=== PATIENT | male | born 1935 | race Caucasian/White ===

== ENCOUNTER 2017-09-11 11:40 | Outpatient (CLI) | payer MEDICARE | END 2017-09-11 11:41 | disposition home or self-care (01) | LOC: BICRAD 11:40 | PROVIDERS: ATTEND Internal Medicine Nephrology | DX: M54.5 Low back pain (principal); M47.896 Other spondylosis, lumbar region | CPT/HCPCS: 72100 ==

== ENCOUNTER → 2017-12-06 | Day surgery (SDC) | payer MEDICARE ==
[2017-12-05 15:59] VITALS: BMI 24.5
[2017-12-06 09:13] LABS: #Eosinphils 0.3 thou/uL (0.0-0.7); #Lymphocytes 0.6 thou/uL (1.20-3.40); #Monocytes 0.5 thou/uL (0.11-0.59); #Neutrophils 3.2 thou/uL (1.40-6.50); %Basophils 0.7 % (0.0-1.0); %Eosinophils 5.8 % (0.0-10.0); %Lymphocytes 13.1 % (21.0-51.0); %Monocytes 10.5 % (0.0-10.0); %Neutrophils 69.9 % (42.0-75.0); Hemoglobin 11.2 g/dL (14.0-18.0); Mean Corpuscular Hemoglobin 33.9 pg (27.0-31.0); Mean Corpuscular Volume 99.5 fl (80.0-94.0); Mean Platelet Volume 8.1 fL (7.4-10.4); Platelet Count 127 thou/uL (130-400); RBC Distribution Width 15.9 % (11.5-14.5); Red Blood Cell (RBC) Count 3.32 mill/uL (4.70-6.10); White Blood Cell (WBC) Count 4.6 thou/uL (4.8-10.8)
[2017-12-06 09:22] LABS: INR-International Normal Ratio 1.3; PTT 32.2 SEC (22.9-36.1); Prothrombin Time 16.2 SEC (12.0-14.7)
[2017-12-06 09:33] LABS: Anion Gap 11 mmol/L (10-20); BUN (Urea Nitrogen) 26 mg/dL (8.4-25.7); Calc. Creatinine Clearance 40 mL/min (70-130); Calcium 9.2 mg/dL (7.8-10.44); Carbon Dioxide 28 mmol/L (23-31); Chloride 99 mmol/L (98-107); Estimated GFR-MDRD 35; Glucose 105 mg/dL (83-110); Potassium 4.5 mmol/L (3.5-5.1); Sodium 133 mmol/L (136-145)
== END ==
LOC: CCL 08:30
PROVIDERS: ATTEND Internal Medicine Cardiovascular Disease
DX: I48.4 Atypical atrial flutter (principal); I25.2 Old myocardial infarction; I25.10 Atherosclerotic heart disease of native coronary artery without angina pectoris; Z53.8 Procedure and treatment not carried out for other reasons; Z79.82 Long term (current) use of aspirin; Z79.01 Long term (current) use of anticoagulants; Z79.899 Other long term (current) drug therapy; Z91.018 Allergy to other foods; Z95.1 Presence of aortocoronary bypass graft
CPT/HCPCS: 36415; 80048; 85025; 85610; 85730; 93005; 93010

== ENCOUNTER → 2017-12-25 | Day surgery (SDC) | payer MEDICARE ==
[2017-12-24 18:10] VITALS: BMI 25.0
[~2017-12-25] MED LIST: Lidocaine 1% w/Epinephrine 1:200K 30 ML VIAL ONE
--- NOTE | 2017-12-25 13:26 | OP ---
DATE OF PROCEDURE: 12/25/2017 PROCEDURE: Loop recorder implantation. SURGEON: Dr. Addi Bolton REASON FOR PROCEDURE: Mr. Willis is an 82-year-old man with history of atrial arrhythmias. He h as recently converted to sinus rhythm spontaneously, but was on antiarrhythmic therapy. He is here f or a loop recorder implantation for further arrhythmia monitoring. PROCEDURE: The left precordial area was prepped and anesthetized with subcutaneous lidocaine with Axiata insertion tool kit. A link recorder was inserted in the left 4th intercostal space. The wound was closed with Dermabond. No complications noted. CONCLUSION: Successful loop recorder implantation. PLAN: Continue routine monitoring.
== END ==
LOC: CCL 11:25
PROVIDERS: ATTEND Internal Medicine Cardiovascular Disease
PROC: 0JH632Z Insertion of Monitoring Device into Chest Subcutaneous Tissue and Fascia, Percutaneous Approach (ICD-10-PCS; principal; 2017-12-25)
DX: I48.0 Paroxysmal atrial fibrillation (principal); I25.10 Atherosclerotic heart disease of native coronary artery without angina pectoris; I25.2 Old myocardial infarction; D64.9 Anemia, unspecified; Z91.018 Allergy to other foods; Z79.01 Long term (current) use of anticoagulants; Z79.899 Other long term (current) drug therapy; Z95.1 Presence of aortocoronary bypass graft; Z98.890 Other specified postprocedural states
CPT/HCPCS: 33282; C1764

== ENCOUNTER 2017-12-27 17:21 | Emergency (ER) | payer MEDICARE ==
[2017-12-27 18:29] LABS: #Eosinphils 0.2 thou/uL (0.0-0.7); #Lymphocytes 0.8 thou/uL (1.20-3.40); #Monocytes 0.5 thou/uL (0.11-0.59); #Neutrophils 2.6 thou/uL (1.40-6.50); %Basophils 1.1 % (0.0-1.0); %Eosinophils 4.1 % (0.0-10.0); %Lymphocytes 18.4 % (21.0-51.0); %Monocytes 13.1 % (0.0-10.0); %Neutrophils 63.4 % (42.0-75.0); Hemoglobin 11.3 g/dL (14.0-18.0); Mean Corpuscular HGB CONC 33.5 g/dL (32.0-36.0); Mean Corpuscular Hemoglobin 33.6 pg (27.0-31.0); Mean Platelet Volume 8.8 fL (7.4-10.4); Platelet Count 117 thou/uL (130-400); RBC Distribution Width 15.9 % (11.5-14.5); Red Blood Cell (RBC) Count 3.35 mill/uL (4.70-6.10); White Blood Cell (WBC) Count 4.1 thou/uL (4.8-10.8)
--- NOTE | 2017-12-27 18:36 | RAD ---
CHEST ONE VIEW 12/27/17 HISTORY: Dizziness and weakness times several days. FINDINGS: There is sternotomy wires. Normal cardiac silhouette. Pulmonary vessels are normal. Increased interst itial opacities throughout the lung parenchyma are presumed to be chronic. No consolidation or masses . Old right rib fractures. No pneumothorax. IMPRESSION: Chronic changes. No acute process. POS: [facility]
[2017-12-27 18:55] LABS: ALT (SGPT) 9 U/L (8-55); AST (SGOT) 16 U/L (5-34); Albumin 3.8 g/dL (3.4-4.8); Alkaline Phosphatase 61 U/L (40-150); Anion Gap 12 mmol/L (10-20); BUN (Urea Nitrogen) 28 mg/dL (8.4-25.7); Bilirubin, Total 0.5 mg/dL (0.2-1.2); Calc. Creatinine Clearance 0 mL/min (70-130); Carbon Dioxide 27 mmol/L (23-31); Chloride 102 mmol/L (98-107); Estimated GFR-MDRD 32; Globulin 2.5 g/dL (2.4-3.5); Glucose 105 mg/dL (83-110); Potassium 4.4 mmol/L (3.5-5.1); Protein, Total 6.3 g/dL (5.8-8.1); Sodium 137 mmol/L (136-145)
[2017-12-27 18:57] LABS: CKMB 1.6 ng/mL (0-6.6); Troponin I 0.027 ng/mL (< 0.028)
== END 2017-12-27 20:20 | disposition home or self-care (01) ==
LOC: ERS 17:21
DX: R53.81 Other malaise (principal); I48.91 Unspecified atrial fibrillation; Z87.891 Personal history of nicotine dependence; I25.10 Atherosclerotic heart disease of native coronary artery without angina pectoris
CPT/HCPCS: 36415; 71045; 80053; 82553; 83880; 84484; 85025; 93005

== ENCOUNTER 2018-04-23 23:28 | Observation (INO) | payer MEDICARE ==
[2018-04-24 00:03] LABS: Hemoglobin 10.6 g/dL (14.0-18.0); Mean Corpuscular HGB CONC 35.3 g/dL (32.0-36.0); Mean Corpuscular Hemoglobin 35.5 pg (27.0-31.0); RBC Distribution Width 14.9 % (11.5-14.5); Red Blood Cell (RBC) Count 2.97 mill/uL (4.70-6.10); White Blood Cell (WBC) Count 4.2 thou/uL (4.8-10.8)
[2018-04-24 00:19] LABS: ALT (SGPT) 9 U/L (8-55); AST (SGOT) 14 U/L (5-34); Albumin 3.7 g/dL (3.4-4.8); Alkaline Phosphatase 59 U/L (40-150); Anion Gap 11 mmol/L (10-20); BUN (Urea Nitrogen) 36 mg/dL (8.4-25.7); Bilirubin, Total 0.6 mg/dL (0.2-1.2); CK (CPK) 53 U/L (30-200); Calc. Creatinine Clearance 0 mL/min (70-130); Calcium 8.9 mg/dL (7.8-10.44); Carbon Dioxide 28 mmol/L (23-31); Chloride 99 mmol/L (98-107); Estimated GFR-MDRD 27; Globulin 2.6 g/dL (2.4-3.5); Glucose 98 mg/dL (83-110); Lipase 10 U/L (8-78); Potassium 4.9 mmol/L (3.5-5.1); Protein, Total 6.3 g/dL (5.8-8.1); Sodium 133 mmol/L (136-145)
[2018-04-24 00:23] LABS: CKMB 1.7 ng/mL (0-6.6); Troponin I 0.022 ng/mL (< 0.028)
[2018-04-24 00:37] LABS: #Eosinphils 0.1 thou/uL (0.0-0.7); #Lymphocytes 0.9 thou/uL (1.20-3.40); #Monocytes 0.6 thou/uL (0.11-0.59); #Neutrophils 2.6 thou/uL (1.40-6.50); %Basophils 1.1 % (0.0-1.0); %Eosinophils 3.5 % (0.0-10.0); %Lymphocytes 20.9 % (21.0-51.0); %Monocytes 13.3 % (0.0-10.0); %Neutrophils 61.2 % (42.0-75.0); Mean Platelet Volume 9.2 fL (7.4-10.4); PLT Morphology Comment Appears Decreased; Platelet Count 107 thou/uL (130-400)
[2018-04-24 03:24] VITALS: BMI 25.4
[2018-04-24] MEDS ORDERED: Ondansetron HCl/PF 4 MG/2 ML Vial IVP PRN (03:35)
[2018-04-24] MEDS ORDERED: Ondansetron ODT 4 MG TAB SL PRN (03:35)
[2018-04-24] MEDS ORDERED: Acetaminophen 325 MG TAB PO PRN (03:35)
[2018-04-24 03:40] LABS: Troponin I 0.027 ng/mL (< 0.028)
--- NOTE | 2018-04-24 06:59 | RAD ---
CHEST ONE VIEW: HISTORY: Chest pain. COMPARISON: Chest radiograph from 12/27/2017. FINDINGS: Numerous old right-sided rib fractures. Heart size is enlarged. Mild edema. Mild pulmonary vascula r congestion. Scarring in the lung bases. Multiple midline sternotomy wires. Loop recording device projecting over the left hemithorax. IMPRESSION: 1. Cardiomegaly. 2. Pulmonary arterial hypertension. 3. Mild edema. POS: [facility]
[2018-04-24 08:19] VITALS: BP 141/65; TEMP 98.4
--- NOTE | 2018-04-24 14:10 | SS ---
DATE OF ADMISSION: 04/24/2018 REASON FOR ADMISSION: Chest pain. HISTORY OF PRESENT ILLNESS: The patient gives a history of having 2 sharp episodes of chest pain, wh ich happened yesterday evening. The first one was less than 5 seconds and pricking in nature. The s econd episode, which soon followed after 10 minutes and lasted for less than 30 seconds. There is no radiation of this pain. He called his daughter who in turn called EMS and the patient was brought h ere. The patient has chronic dry cough, but no expectoration. No complaints of fever, palpitations, PND or orthopnea. He normally ambulates by himself. No complaints of shortness of breath. PAST MEDICAL AND SURGICAL HISTORY: History of atrial fibrillation/flutter, history of congestive hea rt failure with diastolic dysfunction, CABG, prior stents, abdominal surgery due to trauma, chronic k idney disease likely stage IV, chronic anemia. CURRENT MEDICATIONS: The patient is on Coreg 6.25 mg p.o. twice daily, losartan 50 mg daily, pantopr azole 40 mg daily, Lasix 40 mg p.o. daily, aspirin 81 mg daily, Ranexa extended release 1000 mg twice daily, atorvastatin 80 mg daily, Xarelto 15 mg daily. ALLERGIES: No known drug allergies. PERSONAL HISTORY: Quit smoking 20 years ago, prior to which he has smoked 1 pack a day for nearly 20 years. Does not abuse alcohol or drugs. FAMILY HISTORY: Both parents had coronary artery disease. Both are . Mother also had blind ness. He does not recall the exact age of his parents when they . REVIEW OF SYSTEMS: The following complete review of systems was negative, unless otherwise mentioned in the HPI or below: Constitutional: Weight loss or gain, ability to conduct usual activities. Sk in: Rash, itching. Eyes: Double vision, pain. ENT/Mouth: Nose bleeding, neck stiffness, pain, te nderness. Cardiovascular: Palpitations, dyspnea on exertion, orthopnea. Respiratory: Shortness of breath, wheezing, cough, hemoptysis, fever or night sweats. Gastrointestinal: Poor appetite, abdom inal pain, heartburn, nausea, vomiting, constipation, or diarrhea. Genitourinary: Urgency, frequenc y, dysuria, nocturia. Musculoskeletal: Pain, swelling. Neurologic/Psychiatric: Anxiety, depressio n. Allergy/Immunologic: Skin rash, bleeding tendency. PHYSICAL EXAMINATION: GENERAL: The patient is an 82-year-old male who is currently not in any acute distress. VITAL SIGNS: Blood pressure 160/78, pulse 60 per minute, respiratory rate 18 per minute, temperature 98.3 degrees Fahrenheit, saturating 100% on room air. NECK: Supple. No elevated JVD. HEENT: Eyes, extraocular muscles intact. Pupils reacting to light. Oral cavity, mucous membranes a re moist. No exudates or congestion. CARDIOVASCULAR: S1, S2 heard. Regular rhythm. RESPIRATORY: Air entry 1+ bilaterally. No rales or rhonchi. ABDOMEN: Soft. Bowel sounds heard. No tenderness, rigidity or guarding. EXTREMITIES: No peripheral edema or calf tenderness. Has ecchymosis on both upper extremities on th e forearm and attributes it to him being on aspirin and Xarelto. VASCULAR: Peripheral pulses are 2+ bilateral. No ischemic ulcerations or gangrene. CENTRAL NERVOUS SYSTEM: No gross focal deficits noted. The patient is alert, awake and oriented wel l. The patient has sensorineural deafness. PSYCHIATRIC: The patient's mood is euthymic. No hallucinations or delusions. LABORATORY DATA: Chest x-ray done shows mild cardiomegaly. White count of 4, H and H 10 and 29, arthur telet count 107,000, MCV is 101 with 61% neutrophils. D-dimer is 0.4, BUN 36, creatinine 2.3, serum bicarbonate 28. Troponin x3 is negative. CK-MB 1.7. BNP is 792, albumin is 3.7. 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 This was compared to prior EKG and has remained unchanged. CLINICAL IMPRESSION AND PLAN: The patient will be shortly discharged home. He has had 2 sharp episo mary grace of chest pain and is currently asymptomatic. His 3 sets of troponin are negative. He has a foll owup appointment with Dr. Rodriguez this Sunday and I have discussed his findings with him. Dr. Rodriguez will see him on Sunday along with scheduled echo that is to be done on Sunday as well. I have given complete updates to the patient's daughter at bedside and she agrees with the current plan. He is am bulating in the hallway with no exertional chest pain or shortness of breath. The patient likely candido l need a lower dose of Cozaar with his chronic kidney disease stage 4. Recently, this was increased from 25 to 50 mg per family. He needs to continue all his other medications as before including Core g, Lasix, aspirin, Ranexa, atorvastatin and Xarelto. Please note, this is a same day admit discharge under observation status.
--- NOTE | 2018-04-27 10:53 | EKG ---
Test Reason : CP Blood Pressure : / mmHG Vent. Rate : 063 BPM Atrial Rate : 063 BPM P-R Int : 188 ms QRS Dur : 186 ms QT Int : 528 ms P-R-T Axes : -03 -69 043 degrees QTc Int : 540 ms Normal sinus rhythm Right bundle branch block Left anterior fascicular block Bifascicular block Minimal voltage criteria for LVH, may be normal variant Abnormal ECG Confirmed by SIMON PATE, JAG ([id number]), business editor RICHARD FERNANDEZ ([id number]) on 04/27/2018 10:53:01 AM Referred By: Confirmed By:JAG MONTES MD
== END 2018-04-24 11:14 | disposition home or self-care (01) ==
LOC: ERS 23:28 → 2SW 04-24 00:30
PROVIDERS: ADMIT Internal Medicine; ATTEND Internal Medicine
DX: R07.9 Chest pain, unspecified (principal); I48.91 Unspecified atrial fibrillation; I48.92 Unspecified atrial flutter; I50.30 Unspecified diastolic (congestive) heart failure; N18.4 Chronic kidney disease, stage 4 (severe); D63.1 Anemia in chronic kidney disease; Z87.891 Personal history of nicotine dependence; Z79.82 Long term (current) use of aspirin; Z79.899 Other long term (current) drug therapy; Z91.018 Allergy to other foods; Z95.1 Presence of aortocoronary bypass graft; Z95.5 Presence of coronary angioplasty implant and graft
CPT/HCPCS: 71045; 80053; 82550; 82553; 83690; 83880; 84484 ×3; 85025; 85379; 93005; 97139; 99285; G0378 ×2; 36415

== ENCOUNTER 2018-07-17 17:29 | Outpatient (CLI) | payer MEDICARE ==
[2018-07-17 18:05] LABS: #Basophils 0.1 thou/uL (0.0-0.2); #Eosinphils 0.1 thou/uL (0.0-0.7); #Lymphocytes 0.9 thou/uL (1.20-3.40); #Monocytes 0.6 thou/uL (0.11-0.59); #Neutrophils 2.7 thou/uL (1.40-6.50); %Basophils 1.4 % (0.0-1.0); %Eosinophils 3.4 % (0.0-10.0); %Monocytes 12.9 % (0.0-10.0); %Neutrophils 62.3 % (42.0-75.0); Hemoglobin 10.5 g/dL (14.0-18.0); Mean Corpuscular Hemoglobin 33.5 pg (27.0-31.0); Mean Platelet Volume 9.8 fL (7.4-10.4); Platelet Count 117 thou/uL (130-400); RBC Distribution Width 15.9 % (11.5-14.5); Red Blood Cell (RBC) Count 3.14 mill/uL (4.70-6.10); White Blood Cell (WBC) Count 4.3 thou/uL (4.8-10.8)
[2018-07-17 18:06] LABS: INR-International Normal Ratio 1.6; PTT 35.1 SEC (22.9-36.1); Prothrombin Time 19.4 SEC (12.0-14.7)
[2018-07-17 18:21] LABS: ALT (SGPT) 9 U/L (8-55); AST (SGOT) 16 U/L (5-34); Albumin 4.1 g/dL (3.4-4.8); Alkaline Phosphatase 61 U/L (40-150); Anion Gap 10 mmol/L (10-20); BUN (Urea Nitrogen) 26 mg/dL (8.4-25.7); Bilirubin, Total 0.9 mg/dL (0.2-1.2); Calc. Creatinine Clearance 0 mL/min (70-130); Calcium 9.5 mg/dL (7.8-10.44); Carbon Dioxide 28 mmol/L (23-31); Chloride 101 mmol/L (98-107); Estimated GFR-MDRD 33; Globulin 2.6 g/dL (2.4-3.5); Glucose 96 mg/dL (83-110); Potassium 4.5 mmol/L (3.5-5.1); Protein, Total 6.7 g/dL (5.8-8.1); Sodium 134 mmol/L (136-145)
== END 2018-07-17 17:30 | disposition home or self-care (01) ==
LOC: LABBT 17:29
PROVIDERS: ATTEND Internal Medicine Cardiovascular Disease
DX: Z01.812 Encounter for preprocedural laboratory examination (principal); R94.39 Abnormal result of other cardiovascular function study
CPT/HCPCS: 80053; 85025; 85610; 85730

== ENCOUNTER → 2018-07-24 | Day surgery (SDC) | payer MEDICARE ==
[2018-07-17 17:33] VITALS: BMI 25.1
[2018-07-24 08:13] LABS: INR-International Normal Ratio 1.1; PTT 30.6 SEC (22.9-36.1); Prothrombin Time 14.5 SEC (12.0-14.7)
[2018-07-24 08:25] LABS: Anion Gap 12 mmol/L (10-20); BUN (Urea Nitrogen) 32 mg/dL (8.4-25.7); Calc. Creatinine Clearance 33 mL/min (70-130); Calcium 8.9 mg/dL (7.8-10.44); Carbon Dioxide 26 mmol/L (23-31); Chloride 102 mmol/L (98-107); Cholesterol 128 mg/dl (< 200 Desired); Estimated GFR-MDRD 29; Glucose 96 mg/dL (83-110); HDL Cholesterol 43 mg/dL (>60 Neg Risk); LDL Cholesterol, Calculated 69 mg/dL; Potassium 4.2 mmol/L (3.5-5.1); Sodium 136 mmol/L (136-145); Triglycerides 82 mg/dL (Less than 150)
== END ==
LOC: CCL 07:15
PROVIDERS: ATTEND Internal Medicine Cardiovascular Disease
DX: R94.39 Abnormal result of other cardiovascular function study (principal); I25.10 Atherosclerotic heart disease of native coronary artery without angina pectoris; I25.2 Old myocardial infarction; I48.4 Atypical atrial flutter; I10 Essential (primary) hypertension; I49.5 Sick sinus syndrome; Z53.9 Procedure and treatment not carried out, unspecified reason; Z79.01 Long term (current) use of anticoagulants; Z79.82 Long term (current) use of aspirin; Z79.899 Other long term (current) drug therapy; Z91.018 Allergy to other foods; Z95.1 Presence of aortocoronary bypass graft
CPT/HCPCS: 80048; 80061; 85610; 85730

== ENCOUNTER 2018-08-22 16:00 | Observation (INO) | payer MEDICARE ==
[2018-08-29 17:09] VITALS: BMI 24.6
[2018-08-29] MEDS ORDERED: Communication Order-Pharmacy FS SCH (18:15)
[2018-08-29 18:55] LABS: #Eosinphils 0.1 thou/uL (0.0-0.7); #Lymphocytes 0.7 thou/uL (1.20-3.40); #Monocytes 0.5 thou/uL (0.11-0.59); #Neutrophils 3.3 thou/uL (1.40-6.50); %Basophils 0.6 % (0.0-1.0); %Eosinophils 2.8 % (0.0-10.0); %Lymphocytes 14.6 % (21.0-51.0); %Monocytes 11.2 % (0.0-10.0); %Neutrophils 70.8 % (42.0-75.0); Hemoglobin 9.6 g/dL (14.0-18.0); Mean Corpuscular HGB CONC 34.3 g/dL (32.0-36.0); Mean Corpuscular Hemoglobin 33.9 pg (27.0-31.0); Mean Corpuscular Volume 98.8 fL (78.0-98.0); Mean Platelet Volume 10.3 fL (7.4-10.4); Platelet Count 96 thou/uL (130-400); RBC Distribution Width 15.8 % (11.5-14.5); Red Blood Cell (RBC) Count 2.83 mill/uL (4.70-6.10); White Blood Cell (WBC) Count 4.6 thou/uL (4.8-10.8)
[2018-08-29 19:06] LABS: ALT (SGPT) 11 U/L (8-55); AST (SGOT) 17 U/L (5-34); Albumin 3.8 g/dL (3.4-4.8); Alkaline Phosphatase 62 U/L (40-150); Anion Gap 13 mmol/L (10-20); BUN (Urea Nitrogen) 33 mg/dL (8.4-25.7); Bilirubin, Total 0.7 mg/dL (0.2-1.2); Calc. Creatinine Clearance 32 mL/min (70-130); Carbon Dioxide 27 mmol/L (23-31); Chloride 100 mmol/L (98-107); Estimated GFR-MDRD 28; Globulin 2.7 g/dL (2.4-3.5); Glucose 103 mg/dL (83-110); Potassium 4.2 mmol/L (3.5-5.1); Protein, Total 6.5 g/dL (5.8-8.1); Sodium 136 mmol/L (136-145)
--- NOTE | 2018-08-29 19:12 | HP ---
CHIEF COMPLAINT: Cardiomyopathy. HISTORY OF PRESENT ILLNESS: Mr. Willis is a pleasant 82-year-old white gentleman, who comes to the hospital for prehydration for heart catheterization. His creatinine, however, is about 2.2 to 2.4, so we are planning on admitting him overnight for overnight hydration in hopes to reduce the risk of contrast- induced nephropathy. He has known coronary artery disease with bypass in the x4. He recently had a reduction in his LV function and is requiring evaluation for ischemia. He denies any chest pain, tightness, or pressure. He does get short winded with minimal exertion. PAST MEDICAL HISTORY: 1. Coronary artery disease, status post bypass as above. 2. Complete heart block, status post pacemaker placement. 3. Atrial flutter. 4. Hypertension. 5. Peripheral vascular disease. SURGICAL HISTORY: 1. CABG x4 in . 2. Pacemaker placement as above. FAMILY HISTORY: Mother with diabetes, [place], and stroke. Father with an aneurysm in his brain and cardiac disease. Brothers with coronary artery disease. MEDICATIONS: Outpatient medications were reviewed: 1. Carvedilol 12.5 mg b.i.d. 2. Isordil 5 mg b.i.d. 3. Atorvastatin 80 mg at bedtime. 4. Furosemide 40 mg a day. 5. Ranexa 1000 mg b.i.d. 6. Iron supplements. 7. Pantoprazole 40 mg a day. 8. Aspirin 81 mg a day. 9. Vitamin D3. 10. Xarelto 15 mg a day. ALLERGIES: NO KNOWN DRUG ALLERGIES. SOCIAL HISTORY: No alcohol, tobacco, or drugs. REVIEW OF SYSTEMS: A 12-point review of systems was done and was found to be negative other than stated in the history of present illness. PHYSICAL EXAMINATION: VITAL SIGNS: Temperature 97.7, pulse 68, respiratory rate 20, saturating 97% on room air, blood pressure 139/74. GENERAL: Awake, alert, and oriented x3, in no distress. HEENT: Normocephalic, atraumatic. NECK: Supple. LUNGS: Clear. CARDIOVASCULAR: S1, S2. No S3 or S4. No murmurs. ABDOMEN: Soft. Positive bowel sounds. EXTREMITIES: No edema. SKIN: Warm and dry. LABORATORY WORK: Still pending at this time. ASSESSMENT: 1. Dilated cardiomyopathy. 2. Coronary artery disease, status post coronary artery bypass grafting x4 in . 3. Reduced EF at 30% to 35%. 4. Chronic kidney disease stage 4. PLAN: 1. Overnight hydration with plans to do a heart catheterization tomorrow through the right groin approach given his history of bypass surgery. He had his last xarelto on Sunday so he should be good to go tomorrow. 2. Full code. Job ID: [id number] [facility]
[2018-08-29 19:32] LABS: Anisocytosis SLIGHT = 6-15 cells (100X) (0-5/hpf); Elliptocytes SLIGHT = 2-5 cells (100X) (0-1/hpf); MDiff Complete? YES; Ovalocytes SLIGHT = 2-5 cells (100X) (0-1/hpf); PLT Morphology Comment Appears Decreased; Poikilocytosis SLIGHT = 6-15 cells (100X) (0-5/hpf); Polychromasia SLIGHT = 2-3 cells (100X) (0-2/hpf); Schistocytes SLIGHT = 2-5 cells (100X) (0-1/hpf)
[2018-08-29] MEDS ORDERED: Atorvastatin Calcium 40 MG TAB PO SCH (21:00)
[2018-08-29] MEDS: Isosorbide Dinitrate 5 MG TAB PO SCH (21:44)
[2018-08-29] MEDS ORDERED: Sodium Chloride 0.9% 1,000 ML IV SCH (22:00)
[2018-08-29] MEDS ORDERED: Carvedilol 6.25 MG TAB PO SCH (22:00)
[2018-08-30 04:51] LABS: #Eosinphils 0.1 thou/uL (0.0-0.7); #Lymphocytes 0.9 thou/uL (1.20-3.40); #Monocytes 0.5 thou/uL (0.11-0.59); #Neutrophils 2.9 thou/uL (1.40-6.50); %Basophils 0.8 % (0.0-1.0); %Eosinophils 2.8 % (0.0-10.0); %Lymphocytes 19.2 % (21.0-51.0); %Monocytes 11.7 % (0.0-10.0); %Neutrophils 65.5 % (42.0-75.0); Hemoglobin 8.7 g/dL (14.0-18.0); Mean Corpuscular HGB CONC 34.5 g/dL (32.0-36.0); Mean Corpuscular Hemoglobin 34.2 pg (27.0-31.0); Mean Corpuscular Volume 99.2 fL (78.0-98.0); Mean Platelet Volume 10.7 fL (7.4-10.4); Platelet Count 73 thou/uL (130-400); RBC Distribution Width 15.7 % (11.5-14.5); Red Blood Cell (RBC) Count 2.55 mill/uL (4.70-6.10); White Blood Cell (WBC) Count 4.5 thou/uL (4.8-10.8)
[2018-08-30 05:12] LABS: Anion Gap 8 mmol/L (10-20); BUN (Urea Nitrogen) 33 mg/dL (8.4-25.7); Calc. Creatinine Clearance 34 mL/min (70-130); Calcium 8.4 mg/dL (7.8-10.44); Carbon Dioxide 30 mmol/L (23-31); Chloride 100 mmol/L (98-107); Estimated GFR-MDRD 30; Glucose 94 mg/dL (83-110); Sodium 134 mmol/L (136-145)
[2018-08-30] MEDS: Carvedilol 6.25 MG TAB PO SCH ×2 (05:52→17:22)
[2018-08-30] MEDS: Isosorbide Dinitrate 5 MG TAB PO SCH (05:53)
[2018-08-30] MEDS ORDERED: Fentanyl 100 MCG/2 ML VIAL ONE (09:30)
[2018-08-30] MEDS ORDERED: Midazolam HCl 2 mg/2 ml Vial ONE (09:31)
[2018-08-30] MEDS ORDERED: Nitroglycerin 0.4 MG TAB (25 Tab Bottle) SL PRN (10:35)
[2018-08-30] MEDS ORDERED: Acetaminophen/Codeine 30-300mg Tablet PO PRN (10:35)
[2018-08-30] MEDS ORDERED: traMADol HCl 50 MG TAB PO PRN (10:35)
[2018-08-30] MEDS ORDERED: Sodium Chloride 0.9% 200 ML IV SCH (10:45)
[2018-08-30] MEDS ORDERED: Iopamidol 370 76% 100 ML VIAL ONE (12:46)
[2018-08-30 15:32] VITALS: BP 152/73; TEMP 97.4
== END 2018-08-30 17:14 | disposition home or self-care (01) ==
LOC: 2SW 08-29 16:09 → EDSTATUS 08-30 16:00
PROVIDERS: ADMIT Internal Medicine Cardiovascular Disease; ATTEND Internal Medicine Cardiovascular Disease
PROC: 4A023N7 Measurement of Cardiac Sampling and Pressure, Left Heart, Percutaneous Approach (ICD-10-PCS; principal; 2018-08-30)
PROC: B2121ZZ Fluoroscopy of Single Coronary Artery Bypass Graft using Low Osmolar Contrast (ICD-10-PCS; 2018-08-30)
DX: I25.810 Atherosclerosis of coronary artery bypass graft(s) without angina pectoris (principal); I25.82 Chronic total occlusion of coronary artery; I44.2 Atrioventricular block, complete; I42.0 Dilated cardiomyopathy; I73.9 Peripheral vascular disease, unspecified; I48.92 Unspecified atrial flutter; I12.9 Hypertensive chronic kidney disease with stage 1 through stage 4 chronic kidney disease, or unspecified chronic kidney disease; N18.4 Chronic kidney disease, stage 4 (severe); Z95.1 Presence of aortocoronary bypass graft; Z95.0 Presence of cardiac pacemaker; Z91.018 Allergy to other foods; Z79.82 Long term (current) use of aspirin; Z79.01 Long term (current) use of anticoagulants; Z79.899 Other long term (current) drug therapy
CPT/HCPCS: 80048; 80053; 85025 ×2; 93455; 96360; 96361 ×2; C1769; G0378; 36415; 99152; 99153; J1644; J2250; J3010

== ENCOUNTER 2018-09-10 22:59 | Inpatient (IN) | payer MEDICARE ==
[2018-09-10] MEDS ORDERED: Lorazepam 2 MG/ML VIAL ONE ×2 (23:12→23:42)
--- NOTE | 2018-09-10 23:22 | RAD ---
PORTABLE CHEST: 09/10/18 PROVIDED CLINICAL HISTORY: Chest pain. FINDINGS: Comparison 04/23/18. The cardiac silhouette appears enlarged. Median sternotomy changes, atherosclerosis and left subclavi an cardiac pacing device are noted. Leads overlie expected location of RA and RV. Multiple right side d rib fractures are redemonstrated. There is no focal consolidation, pleural fluid or pneumothorax ap parent. IMPRESSION: Cardiomegaly without evidence of acute cardiopulmonary process. POS: [facility]
[2018-09-10 23:23] LABS: INR-International Normal Ratio 3.9; Prothrombin Time 38.4 SEC (12.0-14.7)
[2018-09-10 23:29] LABS: ALT (SGPT) 10 U/L (8-55); AST (SGOT) 18 U/L (5-34); Albumin 3.5 g/dL (3.4-4.8); Alkaline Phosphatase 61 U/L (40-150); Anion Gap 11 mmol/L (10-20); BUN (Urea Nitrogen) 43 mg/dL (8.4-25.7); Bilirubin, Total 0.6 mg/dL (0.2-1.2); Calc. Creatinine Clearance 0 mL/min (70-130); Calcium 8.4 mg/dL (7.8-10.44); Carbon Dioxide 25 mmol/L (23-31); Chloride 99 mmol/L (98-107); Estimated GFR-MDRD 26; Globulin 2.6 g/dL (2.4-3.5); Glucose 118 mg/dL (83-110); Potassium 4.7 mmol/L (3.5-5.1); Protein, Total 6.1 g/dL (5.8-8.1); Sodium 130 mmol/L (136-145)
[2018-09-10] MEDS ORDERED: levETIRAcetam In NaCl (Iso-Os) 1,000 MG in Premix Bag 1 BAG IVPB SCH (23:30)
[2018-09-10 23:33] LABS: #Eosinphils 0.1 thou/uL (0.0-0.7); #Lymphocytes 0.8 thou/uL (1.20-3.40); #Monocytes 0.5 thou/uL (0.11-0.59); #Neutrophils 2.9 thou/uL (1.40-6.50); %Basophils 0.9 % (0.0-1.0); %Eosinophils 3.3 % (0.0-10.0); %Lymphocytes 18.8 % (21.0-51.0); %Monocytes 12.1 % (0.0-10.0); %Neutrophils 64.9 % (42.0-75.0); Anisocytosis SLIGHT = 6-15 cells (100X) (0-5/hpf); CKMB 1.5 ng/mL (0-6.6); Elliptocytes SLIGHT = 2-5 cells (100X) (0-1/hpf); Hemoglobin 8.3 g/dL (14.0-18.0); MDiff Complete? YES; Mean Corpuscular HGB CONC 34.5 g/dL (32.0-36.0); Mean Corpuscular Hemoglobin 34.2 pg (27.0-31.0); Mean Corpuscular Volume 99.1 fL (78.0-98.0); Mean Platelet Volume 10.1 fL (7.4-10.4); Platelet Count 99 thou/uL (130-400); Platelet Morphology Comment Appears Decreased; RBC Distribution Width 16.3 % (11.5-14.5); Red Blood Cell (RBC) Count 2.42 mill/uL (4.70-6.10); Troponin I 0.021 ng/mL (< 0.028); White Blood Cell (WBC) Count 4.4 thou/uL (4.8-10.8)
[2018-09-10 23:58] LABS: Bilirubin Negative (Negative); Blood, Urine Negative (Negative); Clarity CLEAR (Clear); Glucose, Urine (Dipstick) Negative (Negative); Leukocyte Negative (Negative); Nitrite Negative (Negative); Protein, Urine (Dipstick) 30 mg/dL (Neg-Trace); Specific Gravity, Urine 1.012 (1.002-1.036); pH, Urine 5.5 (5.0-9.0)
[2018-09-11 00:01] LABS: Bacteria/HPF None Seen HPF (None Seen); Hyaline Casts/LPF 0-3 HYALINE CAST LPF (0-3 Hyaline); RBC/HPF None Seen HPF (0-3); Squamous Epithelial None Seen HPF (0-3); WBC/HPF None Seen HPF (0-3)
--- NOTE | 2018-09-11 00:05 | CT ---
CT BRAIN 09/10/18 PROVIDED CLINICAL HISTORY: Altered mental status. FINDINGS: No comparisons. The ventricular system is prominent on the basis of central atrophy. There is no evidence for intracr anial hemorrhage or mass effect. Chronic microvascular white matter ischemic changes are seen. The ex tracranial soft tissues and osseous structures demonstrate an unremarkable CT appearance. IMPRESSION: No evidence for intracranial hemorrhage or mass effect. POS: [facility]
[2018-09-11 00:44] LABS: Acetaminophen Less than 6.0 mcg/mL (10.0-30.0); Alcohol Less than 10 mg/dL (Less than 10); Salicylate Less than 8.0 mg/dL (15.0-30.0)
[2018-09-11 00:45] LABS: Amphetamine Not Detected (NotDetected); Barbiturates Screen Not Detected (NotDetected); Benzodiazepine Screen Not Detected (NotDetected); Cocaine Metabolite Screen Not Detected (NotDetected); Medtox Control Line Valid? VALID (VALID); Medtox Reader # READER 4; Methadone Not Detected (NotDetected); Methamphetamine Not Detected (NotDetected); Opiate Screen Not Detected (NotDetected); Oxycodone Screen Not Detected (NotDetected); Phencyclidine (PCP) Not Detected (NotDetected); THC/Cannabinoid Screen Not Detected (NotDetected); Tricyclic Screen Not Detected (NotDetected)
[2018-09-11] MEDS ORDERED: hydrALAZINE 20 MG/ML VIAL SLOW IVP PRN (03:46)
[2018-09-11] MEDS ORDERED: Senokot S 8.6-50 MG TAB PO PRN (03:46)
[2018-09-11] MEDS ORDERED: Bisacodyl 5 MG TAB PO PRN (03:46)
[2018-09-11] MEDS ORDERED: Calcium Carbonate 500 MG ChewTAB PO PRN (03:46)
[2018-09-11] MEDS ORDERED: Zolpidem Tartrate 5 MG TAB PO PRN (03:46)
[2018-09-11] MEDS ORDERED: Acetaminophen 325 MG TAB PO PRN (03:46)
[2018-09-11] MEDS ORDERED: Guaifenesin DM 100-10/5 ML UDCUP PO PRN (03:46)
[2018-09-11] MEDS ORDERED: Ondansetron ODT 4 MG TAB PO PRN (03:46)
[2018-09-11] MEDS ORDERED: Labetalol HCl 100 MG/20 ML VIAL SLOW IVP PRN (03:46)
[2018-09-11] MEDS ORDERED: Acetaminophen 650 MG Suppository PR PRN (03:46)
[2018-09-11] MEDS ORDERED: Ondansetron PF 4 MG/2 ML Vial IVP PRN (03:46)
[2018-09-11] MEDS ORDERED: Aspirin 81 mg Enteric Coated Tablet PO SCH (04:15)
[2018-09-11] MEDS: Sodium Chloride 0.9% 1,000 ML IV SCH ×2 (04:25→18:22)
[2018-09-11] MEDS ORDERED: Aspirin 300 MG Suppository ONE (05:26)
[2018-09-11] MEDS ORDERED: Lorazepam 2 MG/ML VIAL SLOW IVP PRN (07:42)
--- NOTE | 2018-09-11 08:26 | HP ---
CHIEF COMPLAINT: Seizures and generalized weakness. HISTORY OF PRESENT ILLNESS: This is an 82-year-old white gentleman with past medical history of coronary artery disease, status post bypass; complete heart block, status post pacemaker; atrial flutter; hypertension; peripheral vascular disease, presenting with generalized weakness and shaking. Per the daughter, patient was here in the hospital 2 weeks ago, and the patient was diagnosed with dilated cardiomyopathy. The patient's ejection fraction during that time was found to be reduced at 30% to 35%. The patient was treated during that time, and the patient improved. However, per the daughter the patient has now become very altered, very lethargic. In the past couple of days, she has noted that when the patient is sitting by the dinner table, the patient has this shaking. Prior to this hospital visit that daughter states that the patient called her and stated that he was having bilateral leg weakness and some chest discomfort. On the day of admission, the patient was found very altered, confused, and the patient started shaking and seizing. Daughter states that she was the witness to the patient's seizing. She was very scared because the patient became unresponsive , so she had to call 911, so that the patient can be brought to a hospital for further evaluation and treatment. At this time, the patient is lying in bed. The patient is still confused. REVIEW OF SYSTEMS: Unable to be obtained due to the patient's mental status. PAST MEDICAL HISTORY: Coronary artery disease, status post bypass; complete heart block, status post pacemaker placement; atrial flutter; hypertension; peripheral vascular disease. FAMILY HISTORY: Mother has diabetes, [place], and stroke. Father with aneurysm in his brain and cardiac disease. PAST SURGICAL HISTORY: CABG x4 in . Pacemaker placement. SOCIAL HISTORY: The patient denies illicit drug use. Denies drinking history or smoking. MEDICATIONS: The patient takes carvedilol 12.5 mg b.i.d., isosorbide mononitrate 5 mg b.i.d., atorvastatin 80 mg, furosemide 40 mg, Ranexa 1000 mg, iron supplements, pantoprazole 40 mg, aspirin 81 mg, vitamin D3, Xarelto. ALLERGIES: NO KNOWN DRUG ALLERGIES. PHYSICAL EXAMINATION: GENERAL: The patient is lying in bed on his right side. The patient is confused. Daughter is by the bedside. HEENT: Normocephalic and atraumatic. Pupils are equally round and reactive to light. Extraocular movements are intact. No scleral icterus. No conjunctival pallor. Mucous membranes are dry. NECK: Trachea is midline. Full range of motion. No JVD appreciated. Supple. No tenderness. LUNGS: Clear to auscultation bilaterally. No wheezing, no rales, no rhonchi appreciated. CARDIAC: Positive S1 and S2. Regular rate and rhythm. No murmurs, no gallops that can be appreciated. ABDOMEN: Obese. Abdomen is soft, nontender, and nondistended. Positive bowel sounds in all quadrants. EXTREMITIES: The patient has good pulses at the radial aspect and good pulses at the dorsalis pedis bilaterally. The patient is able to move upper and lower extremities spontaneously, but the patient is not following commands. NEUROLOGIC: Cranial nerves 2 through 12 grossly intact. No neurologic deficits noted. SKIN: Warm, dry, and intact. PSYCHIATRIC: The patient is confused at this time. DIAGNOSTIC DATA: CT of the head showed no evidence for intracranial hemorrhage or mass effect. Chest x-ray showed cardiomegaly without evidence of acute cardiopulmonary process. LABORATORY DATA: WBC is 4.4, hemoglobin is 8.3, hematocrit is 24.0, MCV is 99.1 , platelet is 99. PT is 38.4, INR is 3.9, PTT is 45.0. Sodium is 130, potassium is 4.7, chloride is 99, carbon dioxide of 25, anion gap of 11, BUN is 43, creatinine is 2.41, glucose is 118. Lactic acid is 1.4. Toxicology is negative. ASSESSMENT AND PLAN: This is an 82-year-old male being admitted in the hospital for, 1. Acute encephalopathy, likely due to a postictal state from seizures. At this time, the patient is going to be put on Ativan p.r.n. and we will start Keppra 500 b.i.d. since the patient experienced seizures. We will continue the patient on the current treatment. We will follow up with Neurology regarding any further recommendations. 2. Alteration of awareness, likely due to ongoing decline of mentation. At this point, the patient is seemed to be having some dementia at this time. We will monitor the patient and assess the patient's mental status during the hospital stay. 3. Chronic kidney disease stage IV. At this time, we will consult Nephrology for further treatment. We will follow up with the recommendations. We will follow up on renal function panel. 4. Generalized weakness. We will rule out CVA. At this time, we have ordered MRI of the head. CT of the head has been negative. We will follow up with Neurology regarding further recommendation. We will start the patient on aspirin, atorvastatin. We will follow up on morning labs. We will order PT, OT and Case Management consultations. 5. Dilated cardiomyopathy with ejection fraction at 30%. We will continue the patient on home medications, and we will monitor the patient closely. 6. Coronary artery disease, status post coronary artery bypass graft. At this point, the patient denies any chest pain. We will continue the patient on home medications, and we will monitor the patient closely. 7. Deep vein thrombosis/gastrointestinal prophylaxis has been addressed. Job ID: [id number] [facility]
[2018-09-11] MEDS: Isosorbide Dinitrate 5 MG TAB PO SCH ×2 (09:00→20:52)
[2018-09-11] MEDS ORDERED: Carvedilol 25 MG TAB PO SCH (09:00)
[2018-09-11] MEDS ORDERED: Non-Formulary Item 1 EACH (Ranolazine [Ranexa] 1,000 MG) PO SCH (09:00)
[2018-09-11 10:05] LABS: INR-International Normal Ratio 2.5; Prothrombin Time 27.4 SEC (12.0-14.7)
--- NOTE | 2018-09-11 10:22 | PDOC.PN ---
- Subjective Encounter Start Date: 09/11/18 Encounter Start Time: 10:20 Mr. Willis was seen today in follow-up of possible new onset seizures. His daughter witnessed the event and describes a sudden tonic like state, followed by his hand shaking, and him lossing awareness. Afterwards, he was sleepy, confused and a bit agitated. - Objective Resuscitation Status - Order Detail: 09/11/18 03:46 Resuscitation Status Routine Resuscitation Status: FULL: Full Resuscitation MAR Reviewed: Yes Result Diagrams: 09/10/18 23:06 09/10/18 23:06 Phys Exam - Physical Examination HEENT: PERRLA Respiratory: no wheezing, no rales, no rhonchi, clear to auscultation bilateral Cardiovascular: RRR, no significant murmur, no rub Musculoskeletal: no edema Dx/Plan (1) New onset seizure Code(s): R56.9 - UNSPECIFIED CONVULSIONS Status: Acute (2) Hyponatremia Code(s): E87.1 - HYPO-OSMOLALITY AND HYPONATREMIA Status: Acute (3) Atrial flutter Code(s): I48.92 - UNSPECIFIED ATRIAL FLUTTER Status: Acute (4) Hypertension Code(s): I10 - ESSENTIAL (PRIMARY) HYPERTENSION Status: Acute - Plan * New Onset Seizures- continue Keppra IV. EEG and MRI have been ordered( CT scan if his pacemaker is not compatible) * Atrial Flutter- stable- he is on Xarelto for CVA prevention * HTN- blood pressure is a bit elevated- continue Carvediolol, and PRN Hydralazine and Labetalol * Hyponatremia- will re-check his serum sodium- correct if needed
[2018-09-11 10:59] LABS: Anion Gap 13 mmol/L (10-20); BUN (Urea Nitrogen) 40 mg/dL (8.4-25.7); Calc. Creatinine Clearance 0 mL/min (70-130); Calcium 8.1 mg/dL (7.8-10.44); Carbon Dioxide 22 mmol/L (23-31); Chloride 102 mmol/L (98-107); Estimated GFR-MDRD 28; Glucose 105 mg/dL (83-110); Potassium 4.4 mmol/L (3.5-5.1); Sodium 133 mmol/L (136-145)
[2018-09-11] MEDS ORDERED: Lorazepam 2 MG/ML VIAL ONE (14:52)
--- NOTE | 2018-09-11 15:14 | EEG ---
Referring Physician: Liz GOLDSTEIN EEG # [id number] TEST TYPE: ROUTINE PORTABLE INPATIENT REPORT: AN EEG USING THE INTERNATIONAL TEN-TWENTY SYSTEM OF ELECTRODE PLACEMENT WAS PERFORMED. The waking background activity is a low amplitude 9 hertz Alpha frequency. EMG artifact obscures portions of the record. No sleep was seen. Photic stimulation was unremarkable. No epileptiform features were present. IMPRESSION: THIS IS A NORMAL AWAKE EEG. Merchandise Flow Team Leader: MACI Saw Man: PANFILO.SO CARRASCO
[2018-09-11 17:40] VITALS: BMI 23.8
[2018-09-11] MEDS: Aspirin 81 mg Enteric Coated Tablet PO SCH (18:23)
[2018-09-11] MEDS: Famotidine 20 MG TAB PO SCH (18:50)
[2018-09-11] MEDS: Famotidine/PF 20 mg/2ml Vial SLOW IVP SCH (18:50)
[2018-09-11] MEDS: Carvedilol 25 MG TAB PO SCH (20:55)
[2018-09-11] MEDS: Atorvastatin Calcium 40 MG TAB PO SCH (20:56)
[2018-09-11] MEDS ORDERED: Prevnar 13-Val Conj/PF 0.5 ML SYRINGE IM ONE (21:00)
[2018-09-11] MEDS ORDERED: Rivaroxaban 15 MG TAB PO SCH (21:00)
--- NOTE | 2018-09-11 23:14 | PDOC.EVN ---
Event Note - Event Note Event Note: JEROME Blancas called and stated patient had an episode of gross hematuria, and now oozing slightly. No obvious injury. Will stop Xarelto for now, order serial H&H and informed Dr. Sorensen of event. Agrees with plan.
[2018-09-11 23:16] LABS: Hemoglobin 8.4 g/dL (14.0-18.0)
[2018-09-12] MEDS: Sodium Chloride 0.9% 1,000 ML IV SCH (01:39)
[2018-09-12 05:37] LABS: Hemoglobin 8.2 g/dL (14.0-18.0)
[2018-09-12 05:45] LABS: Prothrombin Time 31.4 SEC (12.0-14.7)
[2018-09-12 05:50] LABS: #Eosinphils 0.1 thou/uL (0.0-0.7); #Lymphocytes 0.7 thou/uL (1.20-3.40); #Monocytes 0.5 thou/uL (0.11-0.59); #Neutrophils 3.1 thou/uL (1.40-6.50); %Basophils 0.8 % (0.0-1.0); %Eosinophils 2.9 % (0.0-10.0); %Lymphocytes 15.9 % (21.0-51.0); %Monocytes 11.7 % (0.0-10.0); %Neutrophils 68.7 % (42.0-75.0); Hemoglobin 8.1 g/dL (14.0-18.0); Mean Corpuscular HGB CONC 33.9 g/dL (32.0-36.0); Mean Platelet Volume 10.6 fL (7.4-10.4); Platelet Count 87 thou/uL (130-400); RBC Distribution Width 16.1 % (11.5-14.5); Red Blood Cell (RBC) Count 2.39 mill/uL (4.70-6.10); White Blood Cell (WBC) Count 4.5 thou/uL (4.8-10.8)
[2018-09-12 06:40] LABS: Anion Gap 11 mmol/L (10-20); BUN (Urea Nitrogen) 37 mg/dL (8.4-25.7); Calc. Creatinine Clearance 33 mL/min (70-130); Calcium 8.5 mg/dL (7.8-10.44); Carbon Dioxide 25 mmol/L (23-31); Cardiac Risk 3.4 (Less than 4.5); Chloride 103 mmol/L (98-107); Cholesterol 113 mg/dl (< 200 Desired); Estimated GFR-MDRD 30; Glucose 106 mg/dL (83-110); HDL Cholesterol 33 mg/dL (>60 Neg Risk); LDL Cholesterol, Calculated 57 mg/dL; Potassium 4.2 mmol/L (3.5-5.1); Sodium 135 mmol/L (136-145); Triglycerides 115 mg/dL (Less than 150)
[2018-09-12] MEDS: Carvedilol 25 MG TAB PO SCH ×2 (11:45→21:08)
[2018-09-12] MEDS: Isosorbide Dinitrate 5 MG TAB PO SCH ×2 (11:46→21:09)
[2018-09-12] MEDS: Famotidine 20 MG TAB PO SCH (11:46)
[2018-09-12] MEDS: Famotidine/PF 20 mg/2ml Vial SLOW IVP SCH (11:47)
[2018-09-12] MEDS: Aspirin 81 mg Enteric Coated Tablet PO SCH (11:47)
--- NOTE | 2018-09-12 13:34 | MRI ---
MRI BRAIN WITHOUT CONTRAST: Technique: Multiplanar, multisequence MRI images were obtained through the brain. Indications: TIA, altered mental status. FINDINGS: Prominent cortical atrophy. Moderate chronic ischemic white matter change. No evidence of restricted diffusion. There is no evidence of acute infarct. No evidence of mass or edema. Intracranial internal carotid arteries, proximal cerebral arteries, and basilar arteries show flow vo ids. IMPRESSION: Moderate cortical atrophy and moderate to severe chronic ischemic white matter change. No evidence of acute infarct. POS: [facility]
--- NOTE | 2018-09-12 14:38 | PDOC.PN ---
- Subjective Encounter Start Date: 09/12/18 Encounter Start Time: 14:36 Subjective: asleep most of the morning.was agitated last night -: daughter at bedside & report memory chnages in last months -: RN reported fall w head hitting the bed.noted blood in diaper/urine - Objective Resuscitation Status - Order Detail: 09/11/18 03:46 Resuscitation Status Routine Resuscitation Status: FULL: Full Resuscitation MAR Reviewed: Yes Vital Signs & Weight: Vital Signs (12 hours) Temp Pulse Pulse Pulse Resp BP BP 09/12/18 12:00 96.6 F L 61 18 09/12/18 09:45 84 145/74 H 09/12/18 09:25 60 84 151/68 H 145/74 H 09/12/18 07:54 98 F 61 28 H 09/12/18 04:00 98.6 F 71 19 BP Pulse Ox 09/12/18 12:00 156/70 H 95 09/12/18 09:45 09/12/18 09:25 09/12/18 07:54 142/67 H 92 L 09/12/18 04:00 145/74 H 95 Weight Admit Weight 186 lb 1.6 oz Weight 186 lb 1.6 oz I&O: 09/11/18 09/12/18 09/13/18 06:59 06:59 06:59 Intake Total 1250 Balance 1250 Result Diagrams: 09/12/18 04:56 09/12/18 04:56 Phys Exam - Physical Examination Constitutional: NAD arousable but falls back asleep(seen prior to fall) HEENT: PERRLA, moist MMs, sclera anicteric, oral pharynx no lesions Neck: no nodes, no JVD, supple, full ROM Respiratory: no wheezing, no rales, no rhonchi, clear to auscultation bilateral Cardiovascular: RRR, no significant murmur Gastrointestinal: soft, non-tender, no distention, positive bowel sounds Musculoskeletal: no edema, pulses present Neurological: non-focal, normal sensation, moves all 4 limbs Psychiatric: normal affect, A&O x 3 Skin: no rash Dx/Plan (1) New onset seizure Code(s): R56.9 - UNSPECIFIED CONVULSIONS Status: Acute Comment: on Keppra. Neuro consulted. EEG negative but symptoms suggestive of TC seizure per daughter (2) Hyponatremia Code(s): E87.1 - HYPO-OSMOLALITY AND HYPONATREMIA Status: Acute (3) CAD (coronary artery disease) Code(s): I25.10 - ATHSCL HEART DISEASE OF [place] CORONARY ARTERY W/O ANG PCTRS Status: Chronic (4) Atrial flutter Code(s): I48.92 - UNSPECIFIED ATRIAL FLUTTER Status: Chronic Comment: On chronic anticoagulation (5) Hypertension Code(s): I10 - ESSENTIAL (PRIMARY) HYPERTENSION Status: Chronic (6) Chronic anemia Code(s): D64.9 - ANEMIA, UNSPECIFIED Status: Chronic (7) CKD (chronic kidney disease) Code(s): N18.9 - CHRONIC KIDNEY DISEASE, UNSPECIFIED Status: Chronic - Plan respiratory therapy, incentive spirometry, out of bed/ambulate, DVT proph w/SCDs MRI negative for Stroke.repeat ECHo same as prior -: Stat head Ct for fall -: cont to hold xarelto untill hematuria clears.family updated.INR high -: [facility] cardiology consult as symptoms may be cardiac given severe CAD -: monito rH/H.stable.requires epogen regularily for chr anemia * .Cr stable. monitor * add low dose melatonin for sun downing.likely undiagnosed dementia * am labs Review of Systems - Review of Systems Other: can not be obtained due to somnolence - Medications/Allergies Allergies/Adverse Reactions: Allergies Allergy/AdvReac Type Severity Reaction Status Date / Time pineapple Allergy throat Verified 09/11/18 18:04 swell Medications: Current Medications Acetaminophen (Tylenol) 650 mg PO Q4H PRN PRN Reason: Headache/Fever/Mild Pain (1-3) Acetaminophen (Tylenol) 650 mg PA Q4H PRN PRN Reason: Headache/Fever/Mild Pain (1-3) Aspirin (Ecotrin) 81 mg PO DAILY [facility] Last Admin: 09/12/18 11:47 Dose: 81 mg Atorvastatin Calcium (Lipitor) 80 mg PO HS [facility] Last Admin: 09/11/18 20:56 Dose: Not Given Bisacodyl (Dulcolax) 10 mg PO DAILYPRN PRN PRN Reason: Constipation Calcium Carbonate (Tums) 1,000 mg PO Q4H PRN PRN Reason: Heartburn or Indigestion Carvedilol (Coreg) 12.5 mg PO BID [facility] Last Admin: 09/12/18 11:45 Dose: 12.5 mg Famotidine (Pepcid) 20 mg SLOW IVP DAILY [facility] Last Admin: 09/12/18 11:47 Dose: Not Given Famotidine (Pepcid) 20 mg PO DAILY [facility] Last Admin: 09/12/18 11:46 Dose: 20 mg Guaifenesin/Dextromethorphan (Robitussin Dm) 15 ml PO Q4H PRN PRN Reason: Cough Hydralazine HCl (Apresoline) 10 mg SLOW IVP Q4H PRN PRN Reason: BP > 220/110 Isosorbide Dinitrate (Isordil) 5 mg PO BID [facility] Last Admin: 09/12/18 11:46 Dose: 5 mg Labetalol HCl (Normodyne) 20 mg SLOW IVP Q1H PRN PRN Reason: BP > 220/110 Lorazepam (Ativan) 2 mg SLOW IVP Q15MIN PRN PRN Reason: Seizures Ondansetron HCl (Zofran Odt) 4 mg PO Q6H PRN PRN Reason: Nausea/Vomiting Ondansetron HCl (Zofran) 4 mg IVP Q6H PRN PRN Reason: Nausea/Vomiting Ranolazine (Ranexa) 1,000 mg PO BID [facility] Last Admin: 09/12/18 11:46 Dose: 1,000 mg Senna/Docusate Sodium (Senokot S) 2 tab PO BID PRN PRN Reason: Constipation Sodium Chloride (Flush - Normal Saline) 10 ml IVF Q12HR PRN PRN Reason: Saline Flush Sodium Chloride (Flush - Normal Saline) 10 ml IVF PRN PRN PRN Reason: Saline Flush Sodium Chloride (Flush - Normal Saline) 10 ml IVF PRN PRN PRN Reason: Saline Flush Zolpidem Tartrate (Ambien) 5 mg PO HSPRN PRN PRN Reason: Insomnia
[2018-09-12] MEDS ORDERED: Melatonin 3 MG TAB PO PRN (14:45)
--- NOTE | 2018-09-12 15:48 | CT ---
HEAD CT NONCONTRAST: 09/12/18 CLINICAL INDICATION: Fall with head injury. FINDINGS: There is moderate chronic ischemic disease, mild global atrophy and compensatory dilatation of ventr icular system. No intracranial hemorrhage or mass effect or midline shift. IMPRESSION: 1. No acute intracranial hemorrhage or mass effect. 2. Moderate chronic ischemic disease. POS: [facility]
--- NOTE | 2018-09-12 19:52 | CON ---
DATE OF CONSULTATION: 09/12/2018 CARDIOLOGY CONSULTATION: REASON FOR CONSULTATION: Seizures, possible cardiac in origin. HISTORY OF PRESENT ILLNESS: Mr. Willis is a very pleasant 82-year-old white gentleman who comes to the hospital for a seizure. He was at home with his daughter. He was sitting down on the bed. He told his daughter that he felt his feet were really weak, and he could not move his legs and then suddenly, he just rolled of his eyes, started having jerky movements, seizure-like activity. She called 911. When they arrived, Mr. Willis was not himself. He was confused, and he was very aggravated at the EMS personnel, and he refused to come in. Eventually, they realize he was a little confused, so they put him in the ambulance where he had about two more seizure events. He was brought in. He had another seizure event in the ER. He was admitted for this. He has had an EEG already. MRI of the brain was first unremarkable except chronic ischemic changes. This morning, he was on the commode, and he lost his balance and fell and hit his head on the floor, so a repeat CT was done, which showed no evidence of any bleeding. Cardiology is being consulted as he has a history of ischemic cardiomyopathy, and EF was reduced at about 30%, and this could be cardiac in origin. He also has a pacemaker in place, secondary to sinus pause that was found on the LINQ device that was implanted secondary to history of syncope. He has had normal pacemaker function throughout all this. PAST MEDICAL HISTORY: 1. Coronary artery disease, status post CABG several years ago. 2. Recent heart catheterization showing multivessel disease, and some of the vein grafts were degenerating. 3. History of ischemic cardiomyopathy, last EF in the office at 30% to 35%, with mild aortic valve regurgitation. 4. Peripheral vascular disease. 5. Tachy-maria l syndrome, status post pacemaker placement. 6. Anemia of chronic disease. 7. Hypertension. 8. Typical atrial flutter, status post ablation. OUTPATIENT MEDICATIONS: Include: 1. Ranexa 1000 mg b.i.d. 2. Xarelto 15 mg a day. 3. Carvedilol 12.5 b.i.d. 4. Isordil 5 mg b.i.d. 5. Atorvastatin 80 mg at bedtime. 6. Lasix 40 mg b.i.d. 7. Iron supplements. 8. Pantoprazole 40 mg at bedtime. 9. Aspirin 81 a day. 10. Vitamin D3. ALLERGIES: NO KNOWN DRUG ALLERGIES. SOCIAL HISTORY: No alcohol, tobacco, or drugs. FAMILY HISTORY: Noncontributory. REVIEW OF SYSTEMS: A 12-point review of systems was done and was all negative unless stated in the History of Present Illness. PHYSICAL EXAMINATION: VITAL SIGNS: Temperature 97.6, pulse 60, respiratory rate 18, sat 94% on room air, and blood pressure 153/79. GENERAL: Awake, alert, and oriented x3. No distress. HEENT: Normocephalic, atraumatic. NECK: Supple. LUNGS: Clear. CARDIOVASCULAR: S1, S2. No S3 or S4. There is a grade 3/6 systolic murmur at the right upper sternal border. There is a second holosystolic murmur at the apex. ABDOMEN: Soft. Positive bowel sounds. EXTREMITIES: No edema. SKIN: Warm and dry. LABORATORY DATA: Laboratory work was reviewed. CBC; white count of 4.5, hemoglobin 8.1, hematocrit 24, and platelet count of 87. Coags; INR is 3.0. Chemistry; creatinine of 2.13, BUN of 37; came in at 2.4. UA was unremarkable. Toxicology was undetectable. Microbiology; blood cultures have been negative. ASSESSMENT: 1. Seizures, new onset. 2. History of ischemic dilated cardiomyopathy. 3. Presence of a pacemaker. 4. Sick sinus syndrome, status post pacemaker. PLAN: 1. Need to rule out cardiac causes of seizures. We will have the pacer interrogated to make sure he did not have any VT that would have made his blood pressure drop and him to develop seizures. 2. Otherwise, we would continue current regimen. 3. We will follow. Job ID: [id number]
[2018-09-12] MEDS: Atorvastatin Calcium 40 MG TAB PO SCH (21:08)
[2018-09-12] MEDS: levETIRAcetam 500 MG TAB PO SCH (21:09)
--- NOTE | 2018-09-13 00:28 | CON ---
DATE OF CONSULTATION: 09/12/2018 NEUROLOGY CONSULTATION CONSULTING PHYSICIAN: Hospitalist Service. IMPRESSION: 1. New onset seizures. 2. Extensive small vessel ischemic disease. 3. Hypertension. 4. Congestive heart failure. PLAN: 1. Keppra 500 mg twice a day. 2. Office followup. HISTORY OF PRESENT ILLNESS: Mr. Willis is an 82-year-old gentleman with a past history of heart disease, hypertension, hyperlipidemia, who had a witnessed generalized tonic-clonic seizure, apparently had repetitive episodes while being in the emergency room as well. He was initially treated with multiple doses of Ativan and subsequently loaded with a gram of Keppra. He has been moved to the Neurology unit and has not had any further seizure activity. He continued to be a bit lethargic. His daughter reports that there is no past history of stroke-like events in the past or seizures. MEDICINES: 1. Coreg. 2. Losartan. 3. Furosemide. 4. Aspirin. 5. Ranexa. 6. Atorvastatin. 7. Xarelto. 8. Pantoprazole. ALLERGIES: NONE REPORTED. SOCIAL HISTORY: No alcohol use reported. He smoked in the distant past. FAMILY HISTORY: Noncontributory. REVIEW OF SYSTEMS: HEENT: No complaint of headache or tongue trauma. NECK: No complaint of neck pain. CHEST: No complaint of chest pain or palpitations. ABDOMEN: No complaint of abdominal discomfort. Positive for episodic nausea and vomiting. EXTREMITIES: No complaints of joint pain. NEUROLOGIC: No complaint of lateralized weakness or numbness. PHYSICAL EXAMINATION: VITAL SIGNS: Blood pressure was 148/84, pulse 77, respirations 19, and saturations were 99%. HEENT: Pupils are equal. Conjunctivae clear. Oropharynx clear. Head showed a laceration to the left forehead. It has been bandaged. NECK: Supple. No lymphadenopathy noted in the extremities. Multiple areas of ecchymosis and some degree of swelling. ABDOMEN: Soft and nontender. NEUROLOGIC: He is a bit lethargic, but could awaken him and he would converse. He was not exactly compliant with questioning. His speech was fluent and clear. His face appeared to be symmetric. All cranial nerves seem to be intact. Motor exam showed equal tone bilaterally with equal movement. Plantar responses were downgoing. No tremor or dysmetria is present. No abnormal movements were seen. Gait was not tested at this time. DIAGNOSTIC DATA: EKG shows a paced rhythm. EEG was unremarkable for any epileptiform activity. Echocardiogram showed an ejection fraction of 30% to 35%. MRI of the brain showed extensive small-vessel ischemic changes. SUMMARY: Josefina is an elderly man who is currently on anticoagulants and aspirin, who is at risk for recurrent seizures. The risk of significant head injury and intracerebral hemorrhage were reasonably high. I would go ahead and continue the [facility], and I would be happy to follow up with him as an outpatient. Job ID: [id number]
[2018-09-13 04:46] LABS: #Eosinphils 0.1 thou/uL (0.0-0.7); #Lymphocytes 0.7 thou/uL (1.20-3.40); #Monocytes 0.5 thou/uL (0.11-0.59); #Neutrophils 3.3 thou/uL (1.40-6.50); %Basophils 0.6 % (0.0-1.0); %Eosinophils 2.6 % (0.0-10.0); %Lymphocytes 15.4 % (21.0-51.0); %Monocytes 10.2 % (0.0-10.0); %Neutrophils 71.2 % (42.0-75.0); Hemoglobin 7.6 g/dL (14.0-18.0); Mean Corpuscular HGB CONC 35.4 g/dL (32.0-36.0); Mean Corpuscular Hemoglobin 35.1 pg (27.0-31.0); Mean Corpuscular Volume 99.2 fL (78.0-98.0); Mean Platelet Volume 10.5 fL (7.4-10.4); Platelet Count 82 thou/uL (130-400); RBC Distribution Width 16.1 % (11.5-14.5); Red Blood Cell (RBC) Count 2.16 mill/uL (4.70-6.10); White Blood Cell (WBC) Count 4.6 thou/uL (4.8-10.8)
[2018-09-13 05:03] LABS: Anion Gap 12 mmol/L (10-20); BUN (Urea Nitrogen) 36 mg/dL (8.4-25.7); Calc. Creatinine Clearance 36 mL/min (70-130); Calcium 8.4 mg/dL (7.8-10.44); Carbon Dioxide 25 mmol/L (23-31); Chloride 105 mmol/L (98-107); Estimated GFR-MDRD 33; Glucose 99 mg/dL (83-110); Potassium 4.2 mmol/L (3.5-5.1); Sodium 138 mmol/L (136-145)
[2018-09-13] MEDS: levETIRAcetam 500 MG TAB PO SCH (09:17)
[2018-09-13] MEDS: Aspirin 81 mg Enteric Coated Tablet PO SCH (09:17)
[2018-09-13] MEDS: Famotidine 20 MG TAB PO SCH (09:18)
[2018-09-13] MEDS: Carvedilol 25 MG TAB PO SCH (09:18)
[2018-09-13] MEDS: Isosorbide Dinitrate 5 MG TAB PO SCH (10:15)
[2018-09-13] MEDS: Famotidine/PF 20 mg/2ml Vial SLOW IVP SCH (10:18)
--- NOTE | 2018-09-13 13:30 | PDOC.PN ---
- Subjective Encounter Start Date: 09/13/18 Encounter Start Time: 13:29 Subjective: much better today according to breonna at bedside -: pt does not remember much but feels well today -: slept better last night.Blood in urine less - Objective Resuscitation Status - Order Detail: 09/11/18 03:46 Resuscitation Status Routine Resuscitation Status: FULL: Full Resuscitation MAR Reviewed: Yes Vital Signs & Weight: Vital Signs (12 hours) Temp Pulse Resp BP Pulse Ox 09/13/18 11:37 97.6 F 60 18 122/62 93 L 09/13/18 11:13 92 L 09/13/18 07:44 98.0 F 68 18 128/69 92 L 09/13/18 04:00 98.8 F 70 20 111/54 L 95 Weight Admit Weight 186 lb 1.6 oz Weight 186 lb 1.6 oz I&O: 09/12/18 09/13/18 09/14/18 06:59 06:59 06:59 Intake Total 1250 360 Output Total 0 Balance 1250 360 Result Diagrams: 09/13/18 04:08 09/13/18 04:08 Additional Labs: Microbiology 09/10/18 23:44 Venous blood - Right Arm Blood Culture - Preliminary Specimen has been received and culture in progress. No Growth to date. 09/10/18 23:44 Venous blood - Right Arm Blood Culture - Preliminary NO GROWTH AT 48 HOURS 09/10/18 23:44 Venous blood - Left Hand Blood Culture - Preliminary Specimen has been received and culture in progress. No Growth to date. 09/10/18 23:44 Venous blood - Left Hand Blood Culture - Preliminary NO GROWTH AT 48 HOURS Laboratory Tests 08/30/18 09/10/18 09/10/18 04:27 23:06 23:06 Hgb 8.3 L Sodium 134 L 130 L Creatinine 2.16 H 2.41 H 09/11/18 09/11/18 09/12/18 09:45 22:57 04:56 Hgb 8.4 L Sodium 133 L 135 L Creatinine 2.28 H 2.13 H 09/12/18 09/12/18 09/13/18 04:56 04:56 04:08 Hgb 8.1 L 8.2 L Sodium Creatinine 1.94 H 09/13/18 04:08 Hgb 7.6 L Sodium Creatinine Phys Exam - Physical Examination Constitutional: NAD forgetful for recent events leading to hospitalization HEENT: PERRLA, moist MMs, sclera anicteric, oral pharynx no lesions Neck: no nodes, no JVD, supple, full ROM Respiratory: no wheezing, no rales, no rhonchi, clear to auscultation bilateral Cardiovascular: RRR, no significant murmur Gastrointestinal: soft, non-tender, no distention, positive bowel sounds Musculoskeletal: no edema, pulses present Neurological: non-focal, normal sensation, moves all 4 limbs Psychiatric: normal affect, A&O x 3 Skin: no rash Dx/Plan (1) New onset seizure Code(s): R56.9 - UNSPECIFIED CONVULSIONS Status: Acute Comment: on Keppra. Neuro consulted. EEG negative but symptoms suggestive of TC seizure per daughter (2) Hyponatremia Code(s): E87.1 - HYPO-OSMOLALITY AND HYPONATREMIA Status: Acute (3) CAD (coronary artery disease) Code(s): I25.10 - ATHSCL HEART DISEASE OF [place] CORONARY ARTERY W/O ANG PCTRS Status: Chronic Comment: OP Cardiology f/u for discussing re-do CABG.On appropriate cardioprudent meds (4) Atrial flutter Code(s): I48.92 - UNSPECIFIED ATRIAL FLUTTER Status: Chronic Comment: On chronic anticoagulation-on hold last two days due to Hematuria (5) Hypertension Code(s): I10 - ESSENTIAL (PRIMARY) HYPERTENSION Status: Chronic (6) Chronic anemia Code(s): D64.9 - ANEMIA, UNSPECIFIED Status: Chronic Comment: at baseline (7) CKD (chronic kidney disease) Code(s): N18.9 - CHRONIC KIDNEY DISEASE, UNSPECIFIED Status: Chronic - Plan plan discussed w/ family, PT/OT, social work assistant, incentive spirometry, out of bed/ambulate, DVT proph w/SCDs OK To Dc home today on Keppra & OP Neuro,Cardio f/u -: PPM interrogation does not show any arrythmias -: Resume xarelto in next 2-3 days if hematuria continues to resolve -: HD stable. Sodium improved. -: HH to be arranged .declined SNIF.Undiagnosed dementia-f/u w neuro/PCP * . Review of Systems - Review of Systems Constitutional: negative: fever, chills, sweats, weakness, malaise, other ENT: negative: Ear Pain, Ear Discharge, Nose Pain, Nose Discharge, Nose Congestion, Mouth Pain, Mouth Swelling, Throat Pain, Throat Swelling, Other Respiratory: negative: Cough, Dry, Shortness of Breath, Hemoptysis, SOB with Excertion, Pleuritic Pain, Sputum, Wheezing Cardiovascular: negative: chest pain, palpitations, orthopnea, paroxysmal nocturnal dyspnea, edema, light headedness, other Gastrointestinal: negative: Nausea, Vomiting, Abdominal Pain, Diarrhea, Constipation, Melena, Hematochezia, Other Genitourinary: negative: Dysuria, Frequency, Incontinence, Hematuria, Retention , Other Musculoskeletal: negative: Neck Pain, Shoulder Pain, Arm Pain, Back Pain, Hand Pain, Leg Pain, Foot Pain, Other Neurological: negative: Weakness, Numbness, Incoordination, Change in Speech, Confusion, Seizures, Other - Medications/Allergies Allergies/Adverse Reactions: Allergies Allergy/AdvReac Type Severity Reaction Status Date / Time pineapple Allergy throat Verified 09/11/18 18:04 swell Medications: Current Medications Acetaminophen (Tylenol) 650 mg PO Q4H PRN PRN Reason: Headache/Fever/Mild Pain (1-3) Acetaminophen (Tylenol) 650 mg [place] Q4H PRN PRN Reason: Headache/Fever/Mild Pain (1-3) Aspirin (Ecotrin) 81 mg PO DAILY [facility] Last Admin: 09/13/18 09:17 Dose: 81 mg Atorvastatin Calcium (Lipitor) 80 mg PO HS [facility] Last Admin: 09/12/18 21:08 Dose: 80 mg Bisacodyl (Dulcolax) 10 mg PO DAILYPRN PRN PRN Reason: Constipation Calcium Carbonate (Tums) 1,000 mg PO Q4H PRN PRN Reason: Heartburn or Indigestion Carvedilol (Coreg) 12.5 mg PO BID [facility] Last Admin: 09/13/18 09:18 Dose: 12.5 mg Famotidine (Pepcid) 20 mg PO DAILY [facility] Last Admin: 09/13/18 09:18 Dose: 20 mg Guaifenesin/Dextromethorphan (Robitussin Dm) 15 ml PO Q4H PRN PRN Reason: Cough Hydralazine HCl (Apresoline) 10 mg SLOW IVP Q4H PRN PRN Reason: BP > 220/110 Isosorbide Dinitrate (Isordil) 5 mg PO BID [facility] Last Admin: 09/13/18 10:15 Dose: 5 mg Labetalol HCl (Normodyne) 20 mg SLOW IVP Q1H PRN PRN Reason: BP > 220/110 Levetiracetam (Keppra) 500 mg PO BID [facility] Last Admin: 09/13/18 09:17 Dose: 500 mg Lorazepam (Ativan) 2 mg SLOW IVP Q15MIN PRN PRN Reason: Seizures Melatonin (Melatonin) 6 mg PO HS PRN PRN Reason: Insomnia Ondansetron HCl (Zofran Odt) 4 mg PO Q6H PRN PRN Reason: Nausea/Vomiting Ondansetron HCl (Zofran) 4 mg IVP Q6H PRN PRN Reason: Nausea/Vomiting Ranolazine (Ranexa) 1,000 mg PO BID [facility] Last Admin: 09/13/18 10:15 Dose: 1,000 mg Senna/Docusate Sodium (Senokot S) 2 tab PO BID PRN PRN Reason: Constipation Sodium Chloride (Flush - Normal Saline) 10 ml IVF Q12HR PRN PRN Reason: Saline Flush Sodium Chloride (Flush - Normal Saline) 10 ml IVF PRN PRN PRN Reason: Saline Flush Sodium Chloride (Flush - Normal Saline) 10 ml IVF PRN PRN PRN Reason: Saline Flush Zolpidem Tartrate (Ambien) 5 mg PO HSPRN PRN PRN Reason: Insomnia
--- NOTE | 2018-09-13 14:55 | PDOC.CTH ---
Cardiology Progress Note - Subjective He is doing much better today. He is back to his normal baseline. - Objective Vital Signs Temp Pulse Resp BP Pulse Ox 09/13/18 11:37 97.6 F 60 18 122/62 93 L 09/13/18 11:13 92 L 09/13/18 08:00 92 L 09/13/18 07:44 98.0 F 68 18 128/69 92 L 09/13/18 04:00 98.8 F 70 20 111/54 L 95 Admit Weight 186 lb 1.6 oz Weight 186 lb 1.6 oz 09/12/18 09/13/18 09/14/18 06:59 06:59 06:59 Intake Total 1250 360 Output Total 0 Balance 1250 360 - Physical Examination General/Neuro: alert & oriented x3, NAD Neck: no JVD present Lungs: CTA, unlabored respirations Heart: RRR Abdomen: NT/ND Extremities: + edema B (Trace) - Telemetry Telemetry Rhythm: NSR - Labs Result Diagrams: 09/13/18 04:08 09/13/18 04:08 Troponin/CKMB CK-MB (CK-2) 1.5 ng/mL (0-6.6) 09/10/18 23:06 Troponin I 0.021 ng/mL (< 0.028) 09/10/18 23:06 - Assessment/Plan 1. Seizure disorder, new onset 2. Ischemic CM EF at 30-35% 3. SSS, s/p PPM placement 4. Paroxysmal afib 5. CAD s/p CABG stable 6. MAAME on CKD. 7. Hematuria PLAN: - No arrhythmias on interrogation of PPM to explain seizure. - No ACS - Will hold xarelto for the next 2 days. Restart on Sunday or when he is 2 days free of hematuria. - Continue current cardiac meds. - May discharge home any time from cardiac perspective.
[2018-09-13 15:32] VITALS: BP 128/62; TEMP 97.9
--- NOTE | 2018-09-14 01:14 | DIS ---
DATE OF ADMISSION: 09/11/2018 DATE OF DISCHARGE: 09/13/2018 PRIMARY CARE PHYSICIAN: Thomas Luong MD CONDITION: At the time of discharge, stable and improved. DISCHARGE DISPOSITION: Home with addition of home health. DISCHARGE DIAGNOSES: 1. New onset of seizure disorder. 2. History of ischemic cardiomyopathy with EF of 30% to 35%. 3. History of sick sinus syndrome, status post pacemaker placement in the past. 4. Paroxysmal atrial fibrillation, on chronic anticoagulation. 5. Coronary artery disease, status post coronary artery bypass graft. 6. Acute on chronic kidney disease. 7. Hematuria. 8. Suspect underlying dementia, which has since been undiagnosed either Alzheimer's versus vascular. IN-HOUSE CONSULTATIONS: 1. Cardiology. 2. Neurology, Dr. Richards. PROCEDURES DONE IN THE HOSPITAL: 1. EEG, which is negative for any epileptiform discharge. 2. Transthoracic echocardiogram, which has unchanged, shows EF of 30% to 35% and [id number] mitral regurgitation, severe tricuspid regurgitation, and elevated right ventricular systolic pressure. 3. MRI of the brain which is negative for any acute cerebrovascular accident. It shows moderate cortical atrophy and [id number] chronic ischemic white matter changes. 4. CT scan of the brain after a fall, which is negative for any hemorrhage. HISTORY OF PRESENTING ILLNESS: Mr. Willis is a very pleasant 82-year-old male with history of coronary artery disease and chronic atrial fibrillation on Eliquis, who was brought in by his daughter for seizure-like activity and after he passed out. He underwent a CT scan in the emergency room which was unremarkable. He was loaded with Ativan and Keppra and was admitted to stroke floor for further evaluation. Please see admission history and physical dictated by Dr. Sorensen for further details. HOSPITAL COURSE: The patient underwent neurology evaluation including consultation with Neurology as well as echo and MRI. He did not have any evidence of stroke. Dr. Richards saw the patient and recommended continuation of Keppra for new onset seizure disorder. The patient eventually regained consciousness from his postictal state and was returned back to his baseline with mentation. His daughter reported that he has started to show signs of dementia in the last year or so. I encouraged her to follow up with Dr. Richards and primary care physician in the outpatient setting. His pacemaker was also interrogated given his history of severe cardiomyopathy. Dr. Rodriguez is his real estate representative and he graciously saw the patient in the hospital. Pacemaker did not show any arrhythmias. Dr. Rodriguez will see them in the outpatient setting for discussion of redo-CABG as previously. The patient did have some hematuria from traumatic Olivo catheterization and his Xarelto was held. He will continue to hold the Xarelto for 2 more days after discharge today and will resume. This has been confirmed with Cardiology. He was seen and examined this morning and is back to baseline. Discharge plan was discussed with his daughter and patient himself. They declined offers for skilled rehab and would rather go home with home health, which was arranged for them. For further details, please see hospitalist progress note from today's date for [id number]-[id number] interaction. TOTAL TIME SPENT: 32 minutes. Job ID: [id number]
--- NOTE | 2018-09-14 22:32 | EKG ---
Test Reason : STEMI Blood Pressure : / mmHG Vent. Rate : 082 BPM Atrial Rate : 087 BPM P-R Int : 000 ms QRS Dur : 166 ms QT Int : 462 ms P-R-T Axes : 000 062 -36 degrees QTc Int : 539 ms Electronic ventricular pacemaker Confirmed by THIAGO MARTINEZ DO ([id number]), visual effects editor RICHARD FERNANDEZ ([id number]) on 09/14/2018 10:31:08 PM Referred By: Confirmed By:THIAGO MARTINEZ DO
--- NOTE | 2018-09-16 12:18 | PQF ---
DATE: 09-16-18 ATTN: DR. JOEY MAX Please exercise your independent, professional judgment in responding to the clarification form. Clinical indicators are provided on the bottom of this form for your review Please check appropriate box(s): [ ] Encephalopathy: Type: [ X] Acute [ ] Subacute [ ] Chronic Etiology: [X ] Metabolic [ ] [ ] in the setting of underlying dementia [ ] Other (please specify) [ ] Transient Alteration of Awareness [ ] Other diagnosis [ ] Unable to determine In addition, please specify: Present on Admission (POA): [X ] Yes [ ] No [ ] Unable to determine For continuity of documentation, please document condition throughout progress notes and discharge summary. Thank You. CLINICAL INDICATORS - SIGNS / SYMPTOMS / LABS ER: HE WAS COMBATIVE AND ARGUMENTATIVE WITH EMS, GETS CONFUSED EASILY H&P: ACUTE ENCEPHALOPATHY RISK FACTORS: D/C SUMMARY NEW ONSET OF SEIZURES DISORDER PN DR. HILARIO 09-12-18: WAS AGITATED LAST NIGHT, HYPONATREMIA TREATMENTS: NEURO CONSULT 09-12-18 ER: IVF (This form is maintained as a part of the permanent medical record) 2014 [employer]. All Rights Reserved [email or web address] Office: [phone] [facility]
== END 2018-09-13 16:58 | disposition home health service (06) | DRG 100 ==
LOC: ERS 22:59 → ERHOLD 09-11 00:51 → 2SE 09-11 16:57
PROVIDERS: ADMIT Internal Medicine; ATTEND Internal Medicine
DX: G40.909 Epilepsy, unspecified, not intractable, without status epilepticus (principal); G93.41 Metabolic encephalopathy; E87.1 Hypo-osmolality and hyponatremia; I48.92 Unspecified atrial flutter; I42.0 Dilated cardiomyopathy; N17.9 Acute kidney failure, unspecified; I25.10 Atherosclerotic heart disease of native coronary artery without angina pectoris; D64.9 Anemia, unspecified; N18.9 Chronic kidney disease, unspecified; I25.5 Ischemic cardiomyopathy; I49.5 Sick sinus syndrome; D63.1 Anemia in chronic kidney disease; Z95.1 Presence of aortocoronary bypass graft; I48.0 Paroxysmal atrial fibrillation; Z95.0 Presence of cardiac pacemaker; R31.0 Gross hematuria
CPT/HCPCS: 36415; 51701; 70450; 70551; 71045; 80048; 80053; 80061; 80306; 80307; 81003; 81015; 82553; 83605; 83735; 84146; 84443; 84484; 85014; 85018; 85025; 85610; 85730; 86850; 86900; 86901; 87040; 90471; 90662; 93005; 93306; 95816; 95819; 96360; 96361; 96365; 96375; 96376; G0008; J1953; J2060

== ENCOUNTER 2018-09-27 10:21 | Day surgery (SDC) | payer MEDICARE ==
[2018-09-27] MEDS ORDERED: diphenhydrAMINE 25 MG CAP PO SCH (14:15)
[2018-09-27] MEDS ORDERED: Acetaminophen 500 MG TAB PO SCH (14:15)
[2018-09-27 21:00] VITALS: BP 137/63; TEMP 98.3
[2018-09-27 21:56] LABS: #Eosinphils 0.1 thou/uL (0.0-0.7); #Monocytes 0.4 thou/uL (0.11-0.59); %Basophils 0.9 % (0.0-1.0); %Eosinophils 2.4 % (0.0-10.0); %Lymphocytes 29.3 % (21.0-51.0); %Monocytes 10.4 % (0.0-10.0); Hemoglobin 8.7 g/dL (14.0-18.0); Mean Corpuscular Hemoglobin 32.8 pg (27.0-31.0); Mean Corpuscular Volume 99.4 fL (78.0-98.0); Mean Platelet Volume 10.2 fL (7.4-10.4); Platelet Count 71 thou/uL (130-400); RBC Distribution Width 19.4 % (11.5-14.5); Red Blood Cell (RBC) Count 2.66 mill/uL (4.70-6.10); White Blood Cell (WBC) Count 3.5 thou/uL (4.8-10.8)
== END 2018-09-27 21:41 | disposition home or self-care (01) ==
LOC: ONC/OP 10:21 → ONC 13:19 → ONC/OP 21:41
PROVIDERS: ATTEND Internal Medicine
PROC: 30233N1 Transfusion of Nonautologous Red Blood Cells into Peripheral Vein, Percutaneous Approach (ICD-10-PCS; principal; 2018-09-27)
DX: D64.9 Anemia, unspecified (principal); D69.6 Thrombocytopenia, unspecified; Z91.018 Allergy to other foods; Z79.01 Long term (current) use of anticoagulants; Z79.82 Long term (current) use of aspirin; Z79.899 Other long term (current) drug therapy
CPT/HCPCS: 36415; 36430; 85025; 86850; 86900; 86901; P9016; Q0163

== ENCOUNTER 2018-11-07 16:31 | Emergency (ER) | payer MEDICARE ==
[2018-11-07 19:36] LABS: #Eosinphils 0.1 thou/uL (0.0-0.7); #Lymphocytes 0.8 thou/uL (1.20-3.40); #Monocytes 0.5 thou/uL (0.11-0.59); #Neutrophils 2.6 thou/uL (1.40-6.50); %Basophils 0.9 % (0.0-1.0); %Eosinophils 3.6 % (0.0-10.0); %Lymphocytes 18.8 % (21.0-51.0); %Neutrophils 63.8 % (42.0-75.0); Hemoglobin 10.9 g/dL (14.0-18.0); Mean Corpuscular HGB CONC 33.3 g/dL (32.0-36.0); Mean Corpuscular Hemoglobin 34.3 pg (27.0-31.0); Mean Platelet Volume 10.9 fL (7.4-10.4); Platelet Count 102 thou/uL (130-400); RBC Distribution Width 17.4 % (11.5-14.5); Red Blood Cell (RBC) Count 3.16 mill/uL (4.70-6.10)
--- NOTE | 2018-11-07 20:09 | CT ---
HEAD CT WITHOUT CONTRAST 11/07/18 HISTORY: Intermittent headache x1 week. Right sided symptoms. COMPARISON: 09/12/18. FINDINGS: No parenchymal hemorrhage. No extra-axial hematoma. No midline shift. Basilar cisterns are patent. Ag e appropriate atrophy. Cortical kendrick-white matter differentiation is preserved. No evidence of hydrocephalus. White matter hypodensities due to chronic small vessel ischemic changes are noted. Calvarium is intact. Adequate aeration of the sinuses and mastoid air cells. IMPRESSION: No acute intracranial process. POS: [facility]
[2018-11-07 21:34] LABS: Bilirubin Negative (Negative); Blood, Urine Negative (Negative); Clarity CLEAR (Clear); Glucose, Urine (Dipstick) Negative (Negative); Leukocyte Trace (Negative); Nitrite Negative (Negative); Protein, Urine (Dipstick) Trace mg/dL (Neg-Trace); Specific Gravity, Urine 1.009 (1.002-1.036)
[2018-11-07 21:37] LABS: Bacteria/HPF 1+ HPF (None Seen); Hyaline Casts/LPF 0-3 HYALINE CAST LPF (0-3 Hyaline); RBC/HPF 0-3 HPF (0-3); Squamous Epithelial 0-3 HPF (0-3); WBC/HPF 0-3 HPF (0-3)
[2018-11-07 21:53] LABS: Chloride 97 mmol/L (98-107); Potassium 4.4 mmol/L (3.5-5.1); Sodium 134 mmol/L (136-145)
[2018-11-07 21:54] LABS: Calcium 9.3 mg/dL (7.8-10.44); Glucose 114 mg/dL (83-110)
[2018-11-07 21:55] LABS: Globulin 2.8 g/dL (2.4-3.5); Protein, Total 6.8 g/dL (5.8-8.1)
[2018-11-07 21:56] LABS: Anion Gap 11 mmol/L (10-20); Bilirubin, Total 0.7 mg/dL (0.2-1.2); Carbon Dioxide 30 mmol/L (23-31)
[2018-11-07 21:57] LABS: Alkaline Phosphatase 69 U/L (40-150)
[2018-11-07 21:58] LABS: Calc. Creatinine Clearance 0 mL/min (70-130); Estimated GFR-MDRD 32
[2018-11-07 21:59] LABS: AST (SGOT) 13 U/L (5-34); BUN (Urea Nitrogen) 28 mg/dL (8.4-25.7)
[2018-11-07 22:00] LABS: ALT (SGPT) 8 U/L (8-55)
--- NOTE | 2018-11-09 21:35 | EKG ---
Test Reason : HEADACHE Blood Pressure : / mmHG Vent. Rate : 060 BPM Atrial Rate : 156 BPM P-R Int : 000 ms QRS Dur : 196 ms QT Int : 530 ms P-R-T Axes : 000 -08 080 degrees QTc Int : 530 ms Sinus tachycardia with complete heart block and Ventricular-paced rhythm Abnormal ECG Confirmed by ROSY MONTELONGO ([id number]), content editor RICHARD FERNANDEZ ([id number]) on 11/09/2018 9:34:43 PM Referred By: JAYDA Confirmed By:ROSY MONTELONGO
== END 2018-11-07 22:15 | disposition home or self-care (01) ==
LOC: ERS 16:31
DX: R51 Headache (principal); I50.9 Heart failure, unspecified; I48.91 Unspecified atrial fibrillation; Z87.891 Personal history of nicotine dependence
CPT/HCPCS: 36415; 70450; 80053; 81003; 81015; 84484; 85025; 93005

== ENCOUNTER 2018-12-11 15:41 | Inpatient (IN) | payer MEDICARE ==
[2018-12-11] MEDS ORDERED: Ondansetron PF 4 MG/2 ML Vial ONE ×2 (16:30→18:28)
--- NOTE | 2018-12-11 16:47 | RAD ---
XR Chest 1 View Portable History: [Epigastric pain. Chest pain.] Comparison: Radiograph April 2018 Findings: Multiple remote right rib fractures. Cardiac device is new and appears be a dual-lead pacer . Scarring both lung bases. Heart size is enlarged. No focal confluent airspace consolidation, pneumothorax, or effusion. Impression: New dual-lead pacer without complication. No acute intrathoracic abnormality.
[2018-12-11 16:55] LABS: #Basophils 0.1 thou/uL (0.0-0.2); #Eosinphils 0.1 thou/uL (0.0-0.7); #Lymphocytes 0.5 thou/uL (1.20-3.40); #Monocytes 0.7 thou/uL (0.11-0.59); #Neutrophils 5.6 thou/uL (1.40-6.50); %Basophils 0.8 % (0.0-1.0); %Eosinophils 1.3 % (0.0-10.0); %Lymphocytes 6.9 % (21.0-51.0); %Monocytes 10.2 % (0.0-10.0); %Neutrophils 80.8 % (42.0-75.0); Hemoglobin 11.5 g/dL (14.0-18.0); Mean Corpuscular HGB CONC 34.3 g/dL (32.0-36.0); Mean Corpuscular Hemoglobin 33.4 pg (27.0-31.0); Mean Corpuscular Volume 97.4 fL (78.0-98.0); Mean Platelet Volume 11.7 fL (7.4-10.4); Platelet Count 91 thou/uL (130-400); RBC Distribution Width 15.9 % (11.5-14.5); Red Blood Cell (RBC) Count 3.45 mill/uL (4.70-6.10); White Blood Cell (WBC) Count 6.9 thou/uL (4.8-10.8)
--- NOTE | 2018-12-11 17:08 | CT ---
CT Abdomen Pelvis WO Con History: [Abdominal pain] Comparison: None. Findings: Heart size is enlarged. Mild scarring lung bases. No pericardial effusion. There is a right subhepatic fluid collection measuring fluid attenuation may be sequelae of a prior h ematoma measuring up to 4.2 cm in transverse dimension. Mild stool burden throughout the colon. The appendix contains an appendicolith at its tip without dil atation of the appendiceal body. There are mildly distended loops of proximal and mid small bowel with low-grade fluid within the smal l bowel mesentery. Transition point appears be in the left upper quadrant of the abdomen axial image 35, coronal image 51 and 50. Ileum appears to be decompressed. Extensive atherosclerotic plaque throughout the aorta. The infrarenal aorta is focally ectatic measur ing up to 3 cm. Moderate distention of the urinary bladder. No free intraperitoneal gas. No hydrouret eronephrosis. No definite nephroureterolithiasis. Calcifications of the kidneys are felt to be due to the calcified arcuate vessels. Impression: 1. Mechanical small bowel obstruction with transition point felt to be within left upper quadrant of the abdomen. There is focal fluid within the mesenteric leaves in the left upper quadrant along with small bowel wall thickening concerning for loss of normal bowel wall integrity and possibly ischemic changes. Surgical consultation is advised. 2. Subcapsular fluid collection of the liver may be sequelae of prior hemorrhage or trauma. This alphonso ures fluid attenuation. Is there is no prior history of trauma, follow-up liver protocol CT or MR may be beneficial if there are multiple healed right-sided rib fractures suggesting prior trauma. 3. Likely old compression deformity of the superior endplate of L1. 4. Multiple old right lumbar spine transverse process fractures.
[2018-12-11 17:12] LABS: ALT (SGPT) 9 U/L (8-55); AST (SGOT) 14 U/L (5-34); Albumin 4.2 g/dL (3.4-4.8); Alkaline Phosphatase 71 U/L (40-150); Anion Gap 14 mmol/L (10-20); BUN (Urea Nitrogen) 31 mg/dL (8.4-25.7); Bilirubin, Total 0.9 mg/dL (0.2-1.2); Calc. Creatinine Clearance 0 mL/min (70-130); Calcium 9.9 mg/dL (7.8-10.44); Carbon Dioxide 28 mmol/L (23-31); Chloride 94 mmol/L (98-107); Estimated GFR-MDRD 34; Globulin 2.9 g/dL (2.4-3.5); Glucose 134 mg/dL (83-110); Lipase 30 U/L (8-78); Potassium 4.1 mmol/L (3.5-5.1); Protein, Total 7.1 g/dL (5.8-8.1); Sodium 132 mmol/L (136-145)
[2018-12-11 17:16] LABS: Iron 106 ug/dL (65-175); Iron Binding Capacity, Total 248 mcg/dL (261-462)
[2018-12-11 17:35] LABS: Bilirubin Negative (Negative); Blood, Urine Negative (Negative); Clarity CLEAR (Clear); Glucose, Urine (Dipstick) 100 mg/dL (Negative); Leukocyte Negative (Negative); Nitrite Negative (Negative); Protein, Urine (Dipstick) 30 mg/dL (Neg-Trace); Specific Gravity, Urine 1.009 (1.002-1.036); Urobilinogen 0.2 mg/dL (0.2-1.0)
[2018-12-11 17:36] LABS: Bacteria/HPF None Seen HPF (None Seen); Hyaline Casts/LPF 0-3 HYALINE CAST LPF (0-3 Hyaline); RBC/HPF 0-3 HPF (0-3); Squamous Epithelial None Seen HPF (0-3); WBC/HPF None Seen HPF (0-3)
[2018-12-11] MEDS ORDERED: Benzocaine 20% Spray 60 ML CAN ONE (19:15)
[2018-12-11] MEDS ORDERED: Lidocaine Viscous Sol 2% 15 ml UD Cup ONE ×3 (19:15→21:10)
--- NOTE | 2018-12-11 20:20 | RAD ---
ABDOMEN ONE VIEW: 12/11/18 HISTORY: NG tube placement. FINDINGS/IMPRESSION: An NG tube is not seen on the exam. There are postop changes in the abdomen. There are degenerative changes in the spine. The bowel gas p attern is unremarkable. POS: [facility]
[2018-12-11] MEDS ORDERED: levETIRAcetam 500 MG/100 ML PREMIX BAG ONE (20:51)
[2018-12-11] MEDS ORDERED: Sodium Chloride 0.9% 100 ML ONE (20:51)
[2018-12-11] MEDS ORDERED: Piperacillin/Tazobactam 4.5 GM VIAL ONE (20:51)
[2018-12-11 21:14] LABS: Lactic Acid 1.1 mmol/L (0.5-2.2)
[2018-12-11] MEDS ORDERED: Ondansetron ODT 4 MG TAB SL PRN (22:53)
[2018-12-11] MEDS ORDERED: Ondansetron PF 4 MG/2 ML Vial IVP PRN (22:53)
[2018-12-11] MEDS ORDERED: Ondansetron ODT 4 MG TAB PO PRN (22:57)
[2018-12-11] MEDS ORDERED: Dextrose 5 % And 0.9 % NaCl 1,000 ML IV SCH (22:57)
[2018-12-11] MEDS ORDERED: Acetaminophen 650 MG Suppository PR PRN (22:57)
[2018-12-11] MEDS ORDERED: Sodium Chloride 0.9% 1,000 ML IV SCH (23:00)
--- NOTE | 2018-12-11 23:26 | HP ---
PRIMARY CARE PROVIDER: Dr. Thomas Luong. CHIEF COMPLAINT: Nausea, vomiting, and abdominal pain. HISTORY OF PRESENT ILLNESS: This is an 83-year-old male, who presents to [facility] Emergency Department complaining of sudden onset of multiple episodes of emesis with nausea and abdominal pain, which began after eating breakfast this morning. The patient states he had just finished breakfast when he suddenly became ill at the breakfast table. The patient had several more bouts of emesis at home, but denied any recent travel history, family members with similar symptoms, fever, chills, or melena. The patient states he has been compliant with his chronic medication regimen and his daughter reports the only new medication is iron replacement supplements. The patient had been doing fairly well over the last 3 weeks according to the daughter, who provides the majority of the history as the patient does exhibit mild dementia. The patient has been receiving home health services including physical therapy and ambulating with a rolling walker. No recent falls per daughter's report and no seizure activity noted. The patient was recently admitted in September 2018 after sustaining a seizure activity at home. The patient was placed on Keppra and has been taking the medication since September 2018. The patient states his last bowel movement was in the pediatric critical care nurse hours of 12/11/2018. The patient denies any difficulty with urination, chest pain, or shortness of breath. In the emergency department, the patient underwent general evaluation including CT imaging of the abdomen and pelvis showing evidence of small bowel obstruction in the left upper quadrant. Attempts were made to place an NG tube in the emergency room, however, these were unsuccessful as the patient was unable to pass the tube successfully. The patient currently denies any specific nausea or recurrent emesis and has been without nausea over the last 4 hours according to the patient. The patient also received IV vancomycin, fentanyl, Keppra, intravenous normal saline, Zosyn, and Zofran. The patient currently states he feels fine. PAST MEDICAL HISTORY: 1. Dilated cardiomyopathy with ejection fraction of 30% to 35%. 2. Sick sinus syndrome status post pacemaker placement. 3. Chronic anticoagulation with Xarelto. 4. Chronic atrial fibrillation with chronic anticoagulation. 5. Chronic kidney disease, stage 4. 6. Coronary artery disease, status post coronary artery bypass grafting. 7. Hypertension. 8. Peripheral vascular disease. 9. Dementia, mild. 10. Chronic anemia with iron deficiency, receiving iron supplementation. 11. Seizure disorder, on current Keppra. PAST SURGICAL HISTORY: 1. Status post coronary artery bypass grafting x4 vessels in . 2. Status post pacemaker placement. CURRENT MEDICATIONS: 1. Enteric-coated aspirin 81 mg p.o. daily. 2. Lipitor 80 mg p.o. at bedtime. 3. Coreg 12.5 mg p.o. b.i.d. 4. Lasix 40 mg p.o. Sunday, Sunday, and Sunday. 5. Isosorbide dinitrate 5 mg p.o. b.i.d. 6. Protonix 40 mg p.o. daily. 7. Ranexa 1000 mg p.o. b.i.d. 8. Xarelto 15 mg p.o. at bedtime. 9. Keppra 500 mg p.o. b.i.d. ALLERGIES: TO [place]. FAMILY HISTORY: Mother with diabetes mellitus, myocardial infarction, and history of CVA. Father with brain aneurysm. SOCIAL HISTORY: The patient resides with his daughter. No current alcohol, tobacco, or illicit drug use. Ambulates with the use of rolling walker. No reported falls. REVIEW OF SYSTEMS: CONSTITUTIONAL: Negative for weight loss or gain, ability to conduct usual activities. SKIN: Negative for rash, itching. EYES: Negative for double vision, pain. ENT/MOUTH: Negative for nose bleeding, neck stiffness, pain, tenderness. CARDIOVASCULAR: Negative for palpitations, dyspnea on exertion, orthopnea. RESPIRATORY: Negative for shortness of breath, wheezing, cough, hemoptysis, fever or night sweats. GASTROINTESTINAL: Negative for poor appetite, abdominal pain, heartburn, nausea, vomiting, constipation, or diarrhea. GENITOURINARY: Negative for urgency, frequency, dysuria, nocturia. MUSCULOSKELETAL: Negative for pain, swelling. NEUROLOGIC/PSYCHIATRIC: Negative for anxiety, depression. ALLERGY/IMMUNOLOGIC: Negative for skin rash, bleeding tendency. Otherwise, negative except as stated per HPI. PHYSICAL EXAMINATION: VITAL SIGNS: On admission. Blood pressure 153/87, pulse 65, respiratory rate is 17, temperature 97.4 degrees Fahrenheit, O2 saturation 94% on room air. GENERAL APPEARANCE: This is an 83-year-old male, alert and oriented x2, pleasant, conversant, in no acute distress. HEENT: Pupils are equal, round, reactive to light and accommodation. Extraocular muscles are intact. No scleral icterus. No conjunctival injection. Nares are patent. OP is clear. Oral mucosa, dry appearing. NECK: Supple. No cervical adenopathy. No thyromegaly. No carotid bruits. No JVD appreciated. Cervical spine with full active and passive range of motion. No meningeal signs noted. CHEST: Lungs are clear to auscultation bilaterally. CARDIOVASCULAR: S1 and S2 with 1/6 to 2/6 systolic ejection murmur at the left upper sternal border. ABDOMEN: Rounded, nontender. Bowel sounds are diminished, but present. No palpable mass. No rebound or guarding appreciated. EXTREMITIES: Warm and dry with fair turgor. No clubbing, cyanosis, or asymmetric edema appreciated. Pulses are palpable distally at the dorsalis pedis, posterior tibial, and popliteal arteries bilaterally. Capillary refill is less than 2 seconds. NEUROLOGIC: Cranial nerves 2 through 12 are grossly intact. Alert and oriented x2 to person and place. PERTINENT LAB AND X-RAY FINDINGS: Sodium 132, potassium 4.1, chloride 94, CO2 of 28, BUN 31, creatinine 1.93, estimated GFR of 34, glucose 134, lactic acid level 0.9, calcium 9.9. Serum iron level 106, TIBC 248, ferritin 286.5. LFTs within normal limits. Troponin I ranged between 0.036 to 0.130. Lipase 30. CBC showed a white blood cell count of 6.9, hemoglobin 11.5, hematocrit 34, MCV 97, platelet count 91, with 81% neutrophils. Urinalysis showed protein and glucose. CT of the abdomen and pelvis dated 12/11/2018 showed mechanical small bowel obstruction with transition point in the left upper quadrant. Subcapsular fluid collection in the liver noted. Old compression fracture deformity at L1. Multiple old right lumbar spine transverse process fractures. Portable chest x-ray dated 12/11/2018, showed multiple right rib fractures. Dual pacer leads noted. No acute cardiopulmonary process noted. Abdominal radiographs dated 12/11/2018, showed unremarkable bowel gas pattern. EKG dated 12/11/2018, by my interpretation showed atrial fibrillation with rates in the 70s. Right bundle-branch block pattern and left anterior fascicular block noted. No acute ST-T wave changes appreciated. ASSESSMENT/PLAN: 1. Small bowel obstruction. Exact etiology unclear. We will continue patient on n.p.o. status. Continue intravenous D5 normal saline at 50 mL/h. Consult general surgery service for evaluation and monitoring. Consider small bowel follow-through. NG tube unsuccessfully placed in the emergency department. We will hold NG tube currently pending return of symptoms including nausea and vomiting. 2. Elevated troponin I. Suspect demand ischemia in the context of known ischemic cardiomyopathy. We will continue to trend troponin I and monitor clinically. Consult cardiology service in the a.m. for any further recommendations. Continue aspirin 81 mg daily in addition to isosorbide dinitrate. Continue Ranexa 1000 mg b.i.d. 3. Nausea and vomiting. Secondary to #1. Improved currently. We will continue Zofran 4 mg IV q.6 hours p.r.n. with additional D5 normal saline at 50 mL/h. N.p.o. except sips of water and medications. 4. Chronic kidney disease, stage 4. Continue IV fluids as outlined previously. Avoid nephrotoxic agents and limit contrast exposure. Repeat creatinine in the a.m. 5. Hyponatremia. Appears chronic after review of electronic medical record. Continue serial monitoring and IV fluids as outlined previously. 6. Chronic normocytic anemia. Stable currently. No current evidence to suggest acute blood loss. Repeat CBC in the a.m. 7. Chronic anticoagulation with Xarelto. Hold Xarelto over the next 24-48 hours. We will continue to monitor condition in #1 and resume when clinically stabilizing. 8. Prophylaxis. SCDs while in bed. Pepcid 20 mg IV q.12 hours. PT evaluation in the a.m. 9. Code status is full. Surrogate medical decision maker is the patient's daughter. Job ID: [id number]
--- NOTE | 2018-12-12 00:01 | PDOC.GSCN ---
Surgery Consult: HPI - Consult details Date: 12/11/18 Time: 23:00 Reason for consult: abdominal pain History of present illness: 12/11/18 23:59 Patient with sudden onset of abdominal pain this morning. This was accompanied by multiple bouts of nonbloody emesis. No fevers or chills. He received nausea medications and antiemetics in the emergency room and states that he is now feeling better. He states he is having a little pain but not as much as before. No previous similar episodes. He does have a history of a laparotomy for trauma many years ago when he was working in the [employer] and a piece of heavy equipment fell on him. He had a normal bowel movement this morning. Unsure when he last passed flatus. He has multiple medical problems and is on Xarelto for atrial fibrillation. In the emergency room, CT showed evidence of small bowel obstruction with transition point in the left upper quadrant and some edema around the obstructed loops of bowel. Surgery Consult: ROS - Review of Systems All systems: 10 systems reviewed and no additional complaints unless stated below. Surgery Consult: PMH Source: patient, family Past Medical History: Patient has a history of cardiomyopathy and coronary artery disease. Ejection fraction is about 30% and he has a recently placed pacemaker for sick sinus syndrome. Mild dementia Past Surgical History: Sternotomy and laparotomy for crush trauma many years ago. He reportedly had a colon injury that was repaired primarily and a crush injury to his liver and multiple broken ribs and vertebrae. He has also undergone coronary artery bypass grafting, stenting, and pacemaker placement - Past Family History Family history: reviewed and not pertinent Surgery Consult: Exam - Vital signs Vital signs: Vital Signs - Most Recent Temp Pulse Resp BP Pulse Ox 98.7 F 67 17 141/75 H 100 12/11/18 23:11 12/11/18 23:11 12/11/18 23:11 12/11/18 23:11 12/11/18 23:11 - Physical Exam General: no distress Eye: normal ocular movement Neck: no lymphadectomy, no masses, no daniel distention, trachea midline Respiratory: clear to auscultation, normal respiratory effort Abdomen: other Hernia: reducible (Patient has mild tenderness to palpation on the left greater than right without rigidity rebound or guarding. Fascial irregularities along the upper midline incision without protruding hernias) Neurologic: other (Heart appearing) Psychiatric: oriented to person, oriented to place Surgery Consult: Meds - Medications Medications: Current Medications Acetaminophen (Tylenol) 650 mg CA Q4H PRN PRN Reason: Fever > 101 Aspirin (Ecotrin) 81 mg PO QAM [facility] Carvedilol (Coreg) 312.5 mg PO BID [facility] Famotidine (Pepcid) 20 mg SLOW IVP 0900 [facility] Hydralazine HCl (Apresoline) 10 mg SLOW IVP Q4H PRN PRN Reason: SBP > 180 and HR < 70 Sodium Chloride (Normal Saline 0.9%) 1,000 mls @ 100 mls/hr IV .Q10H JUNIOR Stop: 12/12/18 08:31 Last Admin: 12/11/18 23:25 Dose: 1,000 mls Dextrose/Sodium Chloride (D5 0.9% Ns) 1,000 mls @ 50 mls/hr IV .Q20H [facility] Isosorbide Dinitrate (Isordil) 5 mg PO BID [facility] Levetiracetam (Keppra) 500 mg PO BID [facility] Ondansetron HCl (Zofran) 4 mg IVP Q6H PRN PRN Reason: Nausea/Vomiting Stop: 12/12/18 08:31 Ondansetron HCl (Zofran Odt) 4 mg SL Q6H PRN PRN Reason: Nausea/Vomiting Stop: 12/12/18 08:31 Ondansetron HCl (Zofran Odt) 4 mg PO Q6H PRN PRN Reason: Nausea/Vomiting Ondansetron HCl (Zofran) 4 mg IVP Q6H PRN PRN Reason: Nausea/Vomiting Ranolazine (Ranexa) 1,000 mg PO BID [facility] Sodium Chloride (Flush - Normal Saline) 10 ml IVF PRN PRN PRN Reason: Saline Flush Stop: 12/12/18 08:31 - Allergies Allergies/Adverse Reactions: Allergies Allergy/AdvReac Type Severity Reaction Status Date / Time pineapple Allergy throat Verified 12/11/18 23:09 swell Surgery Consult: Results - Labs Result Diagrams: 12/11/18 16:38 12/11/18 16:10 Lab results: Laboratory Results WBC 6.9 thou/uL (4.8-10.8) 12/11/18 16:38 RBC 3.45 mill/uL (4.70-6.10) L 12/11/18 16:38 Hgb 11.5 g/dL (14.0-18.0) L 12/11/18 16:38 Hct 33.6 % (42.0-52.0) L 12/11/18 16:38 MCV 97.4 fL (78.0-98.0) 12/11/18 16:38 MCH 33.4 pg (27.0-31.0) H 12/11/18 16:38 MCHC 34.3 g/dL (32.0-36.0) 12/11/18 16:38 RDW 15.9 % (11.5-14.5) H 12/11/18 16:38 Plt Count 91 thou/uL (130-400) L 12/11/18 16:38 MPV 11.7 fL (7.4-10.4) H 12/11/18 16:38 Neutrophils % 80.8 % (42.0-75.0) H 12/11/18 16:38 Lymphocytes % 6.9 % (21.0-51.0) L 12/11/18 16:38 Monocytes % 10.2 % (0.0-10.0) H 12/11/18 16:38 Eosinophils % 1.3 % (0.0-10.0) 12/11/18 16:38 Basophils % 0.8 % (0.0-1.0) 12/11/18 16:38 Neutrophils # 5.6 thou/uL (1.40-6.50) 12/11/18 16:38 Lymphocytes # 0.5 thou/uL (1.20-3.40) L 12/11/18 16:38 Monocytes # 0.7 thou/uL (0.11-0.59) H 12/11/18 16:38 Eosinophils # 0.1 thou/uL (0.0-0.7) 12/11/18 16:38 Basophils # 0.1 thou/uL (0.0-0.2) 12/11/18 16:38 Sodium 132 mmol/L (136-145) L 12/11/18 16:10 Potassium 4.1 mmol/L (3.5-5.1) 12/11/18 16:10 Chloride 94 mmol/L (98-107) L 12/11/18 16:10 Carbon Dioxide 28 mmol/L (23-31) 12/11/18 16:10 Anion Gap 14 mmol/L (10-20) 12/11/18 16:10 BUN 31 mg/dL (8.4-25.7) H 12/11/18 16:10 Creatinine 1.93 mg/dL (0.7-1.3) H 12/11/18 16:10 Estimated GFR (MDRD) 34 12/11/18 16:10 Glucose 134 mg/dL (83-110) H 12/11/18 16:10 Lactic Acid 1.1 mmol/L (0.5-2.2) 12/11/18 20:48 Calcium 9.9 mg/dL (7.8-10.44) 12/11/18 16:10 Iron 106 ug/dL (65-175) 12/11/18 16:10 TIBC 248 mcg/dL (261-462) L 12/11/18 16:10 Ferritin 286.54 ng/mL (22-322) 12/11/18 16:10 Total Bilirubin 0.9 mg/dL (0.2-1.2) 12/11/18 16:10 AST 14 U/L (5-34) 12/11/18 16:10 ALT 9 U/L (8-55) 12/11/18 16:10 Alkaline Phosphatase 71 U/L (40-150) 12/11/18 16:10 CK-MB (CK-2) 2.0 ng/mL (0-6.6) 12/11/18 16:10 Troponin I 0.130 ng/mL (< 0.028) H 12/11/18 20:48 Serum Total Protein 7.1 g/dL (5.8-8.1) 12/11/18 16:10 Albumin 4.2 g/dL (3.4-4.8) 12/11/18 16:10 Globulin 2.9 g/dL (2.4-3.5) 12/11/18 16:10 Albumin/Globulin Ratio 1.4 g/dL (1.2-2.2) 12/11/18 16:10 Lipase 30 U/L (8-78) 12/11/18 16:10 Urine Color YELLOW (Yellow) 12/11/18 17: Urine Clarity CLEAR (Clear) 12/11/18 17: Urine pH 7.0 (5.0-9.0) 12/11/18 17: Ur Specific [place] 1.009 (1.002-1.036) 12/11/18 17:19 Urine Protein 30 mg/dL (Neg-Trace) H 12/11/18 17:19 Urine Glucose (UA) 100 mg/dL (Negative) H 12/11/18 17: Urine Ketones Negative mg/dL (Negative) 12/11/18 17: Urine Blood Negative (Negative) 12/11/18 17: Urine Nitrite Negative (Negative) 12/11/18: Urine Bilirubin Negative (Negative) 12/11/18 17: Urine Urobilinogen 0.2 mg/dL (0.2-1.0) 12/11/18 17:19 Ur Leukocyte Esterase Negative (Negative) 12/11/18 17: Urine RBC 0-3 HPF (0-3) 12/11/18 17: Urine WBC None Seen HPF (0-3) 12/11/18 17:19 Ur Squamous Epith Cells None Seen HPF (0-3) 12/11/18 17: Urine Bacteria None Seen HPF (None Seen) 12/11/18 17: Hyaline Casts 0-3 HYALINE CAST LPF (0-3 Hyaline) 12/11/18 17:19 Surgery Consult: A/P - Plan Plan: Small bowel obstruction likely due to previous adhesions. Patient is high risk for surgery given his elevated troponins known cardiomyopathy and coronary artery disease and overall frailty. He is feeling better since coming to the emergency room and we will give him a trial of conservative management. He does have some fluid and lites the mesentery but is not exhibiting pain or significant tenderness and his lactate was normal. He took his Xarelto last night and we will hold this for now. If his symptoms significantly worsened he may need to go to the operating room tonight, but I do not anticipate that to be the case. If he continues to be stable to-24-48 hours of bowel rest and decompression with NG tube before obtaining a small bowel follow through. The patient has requested his regular cardiopulmonary supervisor, Dr. Tee, and I have spoken with Dr. Tee to let him know the patient is in the hospital.
[2018-12-12 01:21] LABS: Troponin I 0.319 ng/mL (< 0.028)
[2018-12-12 03:42] LABS: Band 6 % (5-11); Lymphocytes 7 % (21-51); MDiff Complete? YES; Mean Corpuscular Volume 97.1 fL (78.0-98.0); Mean Platelet Volume 11.4 fL (7.4-10.4); Monocytes 9 % (0-10); Neutrophil 78 % (42-75); Platelet Count 82 thou/uL (130-400); Platelet Morphology Comment Appears Decreased; RBC Distribution Width 15.8 % (11.5-14.5); Red Blood Cell (RBC) Count 3.23 mill/uL (4.70-6.10); White Blood Cell (WBC) Count 7.5 thou/uL (4.8-10.8)
[2018-12-12 03:50] LABS: Hemoglobin A1c 4.9 % (4.0-6.0)
[2018-12-12 03:52] LABS: ALT (SGPT) 11 U/L (8-55); AST (SGOT) 16 U/L (5-34); Albumin 3.8 g/dL (3.4-4.8); Alkaline Phosphatase 61 U/L (40-150); Anion Gap 14 mmol/L (10-20); BUN (Urea Nitrogen) 29 mg/dL (8.4-25.7); Bilirubin, Total 0.9 mg/dL (0.2-1.2); Calc. Creatinine Clearance 39 mL/min (70-130); Calcium 9.5 mg/dL (7.8-10.44); Carbon Dioxide 26 mmol/L (23-31); Chloride 98 mmol/L (98-107); Estimated GFR-MDRD 38; Globulin 2.6 g/dL (2.4-3.5); Glucose 134 mg/dL (83-110); Potassium 4.1 mmol/L (3.5-5.1); Protein, Total 6.4 g/dL (5.8-8.1); Sodium 134 mmol/L (136-145)
[2018-12-12 04:03] LABS: Troponin I 0.369 ng/mL (< 0.028)
--- NOTE | 2018-12-12 07:25 | RAD ---
FRONTAL VIEW ABDOMEN: Date: 12/12/18 INDICATION: Evaluation of nasogastric tube placement. FINDINGS: There is an enteric catheter which traverses to the lateral aspect of the left upper quadrant, locali zing to expected region of the gastric body. Extrinsic artifacts limit detail. Partially imaged upper abdomen reveals a stable appearing bowel gas pattern comparing to 12/11/18 exam. Interstitial prominence is present at the partially imaged lower thorax. IMPRESSION: Enteric catheter traversing to the lateral aspect of the left upper quadrant. This overlies expected region of the gastric body. POS: GLORY
--- NOTE | 2018-12-12 08:50 | PDOC.PN ---
- Subjective Encounter Start Date: 12/12/18 Encounter Start Time: 08:47 Subjective: cont to have abd discomfort, old blood on NG aspirate - Objective Resuscitation Status - Order Detail: 12/11/18 22:13 Resuscitation Status Routine Resuscitation Status: FULL: Full Resuscitation MAR Reviewed: Yes Vital Signs & Weight: Vital Signs (12 hours) Temp Pulse Resp BP Pulse Ox 12/12/18 08:00 98.2 F 12/12/18 03:55 98.6 F 12/11/18 23:20 100 12/11/18 23:11 98.7 F 67 17 141/75 H 100 Weight Weight 182 lb 12.8 oz Most Recent Monitor Data Heart Rate from ECG 66 NIBP 152/77 NIBP BP-Mean 102 Respiration from ECG 21 SpO2 98 I&O: 12/11/18 12/12/18 12/13/18 06:59 06:59 06:59 Intake Total 500 Output Total 350 Balance 150 Result Diagrams: 12/12/18 02:52 12/12/18 02:52 Phys Exam - Physical Examination Neck: no JVD Respiratory: clear to auscultation bilateral Cardiovascular: no significant murmur, irregular Gastrointestinal: soft generalized tenderness, quiet BS Musculoskeletal: no edema Dx/Plan (1) SBO (small bowel obstruction) Code(s): K56.609 - UNSP INTESTNL OBST, UNSP TO PARTIAL VERSUS COMPLETE OBST Status: Acute (2) Atrial fibrillation Code(s): I48.91 - UNSPECIFIED ATRIAL FIBRILLATION Status: Chronic Qualifiers: Atrial fibrillation type: chronic Qualified Code(s): I48.2 - Chronic atrial fibrillation (3) Anticoagulant long-term use Code(s): Z79.01 - SOFTWARE COMPUTER SPECIALIST (CURRENT) USE OF ANTICOAGULANTS Status: Chronic (4) Seizure disorder Code(s): G40.909 - EPILEPSY, UNSP, NOT INTRACTABLE, WITHOUT STATUS EPILEPTICUS Status: Chronic (5) CAD (coronary artery disease) Code(s): I25.10 - ATHSCL HEART DISEASE OF [place] CORONARY ARTERY W/O ANG PCTRS Status: Chronic Qualifiers: Coronary Disease-Associated Artery/Lesion type: [place] artery [place] vs. transplanted heart: [place] heart Associated angina: without angina Qualified Code(s): I25.10 - Atherosclerotic heart disease of [place] coronary artery without angina pectoris Comment: OP Cardiology f/u for discussing re-do CABG.On appropriate cardioprudent meds (6) Hypertension Code(s): I10 - ESSENTIAL (PRIMARY) HYPERTENSION Status: Chronic Qualifiers: Hypertension type: essential hypertension Qualified Code(s): I10 - Essential (primary) hypertension (7) Cardiomyopathy Code(s): I42.9 - CARDIOMYOPATHY, UNSPECIFIED Status: Acute - Plan NGT to suction, iv fluids -: transition to parenteral anticoagulant -: change keppra to ivpb * .
[2018-12-12] MEDS ORDERED: Carvedilol 25 MG TAB PO SCH (09:00)
[2018-12-12] MEDS ORDERED: levETIRAcetam 500 MG TAB PO SCH (09:00)
[2018-12-12] MEDS: Dextrose 5 %-0.45 % NaCl 1,000 ML IV SCH ×2 (10:20→21:12)
[2018-12-12] MEDS: Aspirin 81 mg Enteric Coated Tablet PO SCH (10:26)
[2018-12-12] MEDS: Famotidine/PF 20 mg/2ml Vial SLOW IVP SCH (10:26)
[2018-12-12] MEDS: Isosorbide Dinitrate 5 MG TAB PO SCH ×2 (10:26→21:11)
[2018-12-12] MEDS: Ondansetron PF 4 MG/2 ML Vial IVP PRN ×2 (11:51→21:53)
[2018-12-12] MEDS: Morphine 2 MG/ML SYRINGE SLOW IVP PRN ×2 (12:14→21:53)
--- NOTE | 2018-12-12 15:52 | PDOC.EVN ---
Event Note - Event Note Event Note: no fresh blood in NGT. discussed with Dr Rodriguez. DVT prophylaxis lovenox. will rpt cbc now
[2018-12-12] MEDS ORDERED: Enoxaparin Sodium 30 MG/0.3 ML SYRINGE SC SCH (16:00)
[2018-12-12 16:41] LABS: #Lymphocytes 0.4 thou/uL (1.20-3.40); #Monocytes 0.8 thou/uL (0.11-0.59); #Neutrophils 6.5 thou/uL (1.40-6.50); %Basophils 0.3 % (0.0-1.0); %Eosinophils 0.1 % (0.0-10.0); %Lymphocytes 5.7 % (21.0-51.0); %Monocytes 9.9 % (0.0-10.0); Hemoglobin 11.6 g/dL (14.0-18.0); Mean Corpuscular HGB CONC 34.1 g/dL (32.0-36.0); Mean Corpuscular Hemoglobin 32.8 pg (27.0-31.0); Mean Corpuscular Volume 96.1 fL (78.0-98.0); Platelet Count 87 thou/uL (130-400); RBC Distribution Width 15.8 % (11.5-14.5); Red Blood Cell (RBC) Count 3.54 mill/uL (4.70-6.10); White Blood Cell (WBC) Count 7.7 thou/uL (4.8-10.8)
--- NOTE | 2018-12-12 16:49 | PDOC.EVN ---
Event Note - Event Note Event Note: Hg stable, cont current plan
--- NOTE | 2018-12-12 17:29 | CON ---
DATE OF CONSULTATION: 12/12/2018 REASON FOR CONSULTATION: Bowel obstruction and elevated troponins. HISTORY OF PRESENT ILLNESS: Mr. Willis is a very pleasant 83-year-old black gentleman, very well known to myself, who comes to the hospital for abdominal pain, nausea, and vomiting. He had a CT of the abdomen and was found to have bowel obstruction, and NG tube was placed for decompression, and Cardiology is being consulted as his troponins are increasing. He denies any chest pain, tightness, or pressure. His biggest complaint is abdominal discomfort. On my evaluation, he just had a dose of morphine, and he is pain free currently. He is putting up this really dark looking fluid from his NG tube. PAST MEDICAL HISTORY: 1. Ischemic cardiomyopathy, EF of 30% to 35%. 2. Sick sinus syndrome, status post pacemaker placement. 3. Chronic anticoagulation with Xarelto, last dose was Sunday evening. 4. Chronic atrial fibrillation. 5. Chronic kidney disease, stage 4. 6. Coronary artery disease, status post bypass grafting with severe diffuse disease. 7. Hypertension. 8. Peripheral vascular disease. 9. Mild dementia. 10. Chronic anemia, iron deficiency. 11. Seizure disorder, recently diagnosed, currently on Keppra. PAST SURGICAL HISTORY: 1. CABG x4 in . 2. Pacemaker placement recently. OUTPATIENT MEDICATIONS: 1. Aspirin 81 a day. 2. Lipitor 80 mg at bedtime. 3. Coreg 12.5 b.i.d. 4. Lasix 40 mg 3 days a week. 5. Isosorbide dinitrate 5 mg p.o. b.i.d. 6. Protonix 40 mg a day. 7. Ranexa 1000 mg b.i.d. 8. Xarelto 15 mg at bedtime. 9. Keppra 500 mg b.i.d. ALLERGIES: P[place]APP[place]. FAMILY HISTORY: Mother with early coronary artery disease. Father with brain aneurysm. SOCIAL HISTORY: No alcohol, tobacco, or drugs. REVIEW OF SYSTEMS: A 12-point review of systems was done and was all negative unless stated in the History of Present Illness. PHYSICAL EXAMINATION: VITAL SIGNS: Temperature 97.6, pulse 79, respiratory rate 18, saturating 100% on room air, and blood pressure 154/71. GENERAL: Awake, alert, and oriented to person, place, difficulty with time in no distress. HEENT: Normocephalic, atraumatic. NECK: Supple. LUNGS: Clear. CARDIOVASCULAR: S1 and S2. Regular rate and rhythm with heart rate in the 60s. ABDOMEN: Has reduced bowel sounds, tender to palpation. No rebound or guarding. EXTREMITIES: 1+ edema. SKIN: Warm and dry. LABORATORY DATA: Laboratory work was reviewed. CBC with a white count of 6.9, hemoglobin of 11.5, hematocrit of 33, and platelet count of 91. Chemistry was reviewed with creatinine is 1.74 with GFR of 38, this is the best I have seen in long time. Troponin went from 0.13 to 0.31 to 0.36. Lactic acid was 1.1, calcium was 9.5. UA was unremarkable. CT of the abdomen and pelvis was reviewed. Chest x-ray was reviewed. ASSESSMENT: 1. Acute bowel obstruction. 2. History of ischemic cardiomyopathy. 3. [id number] elevation myocardial infarction, likely demand ischemia from severe coronary artery disease and current acute illness. 4. Chronic atrial fibrillation. 5. Chronic anticoagulation. PLAN: 1. Definitely, stop full anticoagulation for now until abdominal issue has resolved. We would recommend only doing DVT prophylaxis with Lovenox at 30 or 40 mg subcu daily. 2. He would be at high risk for any surgical interventions, but certainly not prohibitive risk. At this point, if surgery is required, he should be able to proceed and understood risk caveats. 3. Currently, rate controlled. We would keep him on current regimen. Thank you for letting me to participate in the care of your patient. We will follow. Job ID: [id number]
--- NOTE | 2018-12-12 18:07 | CT ---
CT ABDOMEN AND PELVIS WITHOUT CONTRAST: 12/12/18 HISTORY: Bowel obstruction. FINDINGS: There are small bilateral pleural effusions, new on the left and slightly larger on the right since t he previous days exam. A nasogastric tube has been placed in the stomach. There has been interval inc rease in the amount of free fluid in the abdomen and pelvis since the previous day's exam. A hematoc rit level is seen in the pelvic fluid. Evidence of small bowel obstruction is again seen. The remaind er of the exam is otherwise stable. IMPRESSION: Small bowel obstruction with interval increase in free fluid and new hematocrit level in the pelvis s racheal the previous day's exam. D/W Dr Victoria in person at 1850 hrs. POS: [facility]
--- NOTE | 2018-12-12 19:35 | PDOC.GSPN ---
Surgery Progress Note: Subj - Subjective Narrative: Saw pt twice today. States he feels good and pain about the same but family says he has periods where the pain gets worse. No flatus he knows of but no nausea. CT repeated; bowel obstruction unchanged, more fluid in pelvis and small pleural effusions. Abdomen still soft but diffusely TTP, worse on left, no rebound rigidity or guarding. NG output bloody and minimal. Troponins janessa further since last night but no CP/SOB. H/H stable, BUN/Creatinine about the same. Not tachycardic (pt is on B erin however), febrile or acidotic. A/P) Persistent SBO, likely heading toward OR unless improves soon, but not emergent. Have discussed w Dr Damon, who will be assuming care. Family and pt aware. Surgery Progress Note: Obj - Vital signs Vital signs: Vital Signs - Most Recent Temp Pulse Resp BP Pulse Ox 97.6 F 79 18 154/71 H 100 12/12/18 16:00 12/12/18 16:00 12/12/18 16:00 12/12/18 16:00 12/12/18 16:00 Surgery Progress Note: Results - Labs Result Diagrams: 12/12/18 16:26 12/12/18 02:52 Lab results: Laboratory Results - last 24 hr 12/12/18 16:26 WBC 7.7 RBC 3.54 L Hgb 11.6 L Hct 34.0 L MCV 96.1 MCH 32.8 H MCHC 34.1 RDW 15.8 H Plt Count 87 L MPV 11.0 H Neutrophils % 84.0 H Neutrophils % (Manual) Not Reportable Lymphocytes % 5.7 L Monocytes % 9.9 Eosinophils % 0.1 Basophils % 0.3 Neutrophils # 6.5 Lymphocytes # 0.4 L Monocytes # 0.8 H Eosinophils # 0.0 Basophils # 0.0
[2018-12-12] MEDS: Carvedilol 25 MG TAB PO SCH (21:10)
--- NOTE | 2018-12-13 00:31 | CON ---
DATE OF CONSULTATION: 12/12/2018 HISTORY OF PRESENT ILLNESS: Mr. Willis is an 83-year-old male with cardiomyopathy. He is admitted with small-bowel obstruction. He has an NG tube in place at this time. He says his abdomen is feeling better. PAST MEDICAL HISTORY: Remarkable for, 1. Laparotomy in the past after trauma where heavy equipment fell on him. 2. History of atrial fibrillation with anticoagulation for this. 3. History of coronary artery disease and cardiomyopathy. 4. History of pacemaker. 5. History of laparotomy and sternotomy for crush trauma. He apparently had injury to liver, ribs, and vertebral bodies. 6. History of coronary artery bypass grafting. 7. History of pacemaker. 8. History of coronary artery stenting. FAMILY HISTORY: Negative for lung disease in early age. SOCIAL HISTORY: Not obtained. REVIEW OF SYSTEMS: A 10-point review of systems completed, negative. Daughters in the room, answers most of the questions. PHYSICAL EXAMINATION: GENERAL: Mr. Willis is afebrile. VITAL SIGNS: Heart rate 79, respiratory rate 18, oximetry is 100% on room air, blood pressure 154/71. HEENT: Pupils are equal. Sclerae anicteric. He has an NG tube in his right naris with very dark NG aspirate, almost coffee-ground in color. NECK: Supple. LUNGS: Clear. HEART: Regular rhythm, S1 and S2 are normal. ABDOMEN: Soft and nontender. EXTREMITIES: Without clubbing, cyanosis, or edema. LABORATORY DATA: White count 7.7, hemoglobin 11.6, platelets 87. Sodium 134, potassium 4.1, chloride 98, bicarb 26, BUN 29, creatinine 1.7, creatinine was 1.9 yesterday. IMPRESSION: 1. Small-bowel obstruction. 2. Acute on chronic kidney disease. 3. Low-positive troponin, likely stress mediated. 4. Anemia with normal mean corpuscular volume? Anemia of chronic disease. 5. History of cardiomyopathy with coronary artery disease with bypass grafting in the past. Conservative management is the plan for now, hoping to avoid an operation in this man with severe cardiac issues. I will be happy to follow the other physicians caring for him. I answered all the daughters' questions. TIME SPENT: This is a 50-minute consult, with greater than 50% of the time spent on the unit coordinating care. Job ID: [id number] [facility]
[2018-12-13] MEDS ORDERED: Enoxaparin Sodium 30 MG/0.3 ML SYRINGE SC SCH (09:00)
[2018-12-13] MEDS: Aspirin 81 mg Enteric Coated Tablet PO SCH (09:53)
[2018-12-13] MEDS: Isosorbide Dinitrate 5 MG TAB PO SCH (09:54)
[2018-12-13] MEDS: Famotidine/PF 20 mg/2ml Vial SLOW IVP SCH (09:54)
[2018-12-13] MEDS: Carvedilol 25 MG TAB PO SCH (09:54)
[2018-12-13 10:11] LABS: Hemoglobin 10.6 g/dL (14.0-18.0); Mean Corpuscular HGB CONC 34.6 g/dL (32.0-36.0); Mean Corpuscular Hemoglobin 33.3 pg (27.0-31.0); Mean Corpuscular Volume 96.2 fL (78.0-98.0); Mean Platelet Volume 10.9 fL (7.4-10.4); Platelet Count 94 thou/uL (130-400); RBC Distribution Width 15.9 % (11.5-14.5); Red Blood Cell (RBC) Count 3.18 mill/uL (4.70-6.10); White Blood Cell (WBC) Count 9.1 thou/uL (4.8-10.8)
[2018-12-13 10:22] LABS: Anion Gap 12 mmol/L (10-20); BUN (Urea Nitrogen) 24 mg/dL (8.4-25.7); Calc. Creatinine Clearance 47 mL/min (70-130); Calcium 8.9 mg/dL (7.8-10.44); Carbon Dioxide 28 mmol/L (23-31); Chloride 99 mmol/L (98-107); Estimated GFR-MDRD 45; Glucose 128 mg/dL (83-110); Potassium 3.7 mmol/L (3.5-5.1); Sodium 135 mmol/L (136-145)
--- NOTE | 2018-12-13 10:22 | PRG ---
DATE OF SERVICE: 12/13/2018 SUBJECTIVE: Jg Willis scheduled for laparotomy today. OBJECTIVE: VITAL SIGNS: He is afebrile. Heart rate in 80s, blood pressure 143/76, respiratory rate 24, oximetry is 90% to 100% this morning on a cannula. LUNGS: Clear anteriorly. HEART: Regular rhythm. No S3. ABDOMEN: Soft, but diffusely tender, more tender than yesterday in my opinion. LABORATORY DATA: There is no CBC today. There are no electrolytes today. IMPRESSION: ? Peritonitis. CT scan showed an increase in fluid in his abdomen. He is tentatively on the schedule for abdominal surgery today. He will likely benefit from being left intubated after surgery. We will get a CBC and a chem-7 on him before he goes to the OR. Job ID: [id number]
[2018-12-13 10:33] LABS: Band 5 % (5-11); Eosinophils 1 % (0-10); Lymphocytes 7 % (21-51); MDiff Complete? YES; Monocytes 5 % (0-10); Neutrophil 82 % (42-75); Platelet Morphology Comment Appears Decreased; Polychromasia SLIGHT = 2-3 cells (100X) (0-2/hpf); Schistocytes SLIGHT = 2-5 cells (100X) (0-1/hpf)
--- NOTE | 2018-12-13 12:18 | PRG ---
DATE OF SERVICE: 12/13/2018 Mr. Willis today is seen by Dr. Moyer. The patient has an ischemic cardiomyopathy, previous coronary artery bypass grafting. The patient has chronic kidney disease. He has been evaluated by Dr. Rodriguez in the recent past, noting coronary artery disease in need of intervention, but due to his chronic kidney disease, this was postponed to a second procedure to avoid contrast nephropathy. Family is elected not to proceed with that today. The patient presents with abdominal pain and had a noncontrast CAT scan 2 days ago and repeated last night, both consistent with bowel obstruction. He has significant abdominal tenderness with peritoneal signs. He has had a trauma laparotomy in the past, incision xiphoid to pubis. I have discussed with Dr. Rodriguez, discussed with the family. The family understands increased cardiac risk. They agree with proceeding with laparotomy, lysis of adhesions. I have asked the patient it has a likelihood of requiring postoperative ventilation. Dr. Stearns is following him. The patient has increased chance of a cardiac event or . Family and the patient are aware of this and wished to proceed. He has chronic kidney disease and is at risk for renal failure. They also understand this. I have held his prophylactic 30 mg Lovenox dose this morning and ask for pain perioperative team to see him regarding consideration for epidural, spinal, or tap block to aid in his postoperative pain control and recovery. Hemoglobin 10, white count 9, creatinine 1.5, BUN 24, and GFR 45. Troponins have been slightly elevated, probably from demand ischemia. Job ID: [id number]
[2018-12-13] MEDS: Dextrose 5 %-0.45 % NaCl 1,000 ML IV SCH (12:30)
[2018-12-13] MEDS ORDERED: Acetaminophen 1,000 MG in Premix Bag 1 BAG IVPB SCH ×2 (12:30→18:00)
--- NOTE | 2018-12-13 12:48 | PDOC.PN ---
- Subjective Encounter Start Date: 12/13/18 Encounter Start Time: 09:00 -: old records requested/rev Patient seen and examined. No new complaints. No overnight events has abdominal pain, - Objective Resuscitation Status - Order Detail: 12/11/18 22:13 Resuscitation Status Routine Resuscitation Status: FULL: Full Resuscitation MAR Reviewed: Yes Vital Signs & Weight: Vital Signs (12 hours) Temp 12/13/18 07:00 98.0 F 12/13/18 03:39 98.9 F Weight Weight 188 lb 1.6 oz Most Recent Monitor Data Heart Rate from ECG 77 NIBP 156/81 NIBP BP-Mean 106 Respiration from ECG 26 SpO2 97 I&O: 12/12/18 12/13/18 12/14/18 06:59 06:59 06:59 Intake Total 500 1850 Output Total 350 1350 Balance 150 500 Result Diagrams: 12/13/18 09:54 12/13/18 09:54 Radiology Reviewed by me: Yes EKG Reviewed by me: Yes Phys Exam - Physical Examination Constitutional: NAD HEENT: PERRLA, moist MMs, sclera anicteric NG tube in place Neck: no JVD, supple Respiratory: no wheezing, no rales, no rhonchi Cardiovascular: RRR, no significant murmur, no rub Gastrointestinal: soft, no distention Musculoskeletal: no edema, pulses present Neurological: non-focal, normal sensation Psychiatric: normal affect, A&O x 3 Skin: no rash, normal turgor Dx/Plan (1) SBO (small bowel obstruction) Code(s): K56.609 - UNSP INTESTNL OBST, UNSP TO PARTIAL VERSUS COMPLETE OBST Status: Acute (2) Thrombocytopenia Code(s): D69.6 - THROMBOCYTOPENIA, UNSPECIFIED Status: Acute (3) Type [address] elevation Code(s): I21.A1 - MYOCARDIAL INFARCTION TYPE 2 Status: Acute (4) Anemia, normocytic normochromic Code(s): D64.9 - ANEMIA, UNSPECIFIED Status: Chronic (5) Anticoagulant long-term use Code(s): Z79.01 - [facility] (CURRENT) USE OF ANTICOAGULANTS Status: Chronic (6) Atrial fibrillation Code(s): I48.91 - UNSPECIFIED ATRIAL FIBRILLATION Status: Chronic Qualifiers: Atrial fibrillation type: chronic Qualified Code(s): I48.2 - Chronic atrial fibrillation (7) CAD (coronary artery disease) Code(s): I25.10 - ATHSCL HEART DISEASE OF [place] CORONARY ARTERY W/O ANG PCTRS Status: Chronic Qualifiers: Coronary Disease-Associated Artery/Lesion type: [place] artery [place] vs. transplanted heart: [place] heart Associated angina: without angina Qualified Code(s): I25.10 - Atherosclerotic heart disease of [place] coronary artery without angina pectoris Comment: (8) CKD (chronic kidney disease) stage 3, GFR 30-59 ml/min Code(s): N18.3 - CHRONIC KIDNEY DISEASE, STAGE 3 (MODERATE) Status: Chronic (9) Chronic anemia Code(s): D64.9 - ANEMIA, UNSPECIFIED Status: Chronic Comment: at baseline (10) Chronic systolic heart failure, ACC/AHA stage C Code(s): I50.22 - CHRONIC SYSTOLIC (CONGESTIVE) HEART FAILURE Status: Chronic (11) Dyslipidemia Code(s): E78.5 - HYPERLIPIDEMIA, UNSPECIFIED Status: Chronic (12) GERD (gastroesophageal reflux disease) Code(s): K21.9 - GASTRO-ESOPHAGEAL REFLUX DISEASE WITHOUT ESOPHAGITIS Status: Chronic (13) H/O sick sinus syndrome Code(s): Z86.79 - PERSONAL HISTORY OF OTHER DISEASES OF THE CIRCULATORY SYSTEM Status: Chronic (14) Hypertension Code(s): I10 - ESSENTIAL (PRIMARY) HYPERTENSION Status: Chronic Qualifiers: Hypertension type: essential hypertension Qualified Code(s): I10 - Essential (primary) hypertension (15) PVD (peripheral vascular disease) Code(s): I73.9 - PERIPHERAL VASCULAR DISEASE, UNSPECIFIED Status: Chronic (16) Seizure disorder Code(s): G40.909 - EPILEPSY, UNSP, NOT INTRACTABLE, WITHOUT STATUS EPILEPTICUS Status: Chronic - Plan cont current plan of care, plan discussed w/ family * medication reviewed as below * symptomatic treatment * continue conservative treatment for now * surgery will defer to surgeon. Review of Systems - Review of Systems ENT: negative: Ear Pain, Ear Discharge, Nose Pain, Nose Discharge, Nose Congestion, Mouth Pain, Mouth Swelling, Throat Pain, Throat Swelling, Other Respiratory: negative: Cough, Dry, Shortness of Breath, Hemoptysis, SOB with Excertion, Pleuritic Pain, Sputum, Wheezing Cardiovascular: negative: chest pain, palpitations, orthopnea, paroxysmal nocturnal dyspnea, edema, light headedness, other Gastrointestinal: negative: Nausea, Vomiting, Abdominal Pain, Diarrhea, Constipation, Melena, Hematochezia, Other Genitourinary: negative: Dysuria, Frequency, Incontinence, Hematuria, Retention , Other Musculoskeletal: negative: Neck Pain, Shoulder Pain, Arm Pain, Back Pain, Hand Pain, Leg Pain, Foot Pain, Other - Medications/Allergies Allergies/Adverse Reactions: Allergies Allergy/AdvReac Type Severity Reaction Status Date / Time pineapple Allergy throat Verified 12/11/18 23:09 swell Medications: Current Medications Acetaminophen (Tylenol) 650 mg MT Q4H PRN PRN Reason: Fever > 101 Aspirin (Ecotrin) 81 mg PO QAM [facility] Last Admin: 12/13/18 09:53 Dose: Not Given Famotidine (Pepcid) 20 mg SLOW IVP 0900 [facility] Last Admin: 12/13/18 09:54 Dose: Not Given Hydralazine HCl (Apresoline) 10 mg SLOW IVP Q4H PRN PRN Reason: SBP > 180 and HR < 70 Dextrose/Sodium Chloride (D5 1/2 Ns) 1,000 mls @ 75 mls/hr IV .[id number] [facility] Last Admin: 12/12/18 21:12 Dose: 1,000 mls Levetiracetam 500 mg/ Device 100 mls @ 200 mls/hr IVPB BID [facility] Last Admin: 12/13/18 09:28 Dose: 100 mls Acetaminophen 1,000 mg/ Device 100 mls @ 400 mls/hr IVPB NOW [facility] Stop: 12/13/18 14:30 Acetaminophen 1,000 mg/ Device 100 mls @ 400 mls/hr IVPB Q6HR [facility] Stop: 12/14/18 12:01 Meropenem 2 gm/ Miscellaneous Medication 1 each/ Sodium Chloride 100 mls @ 100 mls/hr IVPB Q8HR [facility] Isosorbide Dinitrate (Isordil) 5 mg PO BID [facility] Last Admin: 12/13/18 09:54 Dose: Not Given Morphine Sulfate (Morphine) 2 mg SLOW IVP Q4H PRN PRN Reason: Pain Last Admin: 12/12/18 21:53 Dose: 2 mg Ondansetron HCl (Zofran Odt) 4 mg PO Q6H PRN PRN Reason: Nausea/Vomiting Ondansetron HCl (Zofran) 4 mg IVP Q6H PRN PRN Reason: Nausea/Vomiting Last Admin: 12/12/18 21:53 Dose: 4 mg
[2018-12-13] MEDS: Meropenem 2 GM, Admixture Fee 1 EACH in Sodium Chloride 0.9% 100 ML IVPB SCH ×2 (13:30→21:57)
[2018-12-13] MEDS ORDERED: Midazolam HCl 2 mg/2 ml Vial ONE (15:02)
[2018-12-13] MEDS ORDERED: Fentanyl 100 MCG/2 ML VIAL ONE ×2 (15:02→16:56)
[2018-12-13] MEDS ORDERED: Bupivacaine HCl 0.5%/Epinephrine 1:200,000/PF 30 ml Vial ONE (16:31)
[2018-12-13] MEDS ORDERED: Rocuronium Bromide 10 MG/ML (10ML VIAL) ONE (16:48)
[2018-12-13] MEDS ORDERED: Succinylcholine Chloride 20 MG/ML 10 ml SYRINGE FS ONE (16:48)
[2018-12-13] MEDS ORDERED: Esmolol 100 MG/10 ML VIAL ONE (16:48)
[2018-12-13] MEDS ORDERED: PROPOFOL 200 MG/20 ML VIAL ONE (16:48)
[2018-12-13] MEDS ORDERED: Phenylephrine HCL 10 MG/ML VIAL ONE (17:07)
[2018-12-13] MEDS ORDERED: Bupivacaine/Epinephrine 0.25% 30 ML VIAL ONE (19:15)
[2018-12-13] MEDS ORDERED: Bacitracin Zinc Ointment 30 gm TUBE ONE (19:26)
[2018-12-13] MEDS ORDERED: SUGAMMADEX SODIUM 200 MG/2 ML VIAL ONE (19:28)
[2018-12-13] MEDS: Morphine 4 MG/ML VIAL SLOW IVP PRN (20:36)
[2018-12-13] MEDS: Lactated Ringer's 1,000 ML IV SCH (20:38)
[2018-12-13] MEDS: hydrALAZINE 20 MG/ML VIAL SLOW IVP PRN (20:41)
--- NOTE | 2018-12-13 21:20 | RAD ---
Chest one view HISTORY: Central line. COMPARISON: 12/11/2018. FINDINGS: Cardiac silhouette is magnified enlarged. Right subclavian central venous catheter is now i n place with tip overlying the right atrium. Nasogastric tube is seen to the level of the lower mediastinum, but not definitely seen into the stomach. No evidence of pneumothorax. Pulmonary vasculature is more engorged. Old right rib fractures. IMPRESSION: Right subclavian central venous catheter is in good radiographic position. Probable nasogastric tube, incompletely visualized. It should probably be advanced 10 cm for better p ositioning. Consider repeat repeat imaging9 Interval increase in pulmonary vascular congestion..
[2018-12-13] MEDS ORDERED: Isosorbide Dinitrate 5 MG TAB PO SCH (21:30)
[2018-12-13] MEDS ORDERED: Nitroglycerin 50 MG/250 ML BOT 250 ML IVPB PRN (21:30)
[2018-12-13] MEDS ORDERED: levETIRAcetam 500 MG TAB PO SCH (21:30)
[2018-12-13] MEDS ORDERED: Aspirin 81 mg Enteric Coated Tablet PO SCH (21:30)
[2018-12-13] MEDS: Acetaminophen 1,000 MG in Premix Bag 1 BAG IVPB SCH (22:47)
[2018-12-13] MEDS ORDERED: Sodium Chloride 0.9% 500 ML IVPB SCH (23:30)
[2018-12-13] MEDS ORDERED: Acetaminophen 650 MG in Premix Bag 1 BAG IVPB SCH (23:30)
--- NOTE | 2018-12-14 03:00 | OP ---
DATE OF PROCEDURE: 12/13/2018 PREOPERATIVE DIAGNOSES: Small bowel obstruction, abdominal pain, infected sebaceous cyst left facial 3 cm diameter, chronic anticoagulations of Xarelto held for 3 days, ischemic cardiomyopathy, previous CABG, recent cardiac cath demonstrating need for interventional , but chronic kidney disease prevented. POSTOPERATIVE DIAGNOSES: 1. Small bowel obstruction, abdominal pain, infected sebaceous cyst left facial 3 cm diameter, chronic anticoagulations of Xarelto held for 3 days, ischemic cardiomyopathy, previous CABG, recent cardiac cath demonstrating need for interventional , but chronic kidney disease prevented. 2. Bowel obstruction secondary to adhesions and ischemia of the segment of bowel that regained its viability after release of adhesions. PROCEDURE: Exploratory laparotomy; lysis of adhesions; evaluation of small bowel, not requiring resection; ischemic small bowel, regained viability after release of obstruction; excision of sebaceous cyst, left facial; right subclavian vein central line. DESCRIPTION OF PROCEDURE: The patient was taken to the operating room, where paraclavicular area was prepared with ChloraPrep and draped in routine fashion. Seldinger technique was used to place a central line removing the J-wire, securing it with 3-0 silk suture, sterile dressing. Each port aspirated blood, flushed with saline solution. Abdomen was prepared with ChloraPrep and draped in routine fashion. A midline incision was made, centered about the umbilicus, carried down through the skin and subcutaneous tissue to the fascia. Fascia had been previously closed with wire and this was cut and removed where possible. Omentum was adherent to the abdominal wall, carefully taken down. There were adhesions in the abdominal cavity resulting in a small bowel obstruction with ischemic segment of mid bowel. Once the adhesions were released, this ischemic segment of bowel pinked up and did not require resection. Small bowel was otherwise normal. There were only a few adhesions. I could not palpate the NG tube placement due to the adhesions in the upper abdomen and these were not taken down. At this point, the abdominal cavity was irrigated, irrigant evacuated. Midline fascia was closed with continuous suture of #1 PDS, skin and subcu tissues irrigated. Skin was approximated with isamar. Sterile dressing applied. Left facial area where the sebaceous cyst was present was cleansed with Betadine and anesthetized with local anesthetic, 1% Xylocaine with epinephrine, and an incision was made longitudinally along the mandible, excising the inflamed sebaceous cyst from surrounding tissue getting hemostasis with cautery. Subcutaneous tissues were approximated with 4-0 Monocryl, skin with 5-0 Prolene. Antibiotic ointment and Band-Aid applied. The patient tolerated the procedure well. Job ID: [id number]
[2018-12-14] MEDS: Morphine 2 MG/ML SYRINGE SLOW IVP PRN (03:57)
[2018-12-14] MEDS: hydrALAZINE 20 MG/ML VIAL SLOW IVP PRN (03:58)
[2018-12-14] MEDS: Ondansetron PF 4 MG/2 ML Vial IVP PRN (03:58)
[2018-12-14] MEDS: Lactated Ringer's 1,000 ML IV SCH ×3 (04:13→18:24)
[2018-12-14] MEDS: Acetaminophen 1,000 MG in Premix Bag 1 BAG IVPB SCH ×3 (05:19→18:36)
[2018-12-14] MEDS: Triple Antibiotic Oint 1 GM Packet TOP SCH ×2 (05:20→18:37)
[2018-12-14 06:25] LABS: Anion Gap 10 mmol/L (10-20); BUN (Urea Nitrogen) 24 mg/dL (8.4-25.7); Calc. Creatinine Clearance 49 mL/min (70-130); Calcium 8.1 mg/dL (7.8-10.44); Carbon Dioxide 26 mmol/L (23-31); Chloride 104 mmol/L (98-107); Estimated GFR-MDRD 47; Glucose 93 mg/dL (83-110); Potassium 3.6 mmol/L (3.5-5.1); Sodium 136 mmol/L (136-145)
[2018-12-14 06:29] LABS: Band 5 % (5-11); Hemoglobin 9.8 g/dL (14.0-18.0); Lymphocytes 6 % (21-51); MDiff Complete? YES; Mean Corpuscular HGB CONC 34.7 g/dL (32.0-36.0); Mean Corpuscular Hemoglobin 33.7 pg (27.0-31.0); Mean Corpuscular Volume 97.2 fL (78.0-98.0); Mean Platelet Volume 10.2 fL (7.4-10.4); Monocytes 10 % (0-10); Neutrophil 79 % (42-75); Platelet Count 90 thou/uL (130-400); Platelet Morphology Comment Appears Decreased; RBC Distribution Width 15.6 % (11.5-14.5); Red Blood Cell (RBC) Count 2.89 mill/uL (4.70-6.10); White Blood Cell (WBC) Count 6.5 thou/uL (4.8-10.8)
[2018-12-14] MEDS: Meropenem 2 GM, Admixture Fee 1 EACH in Sodium Chloride 0.9% 100 ML IVPB SCH ×3 (06:29→21:27)
--- NOTE | 2018-12-14 08:26 | RAD ---
CHEST 1 VIEW: Date: 12/14/18 INDICATION: History of intubation. COMPARISON: Prior exam dated 12/13/18. FINDINGS: The multilead pacemaker and right subclavian central venous catheter are unchanged. Cardiomegaly and pulmonary vascular congestion remain. Increased bilateral pleural effusions. Healed deformity involvi ng the right chest wall is stable. Left lung apex is excluded. IMPRESSION: Cardiomegaly and pulmonary vascular congestion with worsening small bilateral pleural effusions. Cont inued follow-up is recommended. POS: [facility]
[2018-12-14] MEDS: Morphine 4 MG/ML VIAL SLOW IVP PRN (08:28)
--- NOTE | 2018-12-14 09:46 | PRG ---
DATE OF SERVICE: 12/14/2018 SUBJECTIVE: An 83-year-old gentleman, remains in the ICU. Denies any chest pain. He is having some difficulty breathing, but no coughing or wheezing. OBJECTIVE: VITAL SIGNS: Blood pressure 97/57, pulse 80, respirations 18, saturations 92%. CHEST: Bilateral crackles. CARDIAC: Normal S1, S2. No gallops. ABDOMEN: Soft. LABORATORY DATA: White count 6000, H 9 and 28, platelet count is low 90. Creatinine is 1.4, elevated. IMPRESSION: 1. Status post small bowel obstruction, adhesion, ischemia, lap. 2. Respiratory failure, abnormal x-ray. 3. Coronary artery disease. 4. Congestive heart failure. PLAN: Continue antibiotics, supportive care, PT. We will follow while in the ICU. Job ID: [id number]
--- NOTE | 2018-12-14 09:51 | PRG ---
DATE OF SERVICE: 12/14/2018 SUBJECTIVE: The patient denies any pain, but he has some dementia. No nausea or vomiting. He has not passed any flatus. OBJECTIVE: VITAL SIGNS: Temperature 98.5, pulse 91, blood pressure 97/54. Urine output has been around about 25 to 30 mL/h, but he has chronic renal insufficiency. LUNGS: Clear. GENERAL: He is up awake. ABDOMEN: Distended. He has a clean dry dressing on his wound. Nurse heard some bowel sounds earlier. ASSESSMENT: Postoperative ileus. PLAN: Continue bowel rest. Try and get him up in a chair. Job ID: [id number]
[2018-12-14] MEDS: levETIRAcetam 500 MG TAB PO SCH ×2 (10:01→21:27)
[2018-12-14] MEDS: Aspirin 81 mg Enteric Coated Tablet PO SCH (10:01)
[2018-12-14] MEDS: Isosorbide Dinitrate 5 MG TAB PO SCH ×2 (10:03→21:27)
[2018-12-14] MEDS: Sodium Chloride 0.9% (PF) 10 ML VIAL FS PRN (10:04)
[2018-12-14] MEDS: Pantoprazole 40 MG VIAL IVP SCH (10:04)
--- NOTE | 2018-12-14 10:35 | PDOC.PN ---
- Subjective Encounter Start Date: 12/14/18 Encounter Start Time: 10:20 -: old records requested/rev this morning pt is resting well, family bedside - Objective Resuscitation Status - Order Detail: 12/11/18 22:13 Resuscitation Status Routine Resuscitation Status: FULL: Full Resuscitation MAR Reviewed: Yes Vital Signs & Weight: Vital Signs (12 hours) Temp Pulse BP Pulse Ox 12/14/18 09:22 98 12/14/18 08:00 98.5 F 99 12/14/18 04:00 98.9 F 12/14/18 03:58 101 H 163/62 H 12/14/18 02:00 98.1 F 12/14/18 00:00 100.1 F H 12/13/18 23:00 100.5 F H Weight Weight 181 lb 7.047 oz Most Recent Monitor Data Heart Rate from ECG 91 NIBP 97/54 NIBP BP-Mean 68 Respiration from ECG 30 SpO2 98 I&O: 12/13/18 12/14/18 12/15/18 06:59 06:59 06:59 Intake Total 1850 2282.5 Output Total 1350 565 95 Balance 500 1717.5 -95 Result Diagrams: 12/14/18 05:55 12/14/18 05:55 Additional Labs: Accuchecks 12/13/18 19:27 POC Glucose 120 H Radiology Reviewed by me: Yes EKG Reviewed by me: Yes Phys Exam - Physical Examination Constitutional: NAD HEENT: PERRLA, sclera anicteric Neck: no JVD, supple Respiratory: no wheezing, no rales, no rhonchi Cardiovascular: RRR, no significant murmur, no rub Gastrointestinal: soft, no distention surgical site with dressing Musculoskeletal: no edema, pulses present Neurological: non-focal, normal sensation Psychiatric: normal affect, A&O x 3 Skin: no rash, normal turgor Dx/Plan (1) SBO (small bowel obstruction) Code(s): K56.609 - UNSP INTESTNL OBST, UNSP TO PARTIAL VERSUS COMPLETE OBST Status: Acute (2) Thrombocytopenia Code(s): D69.6 - THROMBOCYTOPENIA, UNSPECIFIED Status: Acute (3) Type [address] elevation Code(s): I21.A1 - MYOCARDIAL INFARCTION TYPE 2 Status: Acute (4) Anemia, normocytic normochromic Code(s): D64.9 - ANEMIA, UNSPECIFIED Status: Chronic (5) Anticoagulant long-term use Code(s): Z79.01 - SNF (CURRENT) USE OF ANTICOAGULANTS Status: Chronic (6) Atrial fibrillation Code(s): I48.91 - UNSPECIFIED ATRIAL FIBRILLATION Status: Chronic Qualifiers: Atrial fibrillation type: chronic Qualified Code(s): I48.2 - Chronic atrial fibrillation (7) CAD (coronary artery disease) Code(s): I25.10 - ATHSCL HEART DISEASE OF [place] CORONARY ARTERY W/O ANG PCTRS Status: Chronic Qualifiers: Coronary Disease-Associated Artery/Lesion type: [place] artery [place] vs. transplanted heart: [place] heart Associated angina: without angina Qualified Code(s): I25.10 - Atherosclerotic heart disease of [place] coronary artery without angina pectoris Comment: (8) CKD (chronic kidney disease) stage 3, GFR 30-59 ml/min Code(s): N18.3 - CHRONIC KIDNEY DISEASE, STAGE 3 (MODERATE) Status: Chronic (9) Chronic anemia Code(s): D64.9 - ANEMIA, UNSPECIFIED Status: Chronic Comment: at baseline (10) Chronic systolic heart failure, ACC/AHA stage C Code(s): I50.22 - CHRONIC SYSTOLIC (CONGESTIVE) HEART FAILURE Status: Chronic (11) Dyslipidemia Code(s): E78.5 - HYPERLIPIDEMIA, UNSPECIFIED Status: Chronic (12) GERD (gastroesophageal reflux disease) Code(s): K21.9 - GASTRO-ESOPHAGEAL REFLUX DISEASE WITHOUT ESOPHAGITIS Status: Chronic (13) H/O sick sinus syndrome Code(s): Z86.79 - PERSONAL HISTORY OF OTHER DISEASES OF THE CIRCULATORY SYSTEM Status: Chronic (14) Hypertension Code(s): I10 - ESSENTIAL (PRIMARY) HYPERTENSION Status: Chronic Qualifiers: Hypertension type: essential hypertension Qualified Code(s): I10 - Essential (primary) hypertension (15) PVD (peripheral vascular disease) Code(s): I73.9 - PERIPHERAL VASCULAR DISEASE, UNSPECIFIED Status: Chronic (16) Seizure disorder Code(s): G40.909 - EPILEPSY, UNSP, NOT INTRACTABLE, WITHOUT STATUS EPILEPTICUS Status: Chronic - Plan cont current plan of care, plan discussed w/ family * medication reviewed as below * symptomatic treatment * continue post operative care as per surgeon * stable otherwise Review of Systems - Review of Systems ENT: negative: Ear Pain, Ear Discharge, Nose Pain, Nose Discharge, Nose Congestion, Mouth Pain, Mouth Swelling, Throat Pain, Throat Swelling, Other Respiratory: negative: Cough, Dry, Shortness of Breath, Hemoptysis, SOB with Excertion, Pleuritic Pain, Sputum, Wheezing Cardiovascular: negative: chest pain, palpitations, orthopnea, paroxysmal nocturnal dyspnea, edema, light headedness, other Gastrointestinal: negative: Nausea, Vomiting, Abdominal Pain, Diarrhea, Constipation, Melena, Hematochezia, Other Genitourinary: negative: Dysuria, Frequency, Incontinence, Hematuria, Retention , Other Musculoskeletal: negative: Neck Pain, Shoulder Pain, Arm Pain, Back Pain, Hand Pain, Leg Pain, Foot Pain, Other - Medications/Allergies Allergies/Adverse Reactions: Allergies Allergy/AdvReac Type Severity Reaction Status Date / Time pineapple Allergy throat Verified 12/11/18 23:09 swell Medications: Current Medications Aspirin (Ecotrin) 81 mg PO QAM [facility] Last Admin: 12/14/18 10:01 Dose: 81 mg Hydralazine HCl (Apresoline) 10 mg SLOW IVP Q4H PRN PRN Reason: SBP > 180 and HR < 70 Last Admin: 12/14/18 03:58 Dose: 10 mg Meropenem 2 gm/ Miscellaneous Medication 1 each/ Sodium Chloride 100 mls @ 100 mls/hr IVPB Q8HR [facility] Stop: 12/15/18 08:00 Last Admin: 12/14/18 06:29 Dose: 100 mls Acetaminophen 1,000 mg/ Device 100 mls @ 400 mls/hr IVPB Q6HR [facility] Stop: 12/14/18 18:14 Last Admin: 12/14/18 05:19 Dose: 100 mls Lactated Ringer's (Lactated Ringer's) 1,000 mls @ 150 mls/hr IV .Q6H40M [facility] Last Admin: 12/14/18 04:13 Dose: 1,000 mls Nitroglycerin/Dextrose (Nitroglycerin 50 Mg/250 Ml Bot) 250 mls @ 0 mls/hr IVPB INF PRN; Protocol PRN Reason: TO KEEP SBP < 165 Isosorbide Dinitrate (Isordil) 5 mg PO BID [facility] Last Admin: 12/14/18 10:03 Dose: Not Given Levetiracetam (Keppra) 500 mg PO BID [facility] Last Admin: 12/14/18 10:01 Dose: 500 mg Morphine Sulfate (Morphine) 4 mg SLOW IVP Q2H PRN PRN Reason: Moderate to Severe Pain (6-10) Last Admin: 12/14/18 08:28 Dose: 4 mg Morphine Sulfate (Morphine) 2 mg SLOW IVP Q2H PRN PRN Reason: Mild-Moderate Pain (1-5) Last Admin: 12/14/18 03:57 Dose: 2 mg Neomycin/Polymyxin/Bacitracin (Triple Antibiotic) 1 gm TOP 0600,1800 [facility] Last Admin: 12/14/18 05:20 Dose: 1 gm Ondansetron HCl (Zofran Odt) 4 mg PO Q6H PRN PRN Reason: Nausea/Vomiting Ondansetron HCl (Zofran) 4 mg IVP Q6H PRN PRN Reason: Nausea/Vomiting Last Admin: 12/14/18 03:58 Dose: 4 mg Pantoprazole Sodium (Protonix) 40 mg IVP DAILY [facility] Last Admin: 12/14/18 10:04 Dose: 40 mg Sodium Chloride (Normal Saline Pf) 10 ml FS PRN PRN PRN Reason: RECONSTITUTION Last Admin: 12/14/18 10:04 Dose: 10 ml
--- NOTE | 2018-12-14 15:40 | EKG ---
Test Reason : Blood Pressure : / mmHG Vent. Rate : 080 BPM Atrial Rate : 080 BPM P-R Int : 000 ms QRS Dur : 182 ms QT Int : 476 ms P-R-T Axes : 000 017 223 degrees QTc Int : 548 ms Ventricular-paced rhythm Abnormal ECG Confirmed by ALONSO BUTTS ([id number]), movie editor CAITLIN NICKERSON ([id number]) on 12/14/2018 3:39:53 PM Referred By: Confirmed By:ALONSO BUTTS
[2018-12-15] MEDS: Lactated Ringer's 1,000 ML IV SCH ×4 (00:24→20:27)
[2018-12-15] MEDS: Morphine 4 MG/ML VIAL SLOW IVP PRN ×3 (00:33→23:53)
[2018-12-15 05:25] LABS: Anion Gap 13 mmol/L (10-20); BUN (Urea Nitrogen) 29 mg/dL (8.4-25.7); Calc. Creatinine Clearance 42 mL/min (70-130); Calcium 8.5 mg/dL (7.8-10.44); Carbon Dioxide 24 mmol/L (23-31); Chloride 104 mmol/L (98-107); Estimated GFR-MDRD 41; Glucose 87 mg/dL (83-110); Potassium 3.9 mmol/L (3.5-5.1); Sodium 137 mmol/L (136-145)
[2018-12-15 05:27] LABS: Band 10 % (5-11); Eosinophils 1 % (0-10); Large Platelets SLIGHT; Lymphocytes 5 % (21-51); MDiff Complete? YES; Mean Corpuscular Hemoglobin 34.2 pg (27.0-31.0); Mean Platelet Volume 10.3 fL (7.4-10.4); Monocytes 10 % (0-10); Neutrophil 74 % (42-75); Platelet Count 88 thou/uL (130-400); Platelet Morphology Comment Appears Decreased; RBC Distribution Width 15.9 % (11.5-14.5); Red Blood Cell (RBC) Count 2.65 mill/uL (4.70-6.10); White Blood Cell (WBC) Count 7.6 thou/uL (4.8-10.8)
[2018-12-15] MEDS: Triple Antibiotic Oint 1 GM Packet TOP SCH ×2 (06:24→17:38)
[2018-12-15] MEDS: Meropenem 2 GM, Admixture Fee 1 EACH in Sodium Chloride 0.9% 100 ML IVPB SCH (06:24)
--- NOTE | 2018-12-15 07:37 | RAD ---
CHEST 1 VIEW: Date: 12/15/18 INDICATION: Intubation. COMPARISON: Prior exam dated 12/14/18. FINDINGS: Cardiomegaly, pulmonary vascular congestion, and bilateral pleural effusions persist. Dual lead pacem silvino is unchanged. Right subclavian central venous catheter is again noted. No pneumothorax is demons trated. IMPRESSION: Stable exam. POS: BH
[2018-12-15] MEDS: levETIRAcetam 500 MG TAB PO SCH ×2 (09:37→20:27)
[2018-12-15] MEDS: Aspirin 81 mg Enteric Coated Tablet PO SCH (09:37)
[2018-12-15] MEDS: Isosorbide Dinitrate 5 MG TAB PO SCH ×2 (09:38→20:27)
[2018-12-15] MEDS: Pantoprazole 40 MG VIAL IVP SCH (09:39)
--- NOTE | 2018-12-15 10:13 | PRG ---
DATE OF SERVICE: 12/15/2018 SUBJECTIVE: Status post surgery. X-ray shows elevated left hemidiaphragm, maybe left retrocardiac density. He has no difficulty breathing, coughing, or wheezing. OBJECTIVE: VITAL SIGNS: Sats are 96% on room air, blood pressure 135/77, temperature 99, respirations 18. CHEST: Decreased breath sounds, no wheezing. CARDIAC: Normal S1 and S2. No gallops. ABDOMEN: No masses. DIAGNOSTIC DATA: Creatinine 1.61. White count unremarkable. H and H 9 and 26. IMPRESSION: 1. Small bowel obstruction. 2. Reflux. 3. Coronary artery disease. 4. Azotemia. 5. Left retrocardiac density infiltrate pneumonia. PLAN: 1. Pulmonary simon, continue supportive care, PT. 2. If he starts running a fever, we will start empiric antibiotics. 3. We will follow. Job ID: [id number]
--- NOTE | 2018-12-15 12:24 | PRG ---
DATE OF SERVICE: 12/15/2018 SUBJECTIVE: The patient reports he is feeling fine. Daughter says he has passed some gas. He is not having much pain. No nausea or vomiting. He would like to try some coffee. OBJECTIVE: VITAL SIGNS: Temperature 98.7, pulse 87, blood pressure 119/73. GENERAL: He is awake. ABDOMEN: Little bit distended. Incision is dry. There are some bowel sounds. LABORATORY DATA: White count 7.6, H and H 9 and 26, platelet count 88,000. His BUN is 29, creatinine 1.6, otherwise fine. ASSESSMENT: Stable. PLAN: Transfer to floor. Job ID: [id number]
[2018-12-15] MEDS: Morphine 2 MG/ML SYRINGE SLOW IVP PRN (14:31)
[2018-12-16] MEDS: Lactated Ringer's 1,000 ML IV SCH ×5 (03:17→21:39)
[2018-12-16] MEDS: Triple Antibiotic Oint 1 GM Packet TOP SCH ×2 (05:30→19:07)
[2018-12-16 06:13] LABS: Anion Gap 11 mmol/L (10-20); BUN (Urea Nitrogen) 34 mg/dL (8.4-25.7); Calc. Creatinine Clearance 41 mL/min (70-130); Calcium 8.6 mg/dL (7.8-10.44); Carbon Dioxide 27 mmol/L (23-31); Chloride 104 mmol/L (98-107); Estimated GFR-MDRD 40; Glucose 97 mg/dL (83-110); Potassium 3.8 mmol/L (3.5-5.1); Sodium 138 mmol/L (136-145)
[2018-12-16 06:20] LABS: Band 4 % (5-11); Eosinophils 4 % (0-10); Hemoglobin 8.9 g/dL (14.0-18.0); Lymphocytes 6 % (21-51); MDiff Complete? YES; Mean Corpuscular HGB CONC 33.9 g/dL (32.0-36.0); Mean Corpuscular Hemoglobin 33.9 pg (27.0-31.0); Mean Corpuscular Volume 99.9 fL (78.0-98.0); Mean Platelet Volume 10.2 fL (7.4-10.4); Monocytes 14 % (0-10); Myelocyte 1 % (0-0); Neutrophil 70 % (42-75); Platelet Count 91 thou/uL (130-400); RBC Distribution Width 15.8 % (11.5-14.5); Red Blood Cell (RBC) Count 2.64 mill/uL (4.70-6.10); White Blood Cell (WBC) Count 7.3 thou/uL (4.8-10.8)
--- NOTE | 2018-12-16 07:52 | RAD ---
EXAM: Single view of the chest HISTORY: Shortness of breath COMPARISON: 12/15/2018 FINDINGS: Single view of the chest shows an enlarged cardiomediastinal silhouette. The patient is sta tus post CABG. The pacemaker is unchanged in position. The central venous catheter is unchanged in position. Degenerative changes are seen in the spine. There are remote healed right rib fractures. \IMPRESSION: No evidence of acute cardiopulmonary disease
[2018-12-16] MEDS: Isosorbide Dinitrate 5 MG TAB PO SCH ×2 (08:43→21:39)
[2018-12-16] MEDS: levETIRAcetam 500 MG TAB PO SCH ×2 (08:43→21:39)
[2018-12-16] MEDS: Aspirin 81 mg Enteric Coated Tablet PO SCH (08:43)
[2018-12-16] MEDS ORDERED: Lactated Ringer's 1,000 ML IV SCH (10:19)
--- NOTE | 2018-12-16 11:19 | PRG ---
DATE OF SERVICE: 12/16/2018 SUBJECTIVE: Mr. Willis is doing well today 3 days postop laparotomy for adhesions, ischemic bowel obstruction, resection was not necessary. He is on the floor now, on liquids, although family reports he is not taking much and has not felt like it. He has not passed flatus. He has not had a bowel movement. The patient denies having any nausea or vomiting. He has not ambulated. The patient is a full code. I have talked to the family about this and the family has stated if he has a terminal condition, that they would want a DNR status. I have discussed with his father and they will further discuss this with the family. Family states at home, the patient requires a lot of assistance to get out of bed and into a chair and to mobilize around the house. I informed that he may need to be considered for rehab postoperatively. They do have family available and caregivers to help him at home. We will await to see how he interacts with therapy and let the family discuss this as far as his eventual discharge plan. OBJECTIVE: VITAL SIGNS: Temperature 98.2 degrees, heart rate 87, blood pressure 154/81. LUNGS: Clear to auscultation. CARDIAC: Regular rate and rhythm without murmur or gallop. ABDOMEN: Distended. Tympanitic. Decreased bowel sounds. The patient's wound looks good. LABORATORY DATA: White count 7, hemoglobin 8.9. Basic metabolic profile normal with baseline renal function. BUN 34, creatinine 1.65, potassium 3.8. The patient has a Olivo catheter in place, 675 mL in last 24 hours. ASSESSMENT AND PLAN: 1. Ileus. We will continue sips and chips and avoid advancing his diet at this time. He can have medications with a sip of water. 2. Deconditioning, at baseline. He is very deconditioned, requires family assistance for basic mobility. We will ask Therapy to see him and ask Rehab to screen him, and I suspect he will need a lot of help at home, if not, go to rehab postoperatively. We will await Physical Therapy evaluation and family input with employment case manager as far as discharge disposition. 3. Chronic kidney disease, probably at his baseline. Job ID: [id number]
[2018-12-16 11:53] LABS: Actual Bicarbonate (HCO3a) 26.5 mEq/L (22-28); Analyzer IN Cardio OR; Base Excess (BEa) 3.5 mEq/L (-2.0 to +3.0); CO2 Tension 34.1 mmHg (35.0-45.0); Calcium, Ionized 1.13 mmol/L (1.12-1.30); Carboxyhemoglobin (COHb) 0.8 gm% (0.0-3.0); Hemoglobin (Hb) 10.4 g/dL (14.0-18.0); Potassium - ABG Lab 3.82 mmol/L (3.70-5.30); pH, Arterial 7.51 (7.35-7.45)
[2018-12-16 11:58] LABS: Puncture Site ALINE
--- NOTE | 2018-12-16 12:10 | PDOC.PN ---
- Subjective Encounter Start Date: 12/16/18 Encounter Start Time: 09:00 Patient seen and examined. No new complaints. No overnight events - Objective Resuscitation Status - Order Detail: 12/11/18 22:13 Resuscitation Status Routine Resuscitation Status: FULL: Full Resuscitation MAR Reviewed: Yes Vital Signs & Weight: Vital Signs (12 hours) Temp Pulse Resp BP Pulse Ox 12/16/18 07:23 98.2 F 87 28 H 154/81 H 94 L 12/16/18 04:40 98 F 86 16 162/77 H 92 L 12/16/18 00:40 98 F 80 16 164/76 H 93 L Weight Weight 181 lb 7.047 oz Most Recent Monitor Data Heart Rate from ECG 84 NIBP 139/70 NIBP BP-Mean 93 Respiration from ECG 21 SpO2 97 I&O: 12/15/18 12/16/18 12/17/18 06:59 06:59 06:59 Intake Total 3079 625 Output Total 870 675 Balance 2209 -50 Result Diagrams: 12/16/18 05:40 12/16/18 05:40 Phys Exam - Physical Examination Constitutional: NAD HEENT: PERRLA, moist MMs, sclera anicteric Neck: no JVD, supple Respiratory: no wheezing, no rales, no rhonchi Cardiovascular: RRR, no significant murmur, no rub Gastrointestinal: soft, non-tender, no distention, positive bowel sounds Musculoskeletal: no edema, pulses present Neurological: non-focal, normal sensation Lymphatic: no nodes Psychiatric: normal affect Skin: no rash, normal turgor Dx/Plan (1) SBO (small bowel obstruction) Code(s): K56.609 - UNSP INTESTNL OBST, UNSP TO PARTIAL VERSUS COMPLETE OBST Status: Acute (2) Thrombocytopenia Code(s): D69.6 - THROMBOCYTOPENIA, UNSPECIFIED Status: Acute (3) Type [address] elevation Code(s): I21.A1 - MYOCARDIAL INFARCTION TYPE 2 Status: Acute (4) Anemia, normocytic normochromic Code(s): D64.9 - ANEMIA, UNSPECIFIED Status: Chronic (5) Anticoagulant long-term use Code(s): Z79.01 - ALF (CURRENT) USE OF ANTICOAGULANTS Status: Chronic (6) Atrial fibrillation Code(s): I48.91 - UNSPECIFIED ATRIAL FIBRILLATION Status: Chronic Qualifiers: Atrial fibrillation type: chronic Qualified Code(s): I48.2 - Chronic atrial fibrillation (7) CAD (coronary artery disease) Code(s): I25.10 - ATHSCL HEART DISEASE OF [place] CORONARY ARTERY W/O ANG PCTRS Status: Chronic Qualifiers: Coronary Disease-Associated Artery/Lesion type: [place] artery [place] vs. transplanted heart: [place] heart Associated angina: without angina Qualified Code(s): I25.10 - Atherosclerotic heart disease of [place] coronary artery without angina pectoris Comment: (8) CKD (chronic kidney disease) stage 3, GFR 30-59 ml/min Code(s): N18.3 - CHRONIC KIDNEY DISEASE, STAGE 3 (MODERATE) Status: Chronic (9) Chronic anemia Code(s): D64.9 - ANEMIA, UNSPECIFIED Status: Chronic Comment: at baseline (10) Chronic systolic heart failure, ACC/AHA stage C Code(s): I50.22 - CHRONIC SYSTOLIC (CONGESTIVE) HEART FAILURE Status: Chronic (11) Dyslipidemia Code(s): E78.5 - HYPERLIPIDEMIA, UNSPECIFIED Status: Chronic (12) GERD (gastroesophageal reflux disease) Code(s): K21.9 - GASTRO-ESOPHAGEAL REFLUX DISEASE WITHOUT ESOPHAGITIS Status: Chronic (13) H/O sick sinus syndrome Code(s): Z86.79 - PERSONAL HISTORY OF OTHER DISEASES OF THE CIRCULATORY SYSTEM Status: Chronic (14) Hypertension Code(s): I10 - ESSENTIAL (PRIMARY) HYPERTENSION Status: Chronic Qualifiers: Hypertension type: essential hypertension Qualified Code(s): I10 - Essential (primary) hypertension (15) PVD (peripheral vascular disease) Code(s): I73.9 - PERIPHERAL VASCULAR DISEASE, UNSPECIFIED Status: Chronic (16) Seizure disorder Code(s): G40.909 - EPILEPSY, UNSP, NOT INTRACTABLE, WITHOUT STATUS EPILEPTICUS Status: Chronic - Plan cont current plan of care, plan discussed w/ family, PT/OT, older adult social work specialist * diet advancement as per surgeon * pt is very weak and he may need placement * medication reviewed as below * symptomatic treatment. Review of Systems - Review of Systems Constitutional: weakness ENT: negative: Ear Pain, Ear Discharge, Nose Pain, Nose Discharge, Nose Congestion, Mouth Pain, Mouth Swelling, Throat Pain, Throat Swelling, Other Respiratory: negative: Cough, Dry, Shortness of Breath, Hemoptysis, SOB with Excertion, Pleuritic Pain, Sputum, Wheezing Cardiovascular: negative: chest pain, palpitations, orthopnea, paroxysmal nocturnal dyspnea, edema, light headedness, other Gastrointestinal: negative: Nausea, Vomiting, Abdominal Pain, Diarrhea, Constipation, Melena, Hematochezia, Other Genitourinary: negative: Dysuria, Frequency, Incontinence, Hematuria, Retention , Other Musculoskeletal: negative: Neck Pain, Shoulder Pain, Arm Pain, Back Pain, Hand Pain, Leg Pain, Foot Pain, Other - Medications/Allergies Allergies/Adverse Reactions: Allergies Allergy/AdvReac Type Severity Reaction Status Date / Time pineapple Allergy throat Verified 12/11/18 23:09 swell Medications: Current Medications Aspirin (Ecotrin) 81 mg PO QAM [facility] Last Admin: 12/16/18 08:43 Dose: 81 mg [facility]urosem[facility] ([facility]) [facility] [place] Hydralazine HCl (Apresoline) 10 mg SLOW IVP Q4H PRN PRN Reason: SBP > 180 and HR < 70 Last Admin: 12/14/18 03:58 Dose: 10 mg Lactated Ringer's (Lactated Ringer's) 1,000 mls @ 100 mls/hr IV .Q10H [facility] Last Admin: 12/16/18 10:34 Dose: 1,000 mls Isosorbide Dinitrate (Isordil) 5 mg PO BID [facility] Last Admin: 12/16/18 08:43 Dose: 5 mg Levetiracetam (Keppra) 500 mg PO BID [facility] Last Admin: 12/16/18 08:43 Dose: 500 mg Morphine Sulfate (Morphine) 4 mg SLOW IVP Q2H PRN PRN Reason: Moderate to Severe Pain (6-10) Last Admin: 12/15/18 23:53 Dose: 4 mg Morphine Sulfate (Morphine) 2 mg SLOW IVP Q2H PRN PRN Reason: Mild-Moderate Pain (1-5) Last Admin: 12/15/18 14:31 Dose: 2 mg Neomycin/Polymyxin/Bacitracin (Triple Antibiotic) 1 gm TOP 0600,1800 [facility] Last Admin: 12/16/18 05:30 Dose: 1 gm Ondansetron HCl (Zofran Odt) 4 mg PO Q6H PRN PRN Reason: Nausea/Vomiting Ondansetron HCl (Zofran) 4 mg IVP Q6H PRN PRN Reason: Nausea/Vomiting Last Admin: 12/14/18 03:58 Dose: 4 mg Pantoprazole Sodium (Protonix) 40 mg PO QAM [facility] Sodium Chloride (Normal Saline Pf) 10 ml FS PRN PRN PRN Reason: RECONSTITUTION Last Admin: 12/14/18 10:04 Dose: 10 ml
--- NOTE | 2018-12-16 12:30 | PDOC.CTH ---
Cardiology Progress Note - Subjective He is doing much better. He had his surgery and had an ischemic are that was released and pinked up. No abdominal or chest pain. - Objective Vital Signs Temp Pulse Resp BP Pulse Ox 12/16/18 07:23 98.2 F 87 28 H 154/81 H 94 L 12/16/18 04:40 98 F 86 16 162/77 H 92 L 12/16/18 00:40 98 F 80 16 164/76 H 93 L Weight 181 lb 7.047 oz 12/15/18 12/16/18 12/17/18 06:59 06:59 06:59 Intake Total 3079 625 Output Total 870 675 Balance 2209 -50 - Physical Examination General/Neuro: NAD Neck: no JVD present Lungs: unlabored respirations, other: (Reduced breath sounds. ) Heart: RRR Abdomen: NT/ND Extremities: other: (1+ edema.) - Labs Result Diagrams: 12/16/18 05:40 12/16/18 05:40 Troponin/CKMB CK-MB (CK-2) 2.0 ng/mL (0-6.6) 12/11/18 16:10 Troponin I 0.369 ng/mL (< 0.028) H* 12/12/18 02:52 - Assessment/Plan 1. SBO 2. s/p Release of adhesions. 3. NSTEMI, demand ischemia 4. Post op Ileus. PLn: - Judiscious use of fluids, will reduce rate to 75ml/hr - Will follow.
--- NOTE | 2018-12-16 15:12 | PRG ---
DATE OF SERVICE: 12/16/2018 SUBJECTIVE: Jg Willis is doing well. He is intermittently confused according to family. OBJECTIVE: VITAL SIGNS: He is afebrile, heart rate is 87, respiratory rate is 20, oximetry is 94% on room air, blood pressure is 154/81. GENERAL: Fortunately, he did not require bowel resection. LUNGS: Clear. HEART: Regular rhythm. ABDOMEN: Soft, but very distended. He has no bowel sounds. EXTREMITIES: Without edema. LABORATORY DATA: White count 7.3, hemoglobin 8.9, and platelets 91,000. Electrolytes are normal. Creatinine is 1.65. IMPRESSION: 1. Status post laparotomy with lysis of adhesions. 2. Postoperative ileus. When start developing some bowel sounds, we may end up requiring another NG tube. 3. Cardiomyopathy. 4. Acute on chronic kidney disease. 5. Deconditioning. We will continue to follow the other physicians caring for him. I met with the daughter and answered all of her questions. Job ID: [id number]
[2018-12-17] MEDS: Triple Antibiotic Oint 1 GM Packet TOP SCH ×2 (05:54→18:09)
[2018-12-17 07:26] LABS: Anion Gap 11 mmol/L (10-20); BUN (Urea Nitrogen) 32 mg/dL (8.4-25.7); Calc. Creatinine Clearance 48 mL/min (70-130); Calcium 8.4 mg/dL (7.8-10.44); Carbon Dioxide 26 mmol/L (23-31); Chloride 105 mmol/L (98-107); Estimated GFR-MDRD 49; Glucose 84 mg/dL (83-110); Potassium 3.5 mmol/L (3.5-5.1); Sodium 138 mmol/L (136-145)
[2018-12-17 07:48] LABS: Band 2 % (5-11); Eosinophils 5 % (0-10); Lymphocytes 16 % (21-51); MDiff Complete? YES; Mean Corpuscular HGB CONC 33.6 g/dL (32.0-36.0); Mean Corpuscular Hemoglobin 32.9 pg (27.0-31.0); Mean Corpuscular Volume 97.9 fL (78.0-98.0); Mean Platelet Volume 10.1 fL (7.4-10.4); Monocytes 14 % (0-10); Neutrophil 62 % (42-75); Platelet Count 111 thou/uL (130-400); Platelet Morphology Comment Appears Decreased; Polychromasia SLIGHT = 2-3 cells (100X) (0-2/hpf); RBC Distribution Width 15.6 % (11.5-14.5); Red Blood Cell (RBC) Count 2.75 mill/uL (4.70-6.10); White Blood Cell (WBC) Count 6.4 thou/uL (4.8-10.8)
[2018-12-17] MEDS ORDERED: Pantoprazole 40 MG VIAL IVP SCH (09:00)
[2018-12-17] MEDS ORDERED: Furosemide 40 MG TAB PO SCH (09:00)
[2018-12-17] MEDS: Isosorbide Dinitrate 5 MG TAB PO SCH ×2 (09:16→20:35)
[2018-12-17] MEDS: Aspirin 81 mg Enteric Coated Tablet PO SCH (09:16)
[2018-12-17] MEDS: levETIRAcetam 500 MG TAB PO SCH ×2 (09:16→20:34)
[2018-12-17] MEDS ORDERED: Furosemide 40 MG/4 ML VIAL SLOW IVP SCH (10:15)
--- NOTE | 2018-12-17 10:16 | PDOC.PN ---
- Subjective Encounter Start Date: 12/17/18 Encounter Start Time: 07:50 Patient seen and examined. No new complaints. No overnight events - Objective Resuscitation Status - Order Detail: 12/11/18 22:13 Resuscitation Status Routine Resuscitation Status: FULL: Full Resuscitation MAR Reviewed: Yes Vital Signs & Weight: Vital Signs (12 hours) Temp Pulse Resp BP Pulse Ox 12/17/18 08:00 98.0 F 92 20 158/79 H 92 L 12/17/18 07:54 94 L 12/17/18 04:23 98.1 F 89 16 146/80 H 94 L 12/17/18 00:00 98.3 F 74 16 156/76 H 94 L Weight Weight 181 lb 7.047 oz Most Recent Monitor Data Heart Rate from ECG 84 NIBP 139/70 NIBP BP-Mean 93 Respiration from ECG 21 SpO2 97 I&O: 12/16/18 12/17/18 12/18/18 06:59 06:59 06:59 Intake Total 625 1800 Output Total 675 450 Balance -50 1350 Result Diagrams: 12/17/18 05:50 12/17/18 05:50 Phys Exam - Physical Examination Constitutional: NAD HEENT: PERRLA, moist MMs, sclera anicteric Neck: no JVD, supple Respiratory: no wheezing, no rales, no rhonchi Cardiovascular: RRR, no significant murmur, no rub Gastrointestinal: soft, non-tender, no distention, positive bowel sounds surgical site clean Musculoskeletal: no edema, pulses present Neurological: non-focal, normal sensation Psychiatric: normal affect, A&O x 3 Skin: no rash, normal turgor Dx/Plan (1) SBO (small bowel obstruction) Code(s): K56.609 - UNSP INTESTNL OBST, UNSP TO PARTIAL VERSUS COMPLETE OBST Status: Acute Comment: s/p adhesiolysis (2) Thrombocytopenia Code(s): D69.6 - THROMBOCYTOPENIA, UNSPECIFIED Status: Acute (3) Type [address] elevation Code(s): I21.A1 - MYOCARDIAL INFARCTION TYPE 2 Status: Acute (4) Anemia, normocytic normochromic Code(s): D64.9 - ANEMIA, UNSPECIFIED Status: Chronic (5) Anticoagulant long-term use Code(s): Z79.01 - [place] (CURRENT) USE OF ANTICOAGULANTS Status: Chronic (6) Atrial fibrillation Code(s): I48.91 - UNSPECIFIED ATRIAL FIBRILLATION Status: Chronic Qualifiers: Atrial fibrillation type: chronic Qualified Code(s): I48.2 - Chronic atrial fibrillation (7) CAD (coronary artery disease) Code(s): I25.10 - ATHSCL HEART DISEASE OF [place] CORONARY ARTERY W/O ANG PCTRS Status: Chronic Qualifiers: Coronary Disease-Associated Artery/Lesion type: [place] artery [place] vs. transplanted heart: [place] heart Associated angina: without angina Qualified Code(s): I25.10 - Atherosclerotic heart disease of [place] coronary artery without angina pectoris Comment: (8) CKD (chronic kidney disease) stage 3, GFR 30-59 ml/min Code(s): N18.3 - CHRONIC KIDNEY DISEASE, STAGE 3 (MODERATE) Status: Chronic (9) Chronic anemia Code(s): D64.9 - ANEMIA, UNSPECIFIED Status: Chronic Comment: at baseline (10) Chronic systolic heart failure, ACC/AHA stage C Code(s): I50.22 - CHRONIC SYSTOLIC (CONGESTIVE) HEART FAILURE Status: Chronic (11) Dyslipidemia Code(s): E78.5 - HYPERLIPIDEMIA, UNSPECIFIED Status: Chronic (12) GERD (gastroesophageal reflux disease) Code(s): K21.9 - GASTRO-ESOPHAGEAL REFLUX DISEASE WITHOUT ESOPHAGITIS Status: Chronic (13) H/O sick sinus syndrome Code(s): Z86.79 - PERSONAL HISTORY OF OTHER DISEASES OF THE CIRCULATORY SYSTEM Status: Chronic (14) Hypertension Code(s): I10 - ESSENTIAL (PRIMARY) HYPERTENSION Status: Chronic Qualifiers: Hypertension type: essential hypertension Qualified Code(s): I10 - Essential (primary) hypertension (15) PVD (peripheral vascular disease) Code(s): I73.9 - PERIPHERAL VASCULAR DISEASE, UNSPECIFIED Status: Chronic (16) Seizure disorder Code(s): G40.909 - EPILEPSY, UNSP, NOT INTRACTABLE, WITHOUT STATUS EPILEPTICUS Status: Chronic (17) Postoperative ileus Code(s): K91.89 - OTH POSTPROCEDURAL COMPLICATIONS AND DISORDERS OF DGSTV SYS; K56.7 - ILEUS, UNSPECIFIED Status: Acute - Plan cont current plan of care, plan discussed w/ family, PT/OT, clinical social work therapist * medication reviewed as below * symptomatic treatment * diet advancement as per surgeon * overall stable and improving * discharge planning. Review of Systems - Review of Systems ENT: negative: Ear Pain, Ear Discharge, Nose Pain, Nose Discharge, Nose Congestion, Mouth Pain, Mouth Swelling, Throat Pain, Throat Swelling, Other Respiratory: negative: Cough, Dry, Shortness of Breath, Hemoptysis, SOB with Excertion, Pleuritic Pain, Sputum, Wheezing Cardiovascular: negative: chest pain, palpitations, orthopnea, paroxysmal nocturnal dyspnea, edema, light headedness, other Gastrointestinal: negative: Nausea, Vomiting, Abdominal Pain, Diarrhea, Constipation, Melena, Hematochezia, Other Genitourinary: negative: Dysuria, Frequency, Incontinence, Hematuria, Retention , Other Musculoskeletal: negative: Neck Pain, Shoulder Pain, Arm Pain, Back Pain, Hand Pain, Leg Pain, Foot Pain, Other - Medications/Allergies Allergies/Adverse Reactions: Allergies Allergy/AdvReac Type Severity Reaction Status Date / Time pineapple Allergy throat Verified 12/11/18 23:09 swell Medications: Current Medications Aspirin (Ecotrin) 81 mg PO QAM [facility] Last Admin: 12/17/18 09:16 Dose: 81 mg Furosemide (Lasix) 40 mg SLOW IVP ONE [facility] Hydralazine HCl (Apresoline) 10 mg SLOW IVP Q4H PRN PRN Reason: SBP > 180 and HR < 70 Last Admin: 12/14/18 03:58 Dose: 10 mg Lactated Ringer's (Lactated Ringer's) 1,000 mls @ 75 mls/hr IV .[id number] [facility] Last Admin: 12/16/18 21:39 Dose: 1,000 mls Isosorbide Dinitrate (Isordil) 5 mg PO BID [facility] Last Admin: 12/17/18 09:16 Dose: 5 mg Levetiracetam (Keppra) 500 mg PO BID [facility] Last Admin: 12/17/18 09:16 Dose: 500 mg Morphine Sulfate (Morphine) 4 mg SLOW IVP Q2H PRN PRN Reason: Moderate to Severe Pain (6-10) Last Admin: 12/15/18 23:53 Dose: 4 mg Morphine Sulfate (Morphine) 2 mg SLOW IVP Q2H PRN PRN Reason: Mild-Moderate Pain (1-5) Last Admin: 12/15/18 14:31 Dose: 2 mg Neomycin/Polymyxin/Bacitracin (Triple Antibiotic) 1 gm TOP 0600,1800 [facility] Last Admin: 12/17/18 05:54 Dose: 1 gm Ondansetron HCl (Zofran Odt) 4 mg PO Q6H PRN PRN Reason: Nausea/Vomiting Ondansetron HCl (Zofran) 4 mg IVP Q6H PRN PRN Reason: Nausea/Vomiting Last Admin: 12/14/18 03:58 Dose: 4 mg Pantoprazole Sodium (Protonix) 40 mg IVP DAILY [facility] Sodium Chloride (Normal Saline Pf) 10 ml FS PRN PRN PRN Reason: RECONSTITUTION Last Admin: 12/14/18 10:04 Dose: 10 ml
--- NOTE | 2018-12-17 10:42 | PRG ---
DATE OF SERVICE: 12/17/2018 SUBJECTIVE: Jg Willis is doing well today. Still not has passed any flatus or stool. He is belching; however. His abdomen is still distended and tympanitic. He; however, has not had any nausea or vomiting. OBJECTIVE: VITAL SIGNS: 98 degrees, 92, and 158/79. HEAD, EARS, EYES, NOSE, AND THROAT: Unremarkable. LUNGS: Clear to auscultation. CARDIAC: Regular rate and rhythm without murmur or gallop. ABDOMEN: Soft, distended, and tympanitic, but softer than yesterday. Occasional bowel sounds heard. Wound looks good. EXTREMITIES: Unremarkable. LABORATORY DATA: White count is 6.4 and hemoglobin 9. Basic metabolic profile is normal with BUN of 32 and creatinine 1.4. ASSESSMENT AND PLAN: 1. Chronic kidney disease, stable. 2. Anemia, chronic, stable. 3. Ileus as expected after ischemic segment of bowel and lysis of adhesions and laparotomy. Continue IV fluids, sips, and chips. Medications with a sip of water. Do not advance his diet beyond this at this time. Await more definitive GI function. He does have more bowel sounds this morning. 4. Metastatic colon cancer with hepatic metastasis, recently undergoing chemotherapy. Job ID: [id number]
[2018-12-17] MEDS ORDERED: Epoetin (ESRD) 20,000 UNITS/ML SC SCH (12:15)
[2018-12-17 12:43] VITALS: BMI 23.9
[2018-12-17] MEDS ORDERED: EPOETIN ALFA-EPBX (ESRD) 3,000 UNIT/ML VIAL SC SCH (13:00)
[2018-12-17] MEDS ORDERED: EPOETIN ALFA-EPBX (ESRD) 2,000 UNIT/ML VIAL SC SCH (13:00)
--- NOTE | 2018-12-17 15:08 | PDOC.CTH ---
Cardiology Progress Note - Subjective He is only passing gas, still no BM. His abdomen is distended and tender to palpation but has increased Bowel movements on PE. - Objective Vital Signs Temp Pulse Resp BP Pulse Ox 12/17/18 08:00 98.0 F 92 20 158/79 H 92 L 12/17/18 07:54 94 L 12/17/18 04:23 98.1 F 89 16 146/80 H 94 L Admit Weight 182 lb 1.6 oz Weight 181 lb 7.04 oz 12/16/18 12/17/18 12/18/18 06:59 06:59 06:59 Intake Total 625 1800 Output Total 675 450 Balance -50 1350 - Physical Examination General/Neuro: NAD Neck: no JVD present Lungs: CTA, unlabored respirations Heart: other: (Ireg irreg HR 70's.) Abdomen: other: (distended, tender to palpation, no rebound or guarding. +BS. ) Extremities: + edema B (Trace) - Labs Result Diagrams: 12/17/18 05:50 12/17/18 05:50 Troponin/CKMB CK-MB (CK-2) 2.0 ng/mL (0-6.6) 12/11/18 16:10 Troponin I 0.369 ng/mL (< 0.028) H* 12/12/18 02:52 - Assessment/Plan 1. SBO 2. s/p Release of adhesions. 3. NSTEMI, demand ischemia 4. Post op Ileus. 5. Ischemic CM EF at 30-40% 6. CKD stage 3-4 PLAN: - Will continue rate of IVF at 50 ml/hr as he is developing arm swelling, he is NPO so he needs fluids. - Continue bowel rest.
--- NOTE | 2018-12-17 15:47 | PRG ---
DATE OF SERVICE: 12/17/2018 SUBJECTIVE: Jg Willis has been hallucinating less. OBJECTIVE: VITAL SIGNS: He is afebrile, heart rate 89, respiratory rate 16, oximetry 94% on room air, blood pressure 146/80. He walked in the [place] today with physical therapy. Intake and outputs not recorded. LUNGS: Clear. HEART: Regular rhythm. ABDOMEN: Less distended than yesterday in my opinion. LABORATORY DATA: White count 6.4, hemoglobin 9.0, and platelets 111. Sodium 138, potassium 3.5, chloride 105, bicarb 26, BUN 32, creatinine 1.4. IMPRESSION: Status post laparotomy for bowel obstruction leading to lysis of adhesions, but fortunately returned circulations to gut. He is developing bowel sounds and his abdominal distention is decreasing and he is also passing gas. Hopefully, he will continue to improve. His daughter is dealing with dementia issues that it has been a problem for the last year or two, but most prominent this year. It will likely be better when he goes home, but not well from a dementia standpoint. He may benefit from inpatient senior care. Job ID: [id number]
[2018-12-17] MEDS: Lactated Ringer's 1,000 ML IV SCH ×3 (16:05→21:12)
[2018-12-18] MEDS: Furosemide 40 MG TAB PO SCH (06:40)
[2018-12-18] MEDS: Triple Antibiotic Oint 1 GM Packet TOP SCH ×2 (06:40→20:51)
[2018-12-18 07:05] LABS: Hemoglobin 9.1 g/dL (14.0-18.0); Mean Corpuscular HGB CONC 34.1 g/dL (32.0-36.0); Mean Corpuscular Hemoglobin 33.3 pg (27.0-31.0); Mean Corpuscular Volume 97.7 fL (78.0-98.0); Mean Platelet Volume 10.4 fL (7.4-10.4); Platelet Count 107 thou/uL (130-400); RBC Distribution Width 15.6 % (11.5-14.5); Red Blood Cell (RBC) Count 2.74 mill/uL (4.70-6.10); White Blood Cell (WBC) Count 6.2 thou/uL (4.8-10.8)
[2018-12-18 07:21] LABS: Anion Gap 8 mmol/L (10-20); BUN (Urea Nitrogen) 31 mg/dL (8.4-25.7); Calc. Creatinine Clearance 53 mL/min (70-130); Calcium 8.1 mg/dL (7.8-10.44); Carbon Dioxide 29 mmol/L (23-31); Chloride 104 mmol/L (98-107); Estimated GFR-MDRD 54; Glucose 78 mg/dL (83-110); Potassium 3.2 mmol/L (3.5-5.1); Sodium 138 mmol/L (136-145)
[2018-12-18] MEDS: Sodium Chloride 0.9% (PF) 10 ML VIAL FS PRN (08:57)
[2018-12-18] MEDS: Aspirin 81 mg Enteric Coated Tablet PO SCH (09:00)
[2018-12-18] MEDS: levETIRAcetam 500 MG TAB PO SCH ×2 (09:00→20:51)
[2018-12-18] MEDS: Pantoprazole 40 MG VIAL IVP SCH (09:02)
[2018-12-18] MEDS: Isosorbide Dinitrate 5 MG TAB PO SCH ×2 (09:14→20:51)
[2018-12-18 09:49] LABS: Band 5 % (5-11); Eosinophils 4 % (0-10); Lymphocytes 25 % (21-51); MDiff Complete? YES; Monocytes 6 % (0-10); Neutrophil 60 % (42-75); Nucleated RBC 2 % (0); Platelet Morphology Comment Appears Decreased; Polychromasia SLIGHT = 2-3 cells (100X) (0-2/hpf)
--- NOTE | 2018-12-18 10:28 | PRG ---
DATE OF SERVICE: 12/18/2018 SUBJECTIVE: Mr. Willis is doing well today. He thinks he may have passed a small amount of flatus when he sat on the commode yesterday. His daughter is with him and his strength is improving daily. He is becoming stronger, requiring less assistance to stand and walk. He walked 3 times yesterday. OBJECTIVE: VITAL SIGNS: Temperature 98.1 degrees, pulse rate 87, blood pressure 144/71. LUNGS: Clear to auscultation. CARDIAC: Regular rate and rhythm. No murmur or gallop. ABDOMEN: Soft, distended, tympanitic. Decreased bowel sounds. EXTREMITIES: Unremarkable. Surgical wound looks good. LABORATORY DATA: Hemoglobin 9, white count 6.4 yesterday. Sodium 138, potassium 3.2, , BUN 31, creatinine 1.27 this morning. Hemoglobin 9.1, white count 6.2. ASSESSMENT AND PLAN: 1. Ileus. I have spoken with Dr. Rodriguez. We are minimizing his fluids. I do not think he needs TPN at this time. Would continue n.p.o. with ice chips, sips of water and essential medications by mouth. Otherwise, PPIs IV. Awaiting GI function. 2. Chronic kidney disease, stable. 3. Coronary artery disease, stable. 4. Cardiomyopathy, ejection fraction 30% to 35% with significant coronary artery disease in need of intervention. 5. Sick sinus syndrome with pacemaker. 6. Chronic anticoagulation on Xarelto preoperatively. 7. Peripheral arterial disease. 8. Seizure disorder on Keppra. 9. Chronic anemia. Job ID: [id number]
--- NOTE | 2018-12-18 11:30 | PDOC.PN ---
- Subjective Encounter Start Date: 12/18/18 Encounter Start Time: 07:15 Patient seen and examined. No new complaints. No overnight events - Objective Resuscitation Status - Order Detail: 12/11/18 22:13 Resuscitation Status Routine Resuscitation Status: FULL: Full Resuscitation MAR Reviewed: Yes Vital Signs & Weight: Vital Signs (12 hours) Temp Pulse Resp BP BP Pulse Ox 12/18/18 08:00 98.1 F 87 21 H 144/71 H 92 L 12/18/18 06:53 92 L 12/18/18 04:16 98.1 F 94 18 138/72 92 L 12/18/18 00:00 98.2 F 91 20 135/73 95 Weight Admit Weight 182 lb 1.6 oz Weight 181 lb 7.04 oz Most Recent Monitor Data Heart Rate from ECG 84 NIBP 139/70 NIBP BP-Mean 93 Respiration from ECG 21 SpO2 97 I&O: 12/17/18 12/18/18 12/19/18 06:59 06:59 06:59 Intake Total 3300 Output Total 2050 Balance 1250 Result Diagrams: 12/18/18 06:40 12/18/18 06:40 Phys Exam - Physical Examination Constitutional: NAD HEENT: PERRLA, moist MMs, sclera anicteric Neck: no JVD, supple Respiratory: no wheezing, no rales, no rhonchi Cardiovascular: no significant murmur, no rub Gastrointestinal: soft, non-tender, positive bowel sounds Musculoskeletal: no edema, pulses present Neurological: non-focal, normal sensation Lymphatic: no nodes Psychiatric: normal affect Skin: no rash, normal turgor Dx/Plan (1) SBO (small bowel obstruction) Code(s): K56.609 - UNSP INTESTNL OBST, UNSP TO PARTIAL VERSUS COMPLETE OBST Status: Acute Comment: s/p adhesiolysis (2) Thrombocytopenia Code(s): D69.6 - THROMBOCYTOPENIA, UNSPECIFIED Status: Acute (3) Type [address] elevation Code(s): I21.A1 - MYOCARDIAL INFARCTION TYPE 2 Status: Acute (4) Anemia, normocytic normochromic Code(s): D64.9 - ANEMIA, UNSPECIFIED Status: Chronic (5) Anticoagulant long-term use Code(s): Z79.01 - [facility] (CURRENT) USE OF ANTICOAGULANTS Status: Chronic (6) Atrial fibrillation Code(s): I48.91 - UNSPECIFIED ATRIAL FIBRILLATION Status: Chronic Qualifiers: Atrial fibrillation type: chronic Qualified Code(s): I48.2 - Chronic atrial fibrillation (7) CAD (coronary artery disease) Code(s): I25.10 - ATHSCL HEART DISEASE OF [place] CORONARY ARTERY W/O ANG PCTRS Status: Chronic Qualifiers: Coronary Disease-Associated Artery/Lesion type: [place] artery [place] vs. transplanted heart: [place] heart Associated angina: without angina Qualified Code(s): I25.10 - Atherosclerotic heart disease of [place] coronary artery without angina pectoris Comment: (8) CKD (chronic kidney disease) stage 3, GFR 30-59 ml/min Code(s): N18.3 - CHRONIC KIDNEY DISEASE, STAGE 3 (MODERATE) Status: Chronic (9) Chronic anemia Code(s): D64.9 - ANEMIA, UNSPECIFIED Status: Chronic Comment: at baseline (10) Chronic systolic heart failure, ACC/AHA stage C Code(s): I50.22 - CHRONIC SYSTOLIC (CONGESTIVE) HEART FAILURE Status: Chronic (11) Dyslipidemia Code(s): E78.5 - HYPERLIPIDEMIA, UNSPECIFIED Status: Chronic (12) GERD (gastroesophageal reflux disease) Code(s): K21.9 - GASTRO-ESOPHAGEAL REFLUX DISEASE WITHOUT ESOPHAGITIS Status: Chronic (13) H/O sick sinus syndrome Code(s): Z86.79 - PERSONAL HISTORY OF OTHER DISEASES OF THE CIRCULATORY SYSTEM Status: Chronic (14) Hypertension Code(s): I10 - ESSENTIAL (PRIMARY) HYPERTENSION Status: Chronic Qualifiers: Hypertension type: essential hypertension Qualified Code(s): I10 - Essential (primary) hypertension (15) PVD (peripheral vascular disease) Code(s): I73.9 - PERIPHERAL VASCULAR DISEASE, UNSPECIFIED Status: Chronic (16) Seizure disorder Code(s): G40.909 - EPILEPSY, UNSP, NOT INTRACTABLE, WITHOUT STATUS EPILEPTICUS Status: Chronic (17) Postoperative ileus Code(s): K91.89 - OTH POSTPROCEDURAL COMPLICATIONS AND DISORDERS OF DGSTV SYS; K56.7 - ILEUS, UNSPECIFIED Status: Acute - Plan cont current plan of care * medication reviewed as below * symptomatic treatment * continue current treatment * diet advancement as per surgeon * spoke with daughter and answered all her questions. Review of Systems - Review of Systems ENT: negative: Ear Pain, Ear Discharge, Nose Pain, Nose Discharge, Nose Congestion, Mouth Pain, Mouth Swelling, Throat Pain, Throat Swelling, Other Respiratory: negative: Cough, Dry, Shortness of Breath, Hemoptysis, SOB with Excertion, Pleuritic Pain, Sputum, Wheezing Cardiovascular: negative: chest pain, palpitations, orthopnea, paroxysmal nocturnal dyspnea, edema, light headedness, other Gastrointestinal: negative: Nausea, Vomiting, Abdominal Pain, Diarrhea, Constipation, Melena, Hematochezia, Other Genitourinary: negative: Dysuria, Frequency, Incontinence, Hematuria, Retention , Other Musculoskeletal: negative: Neck Pain, Shoulder Pain, Arm Pain, Back Pain, Hand Pain, Leg Pain, Foot Pain, Other - Medications/Allergies Allergies/Adverse Reactions: Allergies Allergy/AdvReac Type Severity Reaction Status Date / Time pineapple Allergy throat Verified 12/11/18 23:09 swell Medications: Current Medications Aspirin (Ecotrin) 81 mg PO QAM [facility] Last Admin: 12/18/18 09:00 Dose: 81 mg Furosemide (Lasix) 40 mg PO DAILY-AC [facility] Last Admin: 12/18/18 06:40 Dose: 40 mg Hydralazine HCl (Apresoline) 10 mg SLOW IVP Q4H PRN PRN Reason: SBP > 180 and HR < 70 Last Admin: 12/14/18 03:58 Dose: 10 mg Lactated Ringer's (Lactated Ringer's) 1,000 mls @ 50 mls/hr IV .Q20H [facility] Last Admin: 12/17/18 21:12 Dose: 1,000 mls Isosorbide Dinitrate (Isordil) 5 mg PO BID [facility] Last Admin: 12/18/18 09:14 Dose: 5 mg Levetiracetam (Keppra) 500 mg PO BID [facility] Last Admin: 12/18/18 09:00 Dose: 500 mg Morphine Sulfate (Morphine) 4 mg SLOW IVP Q2H PRN PRN Reason: Moderate to Severe Pain (6-10) Last Admin: 12/15/18 23:53 Dose: 4 mg Morphine Sulfate (Morphine) 2 mg SLOW IVP Q2H PRN PRN Reason: Mild-Moderate Pain (1-5) Last Admin: 12/15/18 14:31 Dose: 2 mg Neomycin/Polymyxin/Bacitracin (Triple Antibiotic) 1 gm TOP 0600,1800 [facility] Last Admin: 12/18/18 06:40 Dose: 1 gm Ondansetron HCl (Zofran Odt) 4 mg PO Q6H PRN PRN Reason: Nausea/Vomiting Ondansetron HCl (Zofran) 4 mg IVP Q6H PRN PRN Reason: Nausea/Vomiting Last Admin: 12/14/18 03:58 Dose: 4 mg Pantoprazole Sodium (Protonix) 40 mg IVP DAILY [facility] Last Admin: 12/18/18 09:02 Dose: 40 mg Sodium Chloride (Normal Saline Pf) 10 ml FS PRN PRN PRN Reason: RECONSTITUTION Last Admin: 12/18/18 08:57 Dose: 10 ml
--- NOTE | 2018-12-18 14:43 | PRG ---
DATE OF SERVICE: 12/18/2018 SUBJECTIVE: Mr. Willis is passing more gas. His daughter is confirmed that. He is feeling better. He has not had any pain medicine in quite a while. He is much more alert today. OBJECTIVE: VITAL SIGNS: He is afebrile, heart rate is 90, blood pressure 107/70, and respiratory rate 20. LABORATORY DATA: White count 6.2; hemoglobin 9.1; yesterday, it was 9.0; and platelets are 107,000. Sodium 138, potassium 3.2, chloride 104, bicarb 29, BUN 31, and creatinine 1.27. IMPRESSION: 1. Status post laparotomy for bowel obstruction, now with resolving ileus. He thinks he can urinate in the urinal, so I will recommend that we discontinue his [place]. 2. We will continue to follow. He walked over 200 feet this morning with physical therapy and last night, walked twice with his daughter. Job ID: [id number]
--- NOTE | 2018-12-18 17:00 | PDOC.CTH ---
Cardiology Progress Note - Subjective Improving, Passing more gas. - Objective Vital Signs Temp Pulse Resp BP Pulse Ox 12/18/18 15:53 97.3 F L 83 16 144/75 H 96 12/18/18 11:44 98.2 F 90 20 107/70 96 12/18/18 08:00 98.1 F 87 21 H 144/71 H 92 L 12/18/18 06:53 92 L Admit Weight 182 lb 1.6 oz Weight 181 lb 7.04 oz 12/17/18 12/18/18 12/19/18 06:59 06:59 06:59 Intake Total 3300 Output Total 2049 Balance 1250 - Physical Examination General/Neuro: alert & oriented x3, NAD Neck: no JVD present Lungs: unlabored respirations Heart: RRR Abdomen: NT/ND Extremities: + edema B (1+) - Labs Result Diagrams: 12/18/18 06:40 12/18/18 06:40 Troponin/CKMB CK-MB (CK-2) 2.0 ng/mL (0-6.6) 12/11/18 16:10 Troponin I 0.369 ng/mL (< 0.028) H* 12/12/18 02:52 - Assessment/Plan 1. SBO 2. s/p Release of adhesions. 3. NSTEMI, demand ischemia 4. Post op Ileus. 5. Ischemic CM EF at 30-40% 6. CKD stage 3-4 PLAN: - Will continue rate of IVF at 50 ml/hr until he can tolerate PO. - Continue bowel rest. - Continue PO lasix.
[2018-12-19 05:15] LABS: Anion Gap 10 mmol/L (10-20); BUN (Urea Nitrogen) 29 mg/dL (8.4-25.7); Calc. Creatinine Clearance 54 mL/min (70-130); Carbon Dioxide 27 mmol/L (23-31); Chloride 106 mmol/L (98-107); Estimated GFR-MDRD 56; Glucose 75 mg/dL (83-110); Sodium 140 mmol/L (136-145)
[2018-12-19 05:27] LABS: Hemoglobin 8.5 g/dL (14.0-18.0); Mean Corpuscular HGB CONC 34.7 g/dL (32.0-36.0); Mean Corpuscular Hemoglobin 33.8 pg (27.0-31.0); Mean Corpuscular Volume 97.2 fL (78.0-98.0); Mean Platelet Volume 10.1 fL (7.4-10.4); Platelet Count 108 thou/uL (130-400); RBC Distribution Width 15.6 % (11.5-14.5); Red Blood Cell (RBC) Count 2.52 mill/uL (4.70-6.10); White Blood Cell (WBC) Count 5.9 thou/uL (4.8-10.8)
[2018-12-19 05:28] LABS: Band 5 % (5-11); Elliptocytes SLIGHT = 2-5 cells (100X) (0-1/hpf); Eosinophils 5 % (0-10); Lymphocytes 17 % (21-51); MDiff Complete? YES; Monocytes 6 % (0-10); Neutrophil 67 % (42-75); Platelet Morphology Comment Appears Decreased
[2018-12-19] MEDS: Furosemide 40 MG TAB PO SCH (06:04)
[2018-12-19] MEDS: Triple Antibiotic Oint 1 GM Packet TOP SCH ×2 (06:04→17:00)
[2018-12-19] MEDS ORDERED: Potassium Chloride 20 MEQ TAB PO SCH ×2 (07:45→16:00)
[2018-12-19] MEDS ORDERED: Potassium Chloride 20 MEQ in Premix Bag 1 BAG IVPB SCH (08:00)
[2018-12-19] MEDS: Aspirin 81 mg Enteric Coated Tablet PO SCH (08:48)
[2018-12-19] MEDS: Sodium Chloride 0.9% (PF) 10 ML VIAL FS PRN (08:49)
[2018-12-19] MEDS: Pantoprazole 40 MG VIAL IVP SCH (08:49)
[2018-12-19] MEDS: levETIRAcetam 500 MG TAB PO SCH ×2 (08:49→20:06)
[2018-12-19] MEDS: Isosorbide Dinitrate 5 MG TAB PO SCH ×2 (08:51→20:06)
[2018-12-19] MEDS: Lactated Ringer's 1,000 ML IV SCH (09:02)
--- NOTE | 2018-12-19 09:14 | PRG ---
DATE OF SERVICE: 12/19/2018 SUBJECTIVE: Jg Willis is doing well today. He has passed more flatus. He has not had a bowel movement, although he feels he needs to. His abdomen is slightly less distended. He has not had any belching, nausea, or vomiting. OBJECTIVE: VITAL SIGNS: Temperature 97.1 degrees, pulse 77, blood pressure 137/88. LUNGS: Clear to auscultation. CARDIAC: Regular rate and rhythm without murmur or gallop. ABDOMEN: Soft, mildly distended, mildly tympanitic, but less so softer. Incision looks good. LABORATORY DATA: White count 5, hemoglobin 8.5. Basic metabolic profile normal, except potassium at 3. His BUN is 29, creatinine 1.24, glucose 75. ASSESSMENT AND PLAN: Resolving ileus. We will initiate a diet. Has asked him to go slow and avoid carbonation. Dr. Juarez will be covering over the next 4 days. If he has any nausea or vomiting, he should be made n.p.o., but hopefully, he will advance his diet slowly. Job ID: [id number]
--- NOTE | 2018-12-19 09:37 | PDOC.PN ---
- Subjective Encounter Start Date: 12/19/18 Encounter Start Time: 08:00 Patient seen and examined. No new complaints. No overnight events - Objective Resuscitation Status - Order Detail: 12/11/18 22:13 Resuscitation Status Routine Resuscitation Status: FULL: Full Resuscitation MAR Reviewed: Yes Vital Signs & Weight: Vital Signs (12 hours) Temp Pulse Resp BP Pulse Ox 12/19/18 07:52 97.1 F L 77 20 137/68 98 12/19/18 07:49 93 L 12/19/18 04:03 98.1 F 77 18 133/67 93 L 12/19/18 00:12 98.2 F 80 18 159/78 H 94 L Weight Admit Weight 182 lb 1.6 oz Weight 181 lb 7.04 oz Most Recent Monitor Data Heart Rate from ECG 84 NIBP 139/70 NIBP BP-Mean 93 Respiration from ECG 21 SpO2 97 I&O: 12/18/18 12/19/18 12/20/18 06:59 06:59 06:59 Intake Total 3300 Output Total 2050 250 Balance 1250 -250 Result Diagrams: 12/19/18 04:45 12/19/18 04:45 Phys Exam - Physical Examination Constitutional: NAD HEENT: PERRLA, moist MMs, sclera anicteric Neck: no JVD, supple Respiratory: no wheezing, no rales, no rhonchi Cardiovascular: no significant murmur, no rub Gastrointestinal: soft, non-tender, no distention, positive bowel sounds surgical site clean Musculoskeletal: no edema, pulses present Neurological: non-focal, normal sensation Lymphatic: no nodes Psychiatric: normal affect, A&O x 3 Skin: no rash, normal turgor Dx/Plan (1) SBO (small bowel obstruction) Code(s): K56.609 - UNSP INTESTNL OBST, UNSP TO PARTIAL VERSUS COMPLETE OBST Status: Acute Comment: s/p adhesiolysis (2) Thrombocytopenia Code(s): D69.6 - THROMBOCYTOPENIA, UNSPECIFIED Status: Acute (3) Type [address] elevation Code(s): I21.A1 - MYOCARDIAL INFARCTION TYPE 2 Status: Acute (4) Anemia, normocytic normochromic Code(s): D64.9 - ANEMIA, UNSPECIFIED Status: Chronic (5) Anticoagulant long-term use Code(s): Z79.01 - ALF (CURRENT) USE OF ANTICOAGULANTS Status: Chronic (6) Atrial fibrillation Code(s): I48.91 - UNSPECIFIED ATRIAL FIBRILLATION Status: Chronic Qualifiers: Atrial fibrillation type: chronic Qualified Code(s): I48.2 - Chronic atrial fibrillation (7) CAD (coronary artery disease) Code(s): I25.10 - ATHSCL HEART DISEASE OF [place] CORONARY ARTERY W/O ANG PCTRS Status: Chronic Qualifiers: Coronary Disease-Associated Artery/Lesion type: [place] artery [place] vs. transplanted heart: [place] heart Associated angina: without angina Qualified Code(s): I25.10 - Atherosclerotic heart disease of [place] coronary artery without angina pectoris Comment: (8) CKD (chronic kidney disease) stage 3, GFR 30-59 ml/min Code(s): N18.3 - CHRONIC KIDNEY DISEASE, STAGE 3 (MODERATE) Status: Chronic (9) Chronic anemia Code(s): D64.9 - ANEMIA, UNSPECIFIED Status: Chronic Comment: at baseline (10) Chronic systolic heart failure, ACC/AHA stage C Code(s): I50.22 - CHRONIC SYSTOLIC (CONGESTIVE) HEART FAILURE Status: Chronic (11) Dyslipidemia Code(s): E78.5 - HYPERLIPIDEMIA, UNSPECIFIED Status: Chronic (12) GERD (gastroesophageal reflux disease) Code(s): K21.9 - GASTRO-ESOPHAGEAL REFLUX DISEASE WITHOUT ESOPHAGITIS Status: Chronic (13) H/O sick sinus syndrome Code(s): Z86.79 - PERSONAL HISTORY OF OTHER DISEASES OF THE CIRCULATORY SYSTEM Status: Chronic (14) Hypertension Code(s): I10 - ESSENTIAL (PRIMARY) HYPERTENSION Status: Chronic Qualifiers: Hypertension type: essential hypertension Qualified Code(s): I10 - Essential (primary) hypertension (15) PVD (peripheral vascular disease) Code(s): I73.9 - PERIPHERAL VASCULAR DISEASE, UNSPECIFIED Status: Chronic (16) Seizure disorder Code(s): G40.909 - EPILEPSY, UNSP, NOT INTRACTABLE, WITHOUT STATUS EPILEPTICUS Status: Chronic (17) Postoperative ileus Code(s): K91.89 - OTH POSTPROCEDURAL COMPLICATIONS AND DISORDERS OF DGSTV SYS; K56.7 - ILEUS, UNSPECIFIED Status: Acute - Plan cont current plan of care, plan discussed w/ family, PT/OT * medication reviewed as below * symptomatic treatment * diet advancement as per surgeon * pt is doing well clinically. Review of Systems - Review of Systems ENT: negative: Ear Pain, Ear Discharge, Nose Pain, Nose Discharge, Nose Congestion, Mouth Pain, Mouth Swelling, Throat Pain, Throat Swelling, Other Respiratory: negative: Cough, Dry, Shortness of Breath, Hemoptysis, SOB with Excertion, Pleuritic Pain, Sputum, Wheezing Cardiovascular: negative: chest pain, palpitations, orthopnea, paroxysmal nocturnal dyspnea, edema, light headedness, other Gastrointestinal: negative: Nausea, Vomiting, Abdominal Pain, Diarrhea, Constipation, Melena, Hematochezia, Other Genitourinary: negative: Dysuria, Frequency, Incontinence, Hematuria, Retention , Other Musculoskeletal: negative: Neck Pain, Shoulder Pain, Arm Pain, Back Pain, Hand Pain, Leg Pain, Foot Pain, Other - Medications/Allergies Allergies/Adverse Reactions: Allergies Allergy/AdvReac Type Severity Reaction Status Date / Time pineapple Allergy throat Verified 12/11/18 23:09 swell Medications: Current Medications Aspirin (Ecotrin) 81 mg PO QAM [facility] Last Admin: 12/19/18 08:48 Dose: 81 mg Furosemide (Lasix) 40 mg PO DAILY-AC [facility] Last Admin: 12/19/18 06:04 Dose: 40 mg Hydralazine HCl (Apresoline) 10 mg SLOW IVP Q4H PRN PRN Reason: SBP > 180 and HR < 70 Last Admin: 12/14/18 03:58 Dose: 10 mg Lactated Ringer's (Lactated Ringer's) 1,000 mls @ 50 mls/hr IV .Q20H [facility] Last Admin: 12/19/18 09:02 Dose: Not Given Potassium Chloride 20 meq/ (Device) 100 mls @ 50 mls/hr IVPB 0800 [facility] Stop: 12/19/18 09:59 Last Admin: 12/19/18 08:50 Dose: 100 mls Isosorbide Dinitrate (Isordil) 5 mg PO BID [facility] Last Admin: 12/19/18 08:51 Dose: 5 mg Levetiracetam (Keppra) 500 mg PO BID [facility] Last Admin: 12/19/18 08:49 Dose: 500 mg Morphine Sulfate (Morphine) 4 mg SLOW IVP Q2H PRN PRN Reason: Moderate to Severe Pain (6-10) Last Admin: 12/15/18 23:53 Dose: 4 mg Morphine Sulfate (Morphine) 2 mg SLOW IVP Q2H PRN PRN Reason: Mild-Moderate Pain (1-5) Last Admin: 12/15/18 14:31 Dose: 2 mg Neomycin/Polymyxin/Bacitracin (Triple Antibiotic) 1 gm TOP 0600,1800 [facility] Last Admin: 12/19/18 06:04 Dose: 1 gm Ondansetron HCl (Zofran Odt) 4 mg PO Q6H PRN PRN Reason: Nausea/Vomiting Ondansetron HCl (Zofran) 4 mg IVP Q6H PRN PRN Reason: Nausea/Vomiting Last Admin: 12/14/18 03:58 Dose: 4 mg Pantoprazole Sodium (Protonix) 40 mg IVP DAILY [facility] Last Admin: 12/19/18 08:49 Dose: 40 mg Polyethylene Glycol (Miralax) 17 gm PO DAILY [facility] Potassium Chloride (K-Dur) 40 meq PO 0745 [facility] Stop: 12/19/18 10:00 Last Admin: 12/19/18 08:48 Dose: 40 meq Potassium Chloride (K-Dur) 40 meq PO 1600 [facility] Stop: 12/19/18 18:00 Sodium Chloride (Normal Saline Pf) 10 ml FS PRN PRN PRN Reason: RECONSTITUTION Last Admin: 12/19/18 08:49 Dose: 10 ml
--- NOTE | 2018-12-19 11:47 | PDOC.CTH ---
Cardiology Progress Note - Subjective Doing well. Tolerating clear liquids now. - Objective Vital Signs Temp Pulse Resp BP Pulse Ox 12/19/18 11:39 97.3 F L 76 18 130/70 92 L 12/19/18 07:52 97.1 F L 77 20 137/68 98 12/19/18 07:49 93 L 12/19/18 04:03 98.1 F 77 18 133/67 93 L 12/19/18 00:12 98.2 F 80 18 159/78 H 94 L Admit Weight 182 lb 1.6 oz Weight 181 lb 7.04 oz 12/18/18 12/19/18 12/20/18 06:59 06:59 06:59 Intake Total 3300 Output Total 2050 250 Balance 1250 -250 - Physical Examination General/Neuro: alert & oriented x3, NAD Neck: no JVD present Lungs: unlabored respirations Heart: RRR Abdomen: NT/ND Extremities: + edema B (1+) - Labs Result Diagrams: 12/19/18 04:45 12/19/18 04:45 Troponin/CKMB CK-MB (CK-2) 2.0 ng/mL (0-6.6) 12/11/18 16:10 Troponin I 0.369 ng/mL (< 0.028) H* 12/12/18 02:52 - Assessment/Plan 1. SBO 2. s/p Release of adhesions. 3. NSTEMI, demand ischemia 4. Post op Ileus. 5. Ischemic CM EF at 30-40% 6. CKD stage 3-4 PLAN: - Will continue rate of IVF at 50 ml/hr for now. stop later this evening if PO tolerated without issues. - No BM yet but passing gas. - Continue PO lasix. - K being replaced.
[2018-12-19] MEDS: Polyethylene Glycol 3350 17 GM Packet PO SCH (14:15)
--- NOTE | 2018-12-19 15:15 | PRG ---
DATE OF SERVICE: 12/19/2018 SUBJECTIVE: Mr. Willis has no complaints. He is more alert again today. He is walking. He gets up with a little bit of assistance to walk to the bathroom. His Olivo is out. OBJECTIVE: VITAL SIGNS: He is afebrile. Heart rate 76, respiratory rate 18, oximetry is 92% on room air, blood pressure 130/70. LUNGS: Clear. HEART: Regular rhythm. ABDOMEN: Minimally tender. He still has not had a bowel movement, but he is on liquids now. LABORATORY DATA: Sodium 140, potassium 3, chloride 106, bicarb 27, BUN 29, creatinine 1.24, glucose 75. IMPRESSION: 1. Status post laparotomy for small bowel obstruction, clinically improving each day. 2. Cardiomyopathy. 3. Ileus, resolving. 4. Chronic kidney disease with stable creatinine. Overall, he appears to be doing well. I suspect he will end up being discharged to home instead of rehab. Job ID: [id number]
[2018-12-20 06:06] LABS: Hemoglobin 8.2 g/dL (14.0-18.0); Mean Corpuscular HGB CONC 34.3 g/dL (32.0-36.0); Mean Corpuscular Hemoglobin 33.3 pg (27.0-31.0); Mean Corpuscular Volume 97.2 fL (78.0-98.0); Mean Platelet Volume 9.4 fL (7.4-10.4); Platelet Count 109 thou/uL (130-400); RBC Distribution Width 15.8 % (11.5-14.5); Red Blood Cell (RBC) Count 2.45 mill/uL (4.70-6.10); White Blood Cell (WBC) Count 6.3 thou/uL (4.8-10.8)
[2018-12-20] MEDS: Triple Antibiotic Oint 1 GM Packet TOP SCH ×2 (06:08→18:35)
[2018-12-20 06:15] LABS: Anion Gap 9 mmol/L (10-20); BUN (Urea Nitrogen) 23 mg/dL (8.4-25.7); Calc. Creatinine Clearance 54 mL/min (70-130); Calcium 8.1 mg/dL (7.8-10.44); Carbon Dioxide 27 mmol/L (23-31); Chloride 108 mmol/L (98-107); Estimated GFR-MDRD 55; Glucose 82 mg/dL (83-110); Potassium 3.7 mmol/L (3.5-5.1); Sodium 140 mmol/L (136-145)
[2018-12-20 06:19] LABS: Elliptocytes SLIGHT = 2-5 cells (100X) (0-1/hpf); Eosinophils 1 % (0-10); Hypochromia SLIGHT = 6-15 cells (100X) (0-5/hpf); Lymphocytes 16 % (21-51); MDiff Complete? YES; Monocytes 7 % (0-10); Neutrophil 76 % (42-75); Platelet Morphology Comment Appears Decreased; Polychromasia SLIGHT = 2-3 cells (100X) (0-2/hpf)
[2018-12-20] MEDS: Furosemide 40 MG TAB PO SCH (06:41)
[2018-12-20] MEDS: Aspirin 81 mg Enteric Coated Tablet PO SCH (09:10)
[2018-12-20] MEDS: Isosorbide Dinitrate 5 MG TAB PO SCH ×2 (09:11→20:32)
[2018-12-20] MEDS: levETIRAcetam 500 MG TAB PO SCH ×2 (09:11→20:32)
[2018-12-20] MEDS: Polyethylene Glycol 3350 17 GM Packet PO SCH (09:11)
--- NOTE | 2018-12-20 10:03 | PDOC.PN ---
- Subjective Encounter Start Date: 12/20/18 Encounter Start Time: 08:50 Patient seen and examined. No new complaints. No overnight events - Objective Resuscitation Status - Order Detail: 12/11/18 22:13 Resuscitation Status Routine Resuscitation Status: FULL: Full Resuscitation MAR Reviewed: Yes Vital Signs & Weight: Vital Signs (12 hours) Temp Pulse Resp BP BP Pulse Ox 12/20/18 07:16 97.7 F 75 14 144/68 H 91 L 12/20/18 06:45 144/68 H 12/20/18 04:15 98.4 F 78 20 112/49 L 93 L 12/20/18 03:01 92 L 12/20/18 00:11 98.4 F 74 20 127/61 92 L Weight Admit Weight 182 lb 1.6 oz Weight 181 lb 7.04 oz Most Recent Monitor Data Heart Rate from ECG 84 NIBP 139/70 NIBP BP-Mean 93 Respiration from ECG 21 SpO2 97 I&O: 12/19/18 12/20/18 12/21/18 06:59 06:59 06:59 Intake Total 2600 Output Total 250 Balance -250 2600 Result Diagrams: 12/20/18 05:48 12/20/18 05:48 Phys Exam - Physical Examination Constitutional: NAD HEENT: PERRLA, moist MMs, sclera anicteric Neck: no JVD, supple Respiratory: no wheezing, no rales, no rhonchi Cardiovascular: RRR, no significant murmur, no rub Gastrointestinal: soft, non-tender, no distention, positive bowel sounds surgical site clean Musculoskeletal: no edema, pulses present Neurological: non-focal, normal sensation Lymphatic: no nodes Psychiatric: normal affect, A&O x 3 Skin: no rash, normal turgor Dx/Plan (1) SBO (small bowel obstruction) Code(s): K56.609 - UNSP INTESTNL OBST, UNSP TO PARTIAL VERSUS COMPLETE OBST Status: Acute Comment: s/p adhesiolysis (2) Thrombocytopenia Code(s): D69.6 - THROMBOCYTOPENIA, UNSPECIFIED Status: Acute (3) Type [address] elevation Code(s): I21.A1 - MYOCARDIAL INFARCTION TYPE 2 Status: Acute (4) Anemia, normocytic normochromic Code(s): D64.9 - ANEMIA, UNSPECIFIED Status: Chronic (5) Anticoagulant long-term use Code(s): Z79.01 - INDUSTRIAL SALES REPRESENTATIVE (CURRENT) USE OF ANTICOAGULANTS Status: Chronic (6) Atrial fibrillation Code(s): I48.91 - UNSPECIFIED ATRIAL FIBRILLATION Status: Chronic Qualifiers: Atrial fibrillation type: chronic Qualified Code(s): I48.2 - Chronic atrial fibrillation (7) CAD (coronary artery disease) Code(s): I25.10 - ATHSCL HEART DISEASE OF [place] CORONARY ARTERY W/O ANG PCTRS Status: Chronic Qualifiers: Coronary Disease-Associated Artery/Lesion type: [place] artery [place] vs. transplanted heart: [place] heart Associated angina: without angina Qualified Code(s): I25.10 - Atherosclerotic heart disease of [place] coronary artery without angina pectoris Comment: (8) CKD (chronic kidney disease) stage 3, GFR 30-59 ml/min Code(s): N18.3 - CHRONIC KIDNEY DISEASE, STAGE 3 (MODERATE) Status: Chronic (9) Chronic anemia Code(s): D64.9 - ANEMIA, UNSPECIFIED Status: Chronic Comment: at baseline (10) Chronic systolic heart failure, ACC/AHA stage C Code(s): I50.22 - CHRONIC SYSTOLIC (CONGESTIVE) HEART FAILURE Status: Chronic (11) Dyslipidemia Code(s): E78.5 - HYPERLIPIDEMIA, UNSPECIFIED Status: Chronic (12) GERD (gastroesophageal reflux disease) Code(s): K21.9 - GASTRO-ESOPHAGEAL REFLUX DISEASE WITHOUT ESOPHAGITIS Status: Chronic (13) H/O sick sinus syndrome Code(s): Z86.79 - PERSONAL HISTORY OF OTHER DISEASES OF THE CIRCULATORY SYSTEM Status: Chronic (14) Hypertension Code(s): I10 - ESSENTIAL (PRIMARY) HYPERTENSION Status: Chronic Qualifiers: Hypertension type: essential hypertension Qualified Code(s): I10 - Essential (primary) hypertension (15) PVD (peripheral vascular disease) Code(s): I73.9 - PERIPHERAL VASCULAR DISEASE, UNSPECIFIED Status: Chronic (16) Seizure disorder Code(s): G40.909 - EPILEPSY, UNSP, NOT INTRACTABLE, WITHOUT STATUS EPILEPTICUS Status: Chronic (17) Postoperative ileus Code(s): K91.89 - OTH POSTPROCEDURAL COMPLICATIONS AND DISORDERS OF DGSTV SYS; K56.7 - ILEUS, UNSPECIFIED Status: Acute - Plan cont current plan of care, PT/OT, social media senior associate * medication reviewed as below * symptomatic treatment * discharge planning. Review of Systems - Review of Systems ENT: negative: Ear Pain, Ear Discharge, Nose Pain, Nose Discharge, Nose Congestion, Mouth Pain, Mouth Swelling, Throat Pain, Throat Swelling, Other Respiratory: negative: Cough, Dry, Shortness of Breath, Hemoptysis, SOB with Excertion, Pleuritic Pain, Sputum, Wheezing Cardiovascular: negative: chest pain, palpitations, orthopnea, paroxysmal nocturnal dyspnea, edema, light headedness, other Gastrointestinal: negative: Nausea, Vomiting, Abdominal Pain, Diarrhea, Constipation, Melena, Hematochezia, Other Genitourinary: negative: Dysuria, Frequency, Incontinence, Hematuria, Retention , Other Musculoskeletal: negative: Neck Pain, Shoulder Pain, Arm Pain, Back Pain, Hand Pain, Leg Pain, Foot Pain, Other - Medications/Allergies Allergies/Adverse Reactions: Allergies Allergy/AdvReac Type Severity Reaction Status Date / Time pineapple Allergy throat Verified 12/11/18 23:09 swell Medications: Current Medications Aspirin (Ecotrin) 81 mg PO QAM [facility] Last Admin: 12/20/18 09:10 Dose: 81 mg Furosemide (Lasix) 40 mg PO DAILY-AC [facility] Last Admin: 12/20/18 06:41 Dose: 40 mg Hydralazine HCl (Apresoline) 10 mg SLOW IVP Q4H PRN PRN Reason: SBP > 180 and HR < 70 Last Admin: 12/14/18 03:58 Dose: 10 mg Isosorbide Dinitrate (Isordil) 5 mg PO BID [facility] Last Admin: 12/20/18 09:11 Dose: 5 mg Levetiracetam (Keppra) 500 mg PO BID [facility] Last Admin: 12/20/18 09:11 Dose: 500 mg Morphine Sulfate (Morphine) 4 mg SLOW IVP Q2H PRN PRN Reason: Moderate to Severe Pain (6-10) Last Admin: 12/15/18 23:53 Dose: 4 mg Morphine Sulfate (Morphine) 2 mg SLOW IVP Q2H PRN PRN Reason: Mild-Moderate Pain (1-5) Last Admin: 12/15/18 14:31 Dose: 2 mg Neomycin/Polymyxin/Bacitracin (Triple Antibiotic) 1 gm TOP 0600,1800 [facility] Last Admin: 12/20/18 06:08 Dose: 1 gm Ondansetron HCl (Zofran Odt) 4 mg PO Q6H PRN PRN Reason: Nausea/Vomiting Ondansetron HCl (Zofran) 4 mg IVP Q6H PRN PRN Reason: Nausea/Vomiting Last Admin: 12/14/18 03:58 Dose: 4 mg Pantoprazole Sodium (Protonix) 40 mg IVP DAILY [facility] Last Admin: 12/19/18 08:49 Dose: 40 mg Polyethylene Glycol (Miralax) 17 gm PO DAILY [facility] Last Admin: 12/20/18 09:11 Dose: 17 gm Sodium Chloride (Normal Saline Pf) 10 ml FS PRN PRN PRN Reason: RECONSTITUTION Last Admin: 12/19/18 08:49 Dose: 10 ml
[2018-12-20] MEDS: Pantoprazole 40 MG VIAL IVP SCH (11:08)
[2018-12-21] MEDS: Furosemide 40 MG TAB PO SCH (06:44)
[2018-12-21] MEDS: Triple Antibiotic Oint 1 GM Packet TOP SCH (06:44)
[2018-12-21 07:17] LABS: Mean Corpuscular HGB CONC 34.2 g/dL (32.0-36.0); Mean Corpuscular Hemoglobin 33.3 pg (27.0-31.0); Mean Corpuscular Volume 97.4 fL (78.0-98.0); Mean Platelet Volume 9.6 fL (7.4-10.4); Platelet Count 124 thou/uL (130-400); RBC Distribution Width 15.8 % (11.5-14.5); Red Blood Cell (RBC) Count 2.39 mill/uL (4.70-6.10); White Blood Cell (WBC) Count 6.4 thou/uL (4.8-10.8)
[2018-12-21 07:27] LABS: Anion Gap 12 mmol/L (10-20); BUN (Urea Nitrogen) 20 mg/dL (8.4-25.7); Calc. Creatinine Clearance 49 mL/min (70-130); Carbon Dioxide 25 mmol/L (23-31); Chloride 106 mmol/L (98-107); Estimated GFR-MDRD 50; Glucose 96 mg/dL (83-110); Potassium 3.7 mmol/L (3.5-5.1); Sodium 139 mmol/L (136-145)
[2018-12-21 08:45] LABS: Anisocytosis SLIGHT = 6-15 cells (100X) (0-5/hpf); Band 2 % (5-11); Burr Cells SLIGHT = 2-5 cells (100X) (0-1/hpf); Elliptocytes SLIGHT = 2-5 cells (100X) (0-1/hpf); Eosinophils 4 % (0-10); Hypochromia SLIGHT = 6-15 cells (100X) (0-5/hpf); Large Platelets SLIGHT; Lymphocytes 6 % (21-51); MDiff Complete? YES; Microcytosis SLIGHT = 6-15 cells (100X) (0-5/hpf); Monocytes 8 % (0-10); Neutrophil 78 % (42-75); Platelet Morphology Comment Appears Decreased; Polychromasia SLIGHT = 2-3 cells (100X) (0-2/hpf); Reactive Lymphocytes 1 % (0-10); Schistocytes SLIGHT = 2-5 cells (100X) (0-1/hpf)
[2018-12-21] MEDS: Polyethylene Glycol 3350 17 GM Packet PO SCH (09:12)
[2018-12-21] MEDS: Isosorbide Dinitrate 5 MG TAB PO SCH (09:12)
[2018-12-21] MEDS: Aspirin 81 mg Enteric Coated Tablet PO SCH (09:12)
[2018-12-21] MEDS: levETIRAcetam 500 MG TAB PO SCH ×2 (09:12→13:18)
--- NOTE | 2018-12-21 10:58 | CT ---
CT Head without IV contrast COMPARISON: 11/07/2018 HISTORY: Code Green. Seizure. TECHNIQUE: Axial CT imaging at 5 mm intervals from vertex through skull base without contrast FINDINGS: There is no evidence of an acute infarction, hemorrhage, mass effect, or midline shift. There is decr eased attenuation seen in the periventricular white matter which is nonspecific but likely attributable to chronic small vessel ischemic changes. There is mild cerebral volume loss. The ventri cular system is normal in size, shape, and position for the degree of sulcal atrophy. Visualized paranasal sinuses are clear. Osseous structures appear intact. CT of the head is overall stable when compared to prior study. IMPRESSION: 1. No acute intracranial abnormality demonstrated. 2. Chronic small vessel ischemic changes and cerebral volume loss not progressed from prior exam. 3. Above findings discussed with Dr. Sommer on 12/21/2018 at 1053 hours.
[2018-12-21 11:23] LABS: #Basophils 0.1 thou/uL (0.0-0.2); #Eosinphils 0.2 thou/uL (0.0-0.7); #Lymphocytes 0.8 thou/uL (1.20-3.40); #Monocytes 0.7 thou/uL (0.11-0.59); %Eosinophils 2.7 % (0.0-10.0); %Lymphocytes 11.3 % (21.0-51.0); %Monocytes 10.6 % (0.0-10.0); %Neutrophils 74.4 % (42.0-75.0); Hemoglobin 8.6 g/dL (14.0-18.0); Mean Corpuscular HGB CONC 34.4 g/dL (32.0-36.0); Mean Corpuscular Hemoglobin 33.7 pg (27.0-31.0); Mean Platelet Volume 9.9 fL (7.4-10.4); Platelet Count 133 thou/uL (130-400); RBC Distribution Width 15.9 % (11.5-14.5); Red Blood Cell (RBC) Count 2.55 mill/uL (4.70-6.10); White Blood Cell (WBC) Count 6.8 thou/uL (4.8-10.8)
[2018-12-21 11:41] LABS: ALT (SGPT) 11 U/L (8-55); AST (SGOT) 25 U/L (5-34); Alkaline Phosphatase 62 U/L (40-150); Anion Gap 11 mmol/L (10-20); BUN (Urea Nitrogen) 20 mg/dL (8.4-25.7); Bilirubin, Total 1.1 mg/dL (0.2-1.2); Calc. Creatinine Clearance 48 mL/min (70-130); Calcium 8.2 mg/dL (7.8-10.44); Carbon Dioxide 27 mmol/L (23-31); Chloride 106 mmol/L (98-107); Estimated GFR-MDRD 48; Globulin 2.2 g/dL (2.4-3.5); Glucose 105 mg/dL (83-110); Potassium 3.8 mmol/L (3.5-5.1); Protein, Total 5.2 g/dL (5.8-8.1); Sodium 140 mmol/L (136-145)
[2018-12-21 12:03] LABS: CKMB 2.1 ng/mL (0-6.6)
--- NOTE | 2018-12-21 12:56 | PDOC.PN ---
- Subjective Encounter Start Date: 12/21/18 Encounter Start Time: 12:54 Patient seen and examined, patient's daughter stated that earlier in the morning the patient went unresponsive and was arousable to sternal rub only. The patient had a code blue called. Stat CT scan was negative, transferred to the stroke unit for AMS. - Objective Resuscitation Status - Order Detail: 12/11/18 22:13 Resuscitation Status Routine Resuscitation Status: FULL: Full Resuscitation Vital Signs & Weight: Vital Signs (12 hours) Temp Pulse Pulse Pulse Pulse Pulse Pulse 12/21/18 10:40 98 F 69 12/21/18 10:08 91 76 75 67 81 12/21/18 07:25 98.2 F 77 12/21/18 05:53 98 F 75 Resp Resp Resp Resp Resp Resp BP 12/21/18 10:40 18 12/21/18 10:08 12 12 14 12 18 114/68 12/21/18 07:25 16 12/21/18 05:53 16 BP BP BP BP BP BP Pulse Ox 12/21/18 10:40 114/58 L 98 12/21/18 10:08 126/58 L 127/60 121/59 L 114/58 L 12/21/18 07:25 125/70 98 12/21/18 05:53 121/69 95 Pulse Ox Pulse Ox Pulse Ox Pulse Ox Pulse Ox 12/21/18 10:40 12/21/18 10:08 97 100 100 99 96 12/21/18 07:25 12/21/18 05:53 Weight Admit Weight 182 lb 1.6 oz Weight 194 lb 4 oz Most Recent Monitor Data Heart Rate from ECG 84 NIBP 139/70 NIBP BP-Mean 93 Respiration from ECG 21 SpO2 97 I&O: 12/20/18 12/21/18 12/22/18 06:59 06:59 06:59 Intake Total 2600 Balance 2600 Result Diagrams: 12/21/18 10:17 12/21/18 10:17 Additional Labs: Accuchecks 12/21/18 10:12 POC Glucose 109 Phys Exam - Physical Examination Constitutional: NAD HEENT: PERRLA, moist MMs, sclera anicteric Neck: no nodes, no JVD, supple Respiratory: no wheezing, no rales, no rhonchi Cardiovascular: RRR, no significant murmur, no rub Gastrointestinal: soft, non-tender, no distention, positive bowel sounds surgical site C/D/I Musculoskeletal: no edema, pulses present Dx/Plan (1) Altered mental status Code(s): R41.82 - ALTERED MENTAL STATUS, UNSPECIFIED Status: Acute (2) Hypokalemia Code(s): E87.6 - HYPOKALEMIA Status: Acute (3) Postoperative ileus Code(s): K91.89 - OTH POSTPROCEDURAL COMPLICATIONS AND DISORDERS OF DGSTV SYS; K56.7 - ILEUS, UNSPECIFIED Status: Acute (4) SBO (small bowel obstruction) Code(s): K56.609 - UNSP INTESTNL OBST, UNSP TO PARTIAL VERSUS COMPLETE OBST Status: Acute Comment: s/p adhesiolysis (5) CAD (coronary artery disease) Code(s): I25.10 - ATHSCL HEART DISEASE OF [place] CORONARY ARTERY W/O ANG PCTRS Status: Chronic Qualifiers: Coronary Disease-Associated Artery/Lesion type: [place] artery [place] vs. transplanted heart: [place] heart Associated angina: without angina Qualified Code(s): I25.10 - Atherosclerotic heart disease of [place] coronary artery without angina pectoris Comment: (6) CKD (chronic kidney disease) stage 3, GFR 30-59 ml/min Code(s): N18.3 - CHRONIC KIDNEY DISEASE, STAGE 3 (MODERATE) Status: Chronic (7) Chronic systolic heart failure, ACC/AHA stage C Code(s): I50.22 - CHRONIC SYSTOLIC (CONGESTIVE) HEART FAILURE Status: Chronic (8) Dyslipidemia Code(s): E78.5 - HYPERLIPIDEMIA, UNSPECIFIED Status: Chronic (9) GERD (gastroesophageal reflux disease) Code(s): K21.9 - GASTRO-ESOPHAGEAL REFLUX DISEASE WITHOUT ESOPHAGITIS Status: Chronic (10) Seizure disorder Code(s): G40.909 - EPILEPSY, UNSP, NOT INTRACTABLE, WITHOUT STATUS EPILEPTICUS Status: Chronic - Plan * CT negative of brain done stat, EKG shows no ST elevation * will check stat CBC, CMP, UA * procalcitonin elevated at 21, this was 22 on sep, likely non specific , UA pending but no source of infection for now, WBC count normal and no fevers , will observe for now on the stroke floor, if AMS occures again will get neuro evaluation * no other changes in plan of care * case and plan d/w patient and daughter at length, they understand and agree with this plan.
[2018-12-21 14:45] LABS: Bilirubin Negative (Negative); Blood, Urine Negative (Negative); Clarity CLEAR (Clear); Glucose, Urine (Dipstick) Negative (Negative); Leukocyte Negative (Negative); Nitrite Negative (Negative); Protein, Urine (Dipstick) Negative (Neg-Trace); Specific Gravity, Urine 1.007 (1.002-1.036); pH, Urine 5.5 (5.0-9.0)
[2018-12-21 14:48] LABS: Bacteria/HPF None Seen HPF (None Seen); Hyaline Casts/LPF 0-3 HYALINE CAST LPF (0-3 Hyaline); RBC/HPF 0-3 HPF (0-3); Squamous Epithelial None Seen HPF (0-3); WBC/HPF 0-3 HPF (0-3)
[2018-12-21 15:30] VITALS: BP 114/54; TEMP 98.6
--- NOTE | 2018-12-21 16:13 | PDOC.EVN ---
Event Note - Event Note Event Note: DC SUMMARY #[id number]
--- NOTE | 2018-12-21 22:58 | DIS ---
DATE OF ADMISSION: 12/11/2018 DATE OF DISCHARGE: 12/21/2018 ADMITTING DIAGNOSES: 1. Small-bowel obstruction. 2. Congestive heart failure, systolic and diastolic. 3. Nausea. 4. Abdominal pain. 5. Cardiomyopathy. 6. Chronic kidney disease stage 4. 7. Chronic atrial fibrillation. 8. Hypertension. 9. Peripheral vascular disease. 10. Seizure disorder. DISCHARGE DIAGNOSES: 1. Small-bowel obstruction, status post surgical intervention. 2. Diastolic and congestive heart failure, dysfunction with an ejection fraction of 30%. 3. History of chronic anticoagulation due to atrial fibrillation. 4. Chronic kidney disease stage 4. 5. History of seizure disorder. 6. Peripheral vascular disease. 7. Coronary artery disease. HOSPITAL COURSE: This is an 83-year-old male admitted to the Internal Medicine team also followed very closely by General Surgery, Cardiology and Pulmonary teams. The patient was admitted to the ICU floor, had an NG tube placed, was observed for any potential benefit and improvement from his small-bowel obstruction. The patient did not have any and was taken to the OR for surgical intervention for small-bowel obstruction. The patient was transferred to the medical floor, monitored, had passed gas and had bowel movements, and was tolerating diet. Upon the time of discharge, the patient noted to have one episode of seizure and was found to be altered; however, was arousable. He had a stat CT scan done prior to discharge, which was negative. Lab work was also negative. Procalcitonin was found to be 21. However, he did not have any evidence of infection anywhere. Did not have a high white count or fevers. No signs or symptoms of SIRS or source of infection. The patient stated that he absolutely wanted to go home given that it was Easter Sunday, stated that he would go Sunday to his oncologist appointment where he goes to every Sunday for his blood work to be done and get his shots due to chronic anemia. The patient stated that he otherwise felt normal and daughter also agreed that the patient was back to baseline. Case and plan discussed with patient and daughter at length. They understood and agreed to this plan. The plan was made that the patient will follow up with his own oncologist on Sunday and follow up with his PCP and Surgery teams within 5-7 days. DISPOSITION: Home. FOLLOWUP: With PCP and general Surgery and Oncology within 3 to 5 days. MEDICATIONS: See MAR. ACTIVITY: As tolerated with assistance as needed. DIET: Low-fat, low-calorie, high-fiber diet. CONDITION: Stable. OVERALL PROGNOSIS: Guarded. Once again, case and plan discussed with the patient and daughter at length. They understand and agree with this plan. They decided to want to have themselves discharged and did not want to stay the extra day for observation. All possible outcomes were discussed including seizures, syncope and cardiac issues and patient's family state that they understand, would still like to leave and they will follow up as outpatient as soon as these Sunday is over. Once again case and plan discussed with the patient and daughter at length. They understood and agreed to this plan. Job ID: [id number]
== END 2018-12-21 18:34 | disposition home health service (06) | DRG 335 ==
LOC: ERS 15:41 → IMCU/EMU 20:31 → CCU 12-13 19:26 → SJJU 12-15 14:11 → 2SE 12-21 10:30
PROVIDERS: ADMIT Internal Medicine; ATTEND Internal Medicine
PROC: 0DN80ZZ Release Small Intestine, Open Approach (ICD-10-PCS; principal; 2018-12-13)
PROC: 0HB1XZZ Excision of Face Skin, External Approach (ICD-10-PCS; 2018-12-13)
PROC: 02H633Z Insertion of Infusion Device into Right Atrium, Percutaneous Approach (ICD-10-PCS; 2018-12-13)
DX: K56.50 Intestinal adhesions [bands], unspecified as to partial versus complete obstruction (principal); I21.A1 Myocardial infarction type 2; E87.1 Hypo-osmolality and hyponatremia; N17.9 Acute kidney failure, unspecified; K55.8 Other vascular disorders of intestine; I13.0 Hypertensive heart and chronic kidney disease with heart failure and stage 1 through stage 4 chronic kidney disease, or unspecified chronic kidney disease; C18.9 Malignant neoplasm of colon, unspecified; C78.7 Secondary malignant neoplasm of liver and intrahepatic bile duct; I50.42 Chronic combined systolic (congestive) and diastolic (congestive) heart failure; N18.4 Chronic kidney disease, stage 4 (severe); I25.5 Ischemic cardiomyopathy; Z95.0 Presence of cardiac pacemaker; I48.2 Chronic atrial fibrillation; I25.10 Atherosclerotic heart disease of native coronary artery without angina pectoris; Z95.1 Presence of aortocoronary bypass graft; I73.9 Peripheral vascular disease, unspecified; L08.89 Other specified local infections of the skin and subcutaneous tissue; F03.90 Unspecified dementia, unspecified severity, without behavioral disturbance, psychotic disturbance, mood disturbance, and anxiety; L72.3 Sebaceous cyst; D69.6 Thrombocytopenia, unspecified; D63.1 Anemia in chronic kidney disease; K56.7 Ileus, unspecified; D50.9 Iron deficiency anemia, unspecified; G40.909 Epilepsy, unspecified, not intractable, without status epilepticus; Z79.01 Long term (current) use of anticoagulants
CPT/HCPCS: 36415; 36416; 70450; 71045; 74018; 74176; 80048; 80053; 81001; 81003; 81015; 82553; 82728; 82805; 83036; 83540; 83550; 83605; 83690; 84145; 84146; 84484; 85007; 85025; 85027; 86850; 86900; 86901; 87040; 87086; 88304; 93005; 96361; 96365; 96367; 96375; 96376; C9113; J0131; J0360; J0670; J1642; J1650; J1953; J2185; J2250; J2270; J2370; J2405; J2543; J2704; J3010; J3370; J3480; J3490; J7050; Q5105

== ENCOUNTER 2019-01-21 11:00 | Day surgery (SDC) | payer MEDICARE ==
[2019-01-21] MEDS ORDERED: Acetaminophen 500 MG TAB PO SCH (12:15)
[2019-01-21] MEDS ORDERED: diphenhydrAMINE 25 MG CAP PO SCH (12:15)
[2019-01-21] MEDS ORDERED: Furosemide 20 MG/2 ML VIAL SLOW IVP SCH (12:30)
[2019-01-21 20:15] LABS: #Eosinphils 0.2 thou/uL (0.0-0.7); #Lymphocytes 0.6 thou/uL (1.20-3.40); #Monocytes 0.4 thou/uL (0.11-0.59); #Neutrophils 1.8 thou/uL (1.40-6.50); %Basophils 1.6 % (0.0-1.0); %Lymphocytes 19.9 % (21.0-51.0); %Monocytes 12.4 % (0.0-10.0); %Neutrophils 60.2 % (42.0-75.0); Mean Corpuscular HGB CONC 33.8 g/dL (32.0-36.0); Mean Corpuscular Volume 97.6 fL (78.0-98.0); Mean Platelet Volume 10.2 fL (7.4-10.4); Platelet Count 93 thou/uL (130-400); RBC Distribution Width 18.3 % (11.5-14.5); Red Blood Cell (RBC) Count 2.74 mill/uL (4.70-6.10)
[2019-01-21 20:29] VITALS: BP 116/58; TEMP 98.4
== END 2019-01-21 20:30 | disposition home or self-care (01) ==
LOC: SDC/OP 11:00 → 3SE 11:00 → UNDOADMIN 11:02 → SDC/OP 20:30
PROVIDERS: ATTEND Internal Medicine Hematology & Oncology
PROC: 30233N1 Transfusion of Nonautologous Red Blood Cells into Peripheral Vein, Percutaneous Approach (ICD-10-PCS; principal; 2019-01-21)
DX: D64.9 Anemia, unspecified (principal); D69.6 Thrombocytopenia, unspecified
CPT/HCPCS: 36430; 85025; 86850; 86900; 86901; 86920; P9016; 36415

== ENCOUNTER 2019-02-03 15:58 | Observation (INO) | payer MEDICARE ==
--- NOTE | 2019-02-03 17:21 | RAD ---
RADIOGRAPH CHEST 1 VIEW: DATE: 02/03/2019 HISTORY: 83-year-old male with fever FINDINGS: There is cardiomegaly. There is no evidence of airspace density, pulmonary edema, or pneumothorax. Th e lateral costophrenic angles are not effaced. Left subclavian dual lead pacer. Sternotomy wires. Angulated, displaced, healed old multiple right rib fracture deformities. IMPRESSION: 1) No acute pulmonary findings. 2) cardiomegaly without congestive heart failure. 3) multiple old right rib fracture deformities. 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
--- NOTE | 2019-02-03 17:31 | CT ---
CT Head without IV contrast COMPARISON: 12/21/2018 HISTORY: Altered mental status and weakness. TECHNIQUE: Axial CT imaging at 5 mm intervals from vertex through skull base without contrast FINDINGS: There is no evidence of an acute infarction, hemorrhage, mass effect, or midline shift. There is decr eased attenuation seen in the periventricular white matter which is nonspecific but likely attributable to chronic small vessel ischemic changes. There is mild cerebral volume loss. The ventri cular system is normal in size, shape, and position for the degree of sulcal atrophy. Visualized paranasal sinuses are clear. Osseous structures appear intact. CT of the head is stable compared to prior exam. IMPRESSION: 1. No acute intracranial abnormality demonstrated. 2. Chronic small vessel ischemic changes and cerebral volume loss similar to prior exam.
[2019-02-03 18:03] LABS: #Lymphocytes 0.4 thou/uL (1.20-3.40); #Monocytes 0.4 thou/uL (0.11-0.59); #Neutrophils 5.8 thou/uL (1.40-6.50); %Eosinophils 0.3 % (0.0-10.0); %Lymphocytes 6.4 % (21.0-51.0); %Monocytes 5.9 % (0.0-10.0); %Neutrophils 87.4 % (42.0-75.0); Hemoglobin 8.4 g/dL (14.0-18.0); Mean Corpuscular HGB CONC 34.1 g/dL (32.0-36.0); Mean Corpuscular Hemoglobin 32.7 pg (27.0-31.0); Mean Corpuscular Volume 95.7 fL (78.0-98.0); Mean Platelet Volume 10.1 fL (7.4-10.4); Platelet Count 93 thou/uL (130-400); RBC Distribution Width 17.7 % (11.5-14.5); Red Blood Cell (RBC) Count 2.58 mill/uL (4.70-6.10); White Blood Cell (WBC) Count 6.7 thou/uL (4.8-10.8)
[2019-02-03 18:17] LABS: Bilirubin Negative (Negative); Blood, Urine Negative (Negative); Clarity CLOUDY (Clear); Glucose, Urine (Dipstick) Negative (Negative); Leukocyte Trace (Negative); Nitrite Positive (Negative); Protein, Urine (Dipstick) 30 mg/dL (Neg-Trace); Specific Gravity, Urine 1.012 (1.002-1.036); pH, Urine 6.5 (5.0-9.0)
[2019-02-03 18:19] LABS: Bacteria/HPF 1+ HPF (None Seen); Hyaline Casts/LPF 0-3 HYALINE CAST LPF (0-3 Hyaline); Pathc Cast-AUWi Flag 0.13 (0-2.49); RBC/HPF 0-3 HPF (0-3); Squamous Epithelial 0-3 HPF (0-3)
[2019-02-03 18:35] LABS: Albumin 3.2 g/dL (3.4-4.8)
[2019-02-03 18:36] LABS: Calcium 8.4 mg/dL (7.8-10.44); Chloride 99 mmol/L (98-107); Sodium 133 mmol/L (136-145)
[2019-02-03 18:37] LABS: Globulin 2.3 g/dL (2.4-3.5); Glucose 124 mg/dL (83-110); Protein, Total 5.5 g/dL (5.8-8.1)
[2019-02-03 18:39] LABS: Anion Gap 14 mmol/L (10-20); Bilirubin, Total 1.3 mg/dL (0.2-1.2); Carbon Dioxide 24 mmol/L (23-31)
[2019-02-03 18:40] LABS: Alkaline Phosphatase 75 U/L (40-150); Calc. Creatinine Clearance 0 mL/min (70-130); Estimated GFR-MDRD 36
[2019-02-03 18:41] LABS: BUN (Urea Nitrogen) 25 mg/dL (8.4-25.7)
[2019-02-03 18:42] LABS: AST (SGOT) 14 U/L (5-34)
[2019-02-03 18:45] LABS: CKMB 0.5 ng/mL (0-6.6)
[2019-02-03 18:49] LABS: ALT (SGPT) 8 U/L (8-55); Lipase Less than 4 U/L (8-78)
[2019-02-03] MEDS ORDERED: cefTRIAXone\\ROCEPHIN 1 GM VIAL ONE (19:32)
[2019-02-04] MEDS ORDERED: Ondansetron ODT 4 MG TAB SL PRN (03:23)
[2019-02-04] MEDS ORDERED: Ondansetron PF 4 MG/2 ML Vial IVP PRN (03:23)
[2019-02-04] MEDS ORDERED: HYDROcodone/Acetaminophen 5/325 mg Tablet PO PRN ×3 (03:23→06:14)
[2019-02-04] MEDS ORDERED: Acetaminophen 325 MG TAB PO PRN ×2 (03:23→06:14)
[2019-02-04] MEDS ORDERED: Sodium Chloride 0.9% 1,000 ML IV SCH (03:23)
[2019-02-04 04:10] VITALS: BMI 28.2
[2019-02-04] MEDS ORDERED: hydrALAZINE 20 MG/ML VIAL SLOW IVP PRN (06:14)
[2019-02-04] MEDS ORDERED: Ondansetron ODT 4 MG TAB PO PRN (06:14)
--- NOTE | 2019-02-04 07:05 | HP ---
PRIMARY CARE PHYSICIAN: Thomas Luong MD CHIEF COMPLAINT: Generalized weakness and altered mental status. HISTORY OF PRESENT ILLNESS: Mr. Willis is an 83-year-old gentleman who has dementia and is unable to give me any history. The history is obtained from the patient's daughter who is at the bedside. The patient has been exhibiting weakness and the daughter says that he was complaining that his legs were not working very well. He got extremely weak and could barely walk. His appetite has fallen off and he has gotten dehydrated. She also noted a night before last that he had a high fever. He was having some nausea, but she says he has severe reflux and he gags a lot. He also had recently had bowel surgery and she was not sure if it was related to this, and for this reason, she brought him to the emergency room for evaluation where he was found to have a urinary tract infection and is being admitted to the hospital for this. The patient's other history includes transfusion-dependent anemia, and the daughter noticed that he had to get one additional transfusion in the last month, which was a bit unusual for him. Otherwise, no other complaints. REVIEW OF SYSTEMS: Unobtainable due to the patient's dementia. PAST MEDICAL HISTORY: Taken from a previous history and physical dated 12/11/2018, and also from the patient's daughter, and it include seizure disorder, gastroesophageal reflux disease, chronic transfusion-dependent anemia, chronic systolic heart failure with an ejection fraction of 30% to 35%, sick sinus syndrome, he is on chronic anticoagulation, he has chronic kidney disease stage 4, atrial fibrillation, coronary artery disease, and peripheral vascular disease. PAST SURGICAL HISTORY: He has had surgery for bowel obstruction, coronary artery bypass grafting, status post pacemaker placement. ALLERGIES: PINEAPPLE, BUT NO DRUG ALLERGIES. FAMILY HISTORY: Significant for mother with diabetes mellitus and coronary artery disease. Also history of brain aneurysm in his father. SOCIAL HISTORY: He is . He lives at home. His daughter takes a shift superintendent caustic cresylate with him and the rest of the day he has caregivers. His daughter is also his medical power of energy attorney. She is not sure about his advanced directives. Therefore, he is a full code. He is a nonsmoker and nondrinker. He is able to ambulate with a walker and can make transfers on his own. CURRENT MEDICATIONS: Include; 1. Aspirin 81 mg daily. 2. Atorvastatin 80 mg at bedtime. 3. Carvedilol 12.5 mg twice a day. 4. Lasix 40 mg daily and Sunday, Sunday, and Sunday, p.r.n. 5. Isosorbide dinitrate 5 mg twice daily. 6. Protonix 40 mg daily. 7. Ranexa 1000 mg twice a day. 8. Xarelto 15 mg at bedtime. 9. Keppra 500 mg twice a day. PHYSICAL EXAMINATION: GENERAL: He is alert and oriented. He appears to be in no distress. He is well developed and well nourished. VITAL SIGNS: Blood pressure is 139/72, heart rate 80, respiratory rate of 20, and temperature is 98.4. HEENT: Pupils are equal, round, and reactive to light. Extraocular muscles are intact. Sclerae anicteric. Throat, no erythema, no exudates. NECK: No adenopathy. No bruits. LUNGS: Clear to auscultation. There is no wheezing, no rales, no rhonchi. CARDIOVASCULAR: He had a normal S1 and S2. He does have a grade 2/6 systolic murmur at the base radiating to the carotids. GASTROINTESTINAL: There is no abdominal tenderness. There is no rebound, no guarding, and positive bowel sounds. EXTREMITIES: There is no clubbing or cyanosis. No edema. No calf tenderness. NEUROLOGIC: Grossly nonfocal. His muscle strength is 5/5 in both his upper and lower extremities. SKIN/INTEGUMENT: There are no skin changes. No rashes. LAB RESULTS: Sodium 133, potassium 4.0, chloride is 99, CO2 is 24, BUN of 25, creatinine 1.82, glucose is 125, total bilirubin is 1.3. White blood cell count 6.7, hemoglobin 8.4, hematocrit is 24.7, and platelet count is 93. Urinalysis was significant for nitrite positive, trace leukocyte esterase, and 1+ bacteria. ASSESSMENT: This is a pleasant 83-year-old gentleman who presents with generalized weakness and fever and was found to have urinary tract infection. He will be admitted to the hospital, started on IV antibiotics, and follow up with blood and urine culture results. The patient's daughter requests that he go home today. We will leave this up to the discretion of the day team. 1. Chronic systolic heart failure. He has been already hydrated, and therefore we will discontinue IV fluids so that he does not get volume overloaded and continue his usual medications for congestive heart failure. 2. Chronic anticoagulation. Continue Xarelto. 3. Chronic atrial fibrillation. His heart rate is stable. We will continue his usual home medications for this. 4. Seizure disorder. Place Ativan p.r.n. as needed as well as restarting Keppra. 5. Gastroesophageal reflux disease. Continue his proton pump inhibitor. 6. Chronic transfusion-dependent anemia, currently his hemoglobin is at 8.4. We will monitor this and transfuse as needed should he remain in the hospital. 7. He will not need deep venous thrombosis as he is already on Xarelto and he takes proton pump inhibitor on a regular basis. Job ID: [id number]
--- NOTE | 2019-02-04 08:59 | PDOC.PN ---
- Subjective Encounter Start Date: 02/04/19 Encounter Start Time: 10:00 Subjective: Patient has perked up since IV fluids and abx in the ER. Back to near -: baseline. Moving around with daughter's assistance in the room. No fever. -: Mild confusion at baseline, but not like last night. Patient and daughter ready to go home. - Objective Resuscitation Status - Order Detail: 02/04/19 06:11 Resuscitation Status Routine Resuscitation Status: FULL: Full Resuscitation MAR Reviewed: Yes Vital Signs & Weight: Vital Signs (12 hours) Temp Pulse Resp BP BP Pulse Ox 02/04/19 08:00 99.4 F 89 16 126/70 98 02/04/19 03:26 98 02/04/19 03:20 98.4 F 80 20 139/72 139/72 98 Weight Weight 220 lb 0.341 oz I&O: 02/03/19 02/04/19 02/05/19 06:59 06:59 06:59 Intake Total 2000 Output Total 200 Balance 1800 Result Diagrams: 02/03/19 17:40 02/03/19 17:40 Phys Exam - Physical Examination Constitutional: NAD HEENT: moist MMs Respiratory: no wheezing, no rales, no rhonchi Cardiovascular: RRR, no significant murmur Gastrointestinal: soft, positive bowel sounds Musculoskeletal: no edema Neurological: non-focal, moves all 4 limbs Psychiatric: normal affect Dx/Plan (1) UTI (urinary tract infection) Status: Acute Qualifiers: Urinary tract infection type: acute cystitis (2) Chronic systolic CHF (congestive heart failure) Code(s): I50.22 - CHRONIC SYSTOLIC (CONGESTIVE) HEART FAILURE Status: Chronic Comment: stable (3) Anticoagulant long-term use Code(s): Z79.01 - CARE HOME (CURRENT) USE OF ANTICOAGULANTS Status: Chronic (4) Atrial fibrillation Code(s): I48.91 - UNSPECIFIED ATRIAL FIBRILLATION Status: Chronic Qualifiers: Atrial fibrillation type: chronic Qualified Code(s): I48.2 - Chronic atrial fibrillation (5) Chronic anemia Code(s): D64.9 - ANEMIA, UNSPECIFIED Status: Chronic Comment: at baseline (6) Dyslipidemia Code(s): E78.5 - HYPERLIPIDEMIA, UNSPECIFIED Status: Chronic (7) GERD (gastroesophageal reflux disease) Code(s): K21.9 - GASTRO-ESOPHAGEAL REFLUX DISEASE WITHOUT ESOPHAGITIS Status: Chronic (8) Hypertension Code(s): I10 - ESSENTIAL (PRIMARY) HYPERTENSION Status: Chronic Qualifiers: Hypertension type: essential hypertension Qualified Code(s): I10 - Essential (primary) hypertension (9) Seizure disorder Code(s): G40.909 - EPILEPSY, UNSP, NOT INTRACTABLE, WITHOUT STATUS EPILEPTICUS Status: Chronic (10) Acute metabolic encephalopathy Code(s): G93.41 - METABOLIC ENCEPHALOPATHY Status: Resolved Comment: due to dehydration and UTI, back to baseline now - Plan cont current plan of care, continue antibiotics will d/c home with daughter, f/u with PCP later this week * . - Discharge Day Encounter end time: 10:30
[2019-02-04] MEDS ORDERED: Aspirin 81 mg Enteric Coated Tablet PO SCH (09:00)
[2019-02-04] MEDS ORDERED: Isosorbide Dinitrate 5 MG TAB PO SCH (09:00)
[2019-02-04] MEDS ORDERED: levETIRAcetam 500 MG TAB PO SCH (09:00)
[2019-02-04] MEDS ORDERED: Carvedilol 3.125 MG TAB PO SCH (09:00)
[2019-02-04 11:29] VITALS: BP 104/62; TEMP 99.2
[2019-02-04] MEDS ORDERED: cefTRIAXone\\ROCEPHIN 1 GM in Sodium Chloride 0.9% 100 ML IVPB SCH (20:00)
--- NOTE | 2019-02-04 20:42 | DIS ---
DATE OF ADMISSION: 02/03/2019 DATE OF DISCHARGE: 02/04/2019 PRIMARY CARE PHYSICIAN: Thomas Luong MD REASON FOR ADMISSION: Urinary tract infection. DIAGNOSES AT DISCHARGE: 1. Urinary tract infection. 2. Acute metabolic encephalopathy secondary to dehydration and urinary tract infection, resolved. 3. Dehydration, resolved. 4. Chronic systolic congestive heart failure, not in exacerbation. 5. Long-term anticoagulant use. 6. Atrial fibrillation. 7. Chronic anemia. 8. Dyslipidemia. 9. Gastroesophageal reflux disease. 10. Hypertension. 11. Seizure disorder. 12. Chronic dementia. PROCEDURES: CT of the brain showing no acute intracranial abnormality. CONSULTATIONS: None. SUMMARY OF HOSPITAL COURSE: This is an 83-year-old white male with a history of dementia. He typically is able to ambulate with assistance of his daughter and has some mild confusion, but he has been able to interact with her fairly well. He got very weak, could barely walk and had a drop of his appetite over the last couple of days. Also had a high fever at home, not measured. He was brought into the emergency room when he got very confused. At that time, he was given IV fluids with resolution of confusion and of his weakness. He was noted to be dehydrated. After the fluid bolus, he was appeared to be euvolemic and so IV fluids were stopped due to his history of congestive heart failure. He did have urinary tract infection on his urinalysis and he was started on Rocephin after a culture was started. The patient was doing much better in the late morning today. He was ambulating as normal with his daughter and was eager to go home. She stated he was back to his normal mental baseline. He had no leukocytosis in his blood. No evidence of severe infection and his dehydration was resolved, so I am discharging him home. DISCHARGE MANAGEMENT: 1. Location: Discharged home. 2. Followup: Follow up with Dr. Luong in 3 days. 3. Activity: As tolerated. 4. Diet: Healthy heart, low-sodium diet. MEDICATIONS: 1. Cefdinir 300 mg twice a day, 20 capsules dispensed. 2. Continue aspirin 81 mg daily. 3. Atorvastatin 80 mg at night. 4. Carvedilol 12.5 mg twice a day. 5. Furosemide 40 mg once a day except for Mondays, Wednesdays and Fridays when he takes twice a day. 6. Isosorbide dinitrate 5 mg twice a day. 7. Keppra 500 mg twice a day. 8. Protonix 40 mg daily. 9. Ranexa 1000 mg twice a day. 10. Xarelto 15 mg at night. Job ID: [id number]
[2019-02-04] MEDS ORDERED: Rivaroxaban 15 MG TAB PO SCH (21:00)
[2019-02-04] MEDS ORDERED: Atorvastatin Calcium 40 MG TAB PO SCH (21:00)
== END 2019-02-04 11:36 | disposition home or self-care (01) ==
LOC: ERS 15:58 → ERHOLD 23:15 → T4-A 02-04 03:13
PROVIDERS: ADMIT Internal Medicine; ATTEND Internal Medicine
DX: N39.0 Urinary tract infection, site not specified (principal); I13.0 Hypertensive heart and chronic kidney disease with heart failure and stage 1 through stage 4 chronic kidney disease, or unspecified chronic kidney disease; N18.4 Chronic kidney disease, stage 4 (severe); I50.22 Chronic systolic (congestive) heart failure; E86.0 Dehydration; R53.1 Weakness; F03.90 Unspecified dementia, unspecified severity, without behavioral disturbance, psychotic disturbance, mood disturbance, and anxiety; G40.909 Epilepsy, unspecified, not intractable, without status epilepticus; I25.10 Atherosclerotic heart disease of native coronary artery without angina pectoris; I48.91 Unspecified atrial fibrillation; I49.5 Sick sinus syndrome; I73.9 Peripheral vascular disease, unspecified; K21.9 Gastro-esophageal reflux disease without esophagitis; Z79.01 Long term (current) use of anticoagulants; Z79.82 Long term (current) use of aspirin; Z79.899 Other long term (current) drug therapy; Z95.0 Presence of cardiac pacemaker; Z95.1 Presence of aortocoronary bypass graft
CPT/HCPCS: 70450; 71045; 80053; 82553; 83690; 84484; 85025; 87040; 87077; 87086; 87186; 93005; 96361 ×2; 96374; 99285; G0378 ×2; 36415; 81003; 81015; J0696

== ENCOUNTER 2019-03-16 17:06 | Inpatient (IN) | payer MEDICARE ==
[~2019-03-16 17:06] MED LIST changes: +ISOVUE-370 76%-LOCM 1 ML ONE; -Lidocaine 1% w/Epinephrine 1:200K 30 ML VIAL ONE
[2019-03-16] MEDS ORDERED: Lorazepam 2 MG/ML VIAL ONE (17:25)
[2019-03-16] MEDS ORDERED: Acetaminophen 650 MG Suppository ONE (17:25)
[2019-03-16 17:36] LABS: #Lymphocytes 0.4 thou/uL (1.20-3.40); #Monocytes 0.6 thou/uL (0.11-0.59); #Neutrophils 6.2 thou/uL (1.40-6.50); %Basophils 0.1 % (0.0-1.0); %Eosinophils 0.1 % (0.0-10.0); %Lymphocytes 5.5 % (21.0-51.0); %Monocytes 7.9 % (0.0-10.0); %Neutrophils 86.5 % (42.0-75.0); Hemoglobin 9.1 g/dL (14.0-18.0); Mean Corpuscular HGB CONC 33.7 g/dL (32.0-36.0); Mean Corpuscular Hemoglobin 34.2 pg (27.0-31.0); Mean Platelet Volume 10.5 fL (7.4-10.4); Platelet Count 96 thou/uL (130-400); RBC Distribution Width 19.5 % (11.5-14.5); Red Blood Cell (RBC) Count 2.64 mill/uL (4.70-6.10); White Blood Cell (WBC) Count 7.1 thou/uL (4.8-10.8)
[2019-03-16 17:50] LABS: ALT (SGPT) 8 U/L (8-55); AST (SGOT) 14 U/L (5-34); Albumin 3.1 g/dL (3.4-4.8); Alkaline Phosphatase 58 U/L (40-150); Anion Gap 13 mmol/L (10-20); BUN (Urea Nitrogen) 23 mg/dL (8.4-25.7); Bilirubin, Total 1.4 mg/dL (0.2-1.2); Calc. Creatinine Clearance 0 mL/min (70-130); Calcium 8.5 mg/dL (7.8-10.44); Carbon Dioxide 24 mmol/L (23-31); Chloride 95 mmol/L (98-107); Estimated GFR-MDRD 41; Globulin 2.4 g/dL (2.4-3.5); Glucose 113 mg/dL (83-110); Lipase Less than 4 U/L (8-78); Potassium 4.2 mmol/L (3.5-5.1); Protein, Total 5.5 g/dL (5.8-8.1); Sodium 128 mmol/L (136-145)
--- NOTE | 2019-03-16 18:01 | RAD ---
Exam: Chest one view HISTORY:Fever Comparison: 02/03/2019 FINDINGS: Lungs: Diffuse interstitial and alveolar opacities Cardiac silhouette:Enlarged. Prior sternotomy. Left-sided dual lead cardiac pacing device remains. Pulmonary vessels: Engorged Pleural Spaces: Mild to moderate right pleural effusion Pneumothorax: None Osseous abnormalities: None of acuity. IMPRESSION: Decompensated CHF with bilateral pulmonary edema and mild to moderate right pleural effus ion. Follow-up to resolution is recommended.
--- NOTE | 2019-03-16 18:15 | CT ---
CT Brain WO Con: 03/16/2019 5:16 PM CLINICAL HISTORY: Altered mental status. COMPARISON: 02/03/2019 FINDINGS: Hemorrhage: None. Ventricular system: Enlarged. Cerebral parenchyma: Microvascular ischemic disease Midline shift: None. Mass: No mass effect. Calvarium: Normal. Visualized Paranasal sinuses: Clear. IMPRESSION: No acute intracranial abnormalities. Stable chronic findings.
[2019-03-16 18:17] LABS: CKMB 1.8 ng/mL (0-6.6)
[2019-03-16 18:33] LABS: Bacteria/HPF None Seen HPF (None Seen); Bilirubin Negative (Negative); Blood, Urine Negative (Negative); Clarity Clear (Clear); Glucose, Urine (Dipstick) Normal (Negative); Leukocyte Negative Leu/uL (Negative); Nitrite Negative (Negative); Protein, Urine (Dipstick) 70 mg/dL (Neg-Trace); RBC/HPF 0-3 HPF (0-3); Squamous Epithelial None Seen HPF (0-3); Urobilinogen 3 mg/dL (Less than 2); WBC/HPF 0-3 HPF (0-3)
[2019-03-16] MEDS ORDERED: Piperacillin/Tazobactam 4.5 GM VIAL ONE (18:53)
--- NOTE | 2019-03-16 20:24 | CT ---
CT ABDOMEN AND PELVIS WITH IV CONTRAST: INDICATIONS: An 83-year-old male with fever and altered mental status. COMPARISON: Prior CT abdomen and pelvis dated 12/12/2018. FINDINGS: There is moderate right and small left pleural effusion. There is bibasilar atelectasis. There is c ardiomegaly. Loculated fluid seen within the Grace pouch is stable. The liver, adrenal glands, pancreas, and s pleen appear within normal limits. The kidneys demonstrate small cysts in the left kidney. There is prominent renal vascular calcification bilaterally. No hydronephrosis is evident. There is stable ectasia of the infrarenal abdominal aorta. There is mild to moderate fluid in the pelvis. There is a mild amount of retained stool within the colon. The small bowel is normal in caliber. There is scattered degenerative and osteoarthritic change. There is a superior endplate compression abnormality of L1 that is stable to the prior exam. IMPRESSION: 1. Worsening bilateral pleural effusions and bibasilar atelectasis. 2. Worsening mild ascites. 3. Previously seen small bowel obstruction has resolved. The small bowel is within normal limits on today's examination. 4. Stable loculated fluid seen within Grace's pouch. 5. Stable ectasia of the infrarenal abdominal aorta. 6. Other chronic findings as above. POS:
[2019-03-16 21:41] LABS: Lactic Acid 1.9 mmol/L (0.5-2.2)
[2019-03-16 21:44] LABS: Troponin I 0.086 ng/mL (< 0.028)
[2019-03-16] MEDS ORDERED: Artificial Tear Sol 15 ML BOT EA EYE PRN (22:24)
[2019-03-16] MEDS ORDERED: Calcium Carbonate 500 MG ChewTAB PO PRN (22:27)
[2019-03-16] MEDS ORDERED: Acetaminophen 325 MG TAB PO PRN (22:27)
[2019-03-16] MEDS ORDERED: Senokot S 8.6-50 MG TAB PO PRN (22:27)
[2019-03-16] MEDS ORDERED: levETIRAcetam 500 MG TAB PO SCH (22:30)
[2019-03-16] MEDS ORDERED: Carvedilol 6.25 MG TAB PO SCH (22:30)
[2019-03-16] MEDS ORDERED: Rivaroxaban 15 MG TAB PO SCH (22:30)
[2019-03-16] MEDS ORDERED: Sodium Chloride 0.9% 1,000 ML IV SCH (22:30)
[2019-03-16] MEDS ORDERED: Vancomycin HCl 1 GM in Premix Bag 1 BAG IVPB SCH (22:30)
[2019-03-16 22:52] LABS: Lactic Acid 2.3 mmol/L (0.5-2.2)
[2019-03-16 22:57] LABS: CRP (Inflammatory) 11.56 mg/dL (= or < 0.5); Magnesium 1.5 mg/dL (1.6-2.6); Phosphorus 3.3 mg/dL (2.3-4.7)
[2019-03-16] MEDS ORDERED: Magnesium 2 GM/50 ML 2 GM in Premix Bag 1 BAG IVPB SCH (23:15)
[2019-03-16 23:22] LABS: CKMB 1.6 ng/mL (0-6.6)
--- NOTE | 2019-03-16 23:32 | HP ---
PRIMARY CARE PHYSICIAN: Dr. Thomas Luong. PRIMARY ASSISTANT MANAGER/EMBALMER: Dr. Rodriguez. PRIMARY CURTAIN CUTTER: Dr. Felix. CHIEF COMPLAINT: Shortness of breath with altered mentation. HISTORY OF PRESENT ILLNESS: The patient is an 83-year-old male with chronic systolic heart failure secondary to ischemic cardiomyopathy; dementia; seizure disorder; chronic anemia, on transfusion as well as Epogen; sick sinus syndrome, status post pacemaker as well as chronic anticoagulation for atrial fibrillation, presented to the emergency room by EMS with altered mentation. History obtained from the daughter at the bedside. Over the last 2 months, patient has on and off cough. He also has gained around 6 to 8 pounds recently. The patient was evaluated by Dr. Rodriguez recently and his Lasix dose was increased to 80 mg daily from 40 mg daily. He is also followed by Dr. Felix and labs done three days ago. Dr. Rodriguez recommended metolazone. However, the daughter was worried that that may cause renal failure. He is on 2 L fluid restriction. He diuresed well with 80 mg Lasix. However, his weight remained stable with 2 L fluid restriction. Over the last 24 hours, he got worse. His mentation became altered. His cough got worse and more productive. He also had a recent UTI and has completed antibiotics. He was lethargic according to the daughter. One week ago, patient had a fall. However, the daughter caught his right arm that prevented the fall. Over the last 24 hours, the daughter also noticed increased redness and swelling to the right arm. PAST MEDICAL HISTORY: 1. Chronic systolic heart failure, ejection fraction 30% to 40%. 2. CKD stage 3. 3. Ischemic cardiomyopathy. 4. Seizure disorder. 5. Atrial fibrillation, on anticoagulation. 6. Sick sinus syndrome, status post pacemaker. 7. Chronic anemia, on Epogen as well as [facility]. 8. GERD. 9. Coronary artery disease. 10. Peripheral vascular disease. 11. History of small bowel obstruction this year. PAST SURGICAL HISTORY: 1. Coronary artery bypass grafting. 2. Coronary stent placement. 3. Lysis of adhesions. 4. Pacemaker placement. ALLERGIES: NO KNOWN DRUG ALLERGIES. THE PATIENT IS UNABLE TO TOLERATE PINEAPPLE. SOCIAL HISTORY: He is , lives at home. Daughter is the caregiver and medical power of disability attorney. He is full code. This was verified with the DPOA. He ambulates with the help of a walker. CURRENT MEDICATIONS: Verified with the daughter; 1. Aspirin 81 mg daily. 2. Lipitor 80 mg at bedtime. 3. Carvedilol 12.5 b.i.d. 4. Lasix 40 mg daily. Please note that patient was on 80 mg daily for 5 days. 5. Isosorbide dinitrate 5 mg b.i.d. 6. Protonix 40 mg daily. 7. Ranexa 1000 mg b.i.d. 8. Xarelto 15 mg at bedtime. 9. Keppra 500 mg b.i.d. 10. Metolazone was prescribed, however, daughter never started since she was worried about renal failure. REVIEW OF SYSTEMS: Cannot be reliably obtained from the patient due to current cognitive status. FAMILY HISTORY: Positive for diabetes and heart disease. His father had brain aneurysm. PHYSICAL EXAMINATION: VITAL SIGNS: In the emergency room, temperature 102 rectal, respiration 28, pulse of 82, blood pressure of 134/51, O2 saturation 98% on room air. GENERAL: 83-year-old male with altered mentation. His mentation is gradually improving. He received vancomycin, Zosyn with Ativan and Tylenol in the emergency room. HEENT: Head, atraumatic and normocephalic. Sclerae anicteric. Dry mucous membranes. No oral lesion. NECK: Supple. No neck stiffness. JVD elevated. No carotid bruit. LUNGS: Showed diminished air entry at bilateral bases with bilateral rhonchi. No wheezing. Mild accessory muscle use. Persistent coughing. HEART: S1, S2 present. Healed midline scar from previous CABG. 2/6 systolic murmur over the mitral area. ABDOMEN: Soft. Bowel sounds present. No rebound or guarding. No costovertebral angle tenderness. EXTREMITIES: 2+ edema in bilateral lower extremity up to the knees. No calf tenderness. SKIN: Warm and dry. NEUROLOGY: The patient is moving all of his extremities on verbal commands. No hypertonia. Sensation to touch was normal bilaterally. PSYCHIATRY: Patient is alert, awake, however, still disoriented. LYMPH NODE: No palpable lymph nodes in the neck. PERIPHERAL VASCULAR: Radial pulses palpable bilaterally. MUSCULOSKELETAL: No joint swelling or tenderness. SKIN EXAMINATION: There is significant erythema along with tenderness over the right arm. LABORATORY DATA: Echocardiogram from September of 2018 showed ejection fraction 30% to 35% with moderately dilated left atrium, moderate to severe mitral regurgitation and dilated aortic root at 4.6 cm. Albumin 3.1, total bilirubin 1.4, lactic acid 2.8. BNP is pending. Sodium 128, potassium 4.2, creatinine 1.64, hemoglobin 9.1 with hematocrit 26.8. Vitamin B12 was normal this year. EKG by my review showed paced rhythm. Chest x-ray by my review showed pulmonary vascular congestion with bilateral pleural effusion. CT scan of the abdomen and pelvis showed mild ascites with worsening bilateral pleural effusion and bibasilar atelectasis. IMPRESSION: 1. Acute on chronic systolic heart failure exacerbation/pulmonary edema with bilateral pleural effusion and bibasilar atelectasis. 2. Sepsis with acute organ dysfunction secondary to right upper extremity cellulitis with possible aspiration pneumonia. 3. Lactic acidosis secondary to hypoperfusion/sepsis. 4. Elevated troponin secondary to demand ischemia/type 2 myocardial infarction. 5. Moderate protein-calorie malnutrition. 6. Chronic kidney disease stage 3. 7. Hyponatremia. 8. Recent urinary tract infection. 9. Chronic anemia, followed by [facility]. He gets weekly Epogen as well as p.r.n. transfusion. 10. Chronic thrombocytopenia. 11. Dementia with toxic metabolic encephalopathy, multifactorial. 12. Hyperlipidemia. 13. Chronic anticoagulation for atrial fibrillation. 14. Sick sinus syndrome, status post pacemaker. 15. Ascites secondary to congestive heart failure. 16. Gastroesophageal reflux disease. 17. Seizure disorder, on Keppra. 18. Coronary artery disease/peripheral vascular disease. 19. Hypomagnesemia with magnesium of 1.5. PLAN: The patient will be monitored on the telemetry unit. His mentation is gradually improving. We will start him on gentle IV Lasix at 20 mg twice a day. Continue empiric antibiotics with vancomycin and Zosyn for right upper extremity cellulitis as well as possible aspiration pneumonia. We will consult Cardiology, Pulmonary, as well as Nephrology. Physical Therapy, Occupational Therapy evaluation. We will also consult Speech Therapy to rule out aspiration. We will resume anticoagulation. We will resume carvedilol at half the dose to facilitate diuresis. We will also resume isosorbide dinitrate, Keppra, Protonix, Ranexa. Continue aspirin. Recheck labs in a.m. Repeat troponin in a.m. Check BNP, CRP. Blood cultures have been sent. Fluid restriction at 1500 mL per day. Daily weights. DVT prophylaxis, patient already on anticoagulation. GI prophylaxis, patient already on PPIs. We will replace magnesium. Plan was discussed with the patient's daughter in detail. Code status was re-verified as full code. Job ID: [id number]
[2019-03-17] MEDS: Piperacillin/Tazobactam 3.375 GM in Sodium Chloride 0.9% 100 ML IVPB SCH ×2 (02:21→09:33)
[2019-03-17 05:42] LABS: #Lymphocytes 0.5 thou/uL (1.20-3.40); #Monocytes 0.4 thou/uL (0.11-0.59); #Neutrophils 4.7 thou/uL (1.40-6.50); %Basophils 0.3 % (0.0-1.0); %Eosinophils 0.1 % (0.0-10.0); %Lymphocytes 8.1 % (21.0-51.0); %Monocytes 7.3 % (0.0-10.0); %Neutrophils 84.2 % (42.0-75.0); Mean Corpuscular HGB CONC 31.5 g/dL (32.0-36.0); Mean Corpuscular Volume 98.4 fL (78.0-98.0); Platelet Count 148 thou/uL (130-400); RBC Distribution Width 19.3 % (11.5-14.5); Red Blood Cell (RBC) Count 2.58 mill/uL (4.70-6.10); White Blood Cell (WBC) Count 5.6 thou/uL (4.8-10.8)
[2019-03-17 06:00] LABS: ALT (SGPT) 7 U/L (8-55); AST (SGOT) 14 U/L (5-34); Albumin 2.6 g/dL (3.4-4.8); Alkaline Phosphatase 50 U/L (40-150); BUN (Urea Nitrogen) 24 mg/dL (8.4-25.7); Bilirubin, Total 1.1 mg/dL (0.2-1.2); Calc. Creatinine Clearance 42 mL/min (70-130); Calcium 7.9 mg/dL (7.8-10.44); Carbon Dioxide 24 mmol/L (23-31); Chloride 96 mmol/L (98-107); Estimated GFR-MDRD 42; Globulin 1.9 g/dL (2.4-3.5); Glucose 107 mg/dL (83-110); Magnesium 2.1 mg/dL (1.6-2.6); Potassium 3.6 mmol/L (3.5-5.1); Protein, Total 4.5 g/dL (5.8-8.1); Sodium 128 mmol/L (136-145)
[2019-03-17] MEDS ORDERED: Furosemide 20 MG/2 ML VIAL SLOW IVP SCH (06:00)
[2019-03-17 06:04] LABS: Anion Gap 12 mmol/L (10-20)
[2019-03-17 06:12] LABS: CKMB 1.4 ng/mL (0-6.6)
[2019-03-17] MEDS ORDERED: Prevnar 13-Val Conj/PF 0.5 ML SYRINGE IM ONE (09:00)
--- NOTE | 2019-03-17 09:24 | PDOC.PN ---
- Subjective Encounter Start Date: 03/17/19 Encounter Start Time: 09:04 Subjective: minimal sob - Objective Resuscitation Status - Order Detail: 03/16/19 22:27 Resuscitation Status Routine Resuscitation Status: FULL: Full Resuscitation Discussed with: Full code - Confirmed with daughter JULIANNE FARLEY Reviewed: Yes Vital Signs & Weight: Vital Signs (12 hours) Temp Pulse Resp BP BP Pulse Ox 03/17/19 08:00 98 03/17/19 07:53 98 03/17/19 07:09 98.8 F 03/17/19 04:00 98.2 F 66 20 99/52 L 97 03/17/19 03:26 98.2 F 03/17/19 00:00 98.4 F 68 19 115/57 L 908 H 03/16/19 23:38 123/56 L 03/16/19 22:35 98.4 F 80 20 115/58 L 99 03/16/19 22:31 98 Weight Weight 179 lb 12.8 oz Most Recent Monitor Data Heart Rate from ECG 61 NIBP 100/47 NIBP BP-Mean 64 Respiration from ECG 24 SpO2 98 I&O: 03/16/19 03/17/19 03/18/19 06:59 06:59 06:59 Intake Total 470 Output Total 390 Balance 80 Result Diagrams: 03/17/19 05:21 03/17/19 05:21 Phys Exam - Physical Examination Neck: no JVD mildd bilat post rales Cardiovascular: RRR, no significant murmur Gastrointestinal: soft, positive bowel sounds Musculoskeletal: edema present erythema R arm Dx/Plan (1) Cellulitis and abscess of upper arm and forearm Code(s): [id number] - Status: Acute (2) PNA (pneumonia) Code(s): J18.9 - PNEUMONIA, UNSPECIFIED ORGANISM Status: Acute Qualifiers: Pneumonia type: aspiration pneumonia Laterality: right Lung location: lower lobe of lung (3) Altered mental status Code(s): R41.82 - ALTERED MENTAL STATUS, UNSPECIFIED Status: Acute Qualifiers: Altered mental status type: unspecified Qualified Code(s): R41.82 - Altered mental status, unspecified (4) Hypokalemia Code(s): E87.6 - HYPOKALEMIA Status: Acute (5) Type [address] elevation Code(s): I21.A1 - MYOCARDIAL INFARCTION TYPE 2 Status: Acute (6) Anemia, normocytic normochromic Code(s): D64.9 - ANEMIA, UNSPECIFIED Status: Chronic (7) Anticoagulant long-term use Code(s): Z79.01 - RESIDENTIAL (CURRENT) USE OF ANTICOAGULANTS Status: Chronic (8) Atrial fibrillation Code(s): I48.91 - UNSPECIFIED ATRIAL FIBRILLATION Status: Chronic Qualifiers: Atrial fibrillation type: chronic Qualified Code(s): I48.2 - Chronic atrial fibrillation (9) CAD (coronary artery disease) Code(s): I25.10 - ATHSCL HEART DISEASE OF [place] CORONARY ARTERY W/O ANG PCTRS Status: Chronic Qualifiers: Coronary Disease-Associated Artery/Lesion type: [place] artery [place] vs. transplanted heart: [place] heart Associated angina: without angina Qualified Code(s): I25.10 - Atherosclerotic heart disease of [place] coronary artery without angina pectoris Comment: (10) CKD (chronic kidney disease) stage 3, GFR 30-59 ml/min Code(s): N18.3 - CHRONIC KIDNEY DISEASE, STAGE 3 (MODERATE) Status: Chronic (11) Chronic anemia Code(s): D64.9 - ANEMIA, UNSPECIFIED Status: Chronic Comment: at baseline (12) Chronic systolic heart failure, ACC/AHA stage C Code(s): I50.22 - CHRONIC SYSTOLIC (CONGESTIVE) HEART FAILURE Status: Chronic (13) Dyslipidemia Code(s): E78.5 - HYPERLIPIDEMIA, UNSPECIFIED Status: Chronic (14) GERD (gastroesophageal reflux disease) Code(s): K21.9 - GASTRO-ESOPHAGEAL REFLUX DISEASE WITHOUT ESOPHAGITIS Status: Chronic (15) Hypertension Code(s): I10 - ESSENTIAL (PRIMARY) HYPERTENSION Status: Chronic Qualifiers: Hypertension type: essential hypertension Qualified Code(s): I10 - Essential (primary) hypertension (16) PVD (peripheral vascular disease) Code(s): I73.9 - PERIPHERAL VASCULAR DISEASE, UNSPECIFIED Status: Chronic (17) Seizure disorder Code(s): G40.909 - EPILEPSY, UNSP, NOT INTRACTABLE, WITHOUT STATUS EPILEPTICUS Status: Chronic - Plan cont iv diuresis -: antibx for PNA, cellulitis -: discussed with cardiology * .
[2019-03-17] MEDS: Isosorbide Dinitrate 5 MG TAB PO SCH ×2 (11:29→21:21)
[2019-03-17] MEDS: Aspirin 81 mg Enteric Coated Tablet PO SCH (11:30)
[2019-03-17] MEDS: Saccharomyces boulardii 250 MG CAP PO SCH (11:30)
[2019-03-17] MEDS: levETIRAcetam 500 MG TAB PO SCH ×2 (11:30→21:22)
[2019-03-17] MEDS: Carvedilol 6.25 MG TAB PO SCH ×2 (11:31→18:09)
[2019-03-17] MEDS: cefTRIAXone\\ROCEPHIN 1 GM in Sodium Chloride 0.9% 100 ML IVPB SCH (11:32)
[2019-03-17] MEDS: metroNIDAZOLE 500 MG in Premix Bag 1 BAG IVPB SCH ×2 (11:33→18:10)
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
[2019-03-17] MEDS ORDERED: Furosemide 40 MG/4 ML VIAL SLOW IVP SCH (14:00)
[2019-03-17] MEDS ORDERED: Vancomycin HCl 1.25 GM in Sodium Chloride 0.9% 250 ML 250 ML IVPB SCH (15:00)
--- NOTE | 2019-03-17 15:43 | CON ---
DATE OF CONSULTATION: 03/17/2019 SERVICE: Pulmonary Medicine. REASON FOR CONSULTATION: [facility] patient. HISTORY OF PRESENT ILLNESS: The patient is a pleasant 83-year-old male with past medical history significant for heart failure and dementia. He was recently in the hospital because of dehydration. The family was pushing some fluids when he was out of here. Ultimately, he had increasing shortness of breath. He also had fever , and right upper extremity swelling with erythema over the right arm. He was brought back to the emergency department because of increasing mentation related issues. He was discovered to have bacteremia. He is currently in the [facility]. He cannot provide much in the way of historical presentation. He is pleasantly confused. He does not look to be in any distress. PAST MEDICAL HISTORY: 1. Chronic systolic heart failure (30% EF). 2. Chronic kidney disease, stage 3. 3. Seizure disorder. 4. Atrial fibrillation, on anticoagulation. 5. Sick sinus syndrome, status post pacemaker placement. 6. Anemia. 7. Gastroesophageal reflux disease. 8. Coronary artery disease. 9. Peripheral vascular disease. 10. History of small-bowel obstruction. 11. Dementia, suspected. PAST SURGICAL HISTORY: 1. Coronary artery bypass graft. 2. Percutaneous coronary intervention. 3. Laparotomy with lysis of adhesions. 4. Pacemaker placement. FAMILY HISTORY: Noncontributory. SOCIAL HISTORY: The patient lives at home. His daughter is his caregiver and medical power of tax attorney. He has no current exposure to chemicals, dust, asbestos, or tuberculosis. He does not have any access to alcohol, tobacco, or illicit drugs. ALLERGIES: NO KNOWN DRUG ALLERGIES. MEDICATIONS: List of his inpatient medications was reviewed. No specific updates were made at this time. REVIEW OF SYSTEMS: General; head, ears, eyes, nose, and throat; cardiovascular; respiratory; GI; ; musculoskeletal; neurologic; and skin is negative except as mentioned in the HPI. PHYSICAL EXAMINATION: VITAL SIGNS: Afebrile, pulse 66, blood pressure 123/56, respirations 14, and saturation 98% on room air. GENERAL: The patient is awake and alert, in no apparent distress. LUNGS: Very good air entry. There is no prolonged expiratory phase, wheezing present. There is some dependent rhonchi present. HEART: Normal rate, regular. ABDOMEN: Soft, nontender, and nondistended. Bowel sounds are positive. MUSCULOSKELETAL: No cyanosis or clubbing. There is 2 to 3+ pitting in the bilateral lower extremities. NEUROLOGIC: Grossly nonfocal. LABORATORY DATA: WBC 5.6, hemoglobin 8.0, and platelets 148,000 and improving. Creatinine 1.58 and downtrending, sodium 128 and stable. Basic metabolic profile and liver function studies are unremarkable otherwise. Lactate is cleared from 2.3 to 1.0. Magnesium 1.5. Phosphorus 3.3. BNP is in historic high. CRP is quite elevated. Troponin is downtrending. Urinalysis is unremarkable. Gram-negative rods are growing in 2/2 blood cultures. IMAGING STUDIES: 1. CT of the abdomen and pelvis demonstrates bilateral pleural effusions, the right is greater than left. There is possibly an infiltrate in the right lower lobe, though I doubt it. There is mild ascites present. Loculated fluid is in Morison's pouch. This is stable compared to prior. 2. CT of the brain is negative for acute intracranial abnormality. 3. Chest x-ray demonstrates effusion on the right. Cardiac silhouette is enlarged. There is a pacemaker in place. Sternotomy wires are noted. Pulmonary vascular congestion is evident. Interstitial edema is prominent throughout bilateral lung fuller. ASSESSMENT: 1. Acute hypoxic respiratory failure. 2. Severe sepsis. 3. Bacteremia secondary to gram-negative smooth. 4. Cellulitis. 5. Chronic kidney disease, stage 3. 6. Dementia. DISCUSSION AND PLAN: We will replace magnesium. Pulmonary/Critical Care will continue to follow along while the patient remains inhouse. Agree with current antibiotic selection, which should adequately cover gram-negative smooth. Once his blood pressures firm up a touch, we will be able to continue our diuretic intervention. That being said, we are going to need to back off to once daily. We will follow the identification of this organism and trend laboratories through time. Since the gram-negative smooth is in the blood stream, vancomycin will be interrupted. 70 minutes have been devoted to this patient in various activities. I personally reviewed all imaging studies and laboratory data noted within this document. For fifty percent of this time, I was interacting with the patient at the bedside or coordinating care with the care team. For the remainder of the time I was immediately available to the patient in the hospital unit. Job ID: [id number] [facility]
--- NOTE | 2019-03-17 19:56 | CON ---
DATE OF CONSULTATION: 03/17/2019 REASON FOR CONSULTATION: Heart failure. HISTORY OF PRESENT ILLNESS: Mr. Willis is a pleasant 83-year-old white gentleman, very well known to myself, who comes to the hospital for altered mentation and shortness of breath. He was at home, had been accumulating fluid for the last couple of days, however, developed a fever in the last few days as well and yesterday became altered, so daughter who is his primary senior planning analyst brought him in, and he was started on antibiotic, diagnosed with a right upper extremity cellulitis. He is doing better. He received IV Lasix as well for some diuresis. Currently, he is doing much better. He denies any chest pain, tightness, or pressure. Shortness of breath is still a problem, but is improving. PAST MEDICAL HISTORY: 1. Chronic ischemic cardiomyopathy, EF of 30% to 40%. 2. Chronic kidney disease, stage 3. 3. Ischemic cardiomyopathy. 4. Seizure disorder. 5. Chronic atrial fibrillation. 6. Sick sinus syndrome, status post pacemaker placement. 7. Anemia of chronic disease. 8. GERD. 9. Coronary artery disease, status post CABG. 10. Peripheral vascular disease. 11. Small bowel obstruction earlier this year. PAST SURGICAL HISTORY: 1. Coronary artery bypass grafting in the past. 2. Coronary stent placement in the past. 3. Lysis of adhesions. 4. Pacemaker placement. OUTPATIENT MEDICATIONS: 1. Aspirin 81. 2. Lipitor 80 at bedtime. 3. Carvedilol 12.5 b.i.d. 4. Lasix 40 mg a day, recently increased to 80. 5. Isosorbide dinitrate 5 mg b.i.d. 6. Protonix 40 mg a day. 7. Ranexa 1000 mg b.i.d. 8. Xarelto 15 mg at bedtime. 9. Keppra 500 b.i.d. 10. Metolazone p.r.n., but he never received any. ALLERGIES: [place], BUT NO KNOWN DRUG ALLERGIES. SOCIAL HISTORY: No alcohol, tobacco, or drugs. FAMILY HISTORY: Noncontributory. REVIEW OF SYSTEMS: A 12-point review of systems was done and was all negative unless stated in the history of present illness. PHYSICAL EXAMINATION: VITAL SIGNS: Temperature 98.6, pulse 60, respiratory rate 20, saturating 100% on 1 L, blood pressure 93/53. GENERAL: Awake, alert, oriented x3, in no distress. HEENT: Normocephalic and atraumatic. NECK: Supple. LUNGS: Have coarse breath sounds and crackles at the bases. CARDIOVASCULAR: S1 and S2. No S3 or S4. ABDOMEN: Soft. Positive bowel sounds. EXTREMITIES: Trace edema. SKIN: Warm and dry. LABORATORY DATA: Laboratory work was reviewed. White count of 7, hemoglobin 9.1, hematocrit 26. Platelet count of 96, up to 148 today. Chemistry with a sodium of 128, otherwise unremarkable. Creatinine 1.58. Lactic acid of 2.3. Magnesium was 1.5. CRP was 11. BNP was 5000. Troponin is indeterminate. Albumin of 2.6. UA unremarkable. CT of the abdomen and pelvis reviewed. CT of the brain reviewed. ASSESSMENT AND PLAN: 1. Right upper extremity cellulitis. 2. Acute on chronic systolic heart failure, likely secondary to cellulitis. 3. Altered mentation, improved, likely secondary to cellulitis. PLAN: 1. Blood cultures are starting to come back gram-negative rods. 2. Antibiotics per Primary Team. 3. Continue diuresis. I have increased the dose of Lasix just a little bit to improve diuresis from 20 IV b.i.d. to 40 IV b.i.d. 4. Continue to monitor closely. Thank you for letting me to participate in the care of your patient. We will follow. Job ID: [id number]
[2019-03-17] MEDS: Rivaroxaban 15 MG TAB PO SCH (21:21)
[2019-03-17] MEDS: Atorvastatin Calcium 40 MG TAB PO SCH (21:21)
[2019-03-18] MEDS: metroNIDAZOLE 500 MG in Premix Bag 1 BAG IVPB SCH ×3 (03:07→19:59)
[2019-03-18 05:23] LABS: Anion Gap 7 mmol/L (10-20); BUN (Urea Nitrogen) 25 mg/dL (8.4-25.7); Calc. Creatinine Clearance 44 mL/min (70-130); Calcium 8.3 mg/dL (7.8-10.44); Carbon Dioxide 28 mmol/L (23-31); Chloride 96 mmol/L (98-107); Estimated GFR-MDRD 45; Glucose 83 mg/dL (83-110); Magnesium 1.8 mg/dL (1.6-2.6); Potassium 3.5 mmol/L (3.5-5.1); Sodium 127 mmol/L (136-145)
[2019-03-18 05:32] LABS: #Eosinphils 0.1 thou/uL (0.0-0.7); #Lymphocytes 0.9 thou/uL (1.20-3.40); #Monocytes 0.3 thou/uL (0.11-0.59); #Neutrophils 5.4 thou/uL (1.40-6.50); %Basophils 0.5 % (0.0-1.0); %Eosinophils 1.2 % (0.0-10.0); %Monocytes 4.1 % (0.0-10.0); %Neutrophils 81.2 % (42.0-75.0); Mean Corpuscular Hemoglobin 33.5 pg (27.0-31.0); Mean Platelet Volume 10.6 fL (7.4-10.4); Platelet Count 88 thou/uL (130-400); RBC Distribution Width 19.4 % (11.5-14.5); Red Blood Cell (RBC) Count 2.37 mill/uL (4.70-6.10); White Blood Cell (WBC) Count 6.6 thou/uL (4.8-10.8)
[2019-03-18] MEDS ORDERED: Furosemide 40 MG/4 ML VIAL SLOW IVP SCH (06:00)
--- NOTE | 2019-03-18 09:23 | RAD ---
PORTABLE CHEST: HISTORY: Respiratory distress. COMPARISON: 03/16/2019 study. FINDINGS: Heart size is enlarged. Pacemaker is present. Postop sternotomy changes are seen. Pleural and pare nchymal lung changes are stable as compared to the prior exam. IMPRESSION: Stable exam. POS: OFF
[2019-03-18] MEDS: Isosorbide Dinitrate 5 MG TAB PO SCH ×2 (10:16→21:32)
[2019-03-18] MEDS: Saccharomyces boulardii 250 MG CAP PO SCH (10:16)
[2019-03-18] MEDS: Carvedilol 6.25 MG TAB PO SCH ×2 (10:16→17:53)
[2019-03-18] MEDS: levETIRAcetam 500 MG TAB PO SCH ×2 (10:16→21:32)
[2019-03-18] MEDS: Aspirin 81 mg Enteric Coated Tablet PO SCH (10:16)
--- NOTE | 2019-03-18 10:25 | PRG ---
DATE OF SERVICE: 03/18/2019 SUBJECTIVE: Mr. Willis is an 83-year-old white male, who was seen by the Renal Service for his chronic renal failure. He was also in CHF. He also had cellulitis and has grown gram-negative rods on the blood culture. He is currently on IV antibiotics. Diuretics have also been adjusted by Cardiology. He is breathing better. No new complaints today. OBJECTIVE: VITAL SIGNS: Blood pressure 102/62, temperature 98.7, heart rate 65, respiratory rate 20, pulse ox 97%. GENERAL: Noted to be awake, sitting comfortable. SKIN: Adequate turgor. HEENT: He has slightly pale conjunctivae. Anicteric sclerae. No neck mass. No carotid bruits. No JVD. CHEST: No deformities. LUNGS: Decreased breath sounds. HEART: Normal sinus rhythm. No murmur. No gallops or rubs. ABDOMEN: Globular, soft, and nontender. No masses. EXTREMITIES: Trace edema. MEDICATIONS: Medications of March 18, 2019, was reviewed. LABORATORY DATA: Laboratories of March 18, 2019; white count 6.6, hemoglobin 8.0. Sodium 127, potassium 3.5, chloride 96, carbon dioxide 28, BUN 25, creatinine 1.51, GFR of 45 mL/minute, calcium 8.3, magnesium 1.8. Blood culture of March 16, 2019, shows gram-negative smooth and Acinetobacter species. ASSESSMENT AND PLAN: 1. Chronic renal failure, stable. Tolerating current diuretic regimen. Continue current dose of Lasix. No indication for any dialytic intervention. 2. Gram-negative smooth bacteremia, currently on IV antibiotics. 3. Anemia. Check stool cards. 4. Congestive heart failure, clinically asymptomatic. Tolerating current diuretic regimen. Overall, agree with current management. Job ID: [id number]
[2019-03-18] MEDS: cefTRIAXone\\ROCEPHIN 1 GM in Sodium Chloride 0.9% 100 ML IVPB SCH (10:56)
--- NOTE | 2019-03-18 11:14 | PDOC.PN ---
- Subjective Encounter Start Date: 03/18/19 Encounter Start Time: 11:13 Subjective: no sob, fever. alert - Objective Resuscitation Status - Order Detail: 03/16/19 22:27 Resuscitation Status Routine Resuscitation Status: FULL: Full Resuscitation Discussed with: Full code - Confirmed with daughter JULIANNE FARLEY Reviewed: Yes Vital Signs & Weight: Vital Signs (12 hours) Temp BP Pulse Ox 03/18/19 10:57 100 03/18/19 10:28 98.8 F 03/18/19 10:16 93/53 L 03/18/19 07:19 98.7 F 03/18/19 03:13 98.9 F 03/17/19 23:54 98.3 F Weight Weight 180 lb 4.8 oz Most Recent Monitor Data Heart Rate from ECG 65 NIBP 102/62 NIBP BP-Mean 75 Respiration from ECG 20 SpO2 97 I&O: 03/17/19 03/18/19 03/19/19 06:59 06:59 06:59 Intake Total 470 1657 Output Total 390 775 Balance 80 882 Result Diagrams: 03/18/19 04:42 03/18/19 04:42 Radiology Reviewed by me: Yes (cxr- cont to have bilat infiltrates) EKG Reviewed by me: Yes Phys Exam - Physical Examination Neck: no JVD coarse BS with some rales post Cardiovascular: RRR, no significant murmur Gastrointestinal: soft, positive bowel sounds Musculoskeletal: edema present Dx/Plan (1) Cellulitis and abscess of upper arm and forearm Code(s): [id number] - Status: Acute (2) PNA (pneumonia) Code(s): J18.9 - PNEUMONIA, UNSPECIFIED ORGANISM Status: Acute Qualifiers: Pneumonia type: aspiration pneumonia Laterality: right Lung location: lower lobe of lung (3) Altered mental status Code(s): R41.82 - ALTERED MENTAL STATUS, UNSPECIFIED Status: Acute Qualifiers: Altered mental status type: unspecified Qualified Code(s): R41.82 - Altered mental status, unspecified (4) Hypokalemia Code(s): E87.6 - HYPOKALEMIA Status: Acute (5) Type [address] elevation Code(s): I21.A1 - MYOCARDIAL INFARCTION TYPE 2 Status: Acute (6) Anemia, normocytic normochromic Code(s): D64.9 - ANEMIA, UNSPECIFIED Status: Chronic (7) Anticoagulant long-term use Code(s): Z79.01 - MEDICAL SCRIBE (CURRENT) USE OF ANTICOAGULANTS Status: Chronic (8) Atrial fibrillation Code(s): I48.91 - UNSPECIFIED ATRIAL FIBRILLATION Status: Chronic Qualifiers: Atrial fibrillation type: chronic Qualified Code(s): I48.2 - Chronic atrial fibrillation (9) CAD (coronary artery disease) Code(s): I25.10 - ATHSCL HEART DISEASE OF [place] CORONARY ARTERY W/O ANG PCTRS Status: Chronic Qualifiers: Coronary Disease-Associated Artery/Lesion type: [place] artery [place] vs. transplanted heart: [place] heart Associated angina: without angina Qualified Code(s): I25.10 - Atherosclerotic heart disease of [place] coronary artery without angina pectoris Comment: (10) CKD (chronic kidney disease) stage 3, GFR 30-59 ml/min Code(s): N18.3 - CHRONIC KIDNEY DISEASE, STAGE 3 (MODERATE) Status: Chronic (11) Chronic anemia Code(s): D64.9 - ANEMIA, UNSPECIFIED Status: Chronic Comment: at baseline (12) Chronic systolic heart failure, ACC/AHA stage C Code(s): I50.22 - CHRONIC SYSTOLIC (CONGESTIVE) HEART FAILURE Status: Chronic (13) Dyslipidemia Code(s): E78.5 - HYPERLIPIDEMIA, UNSPECIFIED Status: Chronic (14) GERD (gastroesophageal reflux disease) Code(s): K21.9 - GASTRO-ESOPHAGEAL REFLUX DISEASE WITHOUT ESOPHAGITIS Status: Chronic (15) Hypertension Code(s): I10 - ESSENTIAL (PRIMARY) HYPERTENSION Status: Chronic Qualifiers: Hypertension type: essential hypertension Qualified Code(s): I10 - Essential (primary) hypertension (16) PVD (peripheral vascular disease) Code(s): I73.9 - PERIPHERAL VASCULAR DISEASE, UNSPECIFIED Status: Chronic (17) Seizure disorder Code(s): G40.909 - EPILEPSY, UNSP, NOT INTRACTABLE, WITHOUT STATUS EPILEPTICUS Status: Chronic (18) Bacteremia Code(s): R78.81 - BACTEREMIA Status: Acute Comment: gm neg smooth-awaiting sensitivities, etc - Plan cont iv rocephin pending sensitivities -: weight up, cxr unimproved- increase lasix to 40mg iv q 12h -: cont ASA, statin, etc * .
--- NOTE | 2019-03-18 12:58 | PDOC.CTH ---
Cardiology Progress Note - Subjective No new issues. No more fevers. - Objective Vital Signs Temp Pulse Pulse BP BP BP Pulse Ox 03/18/19 10:57 100 03/18/19 10:41 67 111/52 L 03/18/19 10:28 98.8 F 03/18/19 10:16 93/53 L 03/18/19 08:45 69 69 108/58 L 118/58 L 03/18/19 07:19 98.7 F 03/18/19 03:13 98.9 F Pulse Ox 03/18/19 10:57 03/18/19 10:41 100 03/18/19 10:28 03/18/19 10:16 03/18/19 08:45 03/18/19 07:19 03/18/19 03:13 Weight 180 lb 4.8 oz 03/17/19 03/18/19 03/19/19 06:59 06:59 06:59 Intake Total 470 1657 Output Total 390 775 Balance 80 882 - Physical Examination General/Neuro: alert & oriented x3, NAD Neck: no JVD present Lungs: unlabored respirations Heart: RRR Abdomen: NT/ND Extremities: + edema B (no edema.) - Telemetry Telemetry Rhythm: NSR - Labs Result Diagrams: 03/18/19 04:42 03/18/19 04:42 Troponin/CKMB CK-MB (CK-2) 1.4 ng/mL (0-6.6) 03/17/19 05:21 Troponin I 0.074 ng/mL (< 0.028) H 03/17/19 05:21 - Assessment/Plan 1. Acute on chronic systolic heart failure, improving. 2. Gram neg Gilberto bacteremia. 3. RUE celullitis. 4. Ischemic CM. PLAN: - Continue IV lasix - IV abx per primary team. - Agree with cutting back on lasix to once daily.
[2019-03-18] MEDS: Furosemide 40 MG/4 ML VIAL SLOW IVP SCH (15:06)
[2019-03-18] MEDS: Atorvastatin Calcium 40 MG TAB PO SCH (21:32)
[2019-03-18] MEDS: Rivaroxaban 15 MG TAB PO SCH (21:32)
[2019-03-19] MEDS: metroNIDAZOLE 500 MG in Premix Bag 1 BAG IVPB SCH (03:24)
[2019-03-19 04:55] LABS: #Eosinphils 0.1 thou/uL (0.0-0.7); #Lymphocytes 0.5 thou/uL (1.20-3.40); #Monocytes 0.5 thou/uL (0.11-0.59); #Neutrophils 4.3 thou/uL (1.40-6.50); %Basophils 0.3 % (0.0-1.0); %Eosinophils 1.1 % (0.0-10.0); %Lymphocytes 9.6 % (21.0-51.0); %Monocytes 9.5 % (0.0-10.0); %Neutrophils 79.5 % (42.0-75.0); Hemoglobin 7.5 g/dL (14.0-18.0); Mean Corpuscular Hemoglobin 33.3 pg (27.0-31.0); Mean Platelet Volume 10.4 fL (7.4-10.4); Platelet Count 93 thou/uL (130-400); RBC Distribution Width 19.4 % (11.5-14.5); Red Blood Cell (RBC) Count 2.26 mill/uL (4.70-6.10); White Blood Cell (WBC) Count 5.4 thou/uL (4.8-10.8)
[2019-03-19 05:06] LABS: Anion Gap 12 mmol/L (10-20); BUN (Urea Nitrogen) 24 mg/dL (8.4-25.7); Calc. Creatinine Clearance 44 mL/min (70-130); Calcium 8.1 mg/dL (7.8-10.44); Carbon Dioxide 25 mmol/L (23-31); Chloride 97 mmol/L (98-107); Estimated GFR-MDRD 44; Glucose 94 mg/dL (83-110); Magnesium 1.7 mg/dL (1.6-2.6); Potassium 3.4 mmol/L (3.5-5.1); Sodium 131 mmol/L (136-145)
[2019-03-19] MEDS: Furosemide 40 MG/4 ML VIAL SLOW IVP SCH ×2 (05:53→14:51)
[2019-03-19] MEDS: Aspirin 81 mg Enteric Coated Tablet PO SCH (09:23)
[2019-03-19] MEDS: Saccharomyces boulardii 250 MG CAP PO SCH (09:23)
[2019-03-19] MEDS: levETIRAcetam 500 MG TAB PO SCH ×2 (09:24→20:11)
[2019-03-19] MEDS: Carvedilol 6.25 MG TAB PO SCH ×2 (09:24→18:26)
[2019-03-19] MEDS: Isosorbide Dinitrate 5 MG TAB PO SCH ×2 (09:24→20:11)
--- NOTE | 2019-03-19 09:41 | PRG ---
DATE OF SERVICE: 03/19/2019 SUBJECTIVE: Mr. Willis is an 83-year-old white male, followed up by the Renal Service for his chronic renal failure. The patient was initially admitted to be having generalized malaise. He also was found to be bacteremic from his cellulitis and currently on IV antibiotics. He was also found to be in some degree of CHF. For that reason, diuretics have been adjusted by his director process improvement. He seems to be tolerating the current diuretic regimen from a renal point of view. He feels better today. He denies any chest pain or shortness of breath. OBJECTIVE: VITAL SIGNS: Blood pressure 105/67, heart rate 75, respiratory rate 27, and pulse ox 100%. GENERAL: Awake, alert, sitting comfortable, not in distress. SKIN: Adequate turgor. HEENT: Slightly pale conjunctivae. Anicteric sclerae. NECK: No neck mass. No carotid bruits. No JVD. CHEST: No deformities. LUNGS: Clear breath sounds. HEART: Normal sinus rhythm. No murmurs. No gallops. No rubs. ABDOMEN: Globular, soft, and nontender. No masses. EXTREMITIES: No edema. No deformities. Positive for right upper extremity edema. MEDICATIONS: Medications of March 19, 2019, were reviewed. LABORATORY DATA: Laboratories of March 19, 2019: Sodium 131, potassium 3.4, chloride 97, carbon dioxide 25, BUN 24, creatinine 1.52, glucose 94, calcium 8.1, and magnesium is 1.7. Hemoglobin 7.5, white count is 5.4. ASSESSMENT AND PLAN: 1. Acute kidney injury/chronic renal failure, stable renal function, tolerating current diuretic regimen. No indication for any dialytic intervention. Continue with current dose of Lasix. 2. Congestive heart failure, clinically much improved. 3. Cellulitis/bacteremia, on IV antibiotics. 4. Anemia. Consider checking stool cards. Recheck basic metabolic, CBC in a.m. Job ID: [id number]
--- NOTE | 2019-03-19 10:39 | PDOC.PN ---
- Subjective Encounter Start Date: 03/19/19 Encounter Start Time: 10:38 Subjective: alert, family reports he is a little "off" today - Objective Resuscitation Status - Order Detail: 03/16/19 22:27 Resuscitation Status Routine Resuscitation Status: FULL: Full Resuscitation Discussed with: Full code - Confirmed with daughter JULIANNE FARLEY Reviewed: Yes Vital Signs & Weight: Vital Signs (12 hours) Temp Pulse Resp BP BP Pulse Ox 03/19/19 09:24 93/53 L 03/19/19 07:42 100 03/19/19 07:11 98.8 F 03/19/19 04:00 98.5 F 73 16 106/55 L 99 03/19/19 00:00 98.0 F 62 18 102/61 100 Weight Weight 180 lb 8 oz Most Recent Monitor Data Heart Rate from ECG 68 NIBP 120/58 NIBP BP-Mean 78 Respiration from ECG 15 SpO2 100 I&O: 03/18/19 03/19/19 03/20/19 06:59 06:59 06:59 Intake Total 1657 450 Output Total 775 925 Balance 882 -475 Result Diagrams: 03/19/19 04:14 03/19/19 04:14 Phys Exam - Physical Examination Neck: no JVD still has post rhonchi Cardiovascular: RRR, no significant murmur Gastrointestinal: soft, positive bowel sounds Musculoskeletal: no edema improving cellulitis in R arm Dx/Plan (1) Cellulitis and abscess of upper arm and forearm Code(s): [id number] - Status: Acute (2) PNA (pneumonia) Code(s): J18.9 - PNEUMONIA, UNSPECIFIED ORGANISM Status: Acute Qualifiers: Pneumonia type: aspiration pneumonia Laterality: right Lung location: lower lobe of lung (3) Altered mental status Code(s): R41.82 - ALTERED MENTAL STATUS, UNSPECIFIED Status: Acute Qualifiers: Altered mental status type: unspecified Qualified Code(s): R41.82 - Altered mental status, unspecified (4) Hypokalemia Code(s): E87.6 - HYPOKALEMIA Status: Acute (5) Type [address] elevation Code(s): I21.A1 - MYOCARDIAL INFARCTION TYPE 2 Status: Acute (6) Anemia, normocytic normochromic Code(s): D64.9 - ANEMIA, UNSPECIFIED Status: Acute (7) Anticoagulant long-term use Code(s): Z79.01 - [facility] (CURRENT) USE OF ANTICOAGULANTS Status: Chronic (8) Atrial fibrillation Code(s): I48.91 - UNSPECIFIED ATRIAL FIBRILLATION Status: Chronic Qualifiers: Atrial fibrillation type: chronic Qualified Code(s): I48.2 - Chronic atrial fibrillation (9) CAD (coronary artery disease) Code(s): I25.10 - ATHSCL HEART DISEASE OF [place] CORONARY ARTERY W/O ANG PCTRS Status: Chronic Qualifiers: Coronary Disease-Associated Artery/Lesion type: [place] artery [place] vs. transplanted heart: [place] heart Associated angina: without angina Qualified Code(s): I25.10 - Atherosclerotic heart disease of [place] coronary artery without angina pectoris Comment: (10) CKD (chronic kidney disease) stage 3, GFR 30-59 ml/min Code(s): N18.3 - CHRONIC KIDNEY DISEASE, STAGE 3 (MODERATE) Status: Chronic (11) Chronic systolic heart failure, ACC/AHA stage C Code(s): I50.22 - CHRONIC SYSTOLIC (CONGESTIVE) HEART FAILURE Status: Chronic (12) Dyslipidemia Code(s): E78.5 - HYPERLIPIDEMIA, UNSPECIFIED Status: Chronic (13) GERD (gastroesophageal reflux disease) Code(s): K21.9 - GASTRO-ESOPHAGEAL REFLUX DISEASE WITHOUT ESOPHAGITIS Status: Chronic (14) Hypertension Code(s): I10 - ESSENTIAL (PRIMARY) HYPERTENSION Status: Chronic Qualifiers: Hypertension type: essential hypertension Qualified Code(s): I10 - Essential (primary) hypertension (15) PVD (peripheral vascular disease) Code(s): I73.9 - PERIPHERAL VASCULAR DISEASE, UNSPECIFIED Status: Chronic (16) Seizure disorder Code(s): G40.909 - EPILEPSY, UNSP, NOT INTRACTABLE, WITHOUT STATUS EPILEPTICUS Status: Chronic (17) Bacteremia Code(s): R78.81 - BACTEREMIA Status: Acute Comment: gm neg smooth-awaiting sensitivities, etc - Plan bacteremia- DC rocephin, start cefepime -: anemia. cont protonix, GI consult, transfuse prn -: cont iv lasix. may need icreased dose, monitor urine output * .
[2019-03-19] MEDS: cefTRIAXone\\ROCEPHIN 1 GM in Sodium Chloride 0.9% 100 ML IVPB SCH (10:54)
[2019-03-19] MEDS ORDERED: Cefepime 2 GM in Sodium Chloride 0.9% 100 ML IVPB SCH (11:15)
[2019-03-19 12:23] LABS: Hemoglobin 8.1 g/dL (14.0-18.0); Platelet Count 103 thou/uL (130-400)
--- NOTE | 2019-03-19 15:42 | PQF ---
CLINICAL DOCUMENTATION IMPROVEMENT CLARIFICATION FORM: ICD-10 Updated PLEASE DO AN ADDENDUM TO THE PROGRESS NOTE WITH ANY DOCUMENTATION UPDATES OR ADDITIONS AND CARRY THROUGH TO DC SUMMARY. THANK YOU. DATE: 03/19/2019; 03/20/2019 ATTN: Dr. Abarca Please exercise your independent, professional judgment in responding to the clarification form. Clinical indicators are provided on the bottom of this form for your review Please check appropriate box(s) to clarify if the following diagnosis has been ruled in or ruled out: Sepsis with acute organ dysfunction [ x] Ruled in diagnosis [ ] Continue to treat [ ] Resolved [ ] Ruled out diagnosis [ ] Cannot rule out diagnosis [ ] Other diagnosis [ ] Unable to determine In addition, please specify: Present on Admission (POA): [ x ] Yes [ ] No [ ] Unable to determine For continuity of documentation, please document condition throughout progress notes and discharge summary. Thank You. CLINICAL INDICATORS - SIGNS / SYMPTOMS / LABS H&P 03/16: Temp 102 rectal resp. 28 pulse 82 BP 134/51 Lactic acid 2.8 Sepsis with acute organ dysfunction secondary to r upper extremity cellulitis with possible aspiration pneumonia PN 03/19: Bacteremia. Acute. gm neg smooth-awaiting sensitivities, etc RISKS: H&P: 83 yo. PMH Chronic systolic HF. CKD 3. A fib. Moderate protein-calorie malnutrition. Dementia with toxic metabolic encephalopathy. TREATMENT: PN 03/19: bacteremia - DC rocephin, start cefepime Thank you, Andra (This form is maintained as a part of the permanent medical record) 2014 [employer]. All Rights Reserved Andra Parada RN, BSN [email or web address] Office: [phone] [facility]
--- NOTE | 2019-03-19 18:39 | PDOC.CTH ---
Cardiology Progress Note - Subjective Confused in the afternoons and evenings, hallucinating but not violent. Breathing back to baseline. - Objective Vital Signs Temp BP Pulse Ox 03/19/19 18:26 93/53 L 03/19/19 15:23 97.8 F 03/19/19 10:38 98.3 F 03/19/19 09:24 93/53 L 03/19/19 07:42 100 03/19/19 07:11 98.8 F Weight 180 lb 8 oz 03/18/19 03/19/19 03/20/19 06:59 06:59 06:59 Intake Total 1657 450 Output Total 775 925 Balance 882 -475 - Physical Examination General/Neuro: NAD Neck: no JVD present Lungs: CTA, unlabored respirations Heart: RRR Abdomen: NT/ND Extremities: + edema B (Trace) - Telemetry Telemetry Rhythm: Afib HR 70's. - Labs Result Diagrams: 03/19/19 12:12 03/19/19 04:14 Troponin/CKMB CK-MB (CK-2) 1.4 ng/mL (0-6.6) 03/17/19 05:21 Troponin I 0.074 ng/mL (< 0.028) H 03/17/19 05:21 - Assessment/Plan 1. Acute on chronic systolic heart failure, improving. 2. Gram neg Gilberto bacteremia. 3. RUE celullitis. 4. Ischemic CM. 5. Chronic afib 6. Anemia PLAN: - Continue IV lasix. - IV abx per primary team. - Hold Xarelto for possible EGD.
[2019-03-19] MEDS: Atorvastatin Calcium 40 MG TAB PO SCH (20:11)
[2019-03-19] MEDS: Cefepime 2 GM in Sodium Chloride 0.9% 100 ML IVPB SCH (20:13)
[2019-03-20] MEDS: guaiFENesin ER 600 MG TAB PO PRN ×2 (00:33→12:21)
[2019-03-20 05:22] LABS: Anion Gap 12 mmol/L (10-20); BUN (Urea Nitrogen) 22 mg/dL (8.4-25.7); Calc. Creatinine Clearance 43 mL/min (70-130); Calcium 8.3 mg/dL (7.8-10.44); Carbon Dioxide 25 mmol/L (23-31); Chloride 98 mmol/L (98-107); Estimated GFR-MDRD 43; Glucose 93 mg/dL (83-110); Potassium 3.4 mmol/L (3.5-5.1); Sodium 132 mmol/L (136-145)
[2019-03-20 06:05] LABS: Eosinophils 2 % (0-10); Hemoglobin 7.8 g/dL (14.0-18.0); Hypochromia SLIGHT = 6-15 cells (100X) (0-5/hpf); Lymphocytes 6 % (21-51); MDiff Complete? YES; Macrocytosis SLIGHT = 6-15 cells (100X) (0-5/hpf); Mean Corpuscular HGB CONC 32.8 g/dL (32.0-36.0); Mean Corpuscular Hemoglobin 33.6 pg (27.0-31.0); Mean Platelet Volume 10.3 fL (7.4-10.4); Monocytes 12 % (0-10); Neutrophil 80 % (42-75); Platelet Count 94 thou/uL (130-400); Platelet Morphology Comment Appears Adequate; RBC Distribution Width 19.2 % (11.5-14.5); Red Blood Cell (RBC) Count 2.32 mill/uL (4.70-6.10); White Blood Cell (WBC) Count 4.8 thou/uL (4.8-10.8)
--- NOTE | 2019-03-20 08:13 | CON ---
DATE OF CONSULTATION: 03/19/2019 REASON FOR CONSULTATION: Drop in hemoglobin, hematocrit, and also heme-positive stool. HISTORY OF PRESENT ILLNESS: Mr. Jg Willis is a very pleasant 83-year- old male, hospitalized, I believe 3 days ago he had dyspnea and altered mental status. The patient has multiple medical problems including 1. Chronic systolic heart failure, cardiomyopathy with a low ejection fraction. 2. Chronic kidney disease. 3. Ischemic cardiomyopathy. 4. Atrial fibrillation, on Xarelto etc. The patient's mental status improved. He is awake, alert, and communicative. He was seen in the room along with the patient's naturopathic oncology provider. Also his daughter subsequently came in later on. The patient denies any abdominal pain, nausea, vomiting. No hematemesis, no history of any coffee ground vomiting. The patient denies any hematochezia, any black tarry stool. The patient had stool studies done yesterday, which came back positive for occult blood. However, the nurse was not able to tell me whether the stool was black. Apparently, he had a stool last night and the day shift does not know how the stool was. His blood count dropped down to 7.5 this morning. The admitting hemoglobin on 03/16/2019 was 9.1, hematocrit 26.8. It has been drifting down slowly from 9.1 to 8, to 7.5 today. The patient had seen me in 2014 for evaluation of anemia, occult GI bleeding. He had a colonoscopy and polypectomy done in April 2015. The polyp is a benign polyp, it is an adenoma. His EGD done at the same time revealed no bleeding. No vascular ectasia etc. Apparently, he has had anemia over the last several years. Apparently, he has been going to the [facility] and he has been seeing Padmini Ramosgent. I talked to Ms. Roblero on telephone. She tells me that he has had pancytopenia . There is a possibility of myelodysplastic syndrome. However, he never had a bone marrow aspiration. The patient goes there every week to get Procrit injection. He also has been transfused once or twice in the recent past. At the present time, he is awake, alert, and communicative, but there is history of some dementia and he tells me that he has not seen me before. Apparently, he has been hospitalized several times in the past. He has had a bowel obstruction, I believe in December 2018 and he underwent surgery by Dr. Lex Damon. He had done well after the surgery. He has no relevant symptoms. MEDICAL ILLNESSES: 1. Chronic systolic heart failure. 2. Chronic kidney disease, stage 3. 3. Ischemic cardiomyopathy. 4. Seizure disorder. 5. Atrial fibrillation, on anticoagulation. 6. Sick sinus syndrome status post pacemaker implant. 7. Chronic anemia. There is a possibility of bone marrow dysfunction. He has actually pancytopenia. 8. Coronary artery disease. 9. Colon polyp from polypectomy in 2014. 10. Peripheral vascular disease. 11. Small bowel obstruction, December 2018 surgery. PAST SURGICAL HISTORY: 1. Coronary artery bypass grafting. 2. Stent placement. 3. Bowel obstruction and lysis of adhesions. 4. Pacemaker placement. 5. EGD and colonoscopy in 2014. ALLERGIES: NO DRUG ALLERGIES, BUT CANNOT TOLERATE [place]. SOCIAL HISTORY: The patient is . He seems to have mild dementia and he has had a naturopathic oncology provider at home. MEDICATIONS: List reviewed, which includes; 1. Aspirin. 2. Lipitor. 3. Carvedilol. 4. Lasix. 5. Isordil. 6. Protonix. 7. Ranexa. 8. Xarelto. 9. Keppra. 10. Metaxalone, etc. REVIEW OF SYSTEMS: A 10-point system reviewed. RESTAURANT ATTENDANT: History of seizure disorder. No history of any TIA. No syncope. No chronic headache. RESPIRATORY: No history of chronic coughing, hemoptysis, dyspnea. CARDIOVASCULAR: No chest pain. No palpitation. No dyspnea, orthopnea, PND at the present time. GI: No abdominal pain. No nausea. No vomiting. No hematochezia or melena. GENITOURINARY: No dysuria, hematuria. MUSCULOSKELETAL: Nonrelevant. NEUROENDOCRINE: Nonrelevant. PHYSICAL EXAMINATION: GENERAL: The patient appears very comfortable. He is thin built, in no acute distress. He is awake, alert, and communicative. However, he is not a good historian. VITAL SIGNS: Afebrile. Pulse is 71, blood pressure is 135/64. Conjunctivae clear. NECK: Supple. No adenitis or thyromegaly noted. CARDIOVASCULAR: First and second heart sounds are normal. LUNGS: Clear to auscultation. ABDOMEN: Soft. Abdomen is nondistended. Abdomen is nontender. No organomegaly or masses. EXTREMITIES: Reveal no edema. LABORATORY DATA: On admission; WBC was 7100, hemoglobin 9.1, hematocrit 26.8, MCV 101, platelet count low at 96,000, polymorphs 86, lymphocytes 5, monocytes 7. Over the next 3 days, his blood count has been dropping down slowly, it reached 7.5 today. The stool guaiac came back positive for occult blood. His chemistry panel shows sodium 131, potassium 3.4, chloride 197, bicarb is 25, BUN is 24, creatinine is 1.52, glucose is 94, calcium 8.1, magnesium 1.7, AST 14, ALT 7, alkaline phosphatase 50, troponin 0.074, albumin 2.6. IMPRESSION: 1. An 83-year-old male, hospitalized with altered mental status and generalized dyspnea as well. He was found to have drop in blood count from 9.1 to 7.5 today. His stool guaiac is positive for occult blood. He has no active bleeding in the form of rectal bleeding or melena. 2. Anemia and also cytopenia, likely thrombocytopenia. There is a possibility of bone marrow dysfunction. He has been getting Procrit injection once a week. The patient has had also blood transfusion recently, a couple of weeks ago. 3. Systolic heart failure. 4. Cardiomyopathy. 5. Chronic kidney disease. 6. Atrial fibrillation. 7. Seizure disorder. 8. Mild dementia. 9. Colon polyp. 10. Chronic kidney disease. Overall impression, anemia probably is multifactorial and element of possibly bone marrow dysfunction. The patient has thrombocytopenia and also pancytopenia. He has also had heme positive stool off and on. The patient had a negative EGD and colonoscopy in 2014. The patient had no repeat endoscopy studies. He had a bowel obstruction in December 2018, underwent surgery. He is on Xarelto at the present time. RECOMMENDATION: 1. Hold Xarelto. 2. Follow up H and H. 3. Transfuse. 4. Continue pantoprazole. 5. EGD hopefully Sunday after stopping the Xarelto for 48 hours. I did talk to his daughter and explained to her about the plan of treatment. She agreed. Also Dr. Rodriguez spoke with patient's daughter and he also reassured that it is going to be a very minor procedure and because of the need for continued anticoagulation, probably endoscope should be done. She agreed. Plan EGD on Sunday. Job ID: [id number] MTDD
--- NOTE | 2019-03-20 10:00 | PDOC.PN ---
- Subjective Encounter Start Date: 03/20/19 Encounter Start Time: 09:58 Subjective: more alert, dry cough - Objective Resuscitation Status - Order Detail: 03/16/19 22:27 Resuscitation Status Routine Resuscitation Status: FULL: Full Resuscitation Discussed with: Full code - Confirmed with daughter JULIANNE FARLEY Reviewed: Yes Vital Signs & Weight: Vital Signs (12 hours) Temp Pulse Ox 03/20/19 07:08 97.6 F 03/20/19 03:41 99.1 F 03/20/19 01:48 97 03/20/19 00:00 98.3 F Weight Weight 183 lb 9.6 oz Most Recent Monitor Data Heart Rate from ECG 75 NIBP 138/73 NIBP BP-Mean 94 Respiration from ECG 23 SpO2 100 I&O: 03/19/19 03/20/19 03/21/19 06:59 06:59 06:59 Intake Total 450 240 Output Total 925 290 Balance -475 -50 Result Diagrams: 03/20/19 04:29 03/20/19 04:28 Phys Exam - Physical Examination Neck: no JVD coarse BS, post rhonchi Cardiovascular: RRR, no significant murmur Gastrointestinal: soft, positive bowel sounds Musculoskeletal: no edema Dx/Plan (1) Cellulitis and abscess of upper arm and forearm Code(s): [id number] - Status: Acute (2) PNA (pneumonia) Code(s): J18.9 - PNEUMONIA, UNSPECIFIED ORGANISM Status: Acute Qualifiers: Pneumonia type: aspiration pneumonia Laterality: right Lung location: lower lobe of lung (3) Altered mental status Code(s): R41.82 - ALTERED MENTAL STATUS, UNSPECIFIED Status: Acute Qualifiers: Altered mental status type: unspecified Qualified Code(s): R41.82 - Altered mental status, unspecified (4) Hypokalemia Code(s): E87.6 - HYPOKALEMIA Status: Acute (5) Type [address] elevation Code(s): I21.A1 - MYOCARDIAL INFARCTION TYPE 2 Status: Acute (6) Anemia, normocytic normochromic Code(s): D64.9 - ANEMIA, UNSPECIFIED Status: Acute (7) Anticoagulant long-term use Code(s): Z79.01 - SN[facility] (CURRENT) USE OF ANTICOAGULANTS Status: Chronic (8) Atrial fibrillation Code(s): I48.91 - UNSPECIFIED ATRIAL FIBRILLATION Status: Chronic Qualifiers: Atrial fibrillation type: chronic Qualified Code(s): I48.2 - Chronic atrial fibrillation (9) CAD (coronary artery disease) Code(s): I25.10 - ATHSCL HEART DISEASE OF [place] CORONARY ARTERY W/O ANG PCTRS Status: Chronic Qualifiers: Coronary Disease-Associated Artery/Lesion type: [place] artery [place] vs. transplanted heart: [place] heart Associated angina: without angina Qualified Code(s): I25.10 - Atherosclerotic heart disease of [place] coronary artery without angina pectoris Comment: (10) CKD (chronic kidney disease) stage 3, GFR 30-59 ml/min Code(s): N18.3 - CHRONIC KIDNEY DISEASE, STAGE 3 (MODERATE) Status: Chronic (11) Chronic systolic heart failure, ACC/AHA stage C Code(s): I50.22 - CHRONIC SYSTOLIC (CONGESTIVE) HEART FAILURE Status: Chronic (12) Dyslipidemia Code(s): E78.5 - HYPERLIPIDEMIA, UNSPECIFIED Status: Chronic (13) GERD (gastroesophageal reflux disease) Code(s): K21.9 - GASTRO-ESOPHAGEAL REFLUX DISEASE WITHOUT ESOPHAGITIS Status: Chronic (14) Hypertension Code(s): I10 - ESSENTIAL (PRIMARY) HYPERTENSION Status: Chronic Qualifiers: Hypertension type: essential hypertension Qualified Code(s): I10 - Essential (primary) hypertension (15) PVD (peripheral vascular disease) Code(s): I73.9 - PERIPHERAL VASCULAR DISEASE, UNSPECIFIED Status: Chronic (16) Seizure disorder Code(s): G40.909 - EPILEPSY, UNSP, NOT INTRACTABLE, WITHOUT STATUS EPILEPTICUS Status: Chronic (17) Bacteremia Code(s): R78.81 - BACTEREMIA Status: Acute Comment: gm neg smooth-awaiting sensitivities, etc (18) GI bleeding Code(s): K92.2 - GASTROINTESTINAL HEMORRHAGE, UNSPECIFIED Status: Acute - Plan cont iv antibx-now afebrile -: cont iv lasix -: rpt cxr 03/21 -: hold xarelto for poss EGD tomorrow to evaluate GI bleeding -: discuss with Sotero Rodriguez and Manjit * .
--- NOTE | 2019-03-20 10:02 | PRG ---
DATE OF SERVICE: 03/20/2019 SUBJECTIVE: Mr. Willis is an 83-year-old white male, followed up for his acute kidney injury/chronic renal failure. Renal function is holding steady. He is tolerating his current medications. He was seen by GI due to a GI bleed. Upper GI endoscopy will be done tomorrow. No other complaints today. He still feels tired. OBJECTIVE: VITAL SIGNS: Blood pressure 138/73, heart rate 75, respiratory rate 23, and pulse ox is noted at 92%. GENERAL: Awake, alert, supine, and comfortable. SKIN: Adequate turgor. HEENT: Slightly pale conjunctivae. Anicteric sclerae. NECK: No neck mass. No carotid bruits. No JVD. CHEST: No deformities. LUNGS: Decreased breath sounds. HEART: Normal sinus rhythm. No murmur. No gallops. No rubs. ABDOMEN: Globular, soft, and nontender. No masses. EXTREMITIES: No edema. No deformities. MEDICATIONS: Medications of March 20, 2019 were reviewed. LABORATORY DATA: Laboratories of March 20, 2019; hemoglobin 7.8, sodium 132, potassium 3.4, chloride 98, carbon dioxide 25, BUN 22, creatinine 1.57, glucose 93, and calcium 8.3. ASSESSMENT AND PLAN: 1. Acute kidney injury/chronic renal failure. Stable renal function. Creatinine is relatively unchanged. Continue current management. Continue current diuretic regimen. There is no indication for any dialytic intervention. 2. Anemia. P.r.n. blood transfusion. 3. GI bleed-the patient to be evaluated by GI. He has been scheduled already for an endoscopy tomorrow. Overall, agree with current management. Job ID: [id number]
[2019-03-20] MEDS: Carvedilol 6.25 MG TAB PO SCH ×2 (10:07→15:53)
[2019-03-20] MEDS: Aspirin 81 mg Enteric Coated Tablet PO SCH (10:08)
[2019-03-20] MEDS: Isosorbide Dinitrate 5 MG TAB PO SCH ×2 (10:08→20:44)
[2019-03-20] MEDS: levETIRAcetam 500 MG TAB PO SCH ×2 (10:08→20:44)
[2019-03-20] MEDS: Furosemide 20 MG TAB PO SCH ×2 (10:08→15:53)
[2019-03-20] MEDS: Saccharomyces boulardii 250 MG CAP PO SCH (10:08)
[2019-03-20] MEDS: Cefepime 2 GM in Sodium Chloride 0.9% 100 ML IVPB SCH ×2 (10:09→20:45)
--- NOTE | 2019-03-20 18:42 | PRG ---
DATE OF SERVICE: 03/20/2019 SUBJECTIVE: This is an 83-year-old male, seen by me yesterday because of drop in blood count, also heme-positive stool. The patient's blood count has been stable around 7.5, 8.1, and today it is 7.8. The patient had a stool while I was in the room and the stool actually appears brownish and greenish, but it is not really black. The blood count today showed mild drop to 7.8, hematocrit 23.7. OBJECTIVE: VITAL SIGNS: Afebrile, pulse is 62, blood pressure 102/58. CARDIOVASCULAR: First and second heart sounds are normal. LUNGS: Clear to auscultation. ABDOMEN: Soft. No organomegaly. No tenderness. No masses. CLINICAL IMPRESSION: Mild drop in blood count with heme-positive stool. The Xarelto is on hold over the last two days. PLAN: 1. Follow up hemoglobin and hematocrit. 2. EGD tomorrow. Job ID: [id number]
--- NOTE | 2019-03-20 18:52 | PDOC.CTH ---
Cardiology Progress Note - Subjective No new issues. Mentation close to baseline. - Objective Vital Signs Temp BP Pulse Ox 03/20/19 15:53 100/50 L 03/20/19 15:28 98.1 F 03/20/19 11:12 98.6 F 03/20/19 10:07 93/53 L 03/20/19 07:45 94 L 03/20/19 07:08 97.6 F Weight 183 lb 9.6 oz 03/19/19 03/20/19 03/21/19 06:59 06:59 06:59 Intake Total 450 240 Output Total 925 290 Balance -475 -50 - Physical Examination General/Neuro: NAD Neck: no JVD present Lungs: CTA, unlabored respirations Heart: RRR Abdomen: NT/ND Extremities: + edema B (1+) - Telemetry Telemetry Rhythm: NSR - Labs Result Diagrams: 03/20/19 04:29 03/20/19 04:28 Troponin/CKMB CK-MB (CK-2) 1.4 ng/mL (0-6.6) 03/17/19 05:21 Troponin I 0.074 ng/mL (< 0.028) H 03/17/19 05:21 - Assessment/Plan 1. Acute on chronic systolic heart failure, improving. 2. Gram neg Gilberto bacteremia. 3. RUE celullitis. 4. Ischemic CM. 5. Chronic afib 6. Anemia PLAN: - PO lasix. - IV abx per primary team. - Hold Xarelto for EGD tomorrow. - Restart if no evidence of bleeding. - Would transfuse to keep Hgb above 8. - Replace K.
[2019-03-20] MEDS ORDERED: Potassium Chloride 20 MEQ TAB PO SCH (19:00)
[2019-03-20] MEDS: Atorvastatin Calcium 40 MG TAB PO SCH (20:44)
[2019-03-21 04:59] LABS: Anion Gap 12 mmol/L (10-20); BUN (Urea Nitrogen) 21 mg/dL (8.4-25.7); Band 4 % (5-11); Calc. Creatinine Clearance 45 mL/min (70-130); Calcium 8.2 mg/dL (7.8-10.44); Carbon Dioxide 22 mmol/L (23-31); Chloride 102 mmol/L (98-107); Eosinophils 4 % (0-10); Estimated GFR-MDRD 44; Glucose 97 mg/dL (83-110); Hemoglobin 7.9 g/dL (14.0-18.0); Lymphocytes 16 % (21-51); MDiff Complete? YES; Mean Corpuscular HGB CONC 32.1 g/dL (32.0-36.0); Mean Platelet Volume 10.8 fL (7.4-10.4); Monocytes 14 % (0-10); Neutrophil 62 % (42-75); Platelet Count 93 thou/uL (130-400); Platelet Morphology Comment Appears Decreased; Potassium 4.1 mmol/L (3.5-5.1); RBC Distribution Width 19.2 % (11.5-14.5); Red Blood Cell (RBC) Count 2.39 mill/uL (4.70-6.10); Sodium 132 mmol/L (136-145); White Blood Cell (WBC) Count 4.6 thou/uL (4.8-10.8)
[2019-03-21] MEDS: Carvedilol 6.25 MG TAB PO SCH ×2 (08:34→16:46)
[2019-03-21] MEDS: Cefepime 2 GM in Sodium Chloride 0.9% 100 ML IVPB SCH ×2 (08:34→21:05)
--- NOTE | 2019-03-21 10:06 | PRG ---
DATE OF SERVICE: 03/21/2019 SUBJECTIVE: Mr. Willis is an 83-year-old white male, being followed up for his chronic renal failure. He had a mildly elevated creatinine. Creatinine has been stable. He is tolerating the current diuretic regimen. He is scheduled for an upper GI endoscopy. No new complaints. He is also being treated for his heavy cellulitis. OBJECTIVE: VITAL SIGNS: Blood pressure 131/64, heart rate 67, respiratory rate 26, and pulse ox 99%. GENERAL: Awake, alert, comfortable, supine, but somewhat lethargic. SKIN: Adequate turgor. HEENT: Pale conjunctivae. Anicteric sclerae. NECK: No neck mass. No carotid bruits. No JVD. CHEST: No deformities. LUNGS: Decreased breath sounds. HEART: Normal sinus rhythm. No murmurs, no gallops, and no rubs. ABDOMEN: Globular, soft, and nontender. No masses. EXTREMITIES: No edema. No deformities. MEDICATIONS: Medications of March 21, 2019, was reviewed. LABORATORY DATA: Laboratories of March 21, 2019; white count 4.6, hemoglobin 7.9. Sodium 132, potassium 4.1, chloride 102, carbon dioxide 22, BUN 21, creatinine 1.52, GFR of 44 mL/minute, glucose 97, calcium 8.2. ASSESSMENT AND PLAN: 1. Chronic renal failure - stable renal function. GFR is 44 mL/minute. No indication for any dialytic intervention. Continue current management. He is tolerating the current diuretic regimen. 2. Congestive heart failure, on IV Lasix. 3. Anemia, for upper GI endoscopy. 4. Cellulitis, currently on IV antibiotics. Agree with current management. Job ID: [id number]
[2019-03-21] MEDS: Furosemide 20 MG TAB PO SCH ×2 (11:01→14:58)
[2019-03-21] MEDS: Aspirin 81 mg Enteric Coated Tablet PO SCH (11:01)
[2019-03-21] MEDS: Isosorbide Dinitrate 5 MG TAB PO SCH ×2 (11:01→21:04)
[2019-03-21] MEDS: levETIRAcetam 500 MG TAB PO SCH ×2 (11:01→21:05)
[2019-03-21] MEDS: Saccharomyces boulardii 250 MG CAP PO SCH (11:02)
[2019-03-21] MEDS ORDERED: Midazolam HCl 2 mg/2 ml Vial ONE (11:19)
[2019-03-21] MEDS ORDERED: Ketamine 50 MG/ML (10ML VIAL) ONE (11:19)
--- NOTE | 2019-03-21 14:43 | OP ---
DATE OF PROCEDURE: 03/21/2019 OPERATIVE PROCEDURE: Esophagogastroduodenoscopy. PREOPERATIVE DIAGNOSES: An 83-year-old male with drop in hemoglobin and the stool for occult blood came back positive. The patient is on Xarelto and is undergoing esophagogastroduodenoscopy. POSTOPERATIVE DIAGNOSES: 1. Hiatal hernia. 2. Mild gastritis in gastric antrum. 3. Mildly erythematous mucosa in duodenal bulb. 4. Small whitish plaque in the descending duodenum, not biopsied. At the time of endoscopy, no sign of bleeding seen. No pathology seen to explain bleeding. DESCRIPTION OF PROCEDURE: The patient was placed on his left lateral position and was given sedation by Anesthesia Department. A Pentax video gastroscope under direct vision passed down the oropharynx, past the GE junction into the stomach and subsequently into the descending duodenum. The esophageal mucosa appears normal. In the GE junction, no pathology seen. The patient had a small hiatal hernia. Retroflexion failed to show any pathology in fundus or cardia. In the gastric body, no pathology seen. There was mild mucosal edema, erythema over the gastric antrum. In the duodenal bulb, no pathology seen. The descending duodenum showed whitish plaque of unknown significance. This was not biopsied. At the time of endoscopy, no bleeding seen and no pathology seen to explain the drop in blood count. 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 RECOMMENDATIONS: 1. Heart healthy diet. 2. Restart Xarelto. 3. He has a risk of bleeding with continued anticoagulation. At the same time, he has risk of having a stroke if he does not take anticoagulation. Job ID: [id number] [facility]
--- NOTE | 2019-03-21 15:36 | PDOC.PN ---
- Subjective Encounter Start Date: 03/21/19 Encounter Start Time: 15:34 Subjective: has been having coughing bouts and daughter feels it is fluid -: eager to take him home though.discussed care up to date - Objective Resuscitation Status - Order Detail: 03/16/19 22:27 Resuscitation Status Routine Resuscitation Status: FULL: Full Resuscitation Discussed with: Full code - Confirmed with daughter JULIANNE FARLEY Reviewed: Yes Vital Signs & Weight: Vital Signs (12 hours) Temp BP Pulse Ox 03/21/19 10:27 98.1 F 03/21/19 08:34 100/50 L 03/21/19 08:00 92 L 03/21/19 07:09 98.0 F Weight Weight 185 lb 11.2 oz Most Recent Monitor Data Heart Rate from ECG 70 NIBP 132/79 NIBP BP-Mean 96 Respiration from ECG 21 SpO2 93 I&O: 03/20/19 03/21/19 03/22/19 06:59 06:59 06:59 Intake Total 240 1430 Output Total 290 650 350 Balance -50 780 -350 Result Diagrams: 03/21/19 04:10 03/21/19 04:10 Additional Labs: Microbiology 03/19/19 01:20 Stool - Formed Stool Occult Blood (CHERIE) - Final 03/18/19 04:10 Stool Stool Occult Blood (CHERIE) - Final 03/16/19 17:46 Venous blood - Right Arm Blood Culture - Final Acinetobacter lwoffi 03/16/19 17:46 Venous blood - Left Arm Blood Culture - Final Acinetobacter lwoffi Laboratory Tests 03/16/19 03/16/19 03/17/19 17:15 17:22 05:21 WBC 7.1 Hgb 9.1 L Plt Count 96 L Creatinine 1.64 H 1.58 H 03/17/19 03/18/19 03/18/19 05:21 04:42 04:42 WBC 5.6 6.6 Hgb 8.0 L Plt Count 148 88 L Creatinine 1.51 H 03/19/19 03/19/19 03/19/19 04:14 04:14 12:12 WBC 5.4 Hgb 8.1 L Plt Count 93 L 103 L Creatinine 1.52 H 03/20/19 03/20/19 03/21/19 04:28 04:29 04:10 WBC 4.8 Hgb Plt Count 94 L Creatinine 1.57 H 1.52 H 03/21/19 04:10 WBC 4.6 L Hgb 7.9 L Plt Count 93 L Creatinine Phys Exam - Physical Examination Constitutional: NAD joking HEENT: PERRLA, moist MMs, sclera anicteric, oral pharynx no lesions Neck: no nodes, no JVD, supple, full ROM Respiratory: no wheezing, no rales, no rhonchi, clear to auscultation bilateral Cardiovascular: RRR, no significant murmur Gastrointestinal: soft, non-tender, no distention, positive bowel sounds Musculoskeletal: no edema, pulses present RUE erythema better per family.no warmth.located under surface of arm Neurological: non-focal, normal sensation, moves all 4 limbs Psychiatric: normal affect, A&O x 3 Dx/Plan (1) Bacteremia Code(s): R78.81 - BACTEREMIA Status: Acute Comment: Acinetobacter 2/2 samples.On cefepime (2) Cellulitis and abscess of upper arm and forearm Code(s): BCJ7615 - Status: Acute Comment: as #1 (3) Acute on chronic systolic CHF (congestive heart failure) Code(s): I50.23 - ACUTE ON CHRONIC SYSTOLIC (CONGESTIVE) HEART FAILURE Status : Acute Comment: lasix BID.Strict I/Os. BNP in morning.steady weight gain in last 3 days noticed. (4) GI bleeding Code(s): K92.2 - GASTROINTESTINAL HEMORRHAGE, UNSPECIFIED Status: Acute Comment: EGD negtive for any bleeding process.Susoect mild Bleed from AVM as pt on Xarelto.monitor serial H/h.Xarelto to be started tonight (5) Anemia, normocytic normochromic Code(s): D64.9 - ANEMIA, UNSPECIFIED Status: Chronic Comment: on weekly "shots" ,likely epogen at [facility] clinic (6) Anticoagulant long-term use Code(s): Z79.01 - SENIOR LIVING (CURRENT) USE OF ANTICOAGULANTS Status: Chronic (7) Atrial fibrillation Code(s): I48.91 - UNSPECIFIED ATRIAL FIBRILLATION Status: Chronic Qualifiers: Atrial fibrillation type: chronic Qualified Code(s): I48.2 - Chronic atrial fibrillation Comment: on xarelto chronically (8) CAD (coronary artery disease) Code(s): I25.10 - ATHSCL HEART DISEASE OF [place] CORONARY ARTERY W/O ANG PCTRS Status: Chronic Qualifiers: Coronary Disease-Associated Artery/Lesion type: [place] artery [place] vs. transplanted heart: [place] heart Associated angina: without angina Qualified Code(s): I25.10 - Atherosclerotic heart disease of [place] coronary artery without angina pectoris Comment: cont ASA,statin,BB,renaexa,Isosorbide.no BRYNN-I/ARB d/t low BP (9) CKD (chronic kidney disease) stage 3, GFR 30-59 ml/min Code(s): N18.3 - CHRONIC KIDNEY DISEASE, STAGE 3 (MODERATE) Status: Chronic (10) Dyslipidemia Code(s): E78.5 - HYPERLIPIDEMIA, UNSPECIFIED Status: Chronic (11) GERD (gastroesophageal reflux disease) Code(s): K21.9 - GASTRO-ESOPHAGEAL REFLUX DISEASE WITHOUT ESOPHAGITIS Status: Chronic (12) H/O sick sinus syndrome Code(s): Z86.79 - PERSONAL HISTORY OF OTHER DISEASES OF THE CIRCULATORY SYSTEM Status: Chronic (13) Hypertension Code(s): I10 - ESSENTIAL (PRIMARY) HYPERTENSION Status: Chronic Qualifiers: Hypertension type: essential hypertension Qualified Code(s): I10 - Essential (primary) hypertension (14) PVD (peripheral vascular disease) Code(s): I73.9 - PERIPHERAL VASCULAR DISEASE, UNSPECIFIED Status: Chronic (15) Seizure disorder Code(s): G40.909 - EPILEPSY, UNSP, NOT INTRACTABLE, WITHOUT STATUS EPILEPTICUS Status: Chronic Comment: stable. 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 -: clinically positive Fluid balance.cont lasix BID for now.check BNP in am -: monitor H/h as Xarelto is being restarted * .am labs * Review of Systems - Medications/Allergies Allergies/Adverse Reactions: Allergies Allergy/AdvReac Type Severity Reaction Status Date / Time pineapple Allergy throat Verified 12/11/18 23:09 swell Medications: Current Medications Acetaminophen (Tylenol) 650 mg PO Q4H PRN PRN Reason: Headache/Fever/Mild Pain (1-3) Artificial Tears (Liquitears 15ml Bottle) 0 drop EA EYE PRN PRN PRN Reason: Dry Eyes Aspirin (Ecotrin) 81 mg PO QAM [facility] Last Admin: 03/21/19 11:01 Dose: Not Given Atorvastatin Calcium (Lipitor) 80 mg PO HS [facility] Last Admin: 03/20/19 20:44 Dose: 80 mg Bisacodyl (Dulcolax) 10 mg [place] DAILYPRN PRN PRN Reason: Constipation Calcium Carbonate (Tums) 1,000 mg PO Q4H PRN PRN Reason: Heartburn or Indigestion Carvedilol (Coreg) 6.25 mg PO BID-[facility] Last Admin: 03/21/19 08:34 Dose: 6.25 mg Furosemide (Lasix) 40 mg PO 0900,1400 [facility] Last Admin: 03/21/19 14:58 Dose: 40 mg Guaifenesin (Mucinex) 600 mg PO Q12HR PRN PRN Reason: Cough Last Admin: 03/20/19 12:21 Dose: 600 mg Cefepime HCl 2 gm/ Sodium (Chloride) 100 mls @ 200 mls/hr IVPB Q12HR [facility] Last Admin: 03/21/19 08:34 Dose: 100 mls Isosorbide Dinitrate (Isordil) 5 mg PO BID [facility] Last Admin: 03/21/19 11:01 Dose: Not Given Levetiracetam (Keppra) 500 mg PO BID [facility] Last Admin: 03/21/19 11:01 Dose: Not Given Pantoprazole S[facility] ([facility]ix) [facility] Last Admin: 03/21/19 11:02 Dose: Not Given Ranolazine (Ranexa) 1,000 mg PO BID [facility] Last Admin: 03/21/19 11:02 Dose: Not Given Rivaroxaban (Xarelto) 15 mg PO 1800 [facility] Saccharomyces Boulardii (Florastor) 250 mg PO DAILY [facility] Last Admin: 03/21/19 11:02 Dose: Not Given Senna/Docusate Sodium (Senokot S) 2 tab PO BID PRN PRN Reason: Constipation Sodium Chloride (Flush - Normal Saline) 10 ml IVF Q12HR [facility] Last Admin: 03/21/19 11:02 Dose: Not Given Sodium Chloride (Flush - Normal Saline) 10 ml IVF PRN PRN PRN Reason: Saline Flush
[2019-03-21] MEDS ORDERED: PROPOFOL 200 MG/20 ML VIAL ONE (15:48)
[2019-03-21] MEDS ORDERED: PROVENTIL INHALER 6.7 G (200 INHALATIONS) INH PRN (16:22)
[2019-03-21] MEDS: Rivaroxaban 10 MG TAB PO SCH (16:45)
[2019-03-21] MEDS: Atorvastatin Calcium 40 MG TAB PO SCH (21:04)
--- NOTE | 2019-03-21 23:16 | ULT ---
Right upper extremity venous Doppler ultrasound: 03/21/2019 COMPARISON: None HISTORY: Erythema, cellulitis TECHNIQUE: Multiplanar grayscale sonographic imaging of the venous structures of the right upper extr emity obtained with color flow and spectral analysis FINDINGS: The right internal jugular vein, subclavian vein, and axillary vein are patent. The right brachial and basilic vein are patent. There is small volume clot within the right cephalic vein in the region of the elbow. IMPRESSION: No evidence for right upper extremity DVT. Small volume superficial thrombus within right cephalic vein at elbow.
[2019-03-22 05:44] LABS: #Eosinphils 0.1 thou/uL (0.0-0.7); #Lymphocytes 0.7 thou/uL (1.20-3.40); #Monocytes 0.5 thou/uL (0.11-0.59); #Neutrophils 3.2 thou/uL (1.40-6.50); %Lymphocytes 14.6 % (21.0-51.0); %Monocytes 11.3 % (0.0-10.0); %Neutrophils 70.1 % (42.0-75.0); Hemoglobin 7.9 g/dL (14.0-18.0); Mean Corpuscular HGB CONC 32.7 g/dL (32.0-36.0); Mean Corpuscular Hemoglobin 33.3 pg (27.0-31.0); Mean Platelet Volume 10.4 fL (7.4-10.4); Platelet Count 98 thou/uL (130-400); RBC Distribution Width 19.1 % (11.5-14.5); Red Blood Cell (RBC) Count 2.36 mill/uL (4.70-6.10); White Blood Cell (WBC) Count 4.5 thou/uL (4.8-10.8)
[2019-03-22 05:55] LABS: Anion Gap 12 mmol/L (10-20); BUN (Urea Nitrogen) 22 mg/dL (8.4-25.7); Calc. Creatinine Clearance 46 mL/min (70-130); Calcium 8.2 mg/dL (7.8-10.44); Carbon Dioxide 24 mmol/L (23-31); Chloride 102 mmol/L (98-107); Estimated GFR-MDRD 45; Glucose 94 mg/dL (83-110); Potassium 3.6 mmol/L (3.5-5.1); Sodium 134 mmol/L (136-145)
[2019-03-22] MEDS: Cefepime 2 GM in Sodium Chloride 0.9% 100 ML IVPB SCH ×2 (08:47→21:34)
[2019-03-22] MEDS: Carvedilol 6.25 MG TAB PO SCH ×2 (08:48→17:29)
[2019-03-22] MEDS: hydrALAZINE 25 MG TAB PO SCH ×3 (08:48→21:35)
[2019-03-22] MEDS: Furosemide 20 MG TAB PO SCH ×2 (08:48→14:49)
[2019-03-22] MEDS: levETIRAcetam 500 MG TAB PO SCH ×2 (08:49→21:35)
[2019-03-22] MEDS: Isosorbide Dinitrate 5 MG TAB PO SCH ×2 (08:49→21:35)
[2019-03-22] MEDS: Saccharomyces boulardii 250 MG CAP PO SCH (08:49)
[2019-03-22] MEDS: Aspirin 81 mg Enteric Coated Tablet PO SCH (08:49)
[2019-03-22] MEDS ORDERED: Metolazone 5 MG TAB PO SCH (10:15)
[2019-03-22] MEDS: guaiFENesin/Codeine Phosphate 200 mg/20 mg 10 ml UD Cup PO PRN (10:51)
--- NOTE | 2019-03-22 10:59 | PRG ---
DATE OF SERVICE: 03/22/2019 SUBJECTIVE: Mr. Willis is an 83-year-old white male, followed up by the Renal Service for his acute kidney injury/chronic renal failure. Renal function has been stable for the last several days. He is still complaining of cough. Possibility of volume overload remains with this patient. BNP still quite elevated. Metolazone was added with this diuretic regimen today. Since the renal function is holding steady, we can consider increasing the Lasix from 40 mg to 60 mg p.o. b.i.d. He also underwent an upper GI endoscopy on March 21, 2019. No active bleeding was noted. The recommendation is to restart Xarelto. No other complaints today. He is noted to be confused. OBJECTIVE: VITAL SIGNS: Blood pressure is 124/83, heart rate 89, respiratory rate 20, temperature 98, and pulse ox 96%. GENERAL: Awake and confused, not in distress. SKIN: Adequate turgor. HEENT: Slightly pale conjunctivae. Anicteric sclerae. NECK: No neck mass. No carotid bruits. No JVD. CHEST: No deformities. LUNGS: Clear breath sounds. No wheezing. No crackles. HEART: Normal sinus rhythm. No murmur. No gallops. No rubs. ABDOMEN: Globular, soft, and nontender. No masses. EXTREMITIES: No edema. MEDICATIONS: Medications of March 22, 2019, reviewed. LABORATORY DATA: Laboratories of March 22, 2019; white count 4.5 and hemoglobin 7.9. Sodium 134, potassium 3.6, chloride 102, carbon dioxide 24, BUN 22, creatinine 1.51, glucose 94, and calcium 8.2. BNP 3042. ASSESSMENT AND PLAN: 1. Cough/elevated BNP-increase Lasix to 60 mg tablet b.i.d. Agree with added metolazone on a p.r.n. basis. 2. Chronic renal failure/acute kidney injury, stable renal function. No indication for any dialytic intervention. Observe renal function carefully with increased dose of diuretics. 3. Anemia-upper GI endoscopy was done, which showed no active gastrointestinal bleed. I would consider starting this patient on Epogen at 7500 units subcu weekly. Job ID: [id number]
[2019-03-22] MEDS: EPOETIN ALFA-EPBX (ESRD) 4,000 UNIT/ML VIAL SC SCH (11:39)
--- NOTE | 2019-03-22 13:20 | PDOC.PN ---
- Subjective Encounter Start Date: 03/22/19 Encounter Start Time: 13:19 Subjective: did not sleep well last night d/t severe cough -: more confused today as per daughter - Objective Resuscitation Status - Order Detail: 03/16/19 22:27 Resuscitation Status Routine Resuscitation Status: FULL: Full Resuscitation Discussed with: Full code - Confirmed with daughter JULIANNE FARLEY Reviewed: Yes Vital Signs & Weight: Vital Signs (12 hours) Temp Pulse Resp BP Pulse Ox 03/22/19 11:49 98.2 F 76 22 H 104/54 L 97 03/22/19 08:40 98.0 F 89 20 124/83 96 03/22/19 04:00 98.5 F 64 21 H 117/55 L 96 Weight Weight 185 lb 11.2 oz Most Recent Monitor Data Heart Rate from ECG 70 NIBP 132/79 NIBP BP-Mean 96 Respiration from ECG 21 SpO2 93 I&O: 03/21/19 03/22/19 03/23/19 06:59 06:59 06:59 Intake Total 1430 120 Output Total 650 610 Balance 780 -490 Result Diagrams: 03/22/19 05:01 03/22/19 05:01 Additional Labs: Microbiology 03/19/19 01:20 Stool - Formed Stool Occult Blood (CHERIE) - Final 03/18/19 04:10 Stool Stool Occult Blood (CHERIE) - Final 03/16/19 17:46 Venous blood - Right Arm Blood Culture - Final Acinetobacter lwoffi 03/16/19 17:46 Venous blood - Left Arm Blood Culture - Final Acinetobacter lwoffi Phys Exam - Physical Examination sleepy and agitated when woken up HEENT: PERRLA, moist MMs, sclera anicteric, oral pharynx no lesions Neck: no nodes, no JVD, supple, full ROM Respiratory: no wheezing, no rales, no rhonchi Cardiovascular: RRR, no significant murmur Gastrointestinal: soft, non-tender, no distention, positive bowel sounds Musculoskeletal: no edema, pulses present Neurological: non-focal, normal sensation, moves all 4 limbs Skin: no rash Dx/Plan (1) Bacteremia Code(s): R78.81 - BACTEREMIA Status: Acute Comment: Acinetobacter 2/2 samples.On cefepime (2) Acute on chronic systolic CHF (congestive heart failure) Code(s): I50.23 - ACUTE ON CHRONIC SYSTOLIC (CONGESTIVE) HEART FAILURE Status : Acute Comment: lasix BID.Strict I/Os. BNP still > 3000.steady weight gain in last 4 days noticed. will add zaroxolyn.increase lasix. standing weights daily (3) Superficial venous thrombosis of arm Code(s): I82.619 - ACUTE EMBOLISM AND THROMBOSIS OF SUPERFIC VN UNSP UP EXTREM Status: Acute Qualifiers: Laterality: right Qualified Code(s): I82.611 - Acute embolism and thrombosis of superficial veins of right upper extremity (4) Cellulitis and abscess of upper arm and forearm Code(s): XIA9242 - Status: Acute Comment: suspect thrombophelbitis rather cellulitis (5) GI bleeding Code(s): K92.2 - GASTROINTESTINAL HEMORRHAGE, UNSPECIFIED Status: Acute Comment: EGD negtive for any bleeding process.Susoect mild Bleed from AVM as pt on Xarelto.monitor serial H/h.Xarelto re-started (6) Anemia, normocytic normochromic Code(s): D64.9 - ANEMIA, UNSPECIFIED Status: Chronic Comment: on weekly "shots" ,likely epogen at [facility] (7) Anticoagulant long-term use Code(s): Z79.01 - SENIOR LIVING (CURRENT) USE OF ANTICOAGULANTS Status: Chronic (8) Atrial fibrillation Code(s): I48.91 - UNSPECIFIED ATRIAL FIBRILLATION Status: Chronic Qualifiers: Atrial fibrillation type: chronic Qualified Code(s): I48.2 - Chronic atrial fibrillation Comment: on xarelto chronically (9) CAD (coronary artery disease) Code(s): I25.10 - ATHSCL HEART DISEASE OF [place] CORONARY ARTERY W/O ANG PCTRS Status: Chronic Qualifiers: Coronary Disease-Associated Artery/Lesion type: [place] artery [place] vs. transplanted heart: [place] heart Associated angina: without angina Qualified Code(s): I25.10 - Atherosclerotic heart disease of [place] coronary artery without angina pectoris Comment: cont ASA,statin,BB,renaexa,Isosorbide.no BRYNN-I/ARB d/t low BP (10) CKD (chronic kidney disease) stage 3, GFR 30-59 ml/min Code(s): N18.3 - CHRONIC KIDNEY DISEASE, STAGE 3 (MODERATE) Status: Chronic (11) Dyslipidemia Code(s): E78.5 - HYPERLIPIDEMIA, UNSPECIFIED Status: Chronic (12) GERD (gastroesophageal reflux disease) Code(s): K21.9 - GASTRO-ESOPHAGEAL REFLUX DISEASE WITHOUT ESOPHAGITIS Status: Chronic (13) H/O sick sinus syndrome Code(s): Z86.79 - PERSONAL HISTORY OF OTHER DISEASES OF THE CIRCULATORY SYSTEM Status: Chronic (14) Hypertension Code(s): I10 - ESSENTIAL (PRIMARY) HYPERTENSION Status: Chronic Qualifiers: Hypertension type: essential hypertension Qualified Code(s): I10 - Essential (primary) hypertension (15) PVD (peripheral vascular disease) Code(s): I73.9 - PERIPHERAL VASCULAR DISEASE, UNSPECIFIED Status: Chronic (16) Seizure disorder Code(s): G40.909 - EPILEPSY, UNSP, NOT INTRACTABLE, WITHOUT STATUS EPILEPTICUS Status: Chronic Comment: stable. cont keppra - Plan plan discussed w/ family, continue antibiotics, PT/OT, respiratory therapy, incentive spirometry, out of bed/ambulate, DVT proph w/SCDs Diurese more aggresively.monitor renal Fx -: cont cefepime. ID recs requested.doubt arm has cellulitis.more likley -: thrombophlebitis from superficial clot in cephalic Vein -: add guafenesin w codeine . -: H/H stable on xarelto.monitor * . Review of Systems - Review of Systems Constitutional: weakness, malaise. negative: fever, chills, sweats, other Respiratory: Cough, Sputum. negative: Dry, Shortness of Breath, Hemoptysis, SOB with Excertion, Pleuritic Pain, Wheezing Cardiovascular: edema. negative: chest pain, palpitations, orthopnea, paroxysmal nocturnal dyspnea, light headedness, other Gastrointestinal: negative: Nausea, Vomiting, Abdominal Pain, Diarrhea, Constipation, Melena, Hematochezia, Other Genitourinary: Dysuria. negative: Frequency, Incontinence, Hematuria, Retention , Other Musculoskeletal: negative: Neck Pain, Shoulder Pain, Arm Pain, Back Pain, Hand Pain, Leg Pain, Foot Pain, Other Skin: negative: Rash, Lesions, Alejandro, Bruising, Other Neurological: Confusion. negative: Weakness, Numbness, Incoordination, Change in Speech, Seizures, Other - Medications/Allergies Allergies/Adverse Reactions: Allergies Allergy/AdvReac Type Severity Reaction Status Date / Time pineapple Allergy throat Verified 12/11/18:09 karolina Medications: Current Medications Acetaminophen (Tylenol) 650 mg PO Q4H PRN PRN Reason: Headache/Fever/Mild Pain (1-3) Albuterol Sulfate (Proventil Hfa) 2 puff INH QIDPRN PRN PRN Reason: Cough Artificial Tears (Liquitears 15ml Bottle) 0 drop EA EYE PRN PRN PRN Reason: Dry Eyes Aspirin (Ecotrin) 81 mg PO QAM [facility] Last Admin: 03/22/19 08:49 Dose: 81 mg Atorvastatin Calcium (Lipitor) 80 mg PO HS [facility] Last Admin: 03/21/19 21:04 Dose: 80 mg Bisacodyl (Dulcolax) 10 mg [place] DAILYPRN PRN PRN Reason: Constipation Calcium Carbonate (Tums) 1,000 mg PO Q4H PRN PRN Reason: Heartburn or Indigestion Carvedilol (Coreg) 6.25 mg PO BID-[facility] Last Admin: 03/22/19 08:48 Dose: 6.25 mg Epoetin Shane-epbx (Retacrit) 7,500 unit SC Q7D [facility] Last Admin: 03/22/19 11:39 Dose: 7,500 unit Ferrous Sulfate (Feosol) 325 mg PO QA-[facility] Furosemide (Lasix) 60 mg PO 0900,1400 [facility] Guaifenesin (Mucinex) 600 mg PO Q12HR PRN PRN Reason: Cough Last Admin: 03/20/19 12:21 Dose: 600 mg Guaifenesin/Codeine Phosphate (Robitussin Ac) 10 ml PO Q6H PRN PRN Reason: Cough Last Admin: 03/22/19 10:51 Dose: 10 ml Hydralazine HCl (Apresoline) 25 mg PO TID [facility] Last Admin: 03/22/19 08:48 Dose: 25 mg Cefepime HCl 2 gm/ Sodium (Chloride) 100 mls @ 200 mls/hr IVPB Q12HR [facility] Last Admin: 03/22/19 08:47 Dose: 100 mls Isosorbide Dinitrate (Isordil) 5 mg PO BID [facility] Last Admin: 03/22/19 08:49 Dose: 5 mg Levetiracetam (Keppra) 500 mg PO BID [facility] Last Admin: 03/22/19 08:49 Dose: 500 mg Metolazone (Zaroxolyn) 2.5 mg PO 0830 [facility] Pantoprazole Sodium (Protonix) 40 mg PO QAM [facility] Last Admin: 03/22/19 08:48 Dose: 40 mg Ranolazine (Ranexa) 1,000 mg PO BID [facility] Last Admin: 03/22/19 08:48 Dose: 1,000 mg Rivaroxaban (Xarelto) 15 mg PO 1800 [facility] Last Admin: 03/21/19 16:45 Dose: 15 mg Saccharomyces Boulardii (Florastor) 250 mg PO DAILY [facility] Last Admin: 03/22/19 08:49 Dose: 250 mg Senna/Docusate Sodium (Senokot S) 2 tab PO BID PRN PRN Reason: Constipation Sodium Chloride (Flush - Normal Saline) 10 ml IVF Q12HR [facility] Last Admin: 03/22/19 08:49 Dose: 10 ml Sodium Chloride (Flush - Normal Saline) 10 ml IVF PRN PRN PRN Reason: Saline Flush
[2019-03-22] MEDS: Rivaroxaban 10 MG TAB PO SCH (17:29)
--- NOTE | 2019-03-22 17:55 | CON ---
DATE OF CONSULTATION: 03/22/2019 REASON FOR CONSULTATION: Bacteremia. HISTORY OF PRESENT ILLNESS: An 83-year-old history of ischemic cardiomyopathy with systolic CHF, dementia, seizure disorder, chronic renal insufficiency on chronic Epogen injections, and sick sinus syndrome with a pacemaker as well as atrial fibrillation on chronic anticoagulation, who developed altered mental status with some respiratory symptoms including cough, which was mostly dry and some weight gain. He was given extra doses of Lasix. Cough became steadily more productive. He also was diagnosed with UTIs given antimicrobials, but this was not based on symptoms of UTI. In other words, he did not have dysuria. Apparently, he had a fall the week before admission, which was long-term prevented by his daughter. Initial findings with temperature 102, respirations 28, pulse 82, blood pressure 130/50, and O2 saturation 98%. He was confused. No neck stiffness. Lungs with diminished air entry at the bases. S1 and S2 with systolic murmur over the mitral area described. Abdomen soft and not tender. He moved all extremities. The albumin is 3.1. BNP was 3000 and sodium 128, creatinine 1.64 with the lowest creatinine of 1.25 in December of this year. Liver profile; bilirubin 1.4, transaminases and alkaline phosphatase normal, albumin 3.1. Urinalysis fairly normal except for proteinuria at 70. White cell count 7.1 on arrival with hemoglobin 9.1, MCV 101 with 96,000 platelets. Imaging studies included a chest x-ray with cardiomegaly, pacemaker, sternotomy changes, pleural and parenchymal changes, which are chronic. The patient had a vascular ultrasound with no evidence of DVT, but there was a small superficial thrombus within the right cephalic vein at the elbow. Currently, Mr. Willis is awake. He is very confused, unable to provide with a reasonable history. His utterances do not make sense. He can follow some commands, but very erratically. 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 PAST SURGICAL HISTORY: In terms of surgical procedures, he had a bypass graft surgery, coronary stent, lysis of adhesions, and pacemaker placement. ALLERGIES: NONE. SOCIAL HISTORY: Lives at home. Daughter is a caregiver. Still ambulatory. Former smoker. FAMILY HISTORY: Diabetes type 2, coronary artery disease, and brain aneurysm. CURRENT MEDICATIONS: 1. Tylenol. 2. Proventil. 3. Ecotrin. 4. Lipitor. 5. Dulcolax. 6. Tums. 7. Coreg. 8. Cefepime. 9. Epoetin. 10. Feosol. 11. Mucinex. 12. Apresoline. 13. Keppra. 14. Protonix. 15. Xarelto. PHYSICAL EXAMINATION: VITAL SIGNS: T-max 98.6, blood pressure 114/60, pulse 76, respirations 20 to 22 , and O2 saturation 97%. SKIN: With shallow areas of pressure damage in the presacral region. Peripheral IV access and is voiding in the urinal. No lymphadenopathy. HEENT: Ocular movements conjugate. Sclerae white. Oral cavity moist with still few teeth in place. NECK: Supple. No jugular vein distention. Pacer pocket site appears normal without tenderness or erythema. The patient has a little bit red area in the right antecubital fossa, where there is a tubular structure, which is indurated. It probably corresponds to the thrombosed cephalic vein. LUNGS: Symmetric breath sounds. No crackles or wheezing. HEART: S1 and S2 with a quite harsh murmur heard throughout the precordium. Diminished S1 and S2. ABDOMEN: Soft with tenderness in the right upper quadrant. No bladder distention. No joint inflammatory activity. EXTREMITIES: Moves extremities equally. Edema noted in upper and lower extremities about 2+. Pulses 1+ in dorsalis pedis. Plantar responses are flexor. No clonus. NEUROLOGIC: He is awake, but unable to provide reasonable information due to chronic cognitive dysfunction. LABORATORY DATA: Latest white cell count 4.8, hemoglobin 7.8, MCV 102, neutrophil percentage 80. Sodium 134, creatinine 1.5. Two sets of blood cultures with Acinetobacter lwoffii. Occult blood was positive. IMAGING STUDIES: Abdomen and pelvis CT on admission, which were done with IV contrast with bilateral pleural effusions, mild ascites, small bowel obstruction , and loculated fluid seen within Morison's pouch. ASSESSMENT: Ischemic cardiomyopathy, chronic kidney disease stage 3, seizure disorder, atrial fibrillation, altered mental status, pacemaker, Acinetobacter bacteremia, present on admission 2/2 sets. DISCUSSION: Differential diagnosis includes pacemaker lead colonization by Acinetobacter, which has been described in the literature versus an alternate source. The other possible sources include the right antecubital fossa, where he has a thrombosed cephalic vein and has had recent admission, so conceivably it is possible that he had infectious thrombophlebitis of that vein. His last admission was in February, so it is also possible that he has both the thrombophlebitis plus the pacer lead involvement and plus-minus endocarditis. The other possibility would be the abdominal area inflammatory process. He does have tenderness in the right upper quadrant. He does have the fluid in Morison's pouch which could possibility be associated with inflammatory process. This is less likely, but not completely ruled out. The organism is quite susceptible to the antimicrobials, but we need to solve the question of the involvement of the pacemaker with a IVANNA. If that is negative, then I would treat him with oral quinolone for approximately 2 weeks. If it is positive, then he would require removal of the device plus antimicrobial therapy. Other sites such as spine long bones and joints and urinary tract do not appear to be involved. Job ID: [id number] [facility]
[2019-03-22] MEDS: Atorvastatin Calcium 40 MG TAB PO SCH (21:34)
[2019-03-23] MEDS: guaiFENesin/Codeine Phosphate 200 mg/20 mg 10 ml UD Cup PO PRN (00:17)
[2019-03-23] MEDS: levETIRAcetam 500 MG TAB PO SCH ×2 (09:22→21:12)
[2019-03-23] MEDS: Furosemide 20 MG TAB PO SCH ×2 (09:22→15:17)
[2019-03-23] MEDS: Carvedilol 6.25 MG TAB PO SCH ×2 (09:23→15:17)
[2019-03-23] MEDS: Isosorbide Dinitrate 5 MG TAB PO SCH ×2 (09:23→21:11)
[2019-03-23] MEDS: Saccharomyces boulardii 250 MG CAP PO SCH (09:23)
[2019-03-23] MEDS: hydrALAZINE 25 MG TAB PO SCH ×3 (09:23→21:10)
[2019-03-23 09:24] LABS: Anion Gap 13 mmol/L (10-20); BUN (Urea Nitrogen) 23 mg/dL (8.4-25.7); Calc. Creatinine Clearance 38 mL/min (70-130); Calcium 8.6 mg/dL (7.8-10.44); Carbon Dioxide 26 mmol/L (23-31); Chloride 99 mmol/L (98-107); Estimated GFR-MDRD 41; Glucose 98 mg/dL (83-110); Potassium 3.3 mmol/L (3.5-5.1); Sodium 135 mmol/L (136-145)
[2019-03-23] MEDS: Ferrous Sulfate 325 MG TAB PO SCH (09:24)
[2019-03-23] MEDS: Aspirin 81 mg Enteric Coated Tablet PO SCH (09:24)
[2019-03-23] MEDS: Metolazone 2.5 MG TAB PO SCH (09:24)
[2019-03-23] MEDS: Cefepime 2 GM in Sodium Chloride 0.9% 100 ML IVPB SCH ×2 (09:24→21:13)
[2019-03-23] MEDS ORDERED: Haloperidol 1 MG TAB PO SCH (09:45)
--- NOTE | 2019-03-23 09:49 | PRG ---
DATE OF SERVICE: 03/23/2019 SUBJECTIVE: Mr. Willis is an 83-year-old white male being followed by the Renal Service for his chronic renal failure. He has been more confused in the last 2 days and was agitated. Recently, he was given some cough syrup with codeine for his persistent cough. The possibility this may also be from a volume overload was considered and his Lasix has been increased to twice a day. An ID consult was done with Dr. Gustafson yesterday. The recommendation is consider for a possibility of IVANNA. The daughter is quite agitated also due to the patient's persistent confusion. OBJECTIVE: VITAL SIGNS: Blood pressure 133/68, heart rate 75, respiratory rate 18, temperature 99.1, and pulse ox 92%. GENERAL: The patient is awake, confused, not in distress. SKIN: Adequate turgor. HEENT: Slightly pale conjunctivae. Anicteric sclerae. NECK: No neck mass. No carotid bruits. No JVD. CHEST: No deformities. LUNGS: Decreased breath sounds. HEART: Normal sinus rhythm. No murmur. No gallops. No rubs. ABDOMEN: Globular, soft, nontender. No masses. EXTREMITIES: No edema. No deformities. MEDICATIONS: Medications of March 23, 2019, reviewed. LABORATORY DATA: Laboratories March 22, 2019; white count 4.5, hemoglobin 7.9. Sodium 134, potassium 3.6, chloride 102, carbon dioxide 24, BUN 22, creatinine 1.51, calcium 8.2. BNP 3042. ASSESSMENT AND PLAN: 1. Chronic renal failure-stable renal function. Recheck basic metabolic profile in a.m. since the patient's Lasix has been increased. 2. Confusion. Consider starting the patient on Haldol 0.5 mg tablet b.i.d. Due to the possible interaction with cough syrup with codeine, we will discontinue this one. Tessalon Perles will be given in lieu of the cough syrup with codeine. 3. Bacteremia/infection-ID following. Recommendation for possible IVANNA. 4. Anemia-status post upper gastrointestinal endoscopy. No active bleeding. 5. Agree with current management. Recheck basic metabolic profile, CBC in a.m. Job ID: [id number]
[2019-03-23 09:59] LABS: Band 1 % (5-11); Eosinophils 2 % (0-10); Hemoglobin 8.4 g/dL (14.0-18.0); Lymphocytes 14 % (21-51); MDiff Complete? YES; Mean Corpuscular HGB CONC 33.2 g/dL (32.0-36.0); Mean Corpuscular Hemoglobin 33.5 pg (27.0-31.0); Mean Platelet Volume 10.6 fL (7.4-10.4); Monocytes 13 % (0-10); Neutrophil 69 % (42-75); Platelet Count 105 thou/uL (130-400); Platelet Morphology Comment Appears Decreased; RBC Distribution Width 19.1 % (11.5-14.5); Schistocytes SLIGHT = 2-5 cells (100X) (0-1/hpf); White Blood Cell (WBC) Count 4.9 thou/uL (4.8-10.8)
--- NOTE | 2019-03-23 14:45 | PDOC.PN ---
- Subjective Encounter Start Date: 03/23/19 Encounter Start Time: 11:00 Patient continues to be a little confused and agitated. Did want to take po's. Pills were mixed with pudding and he only a bite of it. Daughters indicate he is hurting when he needs to void. They expressed concern about him being dehydrated. Concerned about him having a blood clot and not being on blood thinners. Would like to go ahead and hold the xarelto now in anticipation of a IVANNA tomorrow if possible. Say they are getting different stories about where the infection is coming from. When asked directly if he is in pain, he shakes his head "no" and asked "why do you ask?" - Objective Resuscitation Status - Order Detail: 03/16/19 22:27 Resuscitation Status Routine Resuscitation Status: FULL: Full Resuscitation Discussed with: Full code - Confirmed with daughter JULIANNE Vital Signs & Weight: Vital Signs (12 hours) Temp Pulse Resp BP BP Pulse Ox 03/23/19 09:23 75 112/57 L 03/23/19 09:20 97.4 F L 69 20 112/57 L 03/23/19 03:27 99.1 F 75 18 133/68 92 L Weight Weight 167 lb Most Recent Monitor Data Heart Rate from ECG 70 NIBP 132/79 NIBP BP-Mean 96 Respiration from ECG 21 SpO2 93 I&O: 03/22/19 03/23/19 03/24/19 06:59 06:59 06:59 Intake Total 120 340 Output Total 610 750 Balance -490 -410 Result Diagrams: 03/23/19 08:38 03/23/19 08:38 Phys Exam - Physical Examination Modestly interactive. Grimaces a groans frequently. Respiratory: no wheezing, no rales, no rhonchi, clear to auscultation bilateral Cardiovascular: RRR, no significant murmur Gastrointestinal: soft, non-tender, no distention Initially appeared to be tender in RLQ, but on repeat exam of the same area there is no evidence that he is tender. Musculoskeletal: no edema Deviation from normal: Generally agitated. Minimal verbal interaction. Dx/Plan (1) Acute on chronic systolic CHF (congestive heart failure) Code(s): I50.23 - ACUTE ON CHRONIC SYSTOLIC (CONGESTIVE) HEART FAILURE Status : Acute Comment: lasix BID.Strict I/Os. BNP still > 3000.steady weight gain in last 4 days noticed. will add zaroxolyn.increase lasix. standing weights daily (2) Bacteremia Code(s): R78.81 - BACTEREMIA Status: Acute Comment: Acinetobacter 2/2 samples.On cefepime (3) Cellulitis and abscess of upper arm and forearm Code(s): RMT9197 - Status: Acute Comment: suspect thrombophelbitis rather cellulitis (4) GI bleeding Code(s): K92.2 - GASTROINTESTINAL HEMORRHAGE, UNSPECIFIED Status: Acute Comment: EGD negtive for any bleeding process.Susoect mild Bleed from AVM as pt on Xarelto.monitor serial H/h.Xarelto re-started (5) Superficial venous thrombosis of arm Code(s): I82.619 - ACUTE EMBOLISM AND THROMBOSIS OF SUPERFIC VN UNSP UP EXTREM Status: Acute Qualifiers: Laterality: right Qualified Code(s): I82.611 - Acute embolism and thrombosis of superficial veins of right upper extremity (6) Altered mental status Code(s): R41.82 - ALTERED MENTAL STATUS, UNSPECIFIED Status: Acute Qualifiers: Altered mental status type: unspecified Qualified Code(s): R41.82 - Altered mental status, unspecified (7) Hypokalemia Code(s): E87.6 - HYPOKALEMIA Status: Acute (8) Anemia, normocytic normochromic Code(s): D64.9 - ANEMIA, UNSPECIFIED Status: Chronic Comment: on weekly "shots" ,likely epogen at [facility] - Plan * Acinetobacter bacteremia. No specific source identified. * On IV Cefepime. * IVANNA recommended by ID. Hold Xarelto for now in anticipation. * Renal function is stable. * Anemia stable. Nephrology recommends Epogen going forward. * Chronic afib. Holding Xarelto for IVANNA. * CHF with pleural effusion - Did not respond well to Lasix initially. Metolazone added and his voiding has increased significantly. * Monitoring renal function with diuresis. * Mental status is likely due to dementia and hospital psychoses. * Dr. Felix ordered Haldol, but patient did not take much PO. * Eval'd by PIGMENT SUPPLIER for swallow and did fine. * Long conversation with the patient's daughters. Hope to get the IVANNA and then have an established plan for IV abx v. po quinolone. Will hold the Xarelto to expedite the IVANNA. Explained that we are watching the renal function and working on diuresis. That is more effective with the metolazone. Will continue to monitor. Looks like he is in discomfort, but when asked directly and he is willing to answer he says he is not. I am not sure he is hurting when needing to void or if the full bladder sensation just makes him a little more agitated.
[2019-03-23] MEDS: Benzonatate 100 MG CAP PO SCH ×2 (15:17→21:11)
[2019-03-23] MEDS: Haloperidol 1 MG TAB PO SCH (21:11)
[2019-03-23] MEDS: Atorvastatin Calcium 40 MG TAB PO SCH (21:12)
[2019-03-24 05:29] LABS: Anion Gap 14 mmol/L (10-20); BUN (Urea Nitrogen) 26 mg/dL (8.4-25.7); Calc. Creatinine Clearance 32 mL/min (70-130); Calcium 8.8 mg/dL (7.8-10.44); Carbon Dioxide 28 mmol/L (23-31); Chloride 98 mmol/L (98-107); Estimated GFR-MDRD 36; Glucose 90 mg/dL (83-110); Potassium 3.3 mmol/L (3.5-5.1); Sodium 137 mmol/L (136-145)
[2019-03-24 05:40] LABS: Band 3 % (5-11); Eosinophils 3 % (0-10); Hemoglobin 8.6 g/dL (14.0-18.0); Lymphocytes 20 % (21-51); MDiff Complete? YES; Mean Corpuscular HGB CONC 32.1 g/dL (32.0-36.0); Mean Corpuscular Hemoglobin 32.4 pg (27.0-31.0); Mean Platelet Volume 10.4 fL (7.4-10.4); Monocytes 5 % (0-10); Neutrophil 69 % (42-75); Platelet Count 104 thou/uL (130-400); Platelet Morphology Comment Appears Decreased; RBC Distribution Width 18.7 % (11.5-14.5); Red Blood Cell (RBC) Count 2.65 mill/uL (4.70-6.10); White Blood Cell (WBC) Count 4.3 thou/uL (4.8-10.8)
--- NOTE | 2019-03-24 08:47 | PDOC.PN ---
- Subjective Encounter Start Date: 03/24/19 Encounter Start Time: 08:45 Subjective: no appropriate responce - Objective Resuscitation Status - Order Detail: 03/16/19 22:27 Resuscitation Status Routine Resuscitation Status: FULL: Full Resuscitation Discussed with: Full code - Confirmed with daughter JULIANNE FARLEY Reviewed: Yes Vital Signs & Weight: Vital Signs (12 hours) Temp Pulse Resp BP BP Pulse Ox 03/24/19 08:21 98.5 F 74 20 131/65 97 03/24/19 04:00 73 22 H 127/58 L 03/23/19 21:10 75 110/55 L Weight Weight 157 lb 3 oz Most Recent Monitor Data Heart Rate from ECG 70 NIBP 132/79 NIBP BP-Mean 96 Respiration from ECG 21 SpO2 93 I&O: 03/23/19 03/24/19 03/25/19 06:59 06:59 06:59 Intake Total 340 Output Total 750 Balance -410 Result Diagrams: 03/24/19 04:56 03/24/19 04:56 Phys Exam - Physical Examination Neck: no JVD Respiratory: clear to auscultation bilateral Cardiovascular: RRR 4/6 sys murmur Gastrointestinal: soft, positive bowel sounds Musculoskeletal: no edema Dx/Plan (1) Cellulitis and abscess of upper arm and forearm Code(s): [id number] - Status: Acute Comment: suspect thrombophelbitis rather cellulitis (2) PNA (pneumonia) Code(s): J18.9 - PNEUMONIA, UNSPECIFIED ORGANISM Status: Acute Qualifiers: Pneumonia type: aspiration pneumonia Laterality: right Lung location: lower lobe of lung (3) Altered mental status Code(s): R41.82 - ALTERED MENTAL STATUS, UNSPECIFIED Status: Acute Qualifiers: Altered mental status type: unspecified Qualified Code(s): R41.82 - Altered mental status, unspecified (4) Hypokalemia Code(s): E87.6 - HYPOKALEMIA Status: Acute (5) Type [address] elevation Code(s): I21.A1 - MYOCARDIAL INFARCTION TYPE 2 Status: Acute (6) Anemia, normocytic normochromic Code(s): D64.9 - ANEMIA, UNSPECIFIED Status: Chronic Comment: on weekly [facility]" ,[facility] (7) Anticoagulant long-term use Code(s): Z79.01 - SN[facility] (CURRENT) USE OF ANTICOAGULANTS Status: Chronic (8) Atrial fibrillation Code(s): I48.91 - UNSPECIFIED ATRIAL FIBRILLATION Status: Chronic Qualifiers: Atrial fibrillation type: chronic Qualified Code(s): I48.2 - Chronic atrial fibrillation Comment: on xarelto chronically (9) CAD (coronary artery disease) Code(s): I25.10 - ATHSCL HEART DISEASE OF [place] CORONARY ARTERY W/O ANG PCTRS Status: Chronic Qualifiers: Coronary Disease-Associated Artery/Lesion type: [place] artery [place] vs. transplanted heart: [place] heart Associated angina: without angina Qualified Code(s): I25.10 - Atherosclerotic heart disease of [place] coronary artery without angina pectoris Comment: cont ASA,statin,BB,renaexa,Isosorbide.no BRYNN-I/ARB d/t low BP (10) CKD (chronic kidney disease) stage 3, GFR 30-59 ml/min Code(s): N18.3 - CHRONIC KIDNEY DISEASE, STAGE 3 (MODERATE) Status: Chronic (11) Chronic systolic heart failure, ACC/AHA stage C Code(s): I50.22 - CHRONIC SYSTOLIC (CONGESTIVE) HEART FAILURE Status: Chronic Comment: stable (12) Dyslipidemia Code(s): E78.5 - HYPERLIPIDEMIA, UNSPECIFIED Status: Chronic (13) GERD (gastroesophageal reflux disease) Code(s): K21.9 - GASTRO-ESOPHAGEAL REFLUX DISEASE WITHOUT ESOPHAGITIS Status: Chronic (14) Hypertension Code(s): I10 - ESSENTIAL (PRIMARY) HYPERTENSION Status: Chronic Qualifiers: Hypertension type: essential hypertension Qualified Code(s): I10 - Essential (primary) hypertension (15) PVD (peripheral vascular disease) Code(s): I73.9 - PERIPHERAL VASCULAR DISEASE, UNSPECIFIED Status: Chronic (16) Seizure disorder Code(s): G40.909 - EPILEPSY, UNSP, NOT INTRACTABLE, WITHOUT STATUS EPILEPTICUS Status: Chronic Comment: stable. cont keppra (17) Bacteremia Code(s): R78.81 - BACTEREMIA Status: Acute Comment: Acinetobacter 2/2 samples.On cefepime (18) GI bleeding Code(s): K92.2 - GASTROINTESTINAL HEMORRHAGE, UNSPECIFIED Status: Acute Comment: EGD negtive for any bleeding process.Susoect mild Bleed from AVM as pt on Xarelto.monitor serial H/h.Xarelto re-started - Plan IVANNA today -: cont iv cefepime -: no focal findings on neuro exam, suspect acute psychosis relaled to age and -: hospitalization * .
--- NOTE | 2019-03-24 09:21 | PRG ---
DATE OF SERVICE: 03/24/2019 SUBJECTIVE: Mr. Willis is an 83-year-old white male, followed up by the Renal Service for his chronic renal failure. His renal function is noted to have worsen with a creatinine of 1.81 from baseline of 1.57. This may be reflection of the current diuretic regimen. Adjustment of the diuretics will be made. In addition, he continues to be confused. The daughter is quite concerned about the persistent confusion. He was noted to be agitated yesterday. For that reason, he has been placed on Haldol. In addition, the patient's cough syrup with codeine was changed to Tessalon Perles. The coughing is less. OBJECTIVE: VITAL SIGNS: Blood pressure is 131/65, heart rate 74, respiratory rate 20, temperature 98.5, and pulse ox 97%. GENERAL: Noted to be awake, but confused, not in distress. SKIN: Adequate turgor. HEENT: He has slightly pale conjunctivae. Anicteric sclerae. NECK: No neck mass. No carotid bruits. No JVD. CHEST: No deformities. LUNGS: Decreased breath sounds. HEART: Normal sinus rhythm. No murmur. No gallops. No rubs. ABDOMEN: Globular, soft, and nontender. No masses. EXTREMITIES: No edema. No deformities. MEDICATIONS: Medications of March 24, 2019, reviewed. LABORATORY DATA: Laboratories of March 24, 2019; white count 4.3 and hemoglobin 8.6. Sodium 137, potassium 3.3, carbon dioxide is 28, chloride is 98, BUN 26, creatinine 1.8, glucose 90, and calcium 8.8. ASSESSMENT AND PLAN: 1. Acute kidney injury/chronic renal failure-worsening renal dysfunction. Creatinine has worsen from baseline of 1.5 and is now 1.8. We will decrease Lasix from 60 mg p.o. b.i.d. to 40 mg once a day. In addition, we will discontinue metolazone. 2. Confusion-this could be from metabolic encephalopathy. However, we will rule out other possible etiologies, and for that reason, a CAT scan without contrast will be ordered. 3. Anemia, stable. The patient is status post upper GI endoscopy without any significant findings. We will be rechecking basic metabolic and CBC in a.m. Job ID: [id number]
[2019-03-24] MEDS: Carvedilol 6.25 MG TAB PO SCH ×2 (09:41→17:15)
[2019-03-24] MEDS: levETIRAcetam 500 MG TAB PO SCH ×2 (09:41→21:13)
[2019-03-24] MEDS: hydrALAZINE 25 MG TAB PO SCH ×3 (09:42→21:27)
[2019-03-24] MEDS: Saccharomyces boulardii 250 MG CAP PO SCH (09:42)
[2019-03-24] MEDS: Metolazone 2.5 MG TAB PO SCH (10:37)
--- NOTE | 2019-03-24 10:37 | CT ---
Head CT without contrast 03/24/2019: COMPARISON: 03/16/2019 HISTORY: Confusion TECHNIQUE: Axial CT imaging at 5 mm intervals from vertex through skull base without contrast FINDINGS: The visualized paranasal sinuses and mastoid air cells are well aerated. There is moderate diffuse cerebral volume loss with associated prominence of the CSF containing space s. There is periventricular and deep white matter hypodensity, evidence of stable significant small vessel disease. No intracranial hemorrhage, midline shift, or mass effect. There is atherosclerotic calcification inv olving bilateral cavernous carotid arteries and the distal left vertebral artery. IMPRESSION: Chronic findings as described above. No intracranial hemorrhage.
[2019-03-24] MEDS: Benzonatate 100 MG CAP PO SCH ×3 (10:52→21:14)
[2019-03-24] MEDS: Ferrous Sulfate 325 MG TAB PO SCH (10:55)
[2019-03-24] MEDS: Cefepime 2 GM in Sodium Chloride 0.9% 100 ML IVPB SCH ×2 (11:18→21:29)
[2019-03-24] MEDS ORDERED: PROPOFOL 20 ML ONE (12:53)
[2019-03-24] MEDS ORDERED: PROPOFOL 200 MG/20 ML VIAL ONE (14:54)
[2019-03-24] MEDS: Haloperidol 1 MG TAB PO SCH (15:00)
[2019-03-24] MEDS: Aspirin 81 mg Enteric Coated Tablet PO SCH (15:06)
[2019-03-24] MEDS: Furosemide 20 MG TAB PO SCH (15:06)
[2019-03-24] MEDS: Isosorbide Dinitrate 5 MG TAB PO SCH ×2 (15:19→21:28)
[2019-03-24] MEDS: Atorvastatin Calcium 40 MG TAB PO SCH (21:27)
[2019-03-25 05:41] LABS: #Eosinphils 0.1 thou/uL (0.0-0.7); #Lymphocytes 0.8 thou/uL (1.20-3.40); #Monocytes 0.7 thou/uL (0.11-0.59); #Neutrophils 2.9 thou/uL (1.40-6.50); %Basophils 0.9 % (0.0-1.0); %Eosinophils 2.8 % (0.0-10.0); %Lymphocytes 17.5 % (21.0-51.0); %Monocytes 14.4 % (0.0-10.0); %Neutrophils 64.3 % (42.0-75.0); Hemoglobin 8.9 g/dL (14.0-18.0); Mean Corpuscular HGB CONC 33.3 g/dL (32.0-36.0); Mean Corpuscular Hemoglobin 33.6 pg (27.0-31.0); Mean Platelet Volume 10.7 fL (7.4-10.4); Platelet Count 105 thou/uL (130-400); RBC Distribution Width 18.5 % (11.5-14.5); Red Blood Cell (RBC) Count 2.65 mill/uL (4.70-6.10); White Blood Cell (WBC) Count 4.6 thou/uL (4.8-10.8)
[2019-03-25 05:56] LABS: Anion Gap 13 mmol/L (10-20); BUN (Urea Nitrogen) 28 mg/dL (8.4-25.7); Calc. Creatinine Clearance 33 mL/min (70-130); Calcium 9.1 mg/dL (7.8-10.44); Carbon Dioxide 29 mmol/L (23-31); Chloride 99 mmol/L (98-107); Estimated GFR-MDRD 38; Glucose 87 mg/dL (83-110); Sodium 138 mmol/L (136-145)
--- NOTE | 2019-03-25 07:48 | PDOC.PN ---
- Subjective Encounter Start Date: 03/25/19 Encounter Start Time: 07:47 Subjective: cont to be confused and non-verbal - Objective Resuscitation Status - Order Detail: 03/16/19 22:27 Resuscitation Status Routine Resuscitation Status: FULL: Full Resuscitation Discussed with: Full code - Confirmed with daughter JULIANNE FARLEY Reviewed: Yes Vital Signs & Weight: Vital Signs (12 hours) Temp Pulse Resp BP BP Pulse Ox 03/25/19 07:26 97.8 F 78 18 129/60 93 L 03/25/19 04:00 97.7 F 03/24/19 21:27 65 96/55 L 03/24/19 20:00 98.2 F 65 20 96/55 L 93 L Weight Weight 153 lb 1 oz Most Recent Monitor Data Heart Rate from ECG 70 NIBP 132/79 NIBP BP-Mean 96 Respiration from ECG 21 SpO2 93 I&O: 03/24/19 03/25/19 03/26/19 06:59 06:59 06:59 Intake Total 520 Balance 520 Result Diagrams: 03/25/19 05:00 03/25/19 05:01 Phys Exam - Physical Examination Neck: no JVD post rhonchi, coarse BS Cardiovascular: RRR, no significant murmur Gastrointestinal: soft, positive bowel sounds Musculoskeletal: no edema Dx/Plan (1) Cellulitis and abscess of upper arm and forearm Code(s): CLS8636 - Status: Acute Comment: suspect thrombophelbitis rather cellulitis (2) PNA (pneumonia) Code(s): J18.9 - PNEUMONIA, UNSPECIFIED ORGANISM Status: Acute Qualifiers: Pneumonia type: aspiration pneumonia Laterality: right Lung location: lower lobe of lung (3) Altered mental status Code(s): R41.82 - ALTERED MENTAL STATUS, UNSPECIFIED Status: Acute Qualifiers: Altered mental status type: unspecified Qualified Code(s): R41.82 - Altered mental status, unspecified (4) Hypokalemia Code(s): E87.6 - HYPOKALEMIA Status: Acute (5) Type [address] elevation Code(s): I21.A1 - MYOCARDIAL INFARCTION TYPE 2 Status: Acute (6) Anemia, normocytic normochromic Code(s): D64.9 - ANEMIA, UNSPECIFIED Status: Chronic Comment: on weekly "shots" ,[facility] (7) Anticoagulant long-term use Code(s): Z79.01 - [facility] [place] (CURRENT) USE OF ANTICOAGULANTS Status: Chronic (8) Atrial fibrillation Code(s): I48.91 - UNSPECIFIED ATRIAL FIBRILLATION Status: Chronic Qualifiers: Atrial fibrillation type: chronic Qualified Code(s): I48.2 - Chronic atrial fibrillation Comment: on xarelto chronically (9) CAD (coronary artery disease) Code(s): I25.10 - ATHSCL HEART DISEASE OF [place] CORONARY ARTERY W/O ANG PCTRS Status: Chronic Qualifiers: Coronary Disease-Associated Artery/Lesion type: [place] artery [place] vs. transplanted heart: [place] heart Associated angina: without angina Qualified Code(s): I25.10 - Atherosclerotic heart disease of [place] coronary artery without angina pectoris Comment: cont ASA,statin,BB,renaexa,Isosorbide.no BRYNN-I/ARB d/t low BP (10) CKD (chronic kidney disease) stage 3, GFR 30-59 ml/min Code(s): N18.3 - CHRONIC KIDNEY DISEASE, STAGE 3 (MODERATE) Status: Chronic (11) Chronic systolic heart failure, ACC/AHA stage C Code(s): I50.22 - CHRONIC SYSTOLIC (CONGESTIVE) HEART FAILURE Status: Chronic Comment: stable (12) Dyslipidemia Code(s): E78.5 - HYPERLIPIDEMIA, UNSPECIFIED Status: Chronic (13) GERD (gastroesophageal reflux disease) Code(s): K21.9 - GASTRO-ESOPHAGEAL REFLUX DISEASE WITHOUT ESOPHAGITIS Status: Chronic (14) Hypertension Code(s): I10 - ESSENTIAL (PRIMARY) HYPERTENSION Status: Chronic Qualifiers: Hypertension type: essential hypertension Qualified Code(s): I10 - Essential (primary) hypertension (15) PVD (peripheral vascular disease) Code(s): I73.9 - PERIPHERAL VASCULAR DISEASE, UNSPECIFIED Status: Chronic (16) Seizure disorder Code(s): G40.909 - EPILEPSY, UNSP, NOT INTRACTABLE, WITHOUT STATUS EPILEPTICUS Status: Chronic Comment: stable. cont keppra (17) Bacteremia Code(s): R78.81 - BACTEREMIA Status: Acute Comment: Acinetobacter 2/2 samples.On cefepime (18) GI bleeding Code(s): K92.2 - GASTROINTESTINAL HEMORRHAGE, UNSPECIFIED Status: Acute Comment: EGD negtive for any bleeding process.Susoect mild Bleed from AVM as pt on Xarelto.monitor serial H/h.Xarelto re-started - Plan IVANNA verbal report neg -: rpt CXR, discuss with ID -: then reevaluate * .
--- NOTE | 2019-03-25 08:13 | RAD ---
Chest AP view INDICATION: History of respiratory distress and follow-up CHF COMPARISON: March 18, 2019 FINDINGS: Lungs:There is improvement in the central edema pattern. Cardiac silhouette pulmonary vasculature:Cardiomegaly and pulmonary vascular congestion has improved. Pleural spaces:Small pleural effusions are smaller Upper abdomen:No abnormality seen. Osseous structures: Rib deformities of the right chest wall are stable. Additional findings:Post-CABG change and dual-lead pacemaker is stable. IMPRESSION: Improving CHF
[2019-03-25] MEDS ORDERED: Potassium Chloride 20 MEQ in Premix Bag 1 BAG IVPB SCH (08:30)
--- NOTE | 2019-03-25 08:46 | PRG ---
DATE OF SERVICE: 03/25/2019 SUBJECTIVE: Mr. Willis is an 83-year-old white male, who is being followed up by the Renal Service for his chronic renal failure. Yesterday, creatinine was noted to have worsened to value of 1.8. We decided to decrease his diuretic regimen at that time. His main problem at the present time is his mentation. The patient is not following verbal commands, but can be awakened. The working diagnosis is that he may have metabolic encephalopathy. CAT scan of the head was done, which showed no evidence of any acute intracranial abnormality. Our IVANNA, verbal report was said to be within normal. OBJECTIVE: VITAL SIGNS: Blood pressure is 129/60, heart rate 78, respiratory rate 18, temperature 97.8, and pulse ox 93%. GENERAL: The patient is awake, but nonverbal. SKIN: Adequate turgor. HEENT: He has slightly pale conjunctivae. Anicteric sclerae. NECK: No neck mass. No carotid bruits. No JVD. CHEST: No deformities. LUNGS: Decreased breath sounds. HEART: Normal sinus rhythm. No murmurs. No gallops. No rubs. ABDOMEN: Globular, soft, nontender. No masses. EXTREMITIES: No edema. MEDICATIONS: Medications of March 25, 2019, were reviewed. LABORATORY DATA: Laboratories of March 25, 2019; white count 4.6, hemoglobin 8.9. Sodium 138, potassium 3, chloride 99, carbon dioxide 29, BUN 28, creatinine 1.75, glucose 87, calcium 9.1. ASSESSMENT AND PLAN: 1. Acute kidney injury/chronic renal failure-slightly improved creatinine. Diuretics have been decreased to 40 mg tablet daily. No indication for any dialytic intervention. He most likely has superimposed prerenal azotemia. 2. Anemia continue to observe. P.r.n. blood transfusion. 3. Metabolic encephalopathy. Supportive care. CAT scan of the head was essentially showing no acute intracranial abnormality. 4. Bacteremia-on IV antibiotics. Verbal report on the IVANNA was said to have been negative. 5. Continue supportive care. Job ID: [id number]
[2019-03-25] MEDS: Cefepime 2 GM in Sodium Chloride 0.9% 100 ML IVPB SCH (09:14)
[2019-03-25] MEDS: levETIRAcetam 500 MG TAB PO SCH ×2 (09:14→09:37)
[2019-03-25] MEDS: Benzonatate 100 MG CAP PO SCH ×4 (09:14→19:53)
[2019-03-25] MEDS: Carvedilol 6.25 MG TAB PO SCH ×2 (09:16→16:07)
[2019-03-25] MEDS: Isosorbide Dinitrate 5 MG TAB PO SCH ×2 (09:17→19:55)
[2019-03-25] MEDS: Ferrous Sulfate 325 MG TAB PO SCH (09:17)
[2019-03-25] MEDS: hydrALAZINE 25 MG TAB PO SCH ×3 (09:17→20:00)
[2019-03-25] MEDS: Furosemide 20 MG TAB PO SCH (09:17)
[2019-03-25] MEDS: Aspirin 81 mg Enteric Coated Tablet PO SCH (09:17)
[2019-03-25] MEDS: Saccharomyces boulardii 250 MG CAP PO SCH (09:18)
[2019-03-25] MEDS: Ciprofloxacin Lactate/D5W 200 MG in Premix Bag 1 BAG IVPB SCH ×2 (11:33→23:07)
--- NOTE | 2019-03-25 12:46 | ECHO ---
DATE OF SERVICE: 03/24/19 PREPROCEDURE DIAGNOSIS: Positive blood cultures. Concern for endocarditis. The Anesthesiology department provided with sedation for the patient. Please see their notes for det ails. After adequate sedation was achieved, transesophageal probe was inserted into the mouth and into the esophagus without issues. Multiplanar views were obtained. Left ventricle is mildly dilated with LV function reduced estimated about 35-40%. Left atrium is mildly dilated. Patient is in atrial fibrillation during the test. Left atrial appendage is a small appendage. It is patent without any evidence of mass or thrombus. Right atrium is normal size. There is pacer wire seen without any evidence of flailing masses or vege tation. The right ventricle is normal size. Aortic valve is sclerotic but opens well. Has three cusps. No stenosis. There is mild aortic insuffic iency. No vegetations. Mitral valve is structurally normal. No stenosis. Moderate mitral regurgitation. No vegetations. Tricuspid valve is structurally normal. There is moderate to severe TR. No stenosis. No vegetations. Pulmonary valve is structurally normal. There is mild PI. No stenosis. No vegetations. CONCLUSIONS: 1. Reduced EF at 35-40%. 2. Biatrial enlargement. 3. Left atrial appendage is widely patent without masses or thrombus. 4. Pacer wires are without any obvious evidence of flailing masses or vegetations. 5. Aortic valve sclerosis with mild AI. No vegetations. 6. Moderate MR. No vegetations. 7. Moderate to severe TR without vegetations. 8. Mild PI without vegetations.
--- NOTE | 2019-03-25 13:11 | PRG ---
DATE OF SERVICE: 03/25/2019 SUBJECTIVE: Mr. Willis has sustained worsening of his mental status. He is able to open his eyes spontaneously, but does not establish eye contact and does not answer to questions or verbalize anything. This has been going on for the past 3 days reportedly, there has been no diarrhea. He continues to receive cefepime and he had the transesophageal echocardiogram which reportedly has not shown any evidence of vegetation in the lead. OBJECTIVE: VITAL SIGNS: The temperature has been normal, BP 124/61, pulse 63, respirations are 14, and O2 saturation 95%. GENERAL: The patient is awake, but does not again communicate. He opens his eyes, looks around, but does not establish eye contact. EXTREMITIES he is able to move extremities without a purposes. LUNGS: Clear. HEART: S1 and S2, regular rate. ABDOMEN: Soft. Not distended. The right side antecubital fossa area of thrombophlebitis has displayed quite a bit of improvement of late. LABORATORY DATA: White cell count 4.6, hemoglobin 8.9, platelets and 105,000. Chemistry with a creatinine of 1.75, which is a little bit higher than on admission; sodium 138, and potassium 3.0. Microbiology with Acinetobacter. The blood cultures have not been repeated. ASSESSMENT: Ischemic cardiomyopathy, chronic renal insufficiency stage III, seizure disorder, atrial fibrillation, altered mental status, pacemaker; Acinetobacter bacteremia, 2/2 sets; thrombophlebitis, right antecubital fossa. DISCUSSION: I have not been able to find the report of the IVANNA. It probably was not transcribed yet, but if it is true that there were no vegetations, then we will probably ascribe the Acinetobacter bacteremia to the right antecubital fossa thrombophlebitis. At this point, we will discontinue cefepime since it can be associated with mental status changes and see if that leads to improvement of his cognition. Switch him to ciprofloxacin, adjusted for renal function. The duration of therapy will be around two weeks assuming septic thrombophlebitis. Job ID: [id number] [facility]
[2019-03-25] MEDS: D5 1/4 NS 1,000 ML IV SCH (16:04)
[2019-03-25] MEDS: Rivaroxaban 10 MG TAB PO SCH (16:06)
--- NOTE | 2019-03-25 17:23 | PDOC.CTH ---
Cardiology Progress Note - Subjective Still confused, not opening his eyes and non verbal. - Objective Vital Signs Temp Pulse Resp BP Pulse Ox 03/25/19 16:14 98.0 F 88 18 146/69 H 95 03/25/19 15:42 63 03/25/19 11:38 98.0 F 63 14 124/61 95 03/25/19 09:15 93 L 03/25/19 07:26 97.8 F 78 18 129/60 93 L Weight 153 lb 1 oz 03/24/19 03/25/19 03/26/19 06:59 06:59 06:59 Intake Total 520 Balance 520 - Physical Examination General/Neuro: NAD, other: (non verbal) Neck: no JVD present Lungs: CTA, unlabored respirations Heart: other: (irreg irreg) Abdomen: NT/ND Extremities: other: (1+) - Telemetry Telemetry Rhythm: Afib HR 80's - Labs Result Diagrams: 03/25/19 05:00 03/25/19 05:01 Troponin/CKMB CK-MB (CK-2) 1.4 ng/mL (0-6.6) 03/17/19 05:21 Troponin I 0.074 ng/mL (< 0.028) H 03/17/19 05:21 - Assessment/Plan 1. Acute on chronic systolic heart failure, improving. 2. Gram neg Gilberto bacteremia. Acinetobacter Iwoffi. 3. RUE celullitis. 4. Ischemic CM. 5. Chronic afib 6. Anemia PLAN: - Refusing all PO meds. - IV abx per primary team. - Replace K. - If no improvement in the next [address] head make sure he did not have an embolic stroke which would not show up on initial CT.
[2019-03-25] MEDS: Atorvastatin Calcium 40 MG TAB PO SCH (19:54)
--- NOTE | 2019-03-26 | CON ---
DATE OF CONSULTATION: 03/25/2019 CONSULTING PHYSICIAN: Hospitalist Service. IMPRESSION: Encephalopathy, possibly secondary to cefepime versus subclinical seizures versus other metabolic factors. PLAN: 1. Change Keppra to IV dosing. 2. Check B12, cortisol, and ammonia level. 3. Consider EEG if the situation does not improve. HISTORY OF PRESENT ILLNESS: Mr. Willis is an 83-year-old gentleman with a past history of seizures, transient encephalopathy, presented with some mental status changes. He was found to be septic. Infectious Disease was consulted and he was started on antibiotics. His mental status seemed to deteriorate. He had a CT scan of the brain done, which was unremarkable other than some small-vessel ischemic changes. His BNP is elevated at 3042. His electrolytes were otherwise unremarkable other than a mildly elevated creatinine of 1.7. He has been afebrile for the last 24 hours. No seizure activity has been witnessed. He was able to eat soup while being fed by his daughter. He tends to keep his eyes closed. He is not following commands. Otherwise, they have not been able to get him out of bed. PAST MEDICAL HISTORY: As listed above. ALLERGIES: NONE REPORTED. SOCIAL HISTORY: No tobacco or drug use known. FAMILY HISTORY: Not obtainable. REVIEW OF SYSTEMS: Ten-system review of systems is not obtainable. PHYSICAL EXAMINATION: GENERAL: He is a thin elderly man, lying in bed with his eyes closed and moving frequently. HEENT: Pupils are equal. Conjunctivae are clear. He resisted eye opening. His face appeared to be symmetric. NECK: Supple. NEURO: He has bilateral antigravity movement. No abnormal movements were seen otherwise. Gait was not testable. EXTREMITIES: Without any edema, but there was diffuse ecchymosis on the upper extremities. LABORATORY DATA: EKG shows a paced rhythm. CT of the brain was reviewed and appears unremarkable. SUMMARY: This is an elderly man with an acute encephalopathy in the midst of sepsis and potentially aggravated by his antibiotic. I will follow up on the possibility of subclinical seizures if he fails to improve. Job ID: [id number]
[2019-03-26] MEDS: D5 1/4 NS 1,000 ML IV SCH (03:22)
[2019-03-26 03:56] LABS: Anion Gap 11 mmol/L (10-20); BUN (Urea Nitrogen) 27 mg/dL (8.4-25.7); Calc. Creatinine Clearance 34 mL/min (70-130); Carbon Dioxide 30 mmol/L (23-31); Chloride 101 mmol/L (98-107); Estimated GFR-MDRD 39; Glucose 111 mg/dL (83-110); Sodium 139 mmol/L (136-145)
[2019-03-26 03:58] LABS: Potassium 2.7 mmol/L (3.5-5.1)
[2019-03-26 04:38] LABS: Anisocytosis SLIGHT = 6-15 cells (100X) (0-5/hpf); Band 7 % (5-11); Eosinophils 1 % (0-10); Hemoglobin 8.7 g/dL (14.0-18.0); Lymphocytes 16 % (21-51); MDiff Complete? YES; Mean Corpuscular HGB CONC 33.5 g/dL (32.0-36.0); Mean Corpuscular Hemoglobin 34.1 pg (27.0-31.0); Mean Platelet Volume 10.4 fL (7.4-10.4); Monocytes 9 % (0-10); Neutrophil 67 % (42-75); Platelet Count 104 thou/uL (130-400); Platelet Morphology Comment Appears Decreased; RBC Distribution Width 18.7 % (11.5-14.5); Red Blood Cell (RBC) Count 2.56 mill/uL (4.70-6.10); White Blood Cell (WBC) Count 4.9 thou/uL (4.8-10.8)
[2019-03-26] MEDS ORDERED: Potassium Chloride 40 MEQ in Sodium Chloride 0.9% 250 ML 250 ML IVPB SCH ×2 (09:45→17:45)
[2019-03-26] MEDS ORDERED: Potassium Phosphate 30 MMOL in Sodium Chloride 0.9% 500 ML IVPB SCH (10:00)
[2019-03-26] MEDS: Furosemide 20 MG TAB PO SCH (10:18)
[2019-03-26] MEDS: Benzonatate 100 MG CAP PO SCH ×3 (10:23→20:26)
[2019-03-26] MEDS: Ciprofloxacin Lactate/D5W 200 MG in Premix Bag 1 BAG IVPB SCH ×2 (10:29→22:59)
[2019-03-26] MEDS: Carvedilol 6.25 MG TAB PO SCH ×2 (10:47→18:48)
[2019-03-26] MEDS: Aspirin 81 mg Enteric Coated Tablet PO SCH (10:48)
[2019-03-26] MEDS: Isosorbide Dinitrate 5 MG TAB PO SCH ×2 (10:48→20:27)
[2019-03-26] MEDS: hydrALAZINE 25 MG TAB PO SCH ×3 (10:48→20:27)
[2019-03-26] MEDS: Ferrous Sulfate 325 MG TAB PO SCH (10:48)
[2019-03-26] MEDS: Saccharomyces boulardii 250 MG CAP PO SCH (10:49)
--- NOTE | 2019-03-26 11:51 | PDOC.HOSPP ---
- Subjective non-verbal Subjective: non-purposefull motions - Objective Vital Signs & Weight: Vital Signs (12 hours) Temp Pulse Resp BP Pulse Ox 03/26/19 09:54 97.9 F 68 20 128/60 94 L 03/26/19 04:00 97.4 F L 73 21 H 135/64 95 Weight Weight 155 lb 3.2 oz Most Recent Monitor Data Heart Rate from ECG 70 NIBP 132/79 NIBP BP-Mean 96 Respiration from ECG 21 SpO2 93 I&O: 03/25/19 03/26/19 03/27/19 06:59 06:59 06:59 Intake Total 520 1100 Balance 520 1100 Result Diagrams: 03/26/19 03:25 03/26/19 03:25 ROS - Review of Systems All systems: All other ROS were reviewed and found negative. - Medication Medications: Active Medications Generic Name Dose Route Start Last Admin Trade Name Freq PRN Reason Stop Dose Admin Aspirin 81 mg 03/17/19 09:00 03/26/19 10:48 Ecotrin PO Not Given [facility] Atorvastatin Calcium 80 mg 03/17/19 21:00 03/25/19 19:54 Lipitor PO Not Given HS JUNIOR Benzonatate 100 mg 03/23/19 15:00 03/26/19 10:23 Tessalon PO 100 mg TID JUNIOR Administration Carvedilol 6.25 mg 03/17/19 08:00 03/26/19 10:47 Coreg PO Not Given BID-WM JUNIOR Epoetin Shane-epbx 7,500 unit 03/22/19 12:00 03/22/19 11:39 Retacrit SC 7,500 unit Q7D JUNIOR Administration Ferrous Sulfate 325 mg 03/23/19 08:00 03/26/19 10:48 Feosol PO Not Given QAM-WM JUNIOR Furosemide 40 mg 03/24/19 09:00 03/26/19 10:18 Lasix PO 40 mg DAILY JUNIOR Administration Guaifenesin/Codeine Phosphate 10 ml 03/22/19 10:10 03/23/19 00:17 Robitussin Ac PO 10 ml Q6H PRN Administration Cough Hydralazine HCl 25 mg 03/22/19 09:00 03/26/19 10:48 Apresoline PO Not Given TID JUNIOR Ciprofloxacin/Dextrose 200 mg/ 100 mls @ 100 mls/hr 03/25/19 11:00 03/26/19 10:29 Device IVPB 100 mls 1100,2300 JUNIOR Administration Levetiracetam 500 mg/ Device 100 mls @ 200 mls/hr 03/26/19 09:00 03/26/19 10: 02 IVPB 100 mls BID JUNIOR Administration Potassium Chloride 40 meq/ 270 mls @ 67.5 mls/hr 03/26/19 09:45 03/26/19 11: 47 Sodium Chloride IVPB 03/26/19 14:00 270 mls 0945 JUNIOR Administration Isosorbide Dinitrate 5 mg 03/17/19 09:00 03/26/19 10:48 Isordil PO Not Given BID JUNIOR Pantoprazole Sodium 40 mg 03/17/19 09:00 03/26/19 10:48 Protonix PO Not Given QAM JUNIOR Ranolazine 1,000 mg 03/17/19 09:00 03/26/19 10:49 Ranexa PO Not Given BID JUNIOR Rivaroxaban 15 mg 03/21/19 18:00 03/25/19 16:06 Xarelto PO 15 mg 1800 JUNIOR Administration Saccharomyces Boulardii 250 mg 03/17/19 09:00 03/26/19 10:49 Florastor PO Not Given DAILY JUNIOR Sodium Chloride 10 ml 03/19/19 09:00 03/26/19 10:33 Flush - Normal Saline IVF Not Given Q12HR JUNIOR - Exam Neck: JVD Heart: no murmur, irregular Respiratory: rhonchi Gastrointestinal: soft, non-tender, normal bowel sounds Extremities: no edema Hosp A/P (1) Cellulitis and abscess of upper arm and forearm Code(s): ZLB2037 - Status: Resolved (2) PNA (pneumonia) Code(s): J18.9 - PNEUMONIA, UNSPECIFIED ORGANISM Status: Acute Qualifiers: Pneumonia type: aspiration pneumonia Laterality: right Lung location: lower lobe of lung (3) Altered mental status Code(s): R41.82 - ALTERED MENTAL STATUS, UNSPECIFIED Status: Acute Qualifiers: Altered mental status type: unspecified Qualified Code(s): R41.82 - Altered mental status, unspecified (4) Hypokalemia Code(s): E87.6 - HYPOKALEMIA Status: Acute (5) Type [address] elevation Code(s): I21.A1 - MYOCARDIAL INFARCTION TYPE 2 Status: Resolved (6) Anemia, normocytic normochromic Code(s): D64.9 - ANEMIA, UNSPECIFIED Status: Chronic (7) Anticoagulant long-term use Code(s): Z79.01 - ACID BATH MIXER (CURRENT) USE OF ANTICOAGULANTS Status: Chronic (8) Atrial fibrillation Code(s): I48.91 - UNSPECIFIED ATRIAL FIBRILLATION Status: Chronic Qualifiers: Atrial fibrillation type: chronic Qualified Code(s): I48.2 - Chronic atrial fibrillation (9) CAD (coronary artery disease) Code(s): I25.10 - ATHSCL HEART DISEASE OF [place] CORONARY ARTERY W/O ANG PCTRS Status: Chronic Qualifiers: Coronary Disease-Associated Artery/Lesion type: [place] artery [place] vs. transplanted heart: [place] heart Associated angina: without angina Qualified Code(s): I25.10 - Atherosclerotic heart disease of [place] coronary artery without angina pectoris (10) CKD (chronic kidney disease) stage 3, GFR 30-59 ml/min Code(s): N18.3 - CHRONIC KIDNEY DISEASE, STAGE 3 (MODERATE) Status: Chronic (11) Chronic systolic heart failure, ACC/AHA stage C Code(s): I50.22 - CHRONIC SYSTOLIC (CONGESTIVE) HEART FAILURE Status: Chronic (12) Dyslipidemia Code(s): E78.5 - HYPERLIPIDEMIA, UNSPECIFIED Status: Chronic (13) GERD (gastroesophageal reflux disease) Code(s): K21.9 - GASTRO-ESOPHAGEAL REFLUX DISEASE WITHOUT ESOPHAGITIS Status: Chronic (14) Hypertension Code(s): I10 - ESSENTIAL (PRIMARY) HYPERTENSION Status: Chronic Qualifiers: Hypertension type: essential hypertension Qualified Code(s): I10 - Essential (primary) hypertension (15) PVD (peripheral vascular disease) Code(s): I73.9 - PERIPHERAL VASCULAR DISEASE, UNSPECIFIED Status: Chronic (16) Seizure disorder Code(s): G40.909 - EPILEPSY, UNSP, NOT INTRACTABLE, WITHOUT STATUS EPILEPTICUS Status: Chronic (17) Bacteremia Code(s): R78.81 - BACTEREMIA Status: Acute (18) GI bleeding Code(s): K92.2 - GASTROINTESTINAL HEMORRHAGE, UNSPECIFIED Status: Acute Qualifiers: GI bleed type/associated pathology: unspecified gastrointestinal hemorrhage type Qualified Code(s): K92.2 - Gastrointestinal hemorrhage, unspecified - Plan plan discussed w/ family, continue antibiotics cont iv fluids, add K+ to iv fluids. EEG pending. CXR ordered. cont iv cipro. prognosis guarded.
--- NOTE | 2019-03-26 12:48 | RAD ---
PORTABLE AP CHEST X-RAY: 03/26/19 HISTORY: Possible aspiration. Aspiration risk. COMPARISON: 03/25/19. FINDINGS: Dual lead left subclavian cardiac pacemaker device remains in place. 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 Cardiac silhouette is magnified by projection but stable in size. There is biba silar atelectasis with suggestion of tiny bilateral pleural effusions. Pulmonary vasculature is at th e upper limits of normal in size. Vascular calcification seen in the thoracic aorta. There has been n o significant interval change compared to the prior exam. IMPRESSION: Stable chest. POS: C
--- NOTE | 2019-03-26 17:28 | PDOC.CTH ---
Cardiology Progress Note - Subjective No new issues. Remains confused. - Objective Vital Signs Temp Pulse Pulse Pulse Resp BP BP 03/26/19 16:21 98.4 F 60 18 03/26/19 14:46 66 83 130/63 115/63 03/26/19 12:10 97.6 F 64 20 03/26/19 09:54 97.9 F 68 20 BP Pulse Ox 03/26/19 16:21 132/61 97 03/26/19 14:46 03/26/19 12:10 150/89 H 95 03/26/19 09:54 128/60 95 Admit Weight 179 lb 3.2 oz Weight 155 lb 3.2 oz 03/25/19 03/26/19 03/27/19 06:59 06:59 06:59 Intake Total 520 1100 Balance 520 1100 - Physical Examination General/Neuro: NAD Neck: no JVD present Lungs: unlabored respirations Heart: other: (Ireg irreg) Abdomen: NT/ND Extremities: other: (no edema) - Telemetry Telemetry Rhythm: Afib HR 70's. - Labs Result Diagrams: 03/26/19 03:25 03/26/19 03:25 Troponin/CKMB CK-MB (CK-2) 1.4 ng/mL (0-6.6) 03/17/19 05:21 Troponin I 0.074 ng/mL (< 0.028) H 03/17/19 05:21 - Assessment/Plan 1. Acute on chronic systolic heart failure, improving. 2. Gram neg Gilberto bacteremia. Acinetobacter Iwoffi. 3. RUE celullitis. 4. Ischemic CM. 5. Chronic afib 6. Anemia 7. AMS, encephalopathy. May be metabolic, medication related or status. Neurology on board. PLAN: - Refusing all PO meds. - IV abx per primary team. - Replace K. - Consider repeat CT head if no improvement.
--- NOTE | 2019-03-26 17:49 | PRG ---
DATE OF SERVICE: 03/26/2019 SERVICE: Renal Medicine. SUBJECTIVE: Mr. Willis is an 83-year-old white male, followed up by the Renal Service for his acute/chronic renal failure. Renal function has been stable with adjustment of his diuretics. He was also noted to have mentation changes. Metabolic encephalopathy was considered. Currently, an EEG has been ordered. The other possibility is that this patient may have side effects from the IV antibiotics. Cortisol and ammonia level have been recommended to be checked. No complaints of chest pain or shortness of breath. OBJECTIVE: VITAL SIGNS: Blood pressure is 132/61, heart rate 60, respiratory rate 18, temperature 98.4, and pulse ox 97%. GENERAL: The patient is awake, but confused, is not following verbal commands. SKIN: Adequate turgor. HEENT: Pinkish conjunctivae. Anicteric sclerae. NECK: No neck mass. No carotid bruits. No JVD. CHEST: No deformities. LUNGS: Clear breath sounds. HEART: Normal sinus rhythm. No murmur. No gallops. No rubs. ABDOMEN: Globular, soft, nontender. No masses. EXTREMITIES: No edema. No deformities. MEDICATIONS: Medications of March 26, 2019, were reviewed. LABORATORY DATA: Laboratories of March 26, 2019; white count 4.9 and hemoglobin 8.7. Sodium 139, potassium 2.7, chloride 101, carbon dioxide 30, BUN 27, creatinine 1.68, glucose 111, and calcium 9.0. Cortisol level 8.7. ASSESSMENT AND PLAN: 1. Decreased mentation - consider metabolic encephalopathy. Neurology has evaluated the patient. The EEG has been recommended. Please note, a CAT scan of the brain was negative. 2. Acute kidney injury/chronic renal failure. Stabilizing renal function with adjustment of his diuretics. There is no indication for any dialytic intervention. Overall, agree with current management. Job ID: [id number]
[2019-03-26] MEDS: Rivaroxaban 10 MG TAB PO SCH (18:46)
[2019-03-26] MEDS: Atorvastatin Calcium 40 MG TAB PO SCH (20:26)
[2019-03-27 05:24] LABS: #Eosinphils 0.1 thou/uL (0.0-0.7); #Lymphocytes 0.9 thou/uL (1.20-3.40); #Monocytes 0.6 thou/uL (0.11-0.59); #Neutrophils 2.7 thou/uL (1.40-6.50); %Basophils 0.6 % (0.0-1.0); %Eosinophils 3.2 % (0.0-10.0); %Lymphocytes 20.5 % (21.0-51.0); %Monocytes 12.8 % (0.0-10.0); %Neutrophils 62.9 % (42.0-75.0); Mean Corpuscular HGB CONC 34.5 g/dL (32.0-36.0); Mean Corpuscular Hemoglobin 34.7 pg (27.0-31.0); Mean Platelet Volume 10.7 fL (7.4-10.4); Platelet Count 104 thou/uL (130-400); RBC Distribution Width 18.7 % (11.5-14.5); White Blood Cell (WBC) Count 4.3 thou/uL (4.8-10.8)
[2019-03-27 05:39] LABS: Anion Gap 10 mmol/L (10-20); BUN (Urea Nitrogen) 20 mg/dL (8.4-25.7); Calc. Creatinine Clearance 37 mL/min (70-130); Calcium 8.8 mg/dL (7.8-10.44); Carbon Dioxide 29 mmol/L (23-31); Chloride 103 mmol/L (98-107); Estimated GFR-MDRD 43; Glucose 115 mg/dL (83-110); Potassium 3.7 mmol/L (3.5-5.1); Sodium 138 mmol/L (136-145)
[2019-03-27] MEDS: Furosemide 20 MG TAB PO SCH (09:03)
[2019-03-27] MEDS: Carvedilol 6.25 MG TAB PO SCH ×2 (09:06→17:55)
[2019-03-27] MEDS: Aspirin 81 mg Enteric Coated Tablet PO SCH (09:06)
--- NOTE | 2019-03-27 09:16 | PRG ---
DATE OF SERVICE: 03/27/2019 SUBJECTIVE: Mr. Willis is an 83-year-old white male, followed up by the Renal Service for his acute kidney injury on top of his chronic renal failure. Renal function has worsened in the last few days, but this has improved with adjustment of his diuretics. His hospitalization has also been marred by mental status change secondary to a presumed metabolic encephalopathy. Neurology has been consulted. CAT scan of the brain was essentially negative. EEG did not show any evidence of seizures. His mentation is still unimproved. No acute events noted last night. OBJECTIVE: VITAL SIGNS: Blood pressure 145/67, heart rate 65, respiratory rate 18, temperature 99.1, and pulse ox 95%. GENERAL EXAM: The patient has decreased mentation, not following commands. Not in distress. SKIN: Adequate turgor. HEENT: Slightly pale conjunctivae. Anicteric sclerae. NECK: No neck mass. No carotid bruits. No JVD. CHEST: No deformities. LUNGS: Decreased breath sounds. HEART: Normal sinus rhythm. No murmur. No gallops. No rubs. ABDOMEN: Globular, soft, nontender. No masses. EXTREMITIES: No edema. No deformities. MEDICATIONS: Medications of March 27, 2019, was reviewed. LABORATORY DATA: Laboratories of March 27, 2019; white count 4.2, hemoglobin 9. Sodium 138, potassium 3.7, chloride 103, carbon dioxide 29, BUN 20, creatinine 1.57, calcium is 8.8. Ammonia level is 28. Cortisol level is 8.7. ASSESSMENT AND PLAN: 1. Mental status change-most likely from an underlying metabolic encephalopathy. Continue supportive care. 2. Acute kidney injury on top of his chronic renal failure. Stabilizing renal function. Creatinine is now near baseline. He is on a low-dose furosemide at 40 mg tablet once a day. 3. Anemia. Continuing Epogen regimen-weekly at 7500 units subcu q.7 days. 4. Mild hypokalemia resolved with p.r.n. correction. 5. Continue supportive care. We will be rechecking another basic metabolic panel and CBC in the morning. Job ID: [id number]
--- NOTE | 2019-03-27 09:57 | PDOC.HOSPP ---
- Subjective non-verbal - Objective Vital Signs & Weight: Vital Signs (12 hours) Temp Pulse Resp BP Pulse Ox 03/27/19 07:46 99.1 F 65 18 145/67 H 95 03/27/19 03:56 98.4 F 65 18 134/63 96 Weight Admit Weight 179 lb 3.2 oz Weight 156 lb 6.4 oz Most Recent Monitor Data Heart Rate from ECG 70 NIBP 132/79 NIBP BP-Mean 96 Respiration from ECG 21 SpO2 93 I&O: 03/26/19 03/27/19 03/28/19 06:59 06:59 06:59 Intake Total 1100 2190 Output Total 600 Balance 1100 1590 Result Diagrams: 03/27/19 04:49 03/27/19 04:49 ROS - Review of Systems All systems: All other ROS were reviewed and found negative. - Medication Medications: Active Medications Generic Name Dose Route Start Last Admin Trade Name Freq PRN Reason Stop Dose Admin Aspirin 81 mg 03/17/19 09:00 03/27/19 09:06 Ecotrin PO 81 mg QAM JUNIOR Administration Atorvastatin Calcium 80 mg 03/17/19 21:00 03/26/19 20:26 Lipitor PO Not Given HS JUNIOR Benzonatate 100 mg 03/23/19 15:00 03/26/19 20:26 Tessalon PO Not Given TID JUNIOR Carvedilol 6.25 mg 03/17/19 08:00 03/27/19 09:06 Coreg PO 6.25 mg BID-WM JUNIOR Administration Epoetin Shane-epbx 7,500 unit 03/22/19 12:00 03/22/19 11:39 Retacrit SC 7,500 unit Q7D JUNIOR Administration Ferrous Sulfate 325 mg 03/23/19 08:00 03/26/19 10:48 Feosol PO Not Given QAM-WM JUNIOR Furosemide 40 mg 03/24/19 09:00 03/27/19 09:03 Lasix PO 40 mg DAILY JUNIOR Administration Guaifenesin/Codeine Phosphate 10 ml 03/22/19 10:10 03/23/19 00:17 Robitussin Ac PO 10 ml Q6H PRN Administration Cough Hydralazine HCl 25 mg 03/22/19 09:00 03/26/19 20:27 Apresoline PO Not Given TID JUNIOR Ciprofloxacin/Dextrose 200 mg/ 100 mls @ 100 mls/hr 03/25/19 11:00 03/26/19 22:59 Device IVPB 100 mls 1100,2300 JUNIOR Administration Levetiracetam 500 mg/ Device 100 mls @ 200 mls/hr 03/26/19 09:00 03/27/19 09: 01 IVPB 100 mls BID JUNIOR Administration Potassium Chloride 40 meq/ 1,020 mls @ 100 mls/hr 03/26/19 09:15 03/27/19 03: 01 Dextrose/Sodium Chloride IV Not Given .[id number] JUNIOR Isosorbide Dinitrate 5 mg 03/17/19 09:00 03/26/19 20:27 Isordil PO Not Given BID JUNIOR Pantoprazole Sodium 40 mg 03/17/19 09:00 03/26/19 10:48 Protonix PO Not Given QAM JUNIOR Ranolazine 1,000 mg 03/17/19 09:00 03/26/19 20:27 Ranexa PO Not Given BID JUNIOR Rivaroxaban 15 mg 03/21/19 18:00 03/26/19 18:46 Xarelto PO 15 mg 1800 JUNIOR Administration Saccharomyces Boulardii 250 mg 03/17/19 09:00 03/26/19 10:49 Florastor PO Not Given DAILY JUNIOR Sodium Chloride 10 ml 03/19/19 09:00 03/26/19 20:27 Flush - Normal Saline IVF 10 ml Q12HR JUNIOR Administration - Exam Neck: no JVD Heart: RRR, no murmur Respiratory: CTAB, no wheezes Gastrointestinal: soft, normal bowel sounds Extremities: no edema Hosp A/P (1) Cellulitis and abscess of upper arm and forearm Code(s): ALE7261 - Status: Resolved (2) PNA (pneumonia) Code(s): J18.9 - PNEUMONIA, UNSPECIFIED ORGANISM Status: Acute Qualifiers: Pneumonia type: aspiration pneumonia Laterality: right Lung location: lower lobe of lung (3) Altered mental status Code(s): R41.82 - ALTERED MENTAL STATUS, UNSPECIFIED Status: Acute Qualifiers: Altered mental status type: unspecified Qualified Code(s): R41.82 - Altered mental status, unspecified (4) Hypokalemia Code(s): E87.6 - HYPOKALEMIA Status: Acute (5) Anemia, normocytic normochromic Code(s): D64.9 - ANEMIA, UNSPECIFIED Status: Chronic (6) Anticoagulant long-term use Code(s): Z79.01 - RADIO PROGRAM CHECKER (CURRENT) USE OF ANTICOAGULANTS Status: Chronic (7) Atrial fibrillation Code(s): I48.91 - UNSPECIFIED ATRIAL FIBRILLATION Status: Chronic Qualifiers: Atrial fibrillation type: chronic Qualified Code(s): I48.2 - Chronic atrial fibrillation (8) CAD (coronary artery disease) Code(s): I25.10 - ATHSCL HEART DISEASE OF [place] CORONARY ARTERY W/O ANG PCTRS Status: Chronic Qualifiers: Coronary Disease-Associated Artery/Lesion type: [place] artery [place] vs. transplanted heart: [place] heart Associated angina: without angina Qualified Code(s): I25.10 - Atherosclerotic heart disease of [place] coronary artery without angina pectoris (9) CKD (chronic kidney disease) stage 3, GFR 30-59 ml/min Code(s): N18.3 - CHRONIC KIDNEY DISEASE, STAGE 3 (MODERATE) Status: Chronic (10) Chronic systolic heart failure, ACC/AHA stage C Code(s): I50.22 - CHRONIC SYSTOLIC (CONGESTIVE) HEART FAILURE Status: Chronic (11) Dyslipidemia Code(s): E78.5 - HYPERLIPIDEMIA, UNSPECIFIED Status: Chronic (12) GERD (gastroesophageal reflux disease) Code(s): K21.9 - GASTRO-ESOPHAGEAL REFLUX DISEASE WITHOUT ESOPHAGITIS Status: Chronic (13) Hypertension Code(s): I10 - ESSENTIAL (PRIMARY) HYPERTENSION Status: Chronic Qualifiers: Hypertension type: essential hypertension Qualified Code(s): I10 - Essential (primary) hypertension (14) PVD (peripheral vascular disease) Code(s): I73.9 - PERIPHERAL VASCULAR DISEASE, UNSPECIFIED Status: Chronic (15) Seizure disorder Code(s): G40.909 - EPILEPSY, UNSP, NOT INTRACTABLE, WITHOUT STATUS EPILEPTICUS Status: Chronic (16) Bacteremia Code(s): R78.81 - BACTEREMIA Status: Acute (17) GI bleeding Code(s): K92.2 - GASTROINTESTINAL HEMORRHAGE, UNSPECIFIED Status: Acute Qualifiers: GI bleed type/associated pathology: unspecified gastrointestinal hemorrhage type Qualified Code(s): K92.2 - Gastrointestinal hemorrhage, unspecified - Plan no definite improvement in mental status. eats when fed by family. cont iv cipro. expectant observation
[2019-03-27] MEDS: hydrALAZINE 25 MG TAB PO SCH ×3 (10:49→20:58)
[2019-03-27] MEDS: Isosorbide Dinitrate 5 MG TAB PO SCH ×2 (10:49→20:56)
[2019-03-27] MEDS: Benzonatate 100 MG CAP PO SCH ×3 (10:49→21:06)
[2019-03-27] MEDS: Ferrous Sulfate 325 MG TAB PO SCH (10:49)
[2019-03-27] MEDS: Saccharomyces boulardii 250 MG CAP PO SCH (10:50)
[2019-03-27] MEDS: Ciprofloxacin Lactate/D5W 200 MG in Premix Bag 1 BAG IVPB SCH ×2 (11:24→22:09)
--- NOTE | 2019-03-27 13:58 | PDOC.EVN ---
Event Note - Event Note Event Note: awake,alert,responsive- resolving psychosis due to cefepome
[2019-03-27] MEDS: Rivaroxaban 10 MG TAB PO SCH (17:55)
--- NOTE | 2019-03-27 19:49 | PDOC.CTH ---
Cardiology Progress Note - Subjective He is much better today, he is awake and conversing. Still mildly confused and not quite at his baseline but significant improvement. - Objective Vital Signs Temp Pulse Resp BP Pulse Ox 03/27/19 15:25 98.3 F 60 18 132/63 97 03/27/19 11:34 98.8 F 66 18 135/70 95 Admit Weight 179 lb 3.2 oz Weight 156 lb 6.4 oz 03/26/19 03/27/19 03/28/19 06:59 06:59 06:59 Intake Total 1100 2190 920 Output Total 600 650 Balance 1100 1590 270 - Physical Examination General/Neuro: NAD Neck: no JVD present Lungs: CTA, unlabored respirations Heart: RRR Abdomen: NT/ND Extremities: + edema B (Trace) - Telemetry Telemetry Rhythm: V paced. - Labs Result Diagrams: 03/27/19 04:49 03/27/19 04:49 Troponin/CKMB CK-MB (CK-2) 1.4 ng/mL (0-6.6) 03/17/19 05:21 Troponin I 0.074 ng/mL (< 0.028) H 03/17/19 05:21 - Assessment/Plan 1. Acute on chronic systolic heart failure, improving. 2. Gram neg Gilberto bacteremia. Acinetobacter Iwoffi. 3. RUE celullitis. 4. Ischemic CM. 5. Chronic afib 6. Anemia 7. AMS, encephalopathy. May be metabolic, medication related or status. Neurology on board. PLAN: - CV stable. - No new recs. - Will sign off. Please call with any questions.
[2019-03-27] MEDS: Bisacodyl 10 MG SUPP PR PRN (20:56)
[2019-03-27] MEDS: Atorvastatin Calcium 40 MG TAB PO SCH (21:06)
[2019-03-28 05:34] LABS: #Eosinphils 0.1 thou/uL (0.0-0.7); #Lymphocytes 0.9 thou/uL (1.20-3.40); #Monocytes 0.5 thou/uL (0.11-0.59); #Neutrophils 3.4 thou/uL (1.40-6.50); %Basophils 0.5 % (0.0-1.0); %Eosinophils 2.4 % (0.0-10.0); %Lymphocytes 17.6 % (21.0-51.0); %Monocytes 10.7 % (0.0-10.0); %Neutrophils 68.7 % (42.0-75.0); Hemoglobin 9.2 g/dL (14.0-18.0); Mean Corpuscular HGB CONC 34.2 g/dL (32.0-36.0); Mean Corpuscular Hemoglobin 34.5 pg (27.0-31.0); Mean Platelet Volume 10.6 fL (7.4-10.4); Platelet Count 101 thou/uL (130-400); RBC Distribution Width 18.6 % (11.5-14.5); Red Blood Cell (RBC) Count 2.67 mill/uL (4.70-6.10)
[2019-03-28 05:47] LABS: Anion Gap 11 mmol/L (10-20); BUN (Urea Nitrogen) 22 mg/dL (8.4-25.7); Calc. Creatinine Clearance 38 mL/min (70-130); Calcium 8.8 mg/dL (7.8-10.44); Carbon Dioxide 27 mmol/L (23-31); Chloride 105 mmol/L (98-107); Estimated GFR-MDRD 43; Glucose 98 mg/dL (83-110); Sodium 139 mmol/L (136-145)
[2019-03-28] MEDS: Furosemide 20 MG TAB PO SCH (08:24)
[2019-03-28] MEDS: Carvedilol 6.25 MG TAB PO SCH ×2 (08:25→18:32)
[2019-03-28] MEDS: Aspirin 81 mg Enteric Coated Tablet PO SCH (08:25)
[2019-03-28] MEDS: Isosorbide Dinitrate 5 MG TAB PO SCH ×2 (08:25→20:52)
[2019-03-28] MEDS: hydrALAZINE 25 MG TAB PO SCH ×3 (08:29→20:56)
[2019-03-28] MEDS: Benzonatate 100 MG CAP PO SCH ×3 (08:29→20:59)
[2019-03-28] MEDS: Ferrous Sulfate 325 MG TAB PO SCH (08:33)
[2019-03-28] MEDS: Saccharomyces boulardii 250 MG CAP PO SCH (08:33)
--- NOTE | 2019-03-28 09:53 | EEG ---
Referring Physician: Leeanna AGRAWAL EEG # [id number] TEST TYPE: ROUTINE PORTABLE INPATIENT REPORT: AN EEG USING THE INTERNATIONAL TEN-TWENTY SYSTEM OF ELECTRODE PLACEMENT WAS PERFORMED. The waking background is a 5-6 hertz Theta frequency, symmetrical over both hemispheres. No sleep was seen. Photic stimulation was unremarkable. No epileptiform features were noted. IMPRESSION: THIS IS AN ABNORMAL EEG FOR THE FINDINGS OF DIFFUSE SLOWING CONSISTENT WITH A DIFFUSE ENCEPHALOPATHIC PROCESS. [employer] Installer: MACI Coppersmith Apprentice: EEG.SO CARRASCO
[2019-03-28] MEDS: Ciprofloxacin Lactate/D5W 200 MG in Premix Bag 1 BAG IVPB SCH ×2 (10:27→20:58)
--- NOTE | 2019-03-28 10:41 | PRG ---
DATE OF SERVICE: 03/28/2019 SUBJECTIVE: Mr. Willis is an 83-year-old white male, followed up by the Renal Service for his acute kidney injury on top of his chronic renal failure. Renal function has been remaining stable. His diuretics have been adjusted downwards. His metabolic encephalopathy is also much improved. He is currently more verbal and he is eating. No complaints of chest pain or shortness of breath. OBJECTIVE: VITAL SIGNS: Blood pressure is noted at 144/67, heart rate 81, respiratory rate 18, temperature 98.1, and pulse ox 100%. GENERAL: Awake, alert, and comfortable, not in overt distress. SKIN: Adequate turgor. HEENT: He has a pinkish conjunctivae. Anicteric sclerae. NECK: No neck mass. No carotid bruits. No JVD. CHEST: No deformities. LUNGS: Clear breath sounds. HEART: Normal sinus rhythm. No murmur. No gallops. No rubs. ABDOMEN: Globular, soft, and nontender. No masses. EXTREMITIES: No edema. No deformities. MEDICATIONS: Medications of March 28, 2019 were reviewed. LABORATORY DATA: Laboratories of March 28, 2019; white count 5 and hemoglobin 9.2. Sodium 139, potassium 4, chloride 105, carbon dioxide 27, BUN 22, creatinine 1.55, glucose 98, and calcium 8.8. ASSESSMENT AND PLAN: 1. Acute kidney injury/chronic renal failure. Stabilizing renal function. No indication for any dialytic intervention. He is at baseline renal function. 2. Anemia. Continuing Epogen supplementation, receives 7500 units subcu every week. 3. Metabolic encephalopathy-much improved. The patient is now mentating well. He is talking and more verbal. In addition, he is eating well. 4. Recheck basic metabolic panel and CBC in a.m. Job ID: [id number]
[2019-03-28] MEDS: Rivaroxaban 10 MG TAB PO SCH (18:30)
--- NOTE | 2019-03-28 18:40 | PRG ---
DATE OF SERVICE: 03/28/2019 SUBJECTIVE: The patient is seen and examined at the bedside. His daughter is present in the room during my visit. The patient was in comatose state for several days and he woke up yesterday, some mentally he improved. OBJECTIVE: VITAL SIGNS: Blood pressure is 137/67, pulse is 72, respirations 20, O2 saturation is 98% on room air, and temperature is 98. HEENT: His head is atraumatic, normocephalic. Sclerae are nonicteric. Conjunctivae are palish. Oral mucosa is moist. NECK: Supple. LUNGS: Clear. HEART: S1, S2 normal. Somewhat irregular. No S3. No S4. Pacer is in the left upper chest, area is not inflamed, not tender to palpation. ABDOMEN: Soft, nontender, nondistended. EXTREMITIES: No clubbing, cyanosis, or edema. NEUROLOGICAL: He follows my commands. He knows his age, but he does not know the time. He moves his all 4 extremities. There are no any motor deficits. LABORATORY DATA: White count of 5.0, hemoglobin 9.2, hematocrit 26.9, platelet count is 101. Chemistry; normal electrolytes. Creatinine of 1.55, BUN 22. Microbiology, no new findings. IMPRESSION: 1. Cellulitis and abscess of the upper arm and forearm, resolved. 2. Pneumonia. 3. Altered mental status, improved. 4. Hypokalemia. 5. Microcytic anemia. 6. Chronic atrial fibrillation. 7. Coronary artery disease, chronic, stable. 8. Chronic kidney disease stage 3. 9. Chronic systolic heart failure stage C. 10. Dyslipidemia. 11. Gastroesophageal reflux disease. 12. Hypertension. 13. Bacteremia. 14. GI, guaiac-positive stools. No obvious gross bleeding. PLAN: The patient's mental status improved significantly. He was in very comatose until yesterday. He woke up yesterday and he is still quite confused and his mental status is altered, but it significantly improved compared to what it was a couple of days before. He will continue his Cipro for additional 2 weeks and we are waiting for the family to make decision of what rehab he is going to be transferred to. He is not able to stand up yet and he needs rehabilitation process. We are going to continue his current regimen, and we will switch his IV Keppra to p.o. and Cipro to p.o. and continue the rest of the regimen. Job ID: [id number]
[2019-03-28] MEDS: levETIRAcetam 500 MG TAB PO SCH (20:51)
[2019-03-28] MEDS: Atorvastatin Calcium 40 MG TAB PO SCH (20:59)
[2019-03-29 06:02] LABS: #Eosinphils 0.2 thou/uL (0.0-0.7); #Lymphocytes 1.1 thou/uL (1.20-3.40); #Monocytes 0.5 thou/uL (0.11-0.59); #Neutrophils 2.8 thou/uL (1.40-6.50); %Basophils 0.8 % (0.0-1.0); %Eosinophils 3.5 % (0.0-10.0); %Lymphocytes 23.2 % (21.0-51.0); %Monocytes 9.9 % (0.0-10.0); %Neutrophils 62.6 % (42.0-75.0); Hemoglobin 9.6 g/dL (14.0-18.0); Mean Corpuscular HGB CONC 34.1 g/dL (32.0-36.0); Mean Corpuscular Hemoglobin 33.7 pg (27.0-31.0); Mean Corpuscular Volume 98.8 fL (78.0-98.0); Platelet Count 92 thou/uL (130-400); RBC Distribution Width 18.6 % (11.5-14.5); Red Blood Cell (RBC) Count 2.85 mill/uL (4.70-6.10); White Blood Cell (WBC) Count 4.5 thou/uL (4.8-10.8)
[2019-03-29 06:14] LABS: Anion Gap 12 mmol/L (10-20); BUN (Urea Nitrogen) 22 mg/dL (8.4-25.7); Calc. Creatinine Clearance 39 mL/min (70-130); Calcium 8.7 mg/dL (7.8-10.44); Carbon Dioxide 26 mmol/L (23-31); Chloride 103 mmol/L (98-107); Estimated GFR-MDRD 47; Glucose 91 mg/dL (83-110); Potassium 3.3 mmol/L (3.5-5.1); Sodium 138 mmol/L (136-145)
[2019-03-29] MEDS: Saccharomyces boulardii 250 MG CAP PO SCH ×2 (09:00→11:46)
[2019-03-29] MEDS: Ferrous Sulfate 325 MG TAB PO SCH (09:01)
[2019-03-29] MEDS: Carvedilol 6.25 MG TAB PO SCH ×2 (09:01→17:00)
[2019-03-29] MEDS: Isosorbide Dinitrate 5 MG TAB PO SCH ×2 (09:01→20:07)
[2019-03-29] MEDS: Furosemide 20 MG TAB PO SCH (09:01)
[2019-03-29] MEDS: Benzonatate 100 MG CAP PO SCH ×4 (09:01→20:07)
[2019-03-29] MEDS: Aspirin 81 mg Enteric Coated Tablet PO SCH (09:02)
[2019-03-29] MEDS: hydrALAZINE 25 MG TAB PO SCH ×4 (09:02→20:07)
[2019-03-29] MEDS: levETIRAcetam 500 MG TAB PO SCH ×2 (09:02→20:06)
[2019-03-29] MEDS ORDERED: Potassium Chloride 20 MEQ TAB PO SCH (10:00)
--- NOTE | 2019-03-29 10:26 | PRG ---
DATE OF SERVICE: 03/29/2019 SUBJECTIVE: Mr. Willis is an 83-year-old white male, who was followed by the Renal Service for his acute kidney injury on top of his chronic renal failure. He had a superimposed hemodynamically-mediated renal dysfunction. Adjustment of his diuretics has been made. His renal function is much improved and is near baseline. During this hospitalization, he also had an episode of severe metabolic encephalopathy. This is now much improved. The patient is now mentating well and is eating well. No new complaints today. No chest pain or shortness of breath. OBJECTIVE: VITAL SIGNS: Blood pressure 179/76, heart rate 67, respiratory rate 18, temperature 98.3, and pulse ox 98%. GENERAL: Noted to be awake, alert, and comfortable, not in overt distress. SKIN: Adequate turgor. HEENT: He has slightly pale conjunctivae. Anicteric sclerae. NECK: No neck mass. No carotid bruits. No JVD. CHEST: No deformities. LUNGS: Clear breath sounds. No wheezing. No crackles. HEART: Normal sinus rhythm. No murmur. No gallops. No rubs. ABDOMEN: Globular, soft, and nontender. No masses. EXTREMITIES: No edema. No deformities. MEDICATIONS: Medications of March 29, 2019, reviewed. LABORATORY DATA: Laboratories of March 29, 2019; white count 4.5, hemoglobin 9.6. Sodium 138, potassium 3.3, chloride 105, carbon dioxide 26, BUN 22, creatinine 1.44, and calcium 8.7. ASSESSMENT AND PLAN: 1. Acute kidney injury/chronic renal failure, much improved renal function. Renal function stabilizing. Creatinine 1.44, is near baseline. No indication for any dialytic intervention. Continue current low-dose diuretics. 2. Congestive heart failure, clinically asymptomatic on low-dose diuretics. 3. Mild hypokalemia. KCl 40 mEq one tablet will be given. 4. Anemia, currently on weekly Epogen. 5. Awaiting placement for this patient. We will be rechecking a basic metabolic and CBC in a.m. Job ID: [id number]
[2019-03-29] MEDS: Ciprofloxacin Lactate/D5W 200 MG in Premix Bag 1 BAG IVPB SCH ×2 (11:56→22:58)
[2019-03-29] MEDS: EPOETIN ALFA-EPBX (ESRD) 4,000 UNIT/ML VIAL SC SCH (14:15)
[2019-03-29] MEDS: Rivaroxaban 10 MG TAB PO SCH (17:00)
--- NOTE | 2019-03-29 17:55 | PDOC.HOSPP ---
- Subjective Subjective: Mr. Willis was seen today in follow-up of cellulitis, and systolic heart failure. He does not have any new complaints this morning. His daughter was concerned bout some cramping in hs leg, but he did not endorse that to me. - Objective Vital Signs & Weight: Vital Signs (12 hours) Temp Pulse Resp BP BP Pulse Ox 03/29/19 17:00 77 136/66 03/29/19 16:00 98.0 F 77 16 138/71 99 03/29/19 12:00 98.0 F 81 18 141/72 H 95 03/29/19 09:02 67 03/29/19 09:01 136/66 03/29/19 07:26 98.3 F 67 18 179/76 H 98 Weight Admit Weight 179 lb 3.2 oz Weight 151 lb 3.2 oz Most Recent Monitor Data Heart Rate from ECG 70 NIBP 132/79 NIBP BP-Mean 96 Respiration from ECG 21 SpO2 93 I&O: 03/28/19 03/29/19 03/30/19 06:59 06:59 06:59 Intake Total 1570 590 Output Total 650 Balance 920 590 Result Diagrams: 03/29/19 05:53 03/29/19 05:53 ROS - Review of Systems All systems: All other ROS were reviewed and found negative. - Medication Medications: Active Medications Generic Name Dose Route Start Last Admin Trade Name Freq PRN Reason Stop Dose Admin Aspirin 81 mg 03/17/19 09:00 03/29/19 09:02 Ecotrin PO 81 mg QAM JUNIOR Administration Atorvastatin Calcium 80 mg 03/17/19 21:00 03/28/19 20:59 Lipitor PO Not Given HS JUNIOR Benzonatate 100 mg 03/23/19 15:00 03/29/19 17:00 Tessalon PO 100 mg TID UJNIOR Administration Bisacodyl 10 mg 03/16/19 22:27 03/27/19 20:56 Dulcolax [place] 10 mg DAILYPRN PRN Administration Constipation Carvedilol 6.25 mg 03/17/19 08:00 03/29/19 17:00 Coreg PO 6.25 mg BID-WM JUNIOR Administration Epoetin Shane-epbx 7,500 unit 03/22/19 12:00 03/29/19 14:15 Retacrit SC 7,500 unit Q7D JUNIOR Administration Ferrous Sulfate 325 mg 03/23/19 08:00 03/29/19 09:01 Feosol PO 325 mg QAM-WM JUNIOR Administration Furosemide 40 mg 03/24/19 09:00 03/29/19 09:01 Lasix PO 40 mg DAILY JUNIOR Administration Guaifenesin/Codeine Phosphate 10 ml 03/22/19 10:10 03/23/19 00:17 Robitussin Ac PO 10 ml Q6H PRN Administration Cough Hydralazine HCl 25 mg 03/22/19 09:00 03/29/19 17:00 Apresoline PO 25 mg TID JUNIOR Administration Ciprofloxacin/Dextrose 200 mg/ 100 mls @ 100 mls/hr 03/25/19 11:00 03/29/19 11:56 Device IVPB 100 mls 1100,2300 JUNIOR Administration Isosorbide Dinitrate 5 mg 03/17/19 09:00 03/29/19 09:01 Isordil PO 5 mg BID JUNIOR Administration Levetiracetam 500 mg 03/28/19 21:00 03/29/19 09:02 Keppra PO 500 mg BID [facility] Administration Pantoprazole Sodium 40 mg 03/17/19 09:00 03/29/19 11:46 Protonix PO Not Given QAM [facility] Potassium Chloride 20 meq 03/29/19 17:00 03/29/19 17:01 Klor-Con PO 20 meq BID-WM JUNIOR Administration Ranolazine 1,000 mg 03/17/19 09:00 03/29/19 09:01 Ranexa PO 1,000 mg BID JUNIOR Administration Rivaroxaban 15 mg 03/21/19 18:00 03/29/19 17:00 Xarelto PO 15 mg 1800 [facility] Administration Saccharomyces Boulardii 250 mg 03/17/19 09:00 03/29/19 11:46 Florastor PO Not Given DAILY [facility] Sodium Chloride 10 ml 03/19/19 09:00 03/29/19 09:03 Flush - Normal Saline IVF 10 ml Q12HR JUNIOR Administration - Exam NAD Heart: RRR, no murmur, no gallops, no rubs Respiratory: CTAB, no wheezes, no rales, no ronchi Gastrointestinal: soft, non-tender, non-distended, normal bowel sounds, no palpable masses, no hepatomegaly Extremities: no cyanosis, no edema (pulses are palpable bilaterally) Hosp A/P (1) Acute on chronic systolic CHF (congestive heart failure) Code(s): I50.23 - ACUTE ON CHRONIC SYSTOLIC (CONGESTIVE) HEART FAILURE Status : Acute (2) Bacteremia Code(s): R78.81 - BACTEREMIA Status: Acute (3) Superficial venous thrombosis of arm Code(s): I82.619 - ACUTE EMBOLISM AND THROMBOSIS OF SUPERFIC VN UNSP UP EXTREM Status: Acute Qualifiers: Laterality: right Qualified Code(s): I82.611 - Acute embolism and thrombosis of superficial veins of right upper extremity (4) Cellulitis and abscess of upper arm and forearm Code(s): XFP5989 - Status: Resolved - Plan * Cellulitis of the arm with Acinetobacter Bacteremia- he has been transition to Cipro * Metabolic encephalopathy- improved * Chronc systolic heart failure-compensated * AFIB- hs heart rate is stable * GI- bleed- ruled out, and he has been placed back on Xarelto * Severe deconditioning- continue PT/OT, and awaiting rehab *
[2019-03-29] MEDS: Atorvastatin Calcium 40 MG TAB PO SCH (20:08)
[2019-03-30] MEDS: Atorvastatin Calcium 40 MG TAB PO SCH ×2 (01:25→20:07)
[2019-03-30 05:56] LABS: #Eosinphils 0.1 thou/uL (0.0-0.7); #Monocytes 0.6 thou/uL (0.11-0.59); #Neutrophils 3.3 thou/uL (1.40-6.50); %Basophils 0.7 % (0.0-1.0); %Eosinophils 2.2 % (0.0-10.0); %Lymphocytes 19.9 % (21.0-51.0); %Neutrophils 66.2 % (42.0-75.0); Hemoglobin 9.5 g/dL (14.0-18.0); Mean Corpuscular HGB CONC 34.2 g/dL (32.0-36.0); Mean Corpuscular Hemoglobin 34.3 pg (27.0-31.0); Mean Platelet Volume 11.4 fL (7.4-10.4); Platelet Count 88 thou/uL (130-400); RBC Distribution Width 18.4 % (11.5-14.5); Red Blood Cell (RBC) Count 2.77 mill/uL (4.70-6.10)
[2019-03-30 06:16] LABS: Anion Gap 13 mmol/L (10-20); BUN (Urea Nitrogen) 26 mg/dL (8.4-25.7); Calc. Creatinine Clearance 38 mL/min (70-130); Calcium 8.9 mg/dL (7.8-10.44); Carbon Dioxide 25 mmol/L (23-31); Chloride 104 mmol/L (98-107); Estimated GFR-MDRD 46; Glucose 95 mg/dL (83-110); Potassium 3.9 mmol/L (3.5-5.1); Sodium 138 mmol/L (136-145)
[2019-03-30] MEDS: Carvedilol 6.25 MG TAB PO SCH ×2 (08:58→16:27)
[2019-03-30] MEDS: Furosemide 20 MG TAB PO SCH (08:58)
[2019-03-30] MEDS: Isosorbide Dinitrate 5 MG TAB PO SCH ×2 (09:01→20:06)
[2019-03-30] MEDS: Benzonatate 100 MG CAP PO SCH ×3 (09:02→20:06)
[2019-03-30] MEDS: Saccharomyces boulardii 250 MG CAP PO SCH (09:02)
[2019-03-30] MEDS: hydrALAZINE 25 MG TAB PO SCH ×3 (09:02→20:06)
[2019-03-30] MEDS: Aspirin 81 mg Enteric Coated Tablet PO SCH (09:02)
[2019-03-30] MEDS: levETIRAcetam 500 MG TAB PO SCH ×2 (09:02→20:07)
[2019-03-30] MEDS: Ferrous Sulfate 325 MG TAB PO SCH (09:02)
[2019-03-30] MEDS ORDERED: Furosemide 20 MG TAB PO SCH (10:30)
--- NOTE | 2019-03-30 10:54 | PRG ---
DATE OF SERVICE: 03/30/2019 SERVICE: Renal Medicine. SUBJECTIVE: Mr. Willis is an 83-year-old white male, followed up by the Renal Service for his acute kidney injury on top of his chronic renal failure. Renal function has stabilized in the last several days. His diuretics have been decreased downwards. In addition, his metabolic encephalopathy has much improved. He is no mentating better. He is eating and conversing. No acute complaints. No chest pain or shortness of breath. OBJECTIVE: VITAL SIGNS: Blood pressure is 142/72, heart rate 77, respiratory rate 20, temperature 98.4, and pulse ox 100%. GENERAL: The patient is awake, alert, comfortable, not in overt distress. SKIN: Adequate turgor. HEENT: He has a pinkish conjunctivae. Anicteric sclerae. NECK: No neck mass. No carotid bruits. No JVD. CHEST: No deformities. LUNGS: Clear breath sounds. HEART: Normal sinus rhythm. No murmur. No gallops. No rubs. ABDOMEN: Globular, soft, nontender. No masses. EXTREMITIES: No edema. No deformities. MEDICATIONS: Medications of March 30, 2019, reviewed. LABORATORY DATA: Laboratories of March 30, 2019; white count 5, hemoglobin 9.5, sodium 138, potassium 3.9, chloride 104, carbon dioxide 25, BUN 26, creatinine 1.47, glucose 95, calcium 8.9, magnesium 1.7. ASSESSMENT AND PLAN: 1. Acute kidney injury/chronic renal failure. Stabilizing renal function. Creatinine noted at 1.4 which is near baseline. There is no indication for any dialytic intervention. My bias is to decrease the Lasix from 40 mg to 20 mg tablet once a day due to the decreased p.o. intake. 2. Anemia, continuing weekly Epogen., p.r.n. blood transfusion. 3. Metabolic encephalopathy, resolved. 4. Awaiting jail placement, long term facility. Job ID: [id number]
[2019-03-30] MEDS: Ciprofloxacin Lactate/D5W 200 MG in Premix Bag 1 BAG IVPB SCH (11:33)
--- NOTE | 2019-03-30 16:01 | PDOC.HOSPP ---
- Subjective Subjective: Mr. Willis was seen today at approximately 12:15 in follow-up of metabolic encephalopathy. He is much more alert today when I saw him. He is able to answer some questions, albeit, he is confused. He denies lower extremity pain. - Objective Vital Signs & Weight: Vital Signs (12 hours) Temp Pulse Pulse Pulse Resp BP BP 03/30/19 09:02 67 03/30/19 08:58 142/72 H 03/30/19 08:57 71 75 134/63 03/30/19 08:10 98.1 F 67 22 H BP BP Pulse Ox 03/30/19 09:02 03/30/19 08:58 03/30/19 08:57 151/74 H 03/30/19 08:10 142/72 H 100 Weight Admit Weight 179 lb 3.2 oz Weight 149 lb 14.4 oz Most Recent Monitor Data Heart Rate from ECG 70 NIBP 132/79 NIBP BP-Mean 96 Respiration from ECG 21 SpO2 93 I&O: 03/29/19 03/30/19 03/31/19 06:59 06:59 06:59 Intake Total 590 340 Output Total 300 Balance 590 40 Result Diagrams: 03/30/19 05:17 03/30/19 05:17 ROS - Review of Systems All systems: All other ROS were reviewed and found negative. - Medication Medications: Active Medications Generic Name Dose Route Start Last Admin Trade Name Freq PRN Reason Stop Dose Admin Aspirin 81 mg 03/17/19 09:00 03/30/19 09:02 Ecotrin PO 81 mg QAM JUNIOR Administration Atorvastatin Calcium 80 mg 03/17/19 21:00 03/30/19 01:25 Lipitor PO Not Given HS JUNIOR Benzonatate 100 mg 03/23/19 15:00 03/30/19 09:02 Tessalon PO 100 mg TID JUNIOR Administration Bisacodyl 10 mg 03/16/19 22:27 03/27/19 20:56 Dulcolax [place] 10 mg DAILYPRN PRN Administration Constipation Carvedilol 6.25 mg 03/17/19 08:00 03/30/19 08:58 Coreg PO 6.25 mg BID-WM JUNIOR Administration Epoetin Shane-epbx 7,500 unit 03/22/19 12:00 03/29/19 14:15 Retacrit SC 7,500 unit Q7D JUNIOR Administration Ferrous Sulfate 325 mg 03/23/19 08:00 03/30/19 09:02 Feosol PO 325 mg QAM-WM JUNIOR Administration Guaifenesin/Codeine Phosphate 10 ml 03/22/19 10:10 03/23/19 00:17 Robitussin Ac PO 10 ml Q6H PRN Administration Cough Hydralazine HCl 25 mg 03/22/19 09:00 03/30/19 09:02 Apresoline PO 25 mg TID JUNIOR Administration Ciprofloxacin/Dextrose 200 mg/ 100 mls @ 100 mls/hr 03/25/19 11:00 03/30/19 11:33 Device IVPB 100 mls 1100,2300 JUNIOR Administration Isosorbide Dinitrate 5 mg 03/17/19 09:00 03/30/19 09:01 Isordil PO 5 mg BID JUNIOR Administration Levetiracetam 500 mg 03/28/19 21:00 03/30/19 09:02 Keppra PO 500 mg BID JUNIOR Administration Pantoprazole Sodium 40 mg 03/17/19 09:00 03/30/19 08:58 Protonix PO 40 mg QAM JUNIOR Administration Potassium Chloride 20 meq 03/29/19 17:00 03/30/19 09:01 Klor-Con PO 20 meq BID-WM JUNIOR Administration Ranolazine 1,000 mg 03/17/19 09:00 03/30/19 09:02 Ranexa PO 1,000 mg BID JUNIOR Administration Rivaroxaban 15 mg 03/21/19 18:00 03/29/19 17:00 Xarelto PO 15 mg 1800 JUNIOR Administration Saccharomyces Boulardii 250 mg 03/17/19 09:00 03/30/19 09:02 Florastor PO 250 mg DAILY JUNIOR Administration Sodium Chloride 10 ml 03/19/19 09:00 03/30/19 09:02 Flush - Normal Saline IVF 10 ml Q12HR JUNIOR Administration - Exam Eye: PERRL, anicteric sclera ENT: normocephalic atraumatic, no oropharyngeal lesions, moist mucosa Heart: RRR, no murmur, no gallops, no rubs, normal peripheral pulses Respiratory: CTAB, no wheezes, no rales, no ronchi, normal chest expansion Gastrointestinal: soft, non-tender, non-distended, normal bowel sounds, no palpable masses, no hepatomegaly Extremities: no cyanosis, no clubbing, no edema Hosp A/P (1) Acute on chronic systolic CHF (congestive heart failure) Code(s): I50.23 - ACUTE ON CHRONIC SYSTOLIC (CONGESTIVE) HEART FAILURE Status : Acute (2) Bacteremia Code(s): R78.81 - BACTEREMIA Status: Acute (3) Superficial venous thrombosis of arm Code(s): I82.619 - ACUTE EMBOLISM AND THROMBOSIS OF SUPERFIC VN UNSP UP EXTREM Status: Acute Qualifiers: Laterality: right Qualified Code(s): I82.611 - Acute embolism and thrombosis of superficial veins of right upper extremity (4) Cellulitis and abscess of upper arm and forearm Code(s): BAJ3885 - Status: Resolved (5) Anticoagulant long-term use Code(s): Z79.01 - REHABILITATION CONSTRUCTION SPECIALIST (CURRENT) USE OF ANTICOAGULANTS Status: Chronic (6) Atrial fibrillation Code(s): I48.91 - UNSPECIFIED ATRIAL FIBRILLATION Status: Chronic Qualifiers: Atrial fibrillation type: chronic Qualified Code(s): I48.2 - Chronic atrial fibrillation - Plan * Acute on chronic systolic heart failure- compensated * Cellulitis- with acinetobacter bacteremia- continue Cipro * Metabolic encephalopathy- improved ( but this seems to wax and wane) * Chronic AFIB- his heart rate is stable * Continue Xarelto for CVA prevention * Awaiting placement
--- NOTE | 2019-03-30 17:52 | PRG ---
DATE OF SERVICE: 03/30/2019 SUBJECTIVE: The patient has improved. His mental status is back to baseline, although he is still sleepy, but easily arousable now compared with previously, oriented, follows commands. No headaches. No shortness of breath or abdominal pain. Still weak and having a hard time in bearing his weight. PT got him up today. OBJECTIVE: VITAL SIGNS: Normal temperature, blood pressure 119/61, pulse 60, O2 saturation 100. GENERAL: Awake, alert, oriented. Chronically ill appearing, but no acute distress. LUNGS: Clear. HEART: S1, S2. Regular rate. ABDOMEN: Soft. Not distended or tender. EXTREMITIES: Moves extremities equally. LABORATORY DATA: Creatinine 1.47. GFR 46. White cell count 5.0, hemoglobin 9.5, platelets 88,000. ASSESSMENT AND DISCUSSION: Ischemic cardiomyopathy, chronic renal insufficiency stage III, seizure disorder, atrial fibrillation, altered mental status likely due to delirium, possibly associated with cefepime which has improved after discontinuation and transition to ciprofloxacin, Acinetobacter bacteremia probably from area of thrombophlebitis, right antecubital fossa which has improved. The patient will be switched to oral quinolone now from the IV form, and then we will plan disposition, hopefully can be transferred to an alternate place as soon as possible. Job ID: [id number] [facility]
[2019-03-30] MEDS: Rivaroxaban 10 MG TAB PO SCH (18:08)
[2019-03-30] MEDS: Ciprofloxacin 500 MG TAB PO SCH (20:06)
[2019-03-31 05:48] LABS: #Eosinphils 0.1 thou/uL (0.0-0.7); #Lymphocytes 0.8 thou/uL (1.20-3.40); #Monocytes 0.5 thou/uL (0.11-0.59); #Neutrophils 3.3 thou/uL (1.40-6.50); %Basophils 0.2 % (0.0-1.0); %Eosinophils 1.8 % (0.0-10.0); %Lymphocytes 16.1 % (21.0-51.0); %Monocytes 11.6 % (0.0-10.0); %Neutrophils 70.3 % (42.0-75.0); Hemoglobin 8.4 g/dL (14.0-18.0); Mean Corpuscular HGB CONC 34.1 g/dL (32.0-36.0); Mean Corpuscular Hemoglobin 34.5 pg (27.0-31.0); Mean Platelet Volume 11.5 fL (7.4-10.4); Platelet Count 71 thou/uL (130-400); Red Blood Cell (RBC) Count 2.44 mill/uL (4.70-6.10); White Blood Cell (WBC) Count 4.7 thou/uL (4.8-10.8)
[2019-03-31 06:10] LABS: Anion Gap 10 mmol/L (10-20); BUN (Urea Nitrogen) 32 mg/dL (8.4-25.7); Calc. Creatinine Clearance 33 mL/min (70-130); Calcium 8.7 mg/dL (7.8-10.44); Carbon Dioxide 26 mmol/L (23-31); Chloride 104 mmol/L (98-107); Estimated GFR-MDRD 39; Glucose 93 mg/dL (83-110); Potassium 4.2 mmol/L (3.5-5.1); Sodium 136 mmol/L (136-145)
[2019-03-31] MEDS: Ciprofloxacin 500 MG TAB PO SCH ×2 (06:21→20:18)
--- NOTE | 2019-03-31 08:56 | PRG ---
DATE OF SERVICE: 03/31/2019 SUBJECTIVE: Mr. Willis is an 83-year-old white male, followed up by the Renal Service for his acute kidney injury on top of his chronic renal failure. Renal function has stabilized. In addition yesterday, we have decided to decrease his furosemide from 40 to 20 mg tablet once a day. His metabolic encephalopathy is much improved. No new complaints today. No chest pain or shortness of breath. OBJECTIVE: VITAL SIGNS: Blood pressure 127/64, heart rate 74, respiratory rate 19, temperature 99.3, and pulse ox 96%. GENERAL: Noted to be awake, alert, comfortable, not in any distress. SKIN: Adequate turgor. HEENT: He has pale conjunctivae. Anicteric sclerae. NECK: No neck mass. No carotid bruits. No JVD. CHEST: No deformities. LUNGS: Decreased breath sounds. HEART: Normal sinus rhythm. No murmur. No gallops. No rubs. ABDOMEN: Globular, soft, and nontender. No masses. EXTREMITIES: No edema. No deformities. MEDICATIONS: Medications of March 31, 2019, was reviewed. LABORATORY DATA: Laboratories of March 31, 2019, white count 4.7, hemoglobin 8.4. Sodium 136, potassium 4.2, chloride 104, carbon dioxide 26, BUN 32, creatinine 1.69, GFR 39 mL/minute, and calcium is 8.7. ASSESSMENT AND PLAN: 1. Acute on chronic renal failure - slightly higher creatinine at 1.69 today. My plan due to the decreased p.o. intake - is to discontinue the furosemide. No indication for any dialytic intervention. 2. Anemia. Continue weekly Epogen. 3. Metabolic encephalopathy, resolved. Recheck CBC and basic metabolic panel in a.m. Job ID: [id number]
[2019-03-31] MEDS ORDERED: Furosemide 20 MG TAB PO SCH (09:00)
[2019-03-31] MEDS: Ferrous Sulfate 325 MG TAB PO SCH (09:08)
[2019-03-31] MEDS: Benzonatate 100 MG CAP PO SCH ×3 (09:08→20:19)
[2019-03-31] MEDS: hydrALAZINE 25 MG TAB PO SCH ×3 (09:09→20:19)
[2019-03-31] MEDS: levETIRAcetam 500 MG TAB PO SCH ×2 (09:09→20:19)
[2019-03-31] MEDS: Saccharomyces boulardii 250 MG CAP PO SCH (09:09)
[2019-03-31] MEDS: Carvedilol 6.25 MG TAB PO SCH ×2 (09:09→19:03)
[2019-03-31] MEDS: Isosorbide Dinitrate 5 MG TAB PO SCH ×2 (09:09→20:19)
[2019-03-31] MEDS: Aspirin 81 mg Enteric Coated Tablet PO SCH (09:09)
--- NOTE | 2019-03-31 16:30 | PDOC.HOSPP ---
- Subjective Subjective: Mr. Willis was seen today in follow-up of encephalopathy and bacteremia. He does not have any complaint. He is clinically much improved. - Objective Vital Signs & Weight: Vital Signs (12 hours) Temp Pulse Resp BP Pulse Ox 03/31/19 12:45 97.7 F 76 18 139/85 96 03/31/19 09:16 98.1 F 75 18 138/76 97 Weight Admit Weight 179 lb 3.2 oz Weight 149 lb 14.4 oz Most Recent Monitor Data Heart Rate from ECG 70 NIBP 132/79 NIBP BP-Mean 96 Respiration from ECG 21 SpO2 93 I&O: 03/30/19 03/31/19 04/01/19 06:59 06:59 06:59 Intake Total 340 Output Total 300 Balance 40 Result Diagrams: 03/31/19 05:10 03/31/19 05:10 ROS - Review of Systems All systems: All other ROS were reviewed and found negative. - Medication Medications: Active Medications Generic Name Dose Route Start Last Admin Trade Name Freq PRN Reason Stop Dose Admin Aspirin 81 mg 03/17/19 09:00 03/31/19 09:09 Ecotrin PO 81 mg QAM JUNIOR Administration Atorvastatin Calcium 80 mg 03/17/19 21:00 03/30/19 20:07 Lipitor PO 80 mg HS JUNIOR Administration Benzonatate 100 mg 03/23/19 15:00 03/31/19 09:08 Tessalon PO 100 mg TID JUNIOR Administration Bisacodyl 10 mg 03/16/19 22:27 03/27/19 20:56 Dulcolax [place] 10 mg DAILYPRN PRN Administration Constipation Carvedilol 6.25 mg 03/17/19 08:00 03/31/19 09:09 Coreg PO 6.25 mg BID-WM JUNIOR Administration Ciprofloxacin 500 mg 03/30/19 20:00 03/31/19 06:21 Cipro PO 500 mg 0600,2000 JUNIOR Administration Epoetin Shane-epbx 7,500 unit 03/22/19 12:00 03/29/19 14:15 Retacrit SC 7,500 unit Q7D JUNIOR Administration Ferrous Sulfate 325 mg 03/23/19 08:00 03/31/19 09:08 Feosol PO 325 mg QAM-WM JUNIOR Administration Guaifenesin/Codeine Phosphate 10 ml 03/22/19 10:10 03/23/19 00:17 Robitussin Ac PO 10 ml Q6H PRN Administration Cough Hydralazine HCl 25 mg 03/22/19 09:00 03/31/19 09:09 Apresoline PO 25 mg TID JUNIOR Administration Isosorbide Dinitrate 5 mg 03/17/19 09:00 03/31/19 09:09 Isordil PO 5 mg BID JUNIOR Administration Levetiracetam 500 mg 03/28/19 21:00 03/31/19 09:09 Keppra PO 500 mg BID JUNIOR Administration Pantoprazole Sodium 40 mg 03/17/19 09:00 03/31/19 09:09 Protonix PO 40 mg QAM JUNIOR Administration Potassium Chloride 20 meq 03/29/19 17:00 03/31/19 09:10 Klor-Con PO 20 meq BID-WM JUNIOR Administration Ranolazine 1,000 mg 03/17/19 09:00 03/31/19 09:08 Ranexa PO 1,000 mg BID JUNIOR Administration Rivaroxaban 15 mg 03/21/19 18:00 03/30/19 18:08 Xarelto PO 15 mg 1800 JUNIOR Administration Saccharomyces Boulardii 250 mg 03/17/19 09:00 03/31/19 09:09 Florastor PO 250 mg DAILY JUNIOR Administration Sodium Chloride 10 ml 03/19/19 09:00 03/31/19 09:10 Flush - Normal Saline IVF 10 ml Q12HR JUNIOR Administration - Exam Eye: PERRL, anicteric sclera Heart: RRR, no murmur, no gallops, no rubs, normal peripheral pulses Respiratory: CTAB, no wheezes, no rales, no ronchi, normal chest expansion Gastrointestinal: soft, non-tender, non-distended, normal bowel sounds, no palpable masses, no hepatomegaly Extremities: no cyanosis, no edema Hosp A/P (1) Acute on chronic systolic CHF (congestive heart failure) Code(s): I50.23 - ACUTE ON CHRONIC SYSTOLIC (CONGESTIVE) HEART FAILURE Status : Acute (2) Bacteremia Code(s): R78.81 - BACTEREMIA Status: Acute (3) Superficial venous thrombosis of arm Code(s): I82.619 - ACUTE EMBOLISM AND THROMBOSIS OF SUPERFIC VN UNSP UP EXTREM Status: Acute Qualifiers: Laterality: right Qualified Code(s): I82.611 - Acute embolism and thrombosis of superficial veins of right upper extremity (4) Cellulitis and abscess of upper arm and forearm Code(s): FRL8103 - Status: Resolved (5) Anticoagulant long-term use Code(s): Z79.01 - [employer] (CURRENT) USE OF ANTICOAGULANTS Status: Chronic (6) Atrial fibrillation Code(s): I48.91 - UNSPECIFIED ATRIAL FIBRILLATION Status: Chronic Qualifiers: Atrial fibrillation type: chronic Qualified Code(s): I48.2 - Chronic atrial fibrillation - Plan * Acute on chronic systolic heart failure- compensated * Encephalopathy- improved- likely due to Cefepime * He has been changed to oral Cipro * AFIB- his heart rate is stable * HTN- blood pressure is stable * Awaiting Rehab placement
[2019-03-31] MEDS: Rivaroxaban 10 MG TAB PO SCH (19:02)
[2019-03-31] MEDS: Atorvastatin Calcium 40 MG TAB PO SCH (20:18)
[2019-04-01 05:37] LABS: #Eosinphils 0.1 thou/uL (0.0-0.7); #Lymphocytes 0.8 thou/uL (1.20-3.40); #Monocytes 0.5 thou/uL (0.11-0.59); #Neutrophils 2.8 thou/uL (1.40-6.50); %Basophils 0.1 % (0.0-1.0); %Eosinophils 2.1 % (0.0-10.0); %Lymphocytes 19.4 % (21.0-51.0); %Monocytes 12.3 % (0.0-10.0); %Neutrophils 66.1 % (42.0-75.0); Hemoglobin 7.9 g/dL (14.0-18.0); Mean Corpuscular HGB CONC 34.2 g/dL (32.0-36.0); Mean Corpuscular Hemoglobin 34.7 pg (27.0-31.0); Mean Platelet Volume 8.7 fL (7.4-10.4); Platelet Count 65 thou/uL (130-400); RBC Distribution Width 18.1 % (11.5-14.5); Red Blood Cell (RBC) Count 2.28 mill/uL (4.70-6.10); White Blood Cell (WBC) Count 4.2 thou/uL (4.8-10.8)
[2019-04-01 05:48] LABS: Anion Gap 11 mmol/L (10-20); BUN (Urea Nitrogen) 34 mg/dL (8.4-25.7); Calc. Creatinine Clearance 32 mL/min (70-130); Calcium 8.3 mg/dL (7.8-10.44); Carbon Dioxide 24 mmol/L (23-31); Chloride 103 mmol/L (98-107); Estimated GFR-MDRD 37; Glucose 96 mg/dL (83-110); Potassium 4.3 mmol/L (3.5-5.1); Sodium 134 mmol/L (136-145)
[2019-04-01] MEDS: Ciprofloxacin 500 MG TAB PO SCH ×2 (07:33→21:23)
--- NOTE | 2019-04-01 09:08 | PRG ---
DATE OF SERVICE: 04/01/2019 SUBJECTIVE: Mr. Willis is an 83-year-old white male, who is followed up for his acute kidney injury on top of his chronic renal failure. He had a superimposed hemodynamically-mediated dysfunction. Renal function is improved. Yesterday due to the decreased p.o. intake, we decided to discontinue the furosemide. Creatinine this morning is a little higher. He does have a decreased p.o. intake. I did encourage the patient to increase his p.o. intake. We are awaiting for rehab placement. No complaints of chest pain or shortness of breath. OBJECTIVE: VITAL SIGNS: Blood pressure 137/66, heart rate 68, respiratory rate 18, temperature 98, and pulse ox 96%. GENERAL: Noted to be awake, alert, comfortable, not in distress. SKIN: Adequate turgor. HEENT: He has a slightly pale conjunctivae. Anicteric sclerae. NECK: No neck mass. No carotid bruits. No JVD. CHEST: No deformities. LUNGS: Clear breath sounds. HEART: Normal sinus rhythm. No murmur. No gallops. No rubs. ABDOMEN: Globular, soft, and nontender. No masses. EXTREMITIES: No edema. No deformities. MEDICATIONS: Medications of April 01, 2019, was reviewed. LABORATORY DATA: Laboratories of April 01, 2019 showed a white count 4.2 and hemoglobin 7.9. Sodium 134, potassium 4.3, chloride 103, carbon dioxide 24, BUN 34, creatinine 1.79, glucose 96, and calcium 9.3. ASSESSMENT AND PLAN: 1. Anemia. Currently on weekly Epogen. 2. Acute kidney injury/chronic renal failure, fluctuating creatinine. Creatinine noted at 1.79. Continue to encourage the patient to increase his fluid and p.o. intake. Daughters says they will try to help with the patient increasing his fluid intake. 3. Awaiting rehab placement. 4. Metabolic encephalopathy, much improved. My bias is to discontinue his levetiracetam, since the patient's EEG did not show any overt seizures. 5. Overall agree with current management. Recheck CBC and basic metabolic in a.m. Job ID: [id number]
[2019-04-01] MEDS: Ferrous Sulfate 325 MG TAB PO SCH (10:00)
[2019-04-01] MEDS: Benzonatate 100 MG CAP PO SCH ×3 (10:00→21:27)
[2019-04-01] MEDS: Isosorbide Dinitrate 5 MG TAB PO SCH ×2 (10:00→21:24)
[2019-04-01] MEDS: Carvedilol 6.25 MG TAB PO SCH ×2 (10:00→18:03)
[2019-04-01] MEDS: hydrALAZINE 25 MG TAB PO SCH ×3 (10:00→21:24)
[2019-04-01] MEDS: Aspirin 81 mg Enteric Coated Tablet PO SCH (10:00)
[2019-04-01] MEDS: Saccharomyces boulardii 250 MG CAP PO SCH (10:01)
--- NOTE | 2019-04-01 15:31 | PDOC.HOSPP ---
- Subjective Subjective: Mr. Willis was seen today at approximately 11:30AM in follow-up of cellulitis of the right upper extremity, and encephalopathy. He is awake and alert. He was seen up walking with physical therapy. - Objective Vital Signs & Weight: Vital Signs (12 hours) Temp Pulse Pulse Pulse Resp BP BP 04/01/19 12:04 97.9 F 70 16 04/01/19 11:11 70 68 138/65 134/68 04/01/19 07:30 98.0 F 68 18 04/01/19 04:00 98 F 72 20 BP Pulse Ox 04/01/19 12:04 138/79 96 04/01/19 11:11 04/01/19 07:30 137/66 96 04/01/19 04:00 135/68 92 L Weight Admit Weight 179 lb 3.2 oz Weight 154 lb 4 oz Most Recent Monitor Data Heart Rate from ECG 70 NIBP 132/79 NIBP BP-Mean 96 Respiration from ECG 21 SpO2 93 Result Diagrams: 04/01/19 04:50 04/01/19 04:50 ROS - Review of Systems All systems: All other ROS were reviewed and found negative. - Medication Medications: Active Medications Generic Name Dose Route Start Last Admin Trade Name Freq PRN Reason Stop Dose Admin Aspirin 81 mg 03/17/19 09:00 04/01/19 10:00 Ecotrin PO 81 mg QAM JUNIOR Administration Atorvastatin Calcium 80 mg 03/17/19 21:00 03/31/19 20:18 Lipitor PO 80 mg HS JUNIOR Administration Benzonatate 100 mg 03/23/19 15:00 04/01/19 10:00 Tessalon PO 100 mg TID JUNIOR Administration Bisacodyl 10 mg 03/16/19 22:27 03/27/19 20:56 Dulcolax [place] 10 mg DAILYPRN PRN Administration Constipation Carvedilol 6.25 mg 03/17/19 08:00 04/01/19 10:00 Coreg PO 6.25 mg BID-WM JUNIOR Administration Ciprofloxacin 500 mg 03/30/19 20:00 04/01/19 07:33 Cipro PO 500 mg 0600,2000 JUNIOR Administration Epoetin Shane-epbx 7,500 unit 03/22/19 12:00 03/29/19 14:15 Retacrit SC 7,500 unit Q7D JUNIOR Administration Ferrous Sulfate 325 mg 03/23/19 08:00 04/01/19 10:00 Feosol PO 325 mg QAM-WM JUNIOR Administration Guaifenesin/Codeine Phosphate 10 ml 03/22/19 10:10 03/23/19 00:17 Robitussin Ac PO 10 ml Q6H PRN Administration Cough Hydralazine HCl 25 mg 03/22/19 09:00 04/01/19 10:00 Apresoline PO 25 mg TID JUNIOR Administration Isosorbide Dinitrate 5 mg 03/17/19 09:00 04/01/19 10:00 Isordil PO 5 mg BID JUNIOR Administration Pantoprazole Sodium 40 mg 03/17/19 09:00 04/01/19 10:01 Protonix PO 40 mg QAM JUNIOR Administration Potassium Chloride 20 meq 03/29/19 17:00 04/01/19 10:00 Klor-Con PO 20 meq BID-WM JUNIOR Administration Ranolazine 1,000 mg 03/17/19 09:00 04/01/19 10:01 Ranexa PO 1,000 mg BID JUNIOR Administration Rivaroxaban 15 mg 03/21/19 18:00 03/31/19 19:02 Xarelto PO 15 mg 1800 JUNIOR Administration Saccharomyces Boulardii 250 mg 03/17/19 09:00 04/01/19 10:01 Florastor PO 250 mg DAILY JUNIOR Administration Sodium Chloride 10 ml 03/19/19 09:00 04/01/19 10:02 Flush - Normal Saline IVF Not Given Q12HR JUNIOR - Exam Eye: PERRL, anicteric sclera ENT: normocephalic atraumatic Heart: RRR, no murmur, no gallops, no rubs, normal peripheral pulses Respiratory: CTAB, no wheezes, no rales, no ronchi, normal chest expansion, no tachypnea, normal percussion Gastrointestinal: soft, non-tender, non-distended, normal bowel sounds, no palpable masses Extremities: no cyanosis, no clubbing, no edema, 1+ LE edema (No edema in his lower extremities, but swelling in both upper extremities) Neurological: no weakness, no new deficit Hosp A/P (1) Acute on chronic systolic CHF (congestive heart failure) Code(s): I50.23 - ACUTE ON CHRONIC SYSTOLIC (CONGESTIVE) HEART FAILURE Status : Acute (2) Bacteremia Code(s): R78.81 - BACTEREMIA Status: Acute (3) Superficial venous thrombosis of arm Code(s): I82.619 - ACUTE EMBOLISM AND THROMBOSIS OF SUPERFIC VN UNSP UP EXTREM Status: Acute Qualifiers: Laterality: right Qualified Code(s): I82.611 - Acute embolism and thrombosis of superficial veins of right upper extremity (4) Cellulitis and abscess of upper arm and forearm Code(s): MAJ8967 - Status: Resolved (5) Anticoagulant long-term use Code(s): Z79.01 - [facility] (CURRENT) USE OF ANTICOAGULANTS Status: Chronic (6) Atrial fibrillation Code(s): I48.91 - UNSPECIFIED ATRIAL FIBRILLATION Status: Chronic Qualifiers: Atrial fibrillation type: chronic Qualified Code(s): I48.2 - Chronic atrial fibrillation - Plan * Metabolic encephalopathy- improved * Anemia- acute on chronic- will transfuse a unit today ( he has heart disease, and multiple co-morbidities, therefore transfusion is appropriate) * Cellulitis with Acinetobacter bacteremia- continue Cipro orally- length of therapy to be determined by ID * AFIB- heart rate is stable * Continue Xarelto for CVA prevention
[2019-04-01] MEDS: Rivaroxaban 10 MG TAB PO SCH (18:04)
[2019-04-01] MEDS ORDERED: Sodium Chloride 0.9% 250 ML 250 ML IVPB SCH (18:45)
[2019-04-01] MEDS ORDERED: Sodium Chloride 0.9% 250 ML IVPB SCH (19:30)
[2019-04-01] MEDS: Atorvastatin Calcium 40 MG TAB PO SCH (21:26)
[2019-04-01] MEDS: Bisacodyl 10 MG SUPP PR PRN (21:27)
[2019-04-02 05:32] LABS: #Basophils 0.1 thou/uL (0.0-0.2); #Eosinphils 0.1 thou/uL (0.0-0.7); #Lymphocytes 0.6 thou/uL (1.20-3.40); #Monocytes 0.5 thou/uL (0.11-0.59); #Neutrophils 2.8 thou/uL (1.40-6.50); %Basophils 1.3 % (0.0-1.0); %Eosinophils 3.2 % (0.0-10.0); %Lymphocytes 14.9 % (21.0-51.0); %Monocytes 12.3 % (0.0-10.0); %Neutrophils 68.4 % (42.0-75.0); Hemoglobin 9.3 g/dL (14.0-18.0); Mean Corpuscular HGB CONC 34.6 g/dL (32.0-36.0); Mean Corpuscular Hemoglobin 34.5 pg (27.0-31.0); Mean Corpuscular Volume 99.5 fL (78.0-98.0); Platelet Count 64 thou/uL (130-400); RBC Distribution Width 18.4 % (11.5-14.5); Red Blood Cell (RBC) Count 2.69 mill/uL (4.70-6.10); White Blood Cell (WBC) Count 4.1 thou/uL (4.8-10.8)
[2019-04-02 05:44] LABS: Anion Gap 12 mmol/L (10-20); BUN (Urea Nitrogen) 34 mg/dL (8.4-25.7); Calc. Creatinine Clearance 34 mL/min (70-130); Calcium 8.6 mg/dL (7.8-10.44); Carbon Dioxide 23 mmol/L (23-31); Chloride 104 mmol/L (98-107); Estimated GFR-MDRD 39; Glucose 94 mg/dL (83-110); Potassium 4.5 mmol/L (3.5-5.1); Sodium 134 mmol/L (136-145)
[2019-04-02] MEDS: Ciprofloxacin 500 MG TAB PO SCH ×2 (06:35→21:19)
--- NOTE | 2019-04-02 08:45 | PRG ---
DATE OF SERVICE: 04/02/2019 SUBJECTIVE: Mr. Willis is an 83-year-old white male, followed up by the Renal Service for his acute kidney injury on top of his chronic renal failure. Renal function has been remaining stable. He received an interim 250 mL bolus of normal saline. His p.o. intake is still decreased. Please note that diuretic-furosemide has been discontinued. He voices no new complaints. No chest pain or shortness of breath. No acute events noted last night. OBJECTIVE: VITAL SIGNS: Blood pressure 135/72, heart rate 71, respiratory rate 18, temperature 96.9, and pulse ox 94%. GENERAL: He is noted to be awake, alert, supine, comfortable, not in distress. SKIN: Adequate turgor. HEENT: He has pinkish conjunctivae. Anicteric sclerae. NECK: No neck mass. No carotid bruits. No JVD. CHEST: No deformities. LUNGS: Clear breath sounds. No wheezing. No crackles. HEART: Normal sinus rhythm. No murmur. No gallops. No rubs. ABDOMEN: Globular, soft, nontender. No masses. EXTREMITIES: No edema. No deformities. MEDICATIONS: Medications of April 02, 2019, were reviewed. LABORATORY DATA: Laboratories of April 02, 2019; white count 4.1, hemoglobin 9.3. Sodium 134, potassium 4.5, chloride 104, carbon dioxide 23, BUN 34, creatinine 1.68, glucose 94, calcium 8.6. ASSESSMENT AND PLAN: 1. Acute kidney injury/chronic renal failure. Previous superimposed prerenal azotemia. Stable renal function. Continue to encourage the patient to increase p.o. and fluid intake. 2. No indication for any dialytic intervention. 3. Anemia. Continuing weekly Epogen with this patient, doing well. 4. Awaiting rehabilitation placement. Job ID: [id number]
[2019-04-02] MEDS: Carvedilol 6.25 MG TAB PO SCH ×2 (09:24→16:07)
[2019-04-02] MEDS: Benzonatate 100 MG CAP PO SCH ×3 (09:25→21:21)
[2019-04-02] MEDS: hydrALAZINE 25 MG TAB PO SCH ×3 (09:25→21:22)
[2019-04-02] MEDS: Aspirin 81 mg Enteric Coated Tablet PO SCH (09:25)
[2019-04-02] MEDS: Saccharomyces boulardii 250 MG CAP PO SCH (09:25)
[2019-04-02] MEDS: Isosorbide Dinitrate 5 MG TAB PO SCH ×2 (09:25→21:22)
[2019-04-02] MEDS: Ferrous Sulfate 325 MG TAB PO SCH (09:25)
--- NOTE | 2019-04-02 10:00 | CON ---
DATE OF CONSULTATION: 04/01/2019 TIME OF CONSULTATION: 1700 hours. CLINICAL SUMMARY: The patient is an 83-year-old man with fairly severe dementia, who was admitted on March 16, 2019, for cardiovascular volume overload and worsening of a chronic cough. In recent days, the daughter feels that his peripheral vision is diminished, and I believe this would be his left peripheral vision. PHYSICAL EXAMINATION: On examination, he has fairly severe dementia and does not readily follow instructions. On covering one eye for testing vision, he closes the other eye. Ultimately, he fairly consistently identified a 2-cm size number with each eye individually. Confrontation visual field was simply not reliable or possible. On anterior segment exam, the conjunctiva is quiet, the cornea is clear, and he is pseudophakic bilaterally. The pupils are about 3 mm and reactive to light without afferent pupillary defect. Ocular motility is grossly full. He was dilated, and dilated fundus exam, the cup/disc ratio was about 0.1 or 0.2. The optic nerve color is normal. He shows no retinal pathology such as macular scarring. The peripheral retina is intact and flat. IMPRESSION: I see no structural sign for ocular pathologies that would cause a visual field defect. The daughter may simple be noticing the result of his worsening dementia, or there may be a central nervous system/occipital lobe pathology, which is not detected by an eye exam such as this. I do not currently believe he needs further workup for that type of pathology. Job ID: [id number]
--- NOTE | 2019-04-02 16:18 | PDOC.HOSPP ---
- Subjective Subjective: Mr. Willis was seen today in follow-up at approximately 10:30AM. He does not have any complaints. He is sitting up in bed, smiling, and even trying to make some jokes. - Objective Vital Signs & Weight: Vital Signs (12 hours) Temp Pulse Pulse Resp BP BP BP 04/02/19 15:54 97.9 F 77 20 04/02/19 11:58 98 F 72 18 04/02/19 10:26 72 149/57 H 122/66 04/02/19 09:25 72 04/02/19 09:24 139/63 04/02/19 08:15 98.2 F 72 18 BP Pulse Ox 04/02/19 15:54 123/75 93 L 04/02/19 11:58 124/64 95 04/02/19 10:26 04/02/19 09:25 04/02/19 09:24 04/02/19 08:15 141/73 H 97 Weight Admit Weight 179 lb 3.2 oz Weight 160 lb 12.8 oz Most Recent Monitor Data Heart Rate from ECG 70 NIBP 132/79 NIBP BP-Mean 96 Respiration from ECG 21 SpO2 93 I&O: 04/01/19 04/02/19 04/03/19 06:59 06:59 06:59 Intake Total 590 Output Total 150 Balance 440 Result Diagrams: 04/02/19 04:48 04/02/19 04:48 ROS - Review of Systems All systems: All other ROS were reviewed and found negative. - Medication Medications: Active Medications Generic Name Dose Route Start Last Admin Trade Name Freq PRN Reason Stop Dose Admin Aspirin 81 mg 03/17/19 09:00 04/02/19 09:25 Ecotrin PO 81 mg QAM JUNIOR Administration Atorvastatin Calcium 80 mg 03/17/19 21:00 04/01/19 21:26 Lipitor PO 80 mg HS JUNIOR Administration Benzonatate 100 mg 03/23/19 15:00 04/02/19 09:25 Tessalon PO 100 mg TID JUNIOR Administration Bisacodyl 10 mg 03/16/19 22:27 04/01/19 21:27 Dulcolax [place] 10 mg DAILYPRN PRN Administration Constipation Carvedilol 6.25 mg 03/17/19 08:00 04/02/19 09:24 Coreg PO 6.25 mg BID-WM JUNIOR Administration Ciprofloxacin 500 mg 03/30/19 20:00 04/02/19 06:35 Cipro PO 500 mg 06,1999 JUNIOR Administration Epoetin Shane-epbx 7,500 unit 03/22/19 12:00 03/29/19 14:15 Retacrit SC 7,500 unit Q7D JUNIOR Administration Ferrous Sulfate 325 mg 03/23/19 08:00 04/02/19 09:25 Feosol PO 325 mg QAM-WM JUNIOR Administration Guaifenesin/Codeine Phosphate 10 ml 03/22/19 10:10 03/23/19 00:17 Robitussin Ac PO 10 ml Q6H PRN Administration Cough Hydralazine HCl 25 mg 03/22/19 09:00 04/02/19 09:25 Apresoline PO 25 mg TID JUNIOR Administration Isosorbide Dinitrate 5 mg 03/17/19 09:00 04/02/19 09:25 Isordil PO 5 mg BID JUNIOR Administration Pantoprazole Sodium 40 mg 03/17/19 09:00 04/02/19 09:25 Protonix PO 40 mg QAM JUNIOR Administration Potassium Chloride 20 meq 03/29/19 17:00 04/02/19 09:24 Klor-Con PO 20 meq BID-WM JUNIOR Administration Ranolazine 1,000 mg 03/17/19 09:00 04/02/19 09:25 Ranexa PO 1,000 mg BID JUNIOR Administration Rivaroxaban 15 mg 03/21/19 18:00 04/01/19 18:04 Xarelto PO 15 mg 1800 JUNIOR Administration Saccharomyces Boulardii 250 mg 03/17/19 09:00 04/02/19 09:25 Florastor PO 250 mg DAILY JUNIOR Administration Sodium Chloride 10 ml 03/19/19 09:00 04/02/19 09:26 Flush - Normal Saline IVF 10 ml Q12HR JUNIOR Administration - Exam Eye: PERRL, anicteric sclera Heart: RRR, no murmur, no gallops, no rubs, normal peripheral pulses Respiratory: CTAB, no wheezes, no rales, no ronchi, normal chest expansion Gastrointestinal: soft, non-tender, non-distended, normal bowel sounds Extremities: no cyanosis (+ edema in both upper extemities) Hosp A/P (1) Acute on chronic systolic CHF (congestive heart failure) Code(s): I50.23 - ACUTE ON CHRONIC SYSTOLIC (CONGESTIVE) HEART FAILURE Status : Acute (2) Bacteremia Code(s): R78.81 - BACTEREMIA Status: Acute (3) Superficial venous thrombosis of arm Code(s): I82.619 - ACUTE EMBOLISM AND THROMBOSIS OF SUPERFIC VN UNSP UP EXTREM Status: Acute Qualifiers: Laterality: right Qualified Code(s): I82.611 - Acute embolism and thrombosis of superficial veins of right upper extremity (4) Cellulitis and abscess of upper arm and forearm Code(s): CXG6202 - Status: Resolved (5) Anticoagulant long-term use Code(s): Z79.01 - SKILLED NURSING (CURRENT) USE OF ANTICOAGULANTS Status: Chronic (6) Atrial fibrillation Code(s): I48.91 - UNSPECIFIED ATRIAL FIBRILLATION Status: Chronic Qualifiers: Atrial fibrillation type: chronic Qualified Code(s): I48.2 - Chronic atrial fibrillation - Plan * Cellulitis of the right upper extremity- resolving * Acinetobacter Bacteremia- continue Cipro * Metabolic encephalopathy- due to Cefepime- improved after this has been discontinued * Acute on chronic kidney injury- improved * Acute on chronic anemia- better-after transfusion- will reduce blood draws to every other day * Chronic anticoagulation with Xarelto * HTN- blood pressure is stable
--- NOTE | 2019-04-02 17:28 | PDOC.EVN ---
Event Note - Event Note Event Note: Called to see patient due to altered mental status. His daughter reports that he was staring blankly, and that he did not respond even when she tried shouting at him. He also chocked when she tried to give him some water. He has a history of seizures, but this was different from his recent and first and only witnessed seizure in September of this year. No he seems a bit confused, and drowsy. He will follow some simple commands but inconsistently. He may have suffered another seizure- and he may be now post-ictal. Will monitor him for and hour or so to see if he improves- if not then consider CT scan of the brain to rule out bleed or new CVA.
[2019-04-02] MEDS: Rivaroxaban 10 MG TAB PO SCH (18:43)
[2019-04-02] MEDS: Atorvastatin Calcium 40 MG TAB PO SCH (21:21)
[2019-04-03] MEDS: Ciprofloxacin 500 MG TAB PO SCH (07:15)
--- NOTE | 2019-04-03 08:49 | PRG ---
DATE OF SERVICE: 04/03/2019 SERVICE: Renal Medicine. SUBJECTIVE: Mr. Willis is an 83-year-old white male, followed up by the Renal Service for his acute kidney injury on top of his chronic renal failure. Recently, we held off the Keppra due to his mentation changes and generalized tiredness. However, yesterday he had some blank stare and was not responding to verbal stimuli. For that reason, it was felt that he might have had a seizure. Of note that the last EEG did not show any active seizures. As a precaution, he was started back on his levetiracetam. This morning, he is noted to be stable, arousable, and talking. No other complaints. OBJECTIVE: VITAL SIGNS: Blood pressure 139/75, heart rate 81, respiratory rate 18, temperature 98.6, and pulse ox 95%. GENERAL: Awake, alert, comfortable, not in distress. SKIN: Adequate turgor. HEENT: He has slightly pale conjunctivae. Anicteric sclerae. NECK: No neck mass. No carotid bruits. No JVD. CHEST: No deformities. LUNGS: Clear breath sounds. HEART: Normal sinus rhythm. No murmur. No gallops. No rubs. ABDOMEN: Globular, soft, and nontender. No masses. EXTREMITIES: No edema. No deformities. MEDICATIONS: Medications of April 03, 2019, was reviewed. LABORATORY DATA: Laboratories of April 02, 2019; white count 4.1, hemoglobin 9.3. Sodium 134, potassium 4.5, chloride 104, carbon dioxide 23, BUN 34, creatinine 1.68, and calcium 8.6. ASSESSMENT AND PLAN: 1. Acute kidney injury/chronic renal failure. Stable renal function. Last creatinine was 1.68. We will recheck another creatinine tomorrow. 2. ? of seizure - the patient noted to be staring blankly by the nurse yesterday and was not wanting to take his medication. The issue is whether this seizure activity was entertained. For that reason, levetiracetam was restarted back. 3. Anemia, stable. Continuing weekly Epogen. Awaiting transfer to rehab. ADDENDUM: Recheck basic metabolic panel and CBC in a.m. if he is still here. Job ID: [id number]
[2019-04-03] MEDS: Benzonatate 100 MG CAP PO SCH ×2 (09:05→14:11)
[2019-04-03] MEDS: Carvedilol 6.25 MG TAB PO SCH ×2 (09:06→16:26)
[2019-04-03] MEDS: Ferrous Sulfate 325 MG TAB PO SCH (09:06)
[2019-04-03] MEDS: Isosorbide Dinitrate 5 MG TAB PO SCH (09:07)
[2019-04-03] MEDS: hydrALAZINE 25 MG TAB PO SCH ×2 (09:07→14:41)
[2019-04-03] MEDS: Aspirin 81 mg Enteric Coated Tablet PO SCH (09:07)
[2019-04-03] MEDS: Saccharomyces boulardii 250 MG CAP PO SCH (09:08)
[2019-04-03 13:47] VITALS: BMI 21.2
--- NOTE | 2019-04-03 15:11 | DIS ---
DATE OF ADMISSION: 03/16/2019 DATE OF DISCHARGE: 04/03/2019 DISCHARGE DIAGNOSES: 1. Acute on chronic systolic congestive heart failure exacerbation with ejection fraction of 30% to 35%. 2. Sepsis with acute organ dysfunction secondary to right upper extremity cellulitis/thrombophlebitis with Acinetobacter lwoffii. 3. Demand ischemia of the myocardium secondarily to sepsis. 4. Moderate protein-calorie malnutrition. 5. Chronic kidney disease, stage 3. 6. Chronic macrocytic anemia, status post 1 unit of packed red blood cells. 7. Chronic thrombocytopenia. 8. Dementia with toxic metabolic encephalopathy, multifactorial. 9. Chronic anticoagulation with Xarelto secondary to chronic atrial fibrillation. 10. Sick sinus syndrome, status post pacemaker placement. 11. Seizure disorder, treated with Keppra. 12. Deconditioning. CONSULTATIONS: 1. Dr. Maximilian Gustafson with Infectious Disease Service. 2. Dr. Gigi Gamble with Ophthalmology Service. 3. Dr. Felix with Nephrology Service. 4. Dr. Rodriguez with Cardiology Service. 5. Dr. Vivek Richards with Neurology Service. PERTINENT LABORATORY AND X-RAY FINDINGS: Potassium ranged between 2.7 to 4.5. Creatinine ranged between 1.44 to 1.80, estimated GFR ranged between 36 to 47. BNP ranged between 3042 to 5508. Lactic acid level ranged between 1.0 to 2.8. CRP 11.56. Vitamin B12 level 665. Cortisol level 8.7. CBC showed a hemoglobin ranging between 7.5 to 9.5. Blood cultures x2 dated 03/16/2019 showed Acinetobacter lwoffii. Stool Hemoccult dated 03/18/2019, positive. Stool Hemoccult dated 03/19/2019, positive. Stool Hemoccult dated 03/28/2019, positive. CT of the brain without contrast dated 03/16/2019 showed no acute intracranial process. Portable chest x-ray dated 03/16/2019 showed decompensated congestive heart failure with bilateral pulmonary edema and right-sided pleural effusion. CT of the abdomen and pelvis dated 03/16/2019, showed bilateral pleural effusions with bibasilar atelectasis. Stable loculated fluid within Morison's pouch. Chronic findings noted. Please see dictated report for full details. Right upper extremity venous Doppler study dated 03/21/2019, showed no evidence for right upper extremity DVT. Small volume superficial thrombus within the right cephalic vein at the elbow. Transesophageal echocardiogram dated 03/23/2019 showed ejection fraction 35% to 40%. Biatrial enlargement. No mass or thrombus noted. No vegetations on the mitral valve. [id number] tricuspid regurgitation without vegetations. CT of the brain without contrast dated 03/24/2019 showed no acute intracranial process. EEG dated 03/26/2019 showed diffuse slowing consistent with encephalopathic process. HOSPITAL COURSE: The patient, who initially presented with shortness of breath and altered mentation. The patient underwent extensive evaluation with multiple neuroimaging studies in conjunction with metabolic workup showing evidence of sepsis of unclear source with suspicion for right upper extremity cellulitis. The patient was discovered with a superficial thrombus in the cephalic vein as noted previously and treated supportively with compresses and IV antibiotic therapy. The patient was also treated for concomitant congestive heart failure exacerbation with IV Lasix. The patient continued on empiric antibiotic therapy with vancomycin and Zosyn until blood cultures did reveal Acinetobacter species in 2 blood cultures from 03/16/2019. Consultation was obtained by the Infectious Disease Service, who recommended continuation of antibiotic coverage and to rule out evidence of focal infectious process or valvular vegetations with the transesophageal echocardiogram. The IVANNA was performed showing no evidence of vegetations and the patient continued on IV antibiotic therapy, transitioning to oral quinolones after concern for reaction to previously prescribed cefepime. The patient's hospital course was complicated due to multiple issues related to worsening encephalopathy and delirium and the need for adjustment to chronic medication regimen including holding Keppra. The patient exhibited seizure-like activity after being discontinued on Keppra, however, this had resolved after resuming the medication and observing for approximately 24 hours. The patient was evaluated by the Neurology Service, undergoing EEG evaluation showing no seizure activity. However, the waveforms were consistent with encephalopathy, likely multifactorial in nature. The patient was deconditioned and evaluated by the Physical Therapy Service for general range of motion exercises and short distance mobilization. Due to the patient's comorbid status, deconditioning, and prolonged hospital stay, the patient was deemed an appropriate candidate for ongoing inpatient rehabilitation services. The patient continued to clinically stabilize with waxing and waning mental status and somnolence. I have examined the patient at the time of discharge and discussed followup instructions and disposition planning with the daughter at the bedside. The patient's daughter verbalized understanding and in agreement and will attend her father in transport to inpatient rehabilitation. The patient overall clinically stable and ready for transfer on 04/03/2019. DISCHARGE MEDICATIONS: 1. Enteric-coated aspirin 81 mg p.o. daily. 2. Lipitor 80 mg p.o. at bedtime. 3. Albuterol sulfate 2 puffs inhaled q.i.d. p.r.n. 4. Artificial Tears p.r.n. 5. Tessalon Perles 100 mg p.o. t.i.d. 6. Carvedilol 6.25 mg p.o. b.i.d. 7. Ciprofloxacin 500 mg p.o. b.i.d. x2 weeks. 8. Epogen 7500 units subcutaneously q.7 days. 9. Ferrous sulfate 325 mg p.o. daily. 10. Hydralazine 25 mg p.o. t.i.d. 11. Isosorbide dinitrate 5 mg p.o. b.i.d. 12. Keppra 500 mg p.o. b.i.d. 13. Protonix 40 mg p.o. daily. 14. Klor-Con 20 mEq p.o. b.i.d. 15. Ranexa 1000 mg p.o. b.i.d. 16. Xarelto 15 mg p.o. daily. 17. Florastor 250 mg p.o. daily. FOLLOWUP: The patient may follow up with his primary care provider, Dr. Thomas Luong after discharge from inpatient rehabilitation. The patient may follow up with Dr. Rodriguez with [facility]. The patient may follow up with Dr. Felix with Nephrology Service. CONDITION ON DISCHARGE: Guarded. ACTIVITY: Rolling walker with standby/contact guard assistance with high fall risk precautions. DIET: Regular. CODE STATUS: Chemical intubation only. DISPOSITION: Discharged to [facility] on 04/03/2019. TIME SPENT: Total time preparing and coordinating discharge, 45 minutes. Job ID: [id number]
[2019-04-03 16:22] VITALS: BP 118/69; TEMP 97.7
[2019-04-03] MEDS: Rivaroxaban 10 MG TAB PO SCH (18:02)
== END 2019-04-03 19:11 | DRG 871 ==
LOC: ERS 17:06 → IMCU/EMU 22:01 → 2NO 03-21 13:38
PROVIDERS: ADMIT Internal Medicine; ATTEND Internal Medicine
PROC: 0DJ08ZZ Inspection of Upper Intestinal Tract, Via Natural or Artificial Opening Endoscopic (ICD-10-PCS; 2019-03-21)
PROC: B24BZZ4 Ultrasonography of Heart with Aorta, Transesophageal (ICD-10-PCS; principal; 2019-03-24)
DX: A41.59 Other Gram-negative sepsis (principal); I50.23 Acute on chronic systolic (congestive) heart failure; I21.A1 Myocardial infarction type 2; G92 Toxic encephalopathy; J18.9 Pneumonia, unspecified organism; L03.113 Cellulitis of right upper limb; E44.0 Moderate protein-calorie malnutrition; I13.0 Hypertensive heart and chronic kidney disease with heart failure and stage 1 through stage 4 chronic kidney disease, or unspecified chronic kidney disease; N17.9 Acute kidney failure, unspecified; I82.611 Acute embolism and thrombosis of superficial veins of right upper extremity; E87.2 Acidosis; E87.1 Hypo-osmolality and hyponatremia; N18.3 Chronic kidney disease, stage 3 (moderate); D63.1 Anemia in chronic kidney disease; D69.6 Thrombocytopenia, unspecified; I49.5 Sick sinus syndrome; G40.909 Epilepsy, unspecified, not intractable, without status epilepticus; I48.2 Chronic atrial fibrillation; I25.5 Ischemic cardiomyopathy; I25.10 Atherosclerotic heart disease of native coronary artery without angina pectoris; K21.9 Gastro-esophageal reflux disease without esophagitis; K44.9 Diaphragmatic hernia without obstruction or gangrene; R65.20 Severe sepsis without septic shock; E83.42 Hypomagnesemia; F17.210 Nicotine dependence, cigarettes, uncomplicated; K29.70 Gastritis, unspecified, without bleeding; R41.0 Disorientation, unspecified; T36.1X5A Adverse effect of cephalosporins and other beta-lactam antibiotics, initial encounter; E87.6 Hypokalemia; Z95.1 Presence of aortocoronary bypass graft; Z68.21 Body mass index [BMI] 21.0-21.9, adult; Z79.01 Long term (current) use of anticoagulants; Z79.82 Long term (current) use of aspirin; Z95.0 Presence of cardiac pacemaker; Z79.899 Other long term (current) drug therapy
CPT/HCPCS: 36415; 36430; 51701; 70450; 71045; 74177; 80048; 80053; 81003; 81015; 82140; 82274; 82533; 82553; 82607; 83605; 83690; 83735; 83880; 84100; 84484; 85025; 86140; 86850; 86900; 86901; 87040; 87077; 87149; 87186; 93005; 93312; 93798; 95816; 95819; 96365; 96367; 96375; J0692; J0696; J0744; J1940; J1953; J2060; J2250; J2543; J2704; J3370; J3475; J3480; J3490; J7042; J7050; P9016; Q5105; Q9966

== ENCOUNTER 2019-10-30 15:27 | Outpatient (CLI) | payer MEDICARE ==
--- NOTE | 2019-10-30 15:53 | RAD ---
EXAM: Two views chest PROVIDED CLINICAL HISTORY: Localized edema. Cough and congestion for a week and a half. 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 Dual lead left subclavian cardiac pacemaking de vice remains in place. Cardiac silhouette is mildly enlarged. Pulmonary vasculature is at the upper limits of normal. Again noted is suggestion of tiny bilateral pleural effusions. Slightly greater pat emma parenchymal densities are seen at the left lung base which could be related to atelectasis versus pneumonitis. Remote right-sided rib fractures and deformities are again seen. Vascular calcifi cations are seen in the thoracic aorta. No other interval change. IMPRESSION: 1. Suggestion of tiny bilateral pleural effusions. Slightly greater patchy parenchymal densities are seen in the left lung base which could be related to atelectasis versus pneumonitis. Follow-up evaluation is recommended. 2. Cardiomegaly with pulmonary vasculature at the upper limits of normal..
== END 2019-10-30 15:28 | disposition home or self-care (01) ==
LOC: BICRAD 15:27
PROVIDERS: ATTEND Internal Medicine Cardiovascular Disease
DX: R60.0 Localized edema (principal); J98.4 Other disorders of lung; I51.7 Cardiomegaly
CPT/HCPCS: 36415; 71046; 83880

== ENCOUNTER 2020-01-23 11:14 | Day surgery (SDC) | payer MEDICARE ==
[2020-01-23] MEDS ORDERED: Acetaminophen 500 MG TAB PO PRN (12:23)
[2020-01-23] MEDS ORDERED: diphenhydrAMINE 25 MG CAP PO PRN (12:23)
[2020-01-23 19:24] VITALS: BP 100/52; TEMP 98.4
[2020-01-23 19:26] LABS: Hemoglobin 10.5 g/dL (14.0-18.0); Mean Corpuscular HGB CONC 33.6 g/dL (32.0-36.0); Mean Corpuscular Hemoglobin 34.1 pg (27.0-31.0); Mean Platelet Volume 11.1 fL (7.4-10.4); Platelet Count 87 thou/uL (130-400); RBC Distribution Width 18.1 % (11.5-14.5); Red Blood Cell (RBC) Count 3.09 mill/uL (4.70-6.10); White Blood Cell (WBC) Count 3.5 thou/uL (4.8-10.8)
== END 2020-01-23 19:50 | disposition home or self-care (01) ==
LOC: ONC/OP 11:14 → ONC 11:16 → ONC/OP 19:50
PROVIDERS: ATTEND Nurse Practitioner Acute Care
PROC: 30233N1 Transfusion of Nonautologous Red Blood Cells into Peripheral Vein, Percutaneous Approach (ICD-10-PCS; principal; 2020-01-23)
DX: D64.9 Anemia, unspecified (principal); D69.6 Thrombocytopenia, unspecified; Z88.1 Allergy status to other antibiotic agents; Z91.018 Allergy to other foods
CPT/HCPCS: 36415; 36430; 85027; 86850; 86900; 86901; P9016; Q0163